=== PATIENT | female | born 1980 | race Caucasian/White ===

== ENCOUNTER 2021-01-26 14:59 | Outpatient (CLI) | payer OTHER, MEDICAID, SELFPAY ==
--- NOTE | ~2021-01-26 | US_ITS ---
EXAMINATION: US pelvic complete DATE: 01/26/2021 15:43 INDICATION: Follow-up ovarian cysts Comparison:No prior studies for comparison. TECHNIQUE: Multiple transabdominal and endovaginal sonographic images of the pelvis performed. 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 The right ovary is not visualized. The left ovary is unremarkable measuring 4.1 x 2 x 1.7 cm. No ovarian cyst is seen. Normal vascularity in the left ovary. IMPRESSION: 1. Unremarkable limited pelvic ultrasound. Normal left ovary. Right ovary not visualized due to gravi d uterus. Reviewed, dictated and finalized at location A. 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 Unremarkable limited pelvic ultrasound. Normal left ovary. Right ovary not v isualized due to gravid uterus.
== END 2021-01-26 15:00 | disposition home or self-care (01) ==
LOC: ANHIMG 15:02
PROVIDERS: PCP Physician Assistant
DX: O34.82 Maternal care for other abnormalities of pelvic organs, second trimester (principal); Z3A.17 17 weeks gestation of pregnancy; N83.209 Unspecified ovarian cyst, unspecified side
CPT/HCPCS: 76856

== ENCOUNTER 2021-05-07 09:40 | Observation (INO) | payer OTHER, SELFPAY ==
[2021-05-07] VITALS (13 sets, daily range): BP systolic 126–166; BP diastolic 60–96; PULSE 82–92; RESP 18–20; TEMP 36.1–36.6; BMI 37.8
--- NOTE | ~2021-05-07 | US_ITS ---
EXAMINATION: US_ABDRLQ_US DATE: 05/07/2021 15:37 INDICATION: Right lower quadrant abdominal pain. TECHNIQUE: Multiple grayscale and Doppler ultrasound images of the abdomen were obtained. COMPARISON: Ultrasound pelvis 05/07/2021, 01/26/2021 FINDINGS: The appendix is not identified. There is a 6.8 x 3.8 x 8.5 cm mixed solid and cystic mass i n the right adnexa with vascular flow. The cystic component measures 7.1 x 2.2 cm with low-level inte rnal echoes. IMPRESSION: 1. Appendix not identified. 2. Mixed solid and cystic mass in the right adnexa, most likely the right ovary with a hemorrhagic cy st. Pelvis ultrasound is recommended in 6-12 weeks. Reviewed, dictated and finalized at location E. IMPRESSION: 1. Appendix not identified. 2. Mixed solid and cystic mass in the right adnexa, most likely the right ovary with a hemorrhagic cyst. Pelvis ultrasound is recommended in 6-12 weeks.
--- NOTE | ~2021-05-07 | CT_ITS ---
EXAMINATION: CT abdomen pelvis wo con DATE: 05/07/2021 17:36 INDICATION: Right abdominal pain. TECHNIQUE: Computed tomography (CT) of the abdomen and pelvis was performed without intravenous contr ast. Automated exposure control and iterative reconstruction technique were employed. The dose-length product was 1303.24 mGy-cm. COMPARISON: Ultrasound 05/07/2021 FINDINGS: The visualized portions of the lung bases are clear without pneumonia or pleural effusion. The heart size is normal. No pericardial effusion. The liver is normal. There are changes of cholecys tectomy. The spleen, pancreas, and left adrenal gland are normal. There is a 2.3 cm mass in right adr enal gland measuring low-attenuation, consistent with an adenoma. The kidneys are normal. There are n o dilated loops of bowel. The appendix is normal. There is an intrauterine gestation in vertex presen tation. The placenta is anterior. The amniotic fluid volume is subjectively normal. There is a 4.4 cm subserosal fibroid anteriorly. There is a 7.7 x 4.4 cm mixed solid and cystic mass in right adnexa. There is no free intraperitoneal fluid. There are no pathologically enlarged lymph nodes. There is mi ld lumbar spondylosis and moderate thoracic spondylosis. IMPRESSION: 1. Normal appendix. 2. Mixed solid and cystic mass in the right adnexa, most likely the right ovary with a hemorrhagic cy st. Pelvis ultrasound is recommended in 6-12 weeks. Reviewed, dictated and finalized at location E. IMPRESSION: 1. Normal appendix. 2. Mixed solid and cystic mass in the right adnexa, most likely the right ovary with a hemorrhagic cyst. Pelvis ultrasound is recommended in 6-12 weeks.
--- NOTE | ~2021-05-07 | US_ITS ---
EXAMINATION: US OB limited DATE: 05/07/2021 13:40 INDICATION: Abdominal pain, placental assessment during third trimester TECHNIQUE: Real-time ultrasound of the pelvis was performed. The interpreting radiologist was not pre sent for the study. COMPARISON: None. FINDINGS: There is a single living fetus in vertex presentation. The placenta is anterior and normal in appearance. cardiac activity and movement are noted. heart rate is 175 beats per minute (bpm). The amniotic fluid index is subjectively normal. IMPRESSION: 1. Single living fetus in vertex presentation. 2. Normal appearing placenta. Reviewed, dictated and finalized at location A.
[2021-05-07] MEDS: NIFEdipine 30 MG TAB.ER.24 PO (11:05)
[2021-05-07] MEDS: ONDANSETRON INJ 4 MG/2 ML VIAL IV PUSH ×2 (11:05→18:47)
[2021-05-07] MEDS: SODIUM CHLORIDE 0.9% IV 1,000 ML 999 ML IV CONT (11:21)
[2021-05-07 11:24] LABS: Basophils Percent Auto 0.3 % (0.2-1.2); Eosinophils Percent Auto 0.5 % (0-4.4); Hematocrit 38.8 % (37.0-47.0); Hemoglobin 13.3 g/dL (12.0-15.0); Immature Granulocyte Absolute 0.06 K/mm3 (0.00-0.031); Immature Granulocyte Percent A 0.7 % (0-0.5); Lymphocytes Absolute Auto 0.72 K/mm3 (0.9-3.2); Lymphocytes Percent Auto 8.2 % (18.3-44.2); Mean Corpuscular HGB Conc 34.3 g/dl (32-36); Mean Corpuscular Volume 87.4 fl (80-100); Mean Platelet Volume 11.6 fl (7.4-10.4); Monocytes Absolute Auto 0.5 K/mm3 (0.1-0.6); Monocytes Percent Auto 5.6 % (2.6-8.5); Neutrophils Absolute Auto 7.5 K/mm3 (1.3-6.7); Neutrophils Percent Auto 84.7 % (45.5-73.1); Platelet Count Result 197 k/mm3 (150-375); Red Blood Count 4.44 M/mm3 (4.2-5.4); Red Cell Distribution Width 13.1 % (11.5-14.5); White Blood Count 8.8 K/mm3 (4.5-10.0)
[2021-05-07 11:41] LABS: Alanine Aminotransferase 17 U/L (4-35); Alkaline Phosphatase 59 U/L (38-126); Anion Gap 8 mmol/L (8-16); Aspartate Amino Transferase 24 U/L (14-36); Bilirubin,Total 0.4 mg/dL (0.2-1.3); Blood Urea Nitrogen 10 mg/dL (7-17); Carbon Dioxide 22 mmol/L (22-30); Chloride 106 mmol/L (98-107); Estimated Glomerular Filt Rate > 60; Glucose 93 mg/dL (65-110); Potassium 3.8 mmol/L (3.4-5.0); Sodium 136 mmol/L (137-145); Uric Acid 4.5 mg/dL (2.5-7.5)
[2021-05-07 11:47] LABS: Add Urine Microscopic? YES; Amorphous Sediment Urine Few; Appearance Urine Turbid (Clear); Bacteria Urine 1+ /hpf; Bilirubin Urine Negative (Negative); Blood Urine Negative (Negative); Color Urine Amber (Yellow); Glucose Urine UA Negative (Negative); Ketones Urine Negative (Negative); Leukocyte Esterase Ur Negative LEU/UL (Negative); Mucus Urine Rare /lpf; Nitrate Urine Negative (Negative); Protein Urine Negative (Negative); RBC Urine 0-2 /hpf (0-2); Specific Grav Ur 1.017 (1.001-1.035); Squamous Epithelial Cell Urine Moderate /hpf (Few); Urobilinogen Urine Negative mg/dL (<2.0); WBC Urine 16-20 /hpf
[2021-05-07] MEDS: CYCLOBENZAPRINE HCL 10 MG TABLET PO (12:01)
--- NOTE | 2021-05-07 12:22 | OBADM ---
This patient, Kalyn Edouard, admitted to the OB room OB Post 116 for observation. Patient/family oriented to hospital policies and general routines including ID bracelet, bed and alarms, visiting hours, pain management, procedures, bathroom and other care routines, personal items, smoking policy, room service/diet, and visiting hours. Patient/Family are encouraged to report perceived risks to care and to ask questions if they do not understand what they are told or what they should do.
[2021-05-07] MEDS: DEXTROSE 5%/LACTATED RINGERS 1,000 ML 100 ML IV CONT (13:10)
--- NOTE | 2021-05-07 13:18 | PC.NURSE ---
1020- called,informed pt came in stating she has had right sided abdominal pain that radiates around to her back since 0800 today. Pt has had n/v since 0900. Pt states she did not take her procardia this am, bp's are elevated. Order received for [facility] labs, UA, zofran,LR bolus.
--- NOTE | 2021-05-07 13:53 | PM.IMHP ---
H&P: HPI History of Present Illness Date/Time: 05/07/21 13:53 She presented to [facility] with complaints of right sided lower abdominal and lower back pain. She woke up this am to go restroom and then noticed the pain. She started feeling nauseated and she had emesis this morning after she got up. She denies scotomata or RUQ pain and she denies fever chills no diarrhea. She denies dysuria. No history of kidney stones. PNC significant for chronic hypertension, pregestational diabetes. Blood pressures initially elevated when she arrived on L and D. She had not taken her antihypertensive this morning due to nausea. She denies spotting. She has not tried any tylenol for pain. No regular contractions seen on toco. tracing reassuring. Chief Complaint: abdominal pain Review of Systems Review of Systems: All systems reviewed & are unremarkable except as noted in HPI and below Constitutional: Constitutional: Reports no additional constitutional complaints and Denies headache(s) Eyes: Eyes: Denies spots in vision ENT: Reports system reviewed and no additional complaints, except as documented and Denies headache(s) Cardiovascular: Cardiovascular: Denies chest pain and Denies dyspnea Respiratory: Respiratory: Denies dyspnea Gastrointestinal: Gastrointestinal: Reports no additional gastrointestinal complaints Genitourinary: Genitourinary: Reports amenorrhea Musculoskeletal: Musculoskeletal: Reports no additional musculoskeletal complaints Integumentary/Breasts: Skin/Breast: Denies breast mass and Denies rash Neurologic: Denies headache(s) Psychiatric: Psychiatric: Reports no additional psychiatric complaints [facility] Past Medical History Medical History Anxiety Bladder prolapse Diabetes mellitus Hypertension Surgical History Surgical History History of carpal tunnel surgery 2002? bilateral History of cholecystectomy [place] teeth extracted Family History Family History Grandparent Cerebrovascular accident Heart problem Grandparent Diabetes mellitus Social History Social History Smoking status: Never smoker Alcohol intake: never Substance use: never Meds Home Medications and Allergies Home Medications Medication Instructions Recorded Confirmed Type docosahexaenoic acid 200 mg capsule 200 mg PO ONCE 11/19/20 05/07/21 History omega-3 fatty acids 1,000 mg 1,000 mg PO BID 11/19/20 05/07/21 History capsule aspirin 81 mg chewable tablet 81 mg PO BID tablet 12/15/20 05/07/21 History calcium carbonate 600 mg-vitamin 1 cap PO .qd #90 cap 02/17/21 05/07/21 Rx D3 5 mcg (200 unit) capsule insulin lispro 100 unit/mL 20 unit SUBCUT USEASDIRECTD ml 03/09/21 05/07/21 History subcutaneous pen nifedipine 30 mg tablet,extended See Rx Instructions .ROUTE 04/26/21 05/07/21 Rx release .COMPLEX #90 tablet buspirone 15 mg tablet 15 mg PO BID #60 tablet 05/02/21 05/07/21 Rx Allergies Allergy/AdvReac Type Severity Reaction Status Date / Time No Known Allergies Allergy Verified 05/02/21 10:06 Vital Signs Vital Signs - 24 hr 05/07/21 10:10 05/07/21 10:16 05/07/21 10:31 Temperature Pulse Rate 83 89 85 Blood Pressure 157/85 H 166/94 H 163/96 H 05/07/21 11:01 05/07/21 11:02 05/07/21 11:59 Temperature 97 F L 97.0 F L Pulse Rate 82 Blood Pressure 126/96 H 05/07/21 13:13 Temperature Pulse Rate 88 Blood Pressure 142/75 H Exam Const: General: no acute distress Eyes: General: appearance normal, both eyes and all related structures Resp: Effort & Inspection: normal respiratory effort Cardio: Rate: regular rate GI: Other: Gravid no fundal tenderness no right upper quadrant pain groin tenderness to palpation No CVA tenderness no midepig
--- NOTE | 2021-05-07 15:06 | PC.NURSE ---
1505- called,informed pt is stating her pain is a little better pt originally rated her pain 8/10 and now just says she cant give a number but is still in pain. Pt attempted to eat tierney crackers and drink apple juice but became more nauseous. US report read and UA. Will call back with further orders.
--- NOTE | 2021-05-07 15:18 | P.PNOB_ITS ---
OB - PN: Subj Subjective Date/time seen: 05/07/21 15:18 Patient received Flexiril and IV tylenol and said pain helped a little. She still has nausea. UA not significant for stones. Ultrasound findings normal. Will ask radiology if were able to assess appendix, if not then will get ultrasound to assess appendix if possible and if cannot assess appendix by ultrasound then will order MRI. Will give trial of [place]. OB - PN: Obj Data Labs CBC & Chem 7: 05/07/21 10:42 05/07/21 10:42 Labs: Laboratory Results - last 24 hr 05/07/21 05/07/21 05/07/21 10:42 10:42 10:42 WBC 8.8 RBC 4.44 Hgb 13.3 Hct 38.8 MCV 87.4 MCH 30.0 MCHC 34.3 RDW 13.1 Plt Count 197 MPV 11.6 H Immature Gran % (Auto) 0.7 H Neut % (Auto) 84.7 H Lymph % (Auto) 8.2 L [place] % (Auto) 5.6 Eos % (Auto) 0.5 Baso % (Auto) 0.3 Lymph # (Auto) 0.72 L [place] # (Auto) 0.5 Eos # (Auto) 0.0 Baso # (Auto) 0.0 Abs Immat Gran (auto) 0.06 H Absolute Neuts (auto) 7.5 H Absolute Nucleated RBC 0.0 Nucleated RBC % 0.0 Sodium 136 L Potassium 3.8 Chloride 106 Carbon Dioxide 22 Anion Gap 8 BUN 10 Creatinine 0.40 L Estim Creat Clear Calc Not Reportable Estimated GFR > 60 Glucose 93 Uric Acid 4.5 Calcium 9.0 Total Bilirubin 0.4 AST 24 ALT 17 Alkaline Phosphatase 59 Total Protein 7.0 Albumin 4.0 Urine Color Yvette Urine Appearance Turbid H Urine pH 7.0 Ur Specific [place] 1.017 Urine Protein Negative Urine Glucose (UA) Negative Urine Ketones Negative Ur Blood (Man) Negative Urine Nitrate Negative Urine Bilirubin Negative Urine Urobilinogen Negative Leukocyte Esterase Rfl Negative Urine RBC 0-2 Urine WBC 16-20 H Ur Squamous Epith Cells Moderate H Amorphous Sediment Few H Urine Bacteria 1+ H Urine Mucus Rare Imaging Radiologist's impression: Impressions Obstetrics Ultrasound 05/07/21 14:06 IMPRESSION: 1. Single living fetus in vertex presentation. 2. Normal appearing placenta. OB - PN A/P Time Spent With Patient Time: Total time spent is greater than 50% in coordination of care (as documented) at patient's floor/unit and/or counseling patient:
[2021-05-07] MEDS: HYDROcodone/acetaminophen (*CRX) 5-325 MG TABLET 1 TAB PO ×2 (15:42→17:01)
--- NOTE | 2021-05-07 16:08 | PC.NURSE ---
0741- called,read US report of right lower quadrant of the abdomen. Informed pt states the pain feels like when she had an ovarian cyst rupture before. POC now is pain management with hydrocodone.
--- NOTE | 2021-05-07 16:38 | PC.NURSE ---
1638- called,informed pt is tearful and stating her pain is not any better. Order for MRI of appendix obtained and another 5mg dose of hydrocodone.
--- NOTE | 2021-05-07 17:09 | PC.NURSE ---
ordered CT of the abdomen d/t MRI no available after 1530.
--- NOTE | 2021-05-07 17:24 | PC.NURSE ---
1722-Pt transported to CT per wheelchair. Pt and SO were both explained that has ordered a CT to r/o appendicitis. They both had questions about the safety of the CT for baby, explained that spoke to the radiologist and they believe the benefits outway the risk. Offered to call and transfer call into the room so they could ask questions, pt stated she just wanted to get the CT now.
[2021-05-07] MEDS: HYDROcodone/acetaminophen (*CRX) 10-325 MG TABLET 1 TAB PO (20:52)
[2021-05-08] MEDS: HYDROcodone/acetaminophen (*CRX) 10-325 MG TABLET 1 TAB PO ×3 (00:56→10:26)
[2021-05-08 04:30] VITALS: RESP 18; TEMP 36.3
[2021-05-08 04:56] VITALS: BP 135/64; PULSE 75
[2021-05-08 04:58] LABS: Glucose Point of Care 101 mg/dl (65-105)
[2021-05-08 07:58] LABS: Glucose Point of Care 96 mg/dl (65-105)
[2021-05-08 09:05] VITALS: BP 135/65; PULSE 78; TEMP 37.2
[2021-05-08] MEDS: busPIRone HCL 10 MG, busPIRone HCL 5 MG 15 MG PO (09:05)
[2021-05-08] MEDS: DOCUSATE SODIUM 100 MG CAPSULE PO (09:05)
--- NOTE | 2021-05-08 09:19 | PM.OBPNVD ---
OB - PN: Subj Subjective Date/time seen: 05/08/21 09:19 She states pain is better. She did tolerate some bites of an apple throughout the night. She does have an appetite this am. Mild nausea but improved. No recent emesis. The pain is better with the medication. Her blood sugars are being monitored. No BM, last BM . OB - PN: Obj Data Labs CBC & Chem 7: 05/07/21 10:42 05/07/21 10:42 Labs: Laboratory Results - last 24 hr 05/07/21 05/07/21 05/07/21 10:42 10:42 10:42 WBC 8.8 RBC 4.44 Hgb 13.3 Hct 38.8 MCV 87.4 MCH 30.0 MCHC 34.3 RDW 13.1 Plt Count 197 MPV 11.6 H Immature Gran % (Auto) 0.7 H Neut % (Auto) 84.7 H Lymph % (Auto) 8.2 L [place] % (Auto) 5.6 Eos % (Auto) 0.5 Baso % (Auto) 0.3 Lymph # (Auto) 0.72 L [place] # (Auto) 0.5 Eos # (Auto) 0.0 Baso # (Auto) 0.0 Abs Immat Gran (auto) 0.06 H Absolute Neuts (auto) 7.5 H Absolute Nucleated RBC 0.0 Nucleated RBC % 0.0 Sodium 136 L Potassium 3.8 Chloride 106 Carbon Dioxide 22 Anion Gap 8 BUN 10 Creatinine 0.40 L Estim Creat Clear Calc Not Reportable Estimated GFR > 60 Glucose 93 POC Capillary Glucose Uric Acid 4.5 Calcium 9.0 Total Bilirubin 0.4 AST 24 ALT 17 Alkaline Phosphatase 59 Total Protein 7.0 Albumin 4.0 Urine Color Yvette Urine Appearance Turbid H Urine pH 7.0 Ur Specific [place] 1.017 Urine Protein Negative Urine Glucose (UA) Negative Urine Ketones Negative Ur Blood (Man) Negative Urine Nitrate Negative Urine Bilirubin Negative Urine Urobilinogen Negative Leukocyte Esterase Rfl Negative Urine RBC 0-2 Urine WBC 16-20 H Ur Squamous Epith Cells Moderate H Amorphous Sediment Few H Urine Bacteria 1+ H Urine Mucus Rare 05/08/21 05/08/21 04:54 07:55 WBC RBC Hgb Hct MCV MCH MCHC RDW Plt Count MPV Immature Gran % (Auto) Neut % (Auto) Lymph % (Auto) [place] % (Auto) Eos % (Auto) Baso % (Auto) Lymph # (Auto) [place] # (Auto) Eos # (Auto) Baso # (Auto) Abs Immat Gran (auto) Absolute Neuts (auto) Absolute Nucleated RBC Nucleated RBC % Sodium Potassium Chloride Carbon Dioxide Anion Gap BUN Creatinine Estim Creat Clear Calc Estimated GFR Glucose POC Capillary Glucose 101 96 Uric Acid Calcium Total Bilirubin AST ALT Alkaline Phosphatase Total Protein Albumin Urine Color Urine Appearance Urine pH Ur Specific [place] Urine Protein Urine Glucose (UA) Urine Ketones Ur Blood (Man) Urine Nitrate Urine Bilirubin Urine Urobilinogen Leukocyte Esterase Rfl Urine RBC Urine WBC Ur Squamous Epith Cells Amorphous Sediment Urine Bacteria Urine Mucus Imaging Radiologist's impression: Impressions Obstetrics Ultrasound 05/07/21 14:06 IMPRESSION: 1. Single living fetus in vertex presentation. 2. Normal appearing placenta. Abdomen Ultrasound 05/07/21 15:45 IMPRESSION: 1. Appendix not identified. 2. Mixed solid and cystic mass in the right adnexa, most likely the right ovary with a hemorrhagic cyst. Pelvis ultrasound is recommended in 6-12 weeks. Abdomen/Pelvis CT 05/07/21 17:37 IMPRESSION: 1. Normal appendix. 2. Mixed solid and cystic mass in the right adnexa, most likely the right ovary with a hemorrhagic cyst. Pelvis ultrasound is recommended in 6-12 weeks. OB - PN A/P Assessment and Plan (1) Abdominal pain affecting : Code(s): O26.899 - Other specified related conditions, unspecified trimester; R10.9 - Unspecified abdominal pain Status: Acute Assessment and Plan: Improved. Explained to her that yesterday since her pain was not being significantly improved with the narco and emesis and since MRI was not available that she needed th
--- NOTE | 2021-05-08 09:34 | PC.NURSE ---
Pt ordered eggs, sausage and hashbrowns for breakfast. She was only able to eat a little bit and stated she couldn't eat the rest of it. Stated she is not nauseous but just can't eat it. Instructed she needed to eat something. She normally has a shake in the morning, her significant other will get her a shake and she will eat her apple with peanut butter.
[2021-05-08] MEDS: polyethylene glycoL 3350 17 GM POWD.PACK PO (09:44)
[2021-05-08 10:01] LABS: Add Urine Microscopic? NO; Appearance Urine Clear (Clear); Bilirubin Urine Negative (Negative); Blood Urine Negative (Negative); Color Urine Yellow (Yellow); Glucose Urine UA Negative (Negative); Ketones Urine Negative (Negative); Leukocyte Esterase Ur Negative LEU/UL (NEGATIVE); Nitrate Urine Negative (Negative); Protein Urine Negative (Negative); Specific Grav Ur 1.012 (1.001-1.035); Urobilinogen Urine Negative mg/dL (<2.0)
[2021-05-08 11:53] LABS: Glucose Point of Care 128 mg/dl (65-105)
--- NOTE | 2021-05-08 13:30 | PC.NURSE ---
Ambulating in the [place] with S.O.
[2021-05-08] MEDS: INSULIN ASPART (*BKC) 100 UNITS/ML SUB-Q (14:06)
[2021-05-08] MEDS: HYDROcodone/acetaminophen (*CRX) 5-325 MG TABLET 1 TAB PO (15:19)
[2021-05-08 15:25] VITALS: BP 134/71; PULSE 87
[2021-05-08 15:29] LABS: Glucose Point of Care 98 mg/dl (65-105)
== END 2021-05-08 16:35 | disposition home or self-care (01) ==
PROVIDERS: Admitting Provider Obstetrics & Gynecology; PCP Physician Assistant; Visit Provider Obstetrics & Gynecology
DX: O26.893 Other specified pregnancy related conditions, third trimester (principal); R10.31 Right lower quadrant pain; O34.83 Maternal care for other abnormalities of pelvic organs, third trimester; N83.201 Unspecified ovarian cyst, right side; O21.9 Vomiting of pregnancy, unspecified; O24.313 Unspecified pre-existing diabetes mellitus in pregnancy, third trimester; E11.9 Type 2 diabetes mellitus without complications; O10.913 Unspecified pre-existing hypertension complicating pregnancy, third trimester; O99.343 Other mental disorders complicating pregnancy, third trimester; F41.9 Anxiety disorder, unspecified; Z3A.33 33 weeks gestation of pregnancy; Z79.4 Long term (current) use of insulin
CPT/HCPCS: 36415; 74176; 76705; 76815; 80053; 81001; 81003; 82948; 84550; 85025; 87086; 87088; 96365; 96366; 96375; A9270; G0378; G0379; J0131; J1815; J2405; J7030; J7121

== ENCOUNTER 2021-05-26 13:23 | Outpatient (CLI) | payer OTHER, SELFPAY ==
[2021-05-26 13:48] VITALS: BP 129/74; PULSE 90
[2021-05-26 14:00] VITALS: BP 132/79; PULSE 92
[2021-05-26 14:08] LABS: Basophils Percent Auto 0.4 % (0.2-1.2); Eosinophils Absolute Auto 0.1 K/mm3 (0-0.3); Eosinophils Percent Auto 0.9 % (0-4.4); Hematocrit 34.6 % (37.0-47.0); Hemoglobin 11.6 g/dL (12.0-15.0); Immature Granulocyte Absolute 0.05 K/mm3 (0.00-0.031); Immature Granulocyte Percent A 0.5 % (0-0.5); Lymphocytes Absolute Auto 1.25 K/mm3 (0.9-3.2); Lymphocytes Percent Auto 13.1 % (18.3-44.2); Mean Corpuscular HGB Conc 33.5 g/dl (32-36); Mean Corpuscular Hemoglobin 29.6 pg (26-34); Mean Corpuscular Volume 88.3 fl (80-100); Mean Platelet Volume 10.7 fl (7.4-10.4); Monocytes Absolute Auto 0.8 K/mm3 (0.1-0.6); Monocytes Percent Auto 8.5 % (2.6-8.5); Neutrophils Absolute Auto 7.3 K/mm3 (1.3-6.7); Neutrophils Percent Auto 76.6 % (45.5-73.1); Platelet Count Result 250 k/mm3 (150-375); Red Blood Count 3.92 M/mm3 (4.2-5.4); Red Cell Distribution Width 13.5 % (11.5-14.5); White Blood Count 9.6 K/mm3 (4.5-10.0)
[2021-05-26 14:11] LABS: Appearance Urine Clear (Clear); Bilirubin Urine Negative (Negative); Blood Urine Negative (Negative); Color Urine Yellow (Yellow); Glucose Urine UA Negative (Negative); Ketones Urine Negative (Negative); Leukocyte Esterase Ur Negative LEU/UL (NEGATIVE); Nitrate Urine Negative (Negative); Protein Urine Negative (Negative); Specific Grav Ur 1.025 (1.001-1.035); Urobilinogen Urine 0.2 mg/dL (<2.0)
[2021-05-26 14:17] VITALS: BP 129/74
[2021-05-26 14:17] LABS: Add Urine Microscopic? NO
[2021-05-26 14:19] VITALS: BP 129/74
[2021-05-26 14:19] LABS: Alanine Aminotransferase 37 U/L (4-35); Albumin Level 3.5 g/dL (3.5-5.1); Alkaline Phosphatase 71 U/L (38-126); Anion Gap 6 mmol/L (8-16); Aspartate Amino Transferase 26 U/L (14-36); Bilirubin,Total 0.2 mg/dL (0.2-1.3); Blood Urea Nitrogen 12 mg/dL (7-17); Calcium 8.7 mg/dL (8.4-10.2); Carbon Dioxide 20 mmol/L (22-30); Chloride 106 mmol/L (98-107); Estimated Glomerular Filt Rate > 60; Glucose 72 mg/dL (65-110); Potassium 3.9 mmol/L (3.4-5.0); Sodium 132 mmol/L (137-145); Uric Acid 4.1 mg/dL (2.5-7.5)
--- NOTE | 2021-05-26 14:20 | PC.NURSE ---
1323-Pt sent over from 's office for an elevated bp. [facility] labs ordered.
[2021-05-26 18:10] LABS: Total Protein Urine Random < 5 mg/dL; Ur Ttl Prot Creatinine Ratio < 0.05 mg/mg (0-0.20)
== END 2021-05-26 15:45 | disposition home or self-care (01) ==
LOC: ANHOBOP 13:27
PROVIDERS: PCP Physician Assistant; Visit Provider Obstetrics & Gynecology
DX: O13.3 Gestational [pregnancy-induced] hypertension without significant proteinuria, third trimester (principal); Z3A.36 36 weeks gestation of pregnancy
CPT/HCPCS: 36415; 59025; 80053; 81003; 82570; 84156; 84550; 85025; 87086; 87088

== ENCOUNTER 2021-05-29 16:15 | Outpatient (RCR) | payer OTHER, SELFPAY ==
[2021-04-01 09:15] VITALS: BP 123/68; PULSE 81
[2021-04-14 23:48] VITALS: BP 143/77; PULSE 80
--- NOTE | 2021-04-14 23:51 | PC.NURSE ---
Dr Loyd notified of decreased movement, marking good movement noted and feels reassured. Ok to DC home.
[2021-05-01 15:49] VITALS: BP 131/73; PULSE 93
[2021-05-15 16:48] VITALS: BP 133/71; PULSE 83
[2021-05-21 10:11] VITALS: BP 130/74; PULSE 88
[2021-05-29 16:51] VITALS: BP 122/73; PULSE 99
[2021-06-05 15:29] VITALS: BP 135/86; PULSE 103
== END 2021-06-13 08:10 | disposition home or self-care (01) ==
LOC: ANHOBOP 16:15
PROVIDERS: PCP Physician Assistant; Visit Provider Obstetrics & Gynecology
DX: O36.8130 Decreased fetal movements, third trimester, not applicable or unspecified (principal); Z3A.28 28 weeks gestation of pregnancy; Z3A.30 30 weeks gestation of pregnancy; Z3A.32 32 weeks gestation of pregnancy; E11.9 Type 2 diabetes mellitus without complications; Z3A.34 34 weeks gestation of pregnancy; O16.3 Unspecified maternal hypertension, third trimester; Z3A.35 35 weeks gestation of pregnancy; Z3A.36 36 weeks gestation of pregnancy; Z3A.37 37 weeks gestation of pregnancy
CPT/HCPCS: 59025

== ENCOUNTER 2021-06-08 10:00 | Outpatient (CLI) | payer OTHER, SELFPAY ==
[2021-06-08] VITALS (7 sets, daily range): BP systolic 133–142; BP diastolic 77–81; PULSE 81–89; BMI 37.4
[2021-06-08 12:03] LABS: Basophils Percent Auto 0.4 % (0.2-1.2); Eosinophils Absolute Auto 0.1 K/mm3 (0-0.3); Eosinophils Percent Auto 0.9 % (0-4.4); Hematocrit 34.2 % (37.0-47.0); Hemoglobin 11.2 g/dL (12.0-15.0); Immature Granulocyte Absolute 0.05 K/mm3 (0.00-0.031); Immature Granulocyte Percent A 0.6 % (0-0.5); Lymphocytes Percent Auto 12.7 % (18.3-44.2); Mean Corpuscular HGB Conc 32.7 g/dl (32-36); Mean Corpuscular Hemoglobin 29.3 pg (26-34); Mean Corpuscular Volume 89.5 fl (80-100); Mean Platelet Volume 11.3 fl (7.4-10.4); Monocytes Absolute Auto 0.7 K/mm3 (0.1-0.6); Monocytes Percent Auto 9.3 % (2.6-8.5); Neutrophils Percent Auto 76.1 % (45.5-73.1); Platelet Count Result 187 k/mm3 (150-375); Red Blood Count 3.82 M/mm3 (4.2-5.4); Red Cell Distribution Width 14.4 % (11.5-14.5); White Blood Count 7.9 K/mm3 (4.5-10.0)
[2021-06-08 12:07] LABS: Appearance Urine Clear (Clear); Bilirubin Urine Negative (Negative); Color Urine Yellow (Yellow); Glucose Urine UA Negative (Negative); Ketones Urine Trace mg/dL (Negative); Leukocyte Esterase Ur Negative LEU/UL (Negative); Nitrate Urine Negative (Negative); Protein Urine Negative (Negative); Specific Grav Ur 1.025 (1.001-1.035); Urobilinogen Urine 0.2 mg/dL (<2.0)
[2021-06-08 12:10] LABS: Add Urine Microscopic? YES; Blood Urine Trace-Intact (Negative)
[2021-06-08 12:12] LABS: Alanine Aminotransferase 21 U/L (4-35); Albumin Level 3.1 g/dL (3.5-5.1); Alkaline Phosphatase 72 U/L (38-126); Anion Gap 4 mmol/L (8-16); Aspartate Amino Transferase 18 U/L (14-36); Bilirubin,Total 0.3 mg/dL (0.2-1.3); Blood Urea Nitrogen 11 mg/dL (7-17); Calcium 8.7 mg/dL (8.4-10.2); Carbon Dioxide 22 mmol/L (22-30); Chloride 106 mmol/L (98-107); Estimated Glomerular Filt Rate > 60; Glucose 98 mg/dL (65-110); Potassium 3.9 mmol/L (3.4-5.0); Sodium 132 mmol/L (137-145); Uric Acid 4.2 mg/dL (2.5-7.5)
[2021-06-08 12:16] LABS: Bacteria Urine Trace /hpf; Mucus Urine Rare /lpf; Squamous Epithelial Cell Urine Few /hpf (Few); WBC Urine 0-3 /hpf
[2021-06-08 12:34] LABS: Creatinine Urine 104.8 mg/dL; Total Protein Urine Random 7 mg/dL; Ur Ttl Prot Creatinine Ratio 0.07 mg/mg (0-0.20)
--- NOTE | 2021-06-08 12:35 | PC.NURSE ---
Dr. Ochoa down to see pt. SVE performed by . Still waiting for total protein/creatinine ratio. has seen the other labs.
--- NOTE | 2021-06-08 13:20 | PC.NURSE ---
Dr. Ochoa returned page and informed of Total protein/ creatinine ratio results. OK to discharge pt to home. To complete 24 hr urine and return to OB unit. Pt is scheduled for NST and JEFE on Sunday and induction of labor on Sunday evening.
[2021-06-09 12:17] VITALS: BMI 37.4
[2021-06-09 13:32] LABS: Collection Time Urine 24 HOURS
[2021-06-09 13:40] LABS: Total Protein Urine Random 11 mg/dL
[2021-06-09 13:41] LABS: Creatinine Urine 62.6 mg/dL; Patient Weight 224 Lbs
[2021-06-09 15:08] LABS: Total Protein Urine 24 Hr 330 mg/24hr (28-141); Total Volume 24 Hour Urine 3000 ml
[2021-06-09 15:13] LABS: Specific Gravity Ur 1.015
[2021-06-09 15:14] LABS: Creatinine Clearance Urine 181.8 ml/min (75-125); Total Volume 24 Hour Urine 3000 ml
== END 2021-06-08 13:41 | disposition home or self-care (01) ==
LOC: ANHOBOP 10:09 → ANHOBPP 10:13
PROVIDERS: PCP Physician Assistant; Visit Provider Obstetrics & Gynecology
DX: O13.3 Gestational [pregnancy-induced] hypertension without significant proteinuria, third trimester (principal); Z3A.38 38 weeks gestation of pregnancy
CPT/HCPCS: 36415; 59025; 80053; 81001; 81050; 82570; 82575; 84156; 84550; 85025; 99199

== ENCOUNTER 2021-06-10 16:07 | Inpatient (IN) | payer OTHER, SELFPAY ==
[2021-06-10] VITALS (8 sets, daily range): BP systolic 134–157; BP diastolic 80–95; PULSE 88–113; TEMP 36.4–36.8; BMI 37.5
--- NOTE | ~2021-06-10 | XR_ITS ---
EXAM: XR abdomen/kub 1V HISTORY: Post Op day 2, NAUSEA AND VOMITING COMPARISON: None available FINDINGS: Clear lung bases. Multiple loops of dilated small bowel. No large bowel dilation or rectal gas. No organomegaly. Cholecystectomy clips. No abnormal abdominal calcification. Regional bones and soft tissues normal for age. IMPRESSION: Small bowel ileus versus distal small bowel obstruction, recommend continued radiographic follow-up. Reviewed, dictated and finalized at location K. IMPRESSION: Small bowel ileus versus distal small bowel obstruction, recommend continued ra diographic follow-up.
--- NOTE | ~2021-06-10 | XR_ITS ---
EXAMINATION: XR abdomen/kub 1V INDICATION: Ileus TECHNIQUE: Supine views of the abdomen were obtained on 2 radiographs. COMPARISON: 06/14/2021 FINDINGS: There are persistently dilated loops of small bowel which demonstrate interval improvement. Gas is seen in the distal colon. The lung bases are clear. Surgical clips in the right upper quadran t are likely from prior cholecystectomy. No free intraperitoneal gas is identified. IMPRESSION: 1. Persistent but decreased small bowel dilatation, likely ileus. Reviewed, dictated and finalized at location A.
--- NOTE | ~2021-06-10 | XR_ITS ---
EXAMINATION: XR abdomen/kub 1V INDICATION: Ileus TECHNIQUE: Supine views of the abdomen were obtained on 2 radiographs. COMPARISON: 06/15/2021 FINDINGS: Overall small bowel dilatation has improved. There are persistently dilated small bowel loo ps of the right abdomen. No free intraperitoneal gas is identified. The bowel gas pattern is normal. IMPRESSION: 1. Improving ileus. Reviewed, dictated and finalized at location A. IMPRESSION: 1. Improving ileus.
--- OUTSIDE RECORDS SUMMARY | 2021-06-10 16:14 | XMS_ITS ---
:1980 Author Care Team Providers Name Role Phone TANIA RAZO PA-C Primary Care Provider Unavailable Allergies Code Code System Name Reaction Severity Status Onset NKDA ? Notes: NDKA 01/03/17 BK Medications Name Status Start Date Stop Date ? ? alcohol swabs Active ? Not available Apply 1 pad every day by topical route for 30 days. amoxicillin 500 mg-potassium Completed ? 10/2016 clavulanate 125 mg tablet aspirin 81mg chewable tablets Active ? No t available aspirin low 81mg chw Active ? Not availab le CHEW AND SWALLOW 2 TABLETS BY MOUTH AT BEDTIME FOR PREECLAMPSIA RISK azithromycin 250 mg tablet Completed ? 06/12 Baqsimi 3 mg/actuation nasal spray Active ? Not available buspirone 10 mg tablet Active ? Not avail able TAKE 1 TABLET BY MOUTH TWICE DAILY AFTER A MEAL Calcium + Vitamin D Active ? Not availabl e calcium carbonate 600 mg-vitamin D3 5 mcg (200 unit) tablet Acti ve ? Not available TAKE 1 TABLET BY MOUTH ONCE DAILY cefuroxime axetil 500 mg tablet Completed ? 09/13/2016 ciprofloxacin 500 mg tablet Completed ? 10/2016 Classic 28 mg iron-800 mcg tablet Active ? Not available TAKE 1 TABLET BY MOUTH ONCE DAILY WITH MEALS cyclobenzaprine 10 mg tablet Active ? Not available TAKE 1 TABLET BY MOUTH NEEDED AT BEDTIME FOR 30 DAYS diclofenac 1 % topical gel Completed ? 01/19 APPLY 2 GRAM TO THE AFFECTED AREA(S) BY TOPICAL ROUTE 4 TIMES P ER DAY famotidine 20 mg ta
--- OUTSIDE RECORDS SUMMARY | 2021-06-10 16:14 | XMS_ITS ---
:1980 Author Care Team Providers Name Role Phone Hopper Primary Care Provider Unavailable Allergies Code Code System Name Reaction Severity Status Onset NKDA ? Medications Name Status Start Date Stop Date ? ? acetaminophen 300 mg-codeine 30 mg Completed ? 02/22/2016 tablet amoxicillin 500 mg-potassium Completed ? clavulanate 125 mg tablet buspirone 10 mg tablet Active ? Not avail able calcium Active ? Not available cefuroxime axetil 500 mg tablet Completed ? 02/04/2020 cephalexin 500 mg capsule Completed ? 2015 ciprofloxacin 500 mg tablet Completed ? 01/07 Classic 28 mg iron-800 mcg tablet Completed ? 02/04/2020 TAKE 1 TABLET BY MOUTH ONCE DAILY cyclobenzaprine 10 mg tablet Active ? Not available Fish Oil 1,000 mg (120 mg-180 mg) capsule Active ? Not available Take by oral route. hydrocodone 5 mg-acetaminophen 325 mg Completed ? 02/04/2020 tablet hydroxyzine pamoate 25 mg capsule Completed ? 02/04/2020 ibuprofen 600 mg tablet Completed ? 02/04/20 Kenalog 10 mg/mL suspension for injection Active ? Not available In office injection administered by the provider lidocaine (PF) 10 mg/mL (1 %) injection solution Active ? Not available In office injection administered by the provider lisinopril 20 mg tablet Completed ? 02/04/20 20 TAKE 1 TABLET BY MOUTH ONCE DAILY DIRECTED FOR 30 DAYS lisinopril 20 mg-hydrochlorothiazide A
--- OUTSIDE RECORDS SUMMARY | 2021-06-10 16:14 | XMS_ITS ---
:1980 Author Care Team Providers Name Role Phone Hopper Primary Care Provider Unavailable Allergies Code Code System Name Reaction Severity Status Onset NKDA ? Medications Name Status Start Date Stop Date ? ? acetaminophen 300 mg-codeine 30 mg tablet Active ? Not available amoxicillin 500 mg-potassium clavulanate Active ? Not available 125 mg tablet buspirone Active ? Not available buspirone 10 mg tablet Active ? Not avail able cefuroxime axetil 500 mg tablet Active ? Not available cephalexin 500 mg capsule Active ? Not av ailable ciprofloxacin 500 mg tablet Active ? Not available Classic 28 mg iron-800 mcg tablet Active ? Not available TAKE 1 TABLET BY MOUTH ONCE DAILY cyclobenzaprine 10 mg tablet Active ? Not available hydrocodone 5 mg-acetaminophen 325 mg Active ? Not available tablet hydroxyzine pamoate 25 mg capsule Active ? Not available ibuprofen 600 mg tablet Active ? Not avai lable lisinopril Active ? Not available lisinopril 20 mg tablet Active ? Not avai lable TAKE 1 TABLET BY MOUTH ONCE DAILY DIRECTED FOR 30 DAYS lisinopril 20 mg-hydrochlorothiazide 12.5 Active ? Not available mg tablet oxybutynin chloride 5 mg tablet Active ? Not available phenazopyridine 200 mg tablet Active ? No t available Vitamin 27 mg iron-0.8 mg tablet Active ? Not available tramadol 50 mg tablet Active ?
[2021-06-10] MEDS: DINOPROSTONE 10 MG VAG INSERT VAGINAL (17:11)
[2021-06-10 17:12] LABS: Basophils Percent Auto 0.4 % (0.2-1.2); Eosinophils Absolute Auto 0.1 K/mm3 (0-0.3); Eosinophils Percent Auto 0.7 % (0-4.4); Hematocrit 38.1 % (37.0-47.0); Hemoglobin 12.6 g/dL (12.0-15.0); Immature Granulocyte Absolute 0.08 K/mm3 (0.00-0.031); Immature Granulocyte Percent A 0.8 % (0-0.5); Lymphocytes Absolute Auto 1.08 K/mm3 (0.9-3.2); Lymphocytes Percent Auto 10.7 % (18.3-44.2); Mean Corpuscular HGB Conc 33.1 g/dl (32-36); Mean Corpuscular Hemoglobin 29.6 pg (26-34); Mean Corpuscular Volume 89.4 fl (80-100); Mean Platelet Volume 11.6 fl (7.4-10.4); Monocytes Absolute Auto 0.8 K/mm3 (0.1-0.6); Monocytes Percent Auto 7.8 % (2.6-8.5); Neutrophils Percent Auto 79.6 % (45.5-73.1); Platelet Count Result 219 k/mm3 (150-375); Red Blood Count 4.26 M/mm3 (4.2-5.4); Red Cell Distribution Width 14.3 % (11.5-14.5); White Blood Count 10.1 K/mm3 (4.5-10.0)
--- NOTE | 2021-06-10 17:17 | LDADM ---
This patient, Kalyn Edouard, was admitted to Labor/Delivery/Recovery 104 on 06/10/21 at 16:07. Plans for labor, pain management and were discussed with patient. Patient/family oriented to hospital policies and general routines including ID bracelet, bed and alarms, visiting hours, pain management, procedures, bathroom and other care routines, personal items, smoking policy, room service/diet and guest tray routines, security routines, and visiting hours. Patient/Family are encouraged to report perceived risks to care and to ask questions if they do not understand what they are told or what they should do. See OBIX for further documentation.
[2021-06-10 17:21] LABS: Uric Acid 4.3 mg/dL (2.5-7.5)
[2021-06-10 17:32] LABS: Alanine Aminotransferase 25 U/L (4-35); Albumin Level 3.6 g/dL (3.5-5.1); Alkaline Phosphatase 85 U/L (38-126); Anion Gap 8 mmol/L (8-16); Aspartate Amino Transferase 23 U/L (14-36); Bilirubin,Total 0.4 mg/dL (0.2-1.3); Blood Urea Nitrogen 13 mg/dL (7-17); Carbon Dioxide 21 mmol/L (22-30); Chloride 104 mmol/L (98-107); Estimated Glomerular Filt Rate > 60; Glucose 89 mg/dL (65-110); Potassium 3.8 mmol/L (3.4-5.0); Sodium 133 mmol/L (137-145)
--- NOTE | 2021-06-10 17:35 | PM.IMHP ---
H&P: HPI History of Present Illness Date/Time: 06/10/21 17:35 Patient is a 40yo LMP 09/16/20 currently 38w1d gestation with YAKELIN 06/23/21 who presented to L&D for induction of labor secondary to worsening chronic hypertension. Patient is dated by LMP consistent with US on 11/10/20 at 7w gestation. Patient has a history of chronic hypertension as well as pregestational diabetes. She is currently on Nifedipine XL with well controlled blood pressure. Recently, however, BP measurements were noted to increase. Patient was, however, asymptomatic until yesterday when she developed a headache. Headache resolved with Tylenol. Today, however, she reports general feeling of being unwell. Reports nausea, epigastric discomfort, and worsening GERD. She denies any chest pain, SOB, visual disturbances, or RUQ tenderness. Diabetes is controlled with insulin that has been followed and adjusted by M. Reports occasional contractions. Denies any vaginal bleeding or leakage of fluid. Reports good movement. Chief Complaint: Intrauterine at 38w1d gestation Chronic hypertension Pregestational type 2 diabetes Advanced maternal age Review of Systems Review of Systems: All systems reviewed & are unremarkable except as noted in HPI and below Constitutional: Constitutional: Reports as per HPI, Reports no additional constitutional complaints, Denies chills, Denies fever(s), Denies headache(s) and Denies night sweats Eyes: Eyes: Reports as per HPI and Reports no additional eye complaints ENT: Reports system reviewed and no additional complaints, except as documented, Reports as per HPI, Reports Normal hearing present and Denies headache(s) Cardiovascular: Cardiovascular: Reports as per HPI, Reports no additional cardiovascular complaints, Denies chest pain and Denies dyspnea Respiratory: Respiratory: Reports as per HPI, Reports no additional respiratory complaints, Denies cough and Denies dyspnea Gastrointestinal: Gastrointestinal: Reports as per HPI, Reports no additional gastrointestinal complaints, Denies abdominal pain, Denies change in bowel habits, Denies change in stool character, Denies nausea and Denies vomiting Genitourinary: Genitourinary: Reports no additional female genitourinary complaints, Reports as per HPI, Denies abnormal vaginal bleeding, Denies genital lesions, Denies hot flashes, Denies dyspareunia, Denies pelvic pain, Denies sexual dysfunction, Denies urinary incontinence, Denies vaginal discharge, Denies vaginal dryness and Denies vaginal odor Musculoskeletal: Musculoskeletal: Reports no additional musculoskeletal complaints and Reports as per HPI Integumentary/Breasts: Skin/Breast: Reports system reviewed and no additional complaints, except as docu, Reports as per HPI, Denies breast pain and Denies nipple discharge Neurologic: Reports system reviewed and no additional complaints, except as documented, Reports as per HPI, Reports Normal hearing present and Denies headache(s) Psychiatric: Psychiatric: Reports no additional psychiatric complaints, Reports as per HPI, Denies anxiety and Denies depression Endocrine: Endocrine: Reports no additional endocrine complaints and Reports as per HPI Hematologic/Lymphatic: Hematologic/Lymphatic: Reports no additional hematologic/lymphatic complaints and Reports as per HPI Allergic/Immunologic: Allergic/Immunologic: Reports no additional allergic/immunologic complaints and Reports as per HPI PMFSH Past Medical History Medical History Anxiety Bladder prolapse Diabetes mellitus Hypertension Surgical History Surgical History History of carpal tunnel surgery 2002? bilateral History of cholecystectomy [place] teeth extracted Family History Family History Grandparent Cerebrovascular accident Heart problem Grandparent Diabetes mellitus
--- NOTE | 2021-06-10 17:39 | WPDHPUPDATE1 ---
History and Physical Update Update Date/Time: 06/10/21 17:39 History and Physical has been reviewed, including an updated exam of the patient. There are NO changes in the patient's condition. Risks, benefits, and alternatives have been discussed and questions answered. Patient agrees to proceed with procedure.
--- NOTE | 2021-06-10 19:03 | WPDANESEPP ---
Anes - Eval Pre Procedure Procedure: labor epidural Date/Time: 06/10/21 19:03 Surgeon: leann Preop Diagnosis: pain during labor Pre Op Diagnosis: Induction of Labor Patient Data Age: 40 Gender: F Height: 1.65 m Weight: 102.5 kg Last Vital Signs Temp 36.6 C 06/10/21 17:00 Pulse 95 06/10/21 19:00 BP 157/87 H 06/10/21 19:00 Allergies Allergy/AdvReac Type Severity Reaction Status Date / Time No Known Allergies Allergy Verified 06/02/21 12:34 Home Medications Medication Instructions Recorded Confirmed Type docosahexaenoic acid 200 mg capsule 200 mg PO ONCE 11/19/20 06/10/21 History omega-3 fatty acids 1,000 mg 1,000 mg PO BID 11/19/20 06/10/21 History capsule aspirin 81 mg chewable tablet 162 mg PO HS tablet 12/15/20 06/10/21 History calcium carbonate 600 mg-vitamin 1 cap PO .qd #90 cap 02/17/21 06/10/21 Rx D3 5 mcg (200 unit) capsule buspirone 15 mg tablet 15 mg PO BID #60 tablet 05/02/21 06/10/21 Rx nifedipine 30 mg tablet,extended 30 mg PO DAILY #30 tablet 05/26/21 06/10/21 Rx release famotidine [Pepcid] 20 mg PO BID 06/08/21 06/10/21 History insulin glargine [Lantus Solostar 32 unit SUBCUT QAM 06/08/21 06/10/21 History U-100 Insulin] insulin glargine [Lantus Solostar 70 unit SUBCUT HS 06/08/21 06/10/21 History U-100 Insulin] insulin lispro [Humalog KwikPen 4 unit SUBCUT AC 06/08/21 06/10/21 History Insulin] docusate sodium 100 mg PO DAILY 06/10/21 06/10/21 History Laboratory Tests 06/10/21 06/10/21 06/10/21 17:03 17:03 17:03 WBC 10.1 K/mm3 H K/mm3 (4.5-10.0) RBC 4.26 M/mm3 M/mm3 (4.2-5.4) Hgb 12.6 g/dL g/dL (12.0-15.0) Hct 38.1 % % (37.0-47.0) MCV 89.4 fl fl (80-100) MCH 29.6 pg pg (26-34) MCHC 33.1 g/dl g/dl (32-36) RDW 14.3 % % (11.5-14.5) Plt Count 219 k/mm3 k/mm3 (150-375) MPV 11.6 fl H fl (7.4-10.4) Immature Gran % (Auto) 0.8 % H % (0-0.5) Neut % (Auto) 79.6 % H % (45.5-73.1) Lymph % (Auto) 10.7 % L % (18.3-44.2) [place] % (Auto) 7.8 % % (2.6-8.5) Eos % (Auto) 0.7 % % (0-4.4) Baso % (Auto) 0.4 % % (0.2-1.2) Lymph # (Auto) 1.08 K/mm3 K/mm3 (0.9-3.2) [place] # (Auto) 0.8 K/mm3 H K/mm3 (0.1-0.6) Eos # (Auto) 0.1 K/mm3 K/mm3 (0-0.3) Baso # (Auto) 0.0 K/mm3 K/mm3 (0.0-0.1) Abs Immat Gran (auto) 0.08 K/mm3 H K/mm3 (0.00-0.031) Absolute Neuts (auto) 8.0 K/mm3 H K/mm3 (1.3-6.7) Absolute Nucleated RBC 0.0 K/mm3 K/mm3 (0.0-0.012) Nucleated RBC % 0.0 % % (0.0-0.2) Sodium Potassium Chloride Carbon Dioxide Anion Gap BUN Creatinine Estim Creat Clear Calc Estimated GFR Glucose Uric Acid 4.3 mg/dL mg/dL (2.5-7.5) Calcium Total Bilirubin AST ALT Alkaline Phosphatase Total Protein Albumin RPR Pending Blood Type Antibody Screen 06/10/21 06/10/21 17:03 17:03 WBC RBC Hgb Hct MCV MCH MCHC RDW Plt Count MPV Immature Gran % (Auto) Neut % (Auto) Lymph % (Auto) [place] % (Auto) Eos % (Auto) Baso % (Auto) Lymph # (Auto) [place] # (Auto) Eos # (Auto) Baso # (Auto) Abs Immat Gran (auto) Absolute Neuts (auto) Absolute Nucleated RBC Nucleated RBC % Sodium 133 mmol/L L mmol/L (137-145) Potassium 3.8 mmol/L mmol/L (3.4-5.0) Chloride 104 mmol/L mmol/L (98-107) Carbon Dioxide 21 mmol/L L mmol/L (22-30)
[2021-06-11] VITALS (109 sets, daily range): BP systolic 121–191; BP diastolic 46–117; PULSE 66–92; RESP 18; TEMP 36.4–36.6; O2SAT 97–99
[2021-06-11] MEDS: FAMOTIDINE 20 MG TABLET PO ×3 (01:32→21:12)
[2021-06-11] MEDS: busPIRone HCL 10 MG, busPIRone HCL 5 MG 15 MG PO ×3 (01:32→21:11)
--- NOTE | 2021-06-11 08:08 | P.PNOB_ITS ---
Pain Control Date/time seen: 06/11/21 08:09 Patient seen at bedside. Doing well this AM. Cervidil was removed. Cervical exam mostly unchanged. /-3. Decision made to place zarco balloon for mechanical dilation. Placed without difficulty. EFM category 1. [place]ley shows contractions q1-3 mins. Patient states she is beginning to feel contractions. Will observe for another hr. Will either administer cytotec or begin pitocin. Continuous EFM and toco.
[2021-06-11] MEDS: LACTATED RINGERS 1,000 ML 125 ML IV CONT ×3 (08:51→22:20)
[2021-06-11] MEDS: AMPICILLIN 2 GM/NS 100 ML 2 GM/100 ML BAG IVPB (08:51)
[2021-06-11] MEDS: NIFEdipine 30 MG TAB.ER.24 PO (09:16)
[2021-06-11] MEDS: fentaNYL CITRATE INJ (*CRX) 100 MCG/2 ML VIAL 50 MCG IV PUSH (09:18)
[2021-06-11] MEDS: ONDANSETRON INJ 4 MG/2 ML VIAL IV PUSH (09:19)
[2021-06-11] MEDS: OXYTOCIN 30 UNITS/NS 500 ML 30 UNITS/500 ML BAG 6 UNITS IV CONT (10:35)
[2021-06-11] MEDS: AMPICILLIN 1 GM/NS 50 ML 1 GM/50 ML BAG IVPB ×3 (13:05→21:11)
[2021-06-11] MEDS: ACETAMINOPHEN 500 MG TABLET 1000 MG PO (13:58)
--- NOTE | 2021-06-11 20:11 | PM.OBPNLAB ---
Pain Control Date/time seen: 06/11/21 20:11 Patient seen at bedside. SVE performed. Pt noted to be ruptured, uncertain of how long she had been ruptured as it was unrecognized. Clear fluid noted. 2. IUPC placed. Continue pitocin. Pt comfortable s/p epidural. Continuous EFM and toco. Will continue to monitor BP and Dexcom measurements.
[2021-06-11] MEDS: DEXTROSE 5%/LACTATED RINGERS 1,000 ML 100 ML IV CONT (21:12)
[2021-06-12] VITALS (83 sets, daily range): BP systolic 94–163; BP diastolic 45–126; PULSE 67–158; RESP 12–16; TEMP 36.1–37; O2SAT 84–99
[2021-06-12] MEDS: DEXTROSE 5%/LACTATED RINGERS 1,000 ML 100 ML IV CONT (01:15)
[2021-06-12] MEDS: AMPICILLIN 1 GM/NS 50 ML 1 GM/50 ML BAG IVPB ×2 (01:16→06:02)
[2021-06-12] MEDS: ONDANSETRON INJ 4 MG/2 ML VIAL IV PUSH (03:10)
[2021-06-12] MEDS: fentaNYL CITRATE INJ (*CRX) 100 MCG/2 ML VIAL 50 MCG IV PUSH (04:40)
--- NOTE | 2021-06-12 08:45 | PM.OBPNLAB ---
Pain Control Date/time seen: 06/12/21 08:45 Patient seen at bedside. Despite adequate contractions overnight (inc. following a pitocin rest and restart), patient has made no further cervical change. SVE remains 4cm dilated with head at -2 station. Minimal-moderate caput noted. Lengthy discussion had with patient regarding situation and lack of progress at this time. Discussed lower likelihood of successful vaginal delivery without progress. Patient also reports feeling tired and frustrated and desire to consider section. Recommendation made to proceed with section for arrest of dilation. Risks, benefits, and alternatives discussed with patient. Patient implied an understanding. Anesthesia notified. Patient also has a known right ovarian cyst. Plan is to perform cystectomy at same time as section. All questions and concerns addressed.
[2021-06-12] MEDS: NIFEdipine 30 MG TAB.ER.24 PO (09:06)
[2021-06-12] MEDS: busPIRone HCL 10 MG, busPIRone HCL 5 MG 15 MG PO (09:06)
[2021-06-12] MEDS: FAMOTIDINE 20 MG TABLET PO ×2 (09:06→21:00)
[2021-06-12] MEDS: ceFAZolin 2 GM/D5W 50 ML 2 GM/50 ML BAG IVPB (09:34)
--- NOTE | 2021-06-12 11:20 | W.PM.PROC2 ---
Procedure Note - Detailed Date of Procedure 06/12/21 Pre-op Diagnosis Intrauterine at 38w3d gestation Arrest of dilation Chronic hypertension Pregestational Type 2 DM Post-op Diagnosis Same Procedure Performed Primary low transverse section via Pfannenstiel Surgeon Lary Loyd MD Bioinformaticist Brianna Davis Anesthesia Spinal and Epidural Findings Live male infant in occiput posterior cephalic presentation, apgars 8/9, weighing 5 lbs. 15 oz., clear amniotic fluid; uterus with a few fibroids noted, largest anterior approx. 4-5 cm; normal appearing left and right fallopian tube and left ovary; right ovary slightly enlarged, however, previously identified cyst not apparent Description of Procedure The patient was taken to the operating room, where she was transferred to the operating room table. Epidural catheter was noted to have become dislodged and was removed. Spinal anesthesia was administered and found to be adequate. The patient was placed in dorsal supine position with a leftward tilt. She was prepped and draped in the usual sterile fashion. Spinal anesthesia was tested and found to be adequate. A Pfannenstiel skin incision was made with a scalpel and carried through to underlying layer of fascia with the Bovie. The fascia was incised in the midline and the incision was extended laterally with the use of forceps and Whitaker scissors. The inferior aspect of the fascial incision was grasped with Raul clamps, elevated, and the underlying rectus muscle were dissected off with Whitaker scissors. Attention was then turned to the superior aspect of the fascial incision, which in a similar manner, was grasped with Raul clamps, elevated, and the underlying rectus muscles were also dissected off with Whitaker scissors. The rectus muscles were in the midline and the peritoneal cavity was entered bluntly. This incision was extended superiorly and inferiorly with good visualization of the bladder and care was taken to avoid blood vessels. An [place] retractor was inserted and rolled to increase visualization. A bladder blade was inserted. The vesicouterine peritoneum was identified and incised sharply with Metzenbaum scissors. This incision was extended laterally with Metzenbaum scissors and a bladder flap was created digitally. The bladder blade was replaced. A low-transverse uterine incision was made with a scalpel. This incision was extended laterally with bandage scissors. Clear amniotic fluid was noted. The infant's head was found in occiput posterior presentation. It was grasped and gently guided to the level of the uterine incision. The 's head was delivered easily and atraumatically without difficulty followed by the neck, shoulders, and rest of body with gentle fundal pressure. The infant's nose and mouth were suctioned bulb suction. The infant was crying spontaneously. The cord was clamped and cut and the infant was handed off to awaiting nursing staff. A segment of cord was collected for cord gases. Cord blood was also collected. The placenta was then delivered manually with gentle uterine massage. Uterus was unable to be exteriorized and cleared of all clots and debris. The uterine incision was reapproximated with 0 Vicryl in a running, locked fashion. A second imbricating layer using 0 Monocryl performed. An area of bleeding inferior to the incision in the midline was noted. A short running segment using 0 Vicryl was placed. Excellent hemostasis was noted. On inspection, the uterus had a few scattered fibroids with the largest on the anterior surface approx. 4-5cm. The left fallopian tube and ovary were visualized and appeared normal. The right fallopian tube was visualized and appeared normal. The right ovary was also seen and was slightly enlarged, however, no obvious cyst was visualized or palpated. The gutters were cleared of all clots and debris. The [place] retractor was removed. The uterine incision was inspected again and noted to be h
--- NOTE | 2021-06-12 11:26 | WPDANESEFPP ---
Anes - Eval Final PreProcedure Day of Procedure 06/12/21 11:26 Patient weight: obese Heart: regular rate and rhythm Lungs: clear to auscultation Airway: Mallampati scale class II ASA classification: III Emergent: no Anesthetic plan: proceed Anesthesia type and monitoring: regional spinal and standard monitoring Other findings: spinal for c/s Results Review: All pre-operative results and documents have been reviewed as part of the pre-operative evaluation. Informed Consent: The patient's anesthetic plan and its attendant risks and benefits were discussed with the patient/family/POA. Questions were solicited and answers provided to the satisfaction of the patient/family/POA.
[2021-06-12] MEDS: MEPERIDINE HCL INJ (*CRX) 50 MG/ML AMPUL 25 MG IV PUSH (11:44)
--- NOTE | 2021-06-12 11:44 | PM.OBPRVD ---
OB - Delivery Note Procedure Delivery date: 06/12/21 Procedure: Procedures Operation Date: 06/12/21 09:30 Actual Procedure Side Surgeon p Section Lary Loyd MD Events: Chronic Hypertension and Diabetes Mellitus Intrapartal Events: Arrest of Dilation Induction method: Per Cervidil Protocol Delivery augmentation: Rupture of Membranes and Pitocin Delivery monitor: External FHT, External Uterine, Internal FHT and Internal Uterine Route of delivery: Prior to decision for section, [facility] labor guidelines were considered and discussed with the patient and staff. Decision made to proceed with the section.: Yes Specimen: Yes (placenta and cord, cord blood, and cord gases) Quantitative Blood Loss (ml): 515 Anesthesia type: Spinal Disposition: PACU Complications: No immediate complications Baby Date of : 06/12/21 Time of : 10:07 Weeks of gestation at delivery: 38 (38.3) Infant gender: Male Weight (pounds): 5 Weight (ounces): 15 presentation: vertex position: Right Occiput Posterior Placenta delivery description: Manual Removal Cord Vessel Description: 3 Vessels score one minute: 8 score five minutes: 9 AMG Delivery Billing Delivery Delivery: Delivery Charge
[2021-06-12] MEDS: OXYTOCIN 30 UNITS/NS 500 ML 30 UNITS/500 ML BAG 125 UNITS IV CONT (11:45)
--- NOTE | 2021-06-12 12:44 | SUR.OPER ---
intraoperative note was entered under Anel Campbell RN was actually entered by Suzanne Croft RN.
--- NOTE | 2021-06-12 12:46 | SUR.PHASEI ---
recovery Phase I documentation entered from 06/12/21 @[id number] under Anel Campbell RN was actually entered by Suzanne Croft RN.
--- NOTE | 2021-06-12 13:32 | OBPPTRN ---
Patient transferred to post room #280 via stretcher. Support person present. Oriented to unit, room, information board, rooming in, admission packet and security measures. Patient verbalizes understanding. Infant with patient.
[2021-06-12] MEDS: KCL 20 MEQ/D5/0.45% SOD CHL 1,000 ML 125 ML IV CONT (14:00)
[2021-06-12] MEDS: busPIRone HCL 5 MG TABLET 15 MG PO (17:30)
[2021-06-12] MEDS: IBUPROFEN 600 MG TABLET PO (19:26)
[2021-06-12] MEDS: HYDROcodone/acetaminophen (*CRX) 5-325 MG TABLET 1 TAB PO (19:27)
[2021-06-12] MEDS: INSULIN GLARGINE (*BKC) 100 UNITS/ML 20 UNITS SUB-Q (22:00)
[2021-06-13] MEDS: HYDROcodone/acetaminophen (*CRX) 5-325 MG TABLET 1 TAB PO ×5 (00:08→17:06)
[2021-06-13 03:30] VITALS: BP 133/79; PULSE 89; RESP 16; TEMP 36.8
[2021-06-13] MEDS: IBUPROFEN 600 MG TABLET PO ×3 (03:34→17:06)
[2021-06-13 05:08] LABS: Basophils Absolute Auto 0.1 K/mm3 (0.0-0.1); Basophils Percent Auto 0.4 % (0.2-1.2); Eosinophils Absolute Auto 0.1 K/mm3 (0-0.3); Eosinophils Percent Auto 0.4 % (0-4.4); Hematocrit 33.9 % (37.0-47.0); Immature Granulocyte Absolute 0.08 K/mm3 (0.00-0.031); Immature Granulocyte Percent A 0.6 % (0-0.5); Lymphocytes Absolute Auto 1.27 K/mm3 (0.9-3.2); Lymphocytes Percent Auto 9.1 % (18.3-44.2); Mean Corpuscular HGB Conc 32.4 g/dl (32-36); Mean Corpuscular Volume 92.4 fl (80-100); Mean Platelet Volume 12.2 fl (7.4-10.4); Monocytes Absolute Auto 1.2 K/mm3 (0.1-0.6); Monocytes Percent Auto 8.6 % (2.6-8.5); Neutrophils Absolute Auto 11.3 K/mm3 (1.3-6.7); Neutrophils Percent Auto 80.9 % (45.5-73.1); Platelet Count Result 161 k/mm3 (150-375); Red Blood Count 3.67 M/mm3 (4.2-5.4); Red Cell Distribution Width 14.6 % (11.5-14.5); White Blood Count 13.9 K/mm3 (4.5-10.0)
[2021-06-13 07:45] VITALS: BP 129/83; PULSE 83; RESP 18; TEMP 37.1; O2SAT 97
[2021-06-13 08:20] LABS: Rapid Plasma Reagin Non-Reactive (NonReactive)
--- NOTE | 2021-06-13 08:54 | WPDANLDPN2 ---
Anes-Prog Note L&D Date/Time: 06/13/21 08:54 Comfortable throughout: labor, delivery and section Neuraxial method: epidural Epidural/Spinal procedure site: clean & non-tender Neuro status: Neuro function grossly intact. Cardiovascular status: normal Respiratory status: normal Airway patency: baseline Mental status: baseline Post-Op hydration status: normal Vital Signs: Last Vital Signs Temp 37.1 C 06/13/21 07:45 Pulse 83 06/13/21 07:45 Resp 18 06/13/21 07:45 BP 129/83 06/13/21 07:45 Pulse Ox 97 06/13/21 07:45 Pain score (VAS): 0 I/O: Intake & Output 06/12/21 06/13/21 06/13/21 23:59 07:59 15:59 Intake Total 700 1000 Output Total 550 600 Balance 150 400 Patient feedback: Patient satisfied with anesthetic care.
--- NOTE | 2021-06-13 08:54 | WPDANLDNPN2 ---
Anes-Prog Note L&D-Neuraxial Date/Time: 06/13/21 08:54 Neuraxial medications: intrathecal PF morphine Opiod-related complaints: none Patient feedback: Patient satisfied with post-operative pain management.
--- NOTE | 2021-06-13 09:15 | PM.OBPNVD ---
OB - PN: Subj Subjective Date/time seen: 06/13/21 09:15 She reports adequate pain control. Decreasing lochia. Has sat up in chair. Has not ambulated much. No leg pain. She has adjusted her insulin as recommended by MFM. No flatus. Tolerating diet. She is checking her BS with the DEXcom and administering her insulin. ' OB - PN: Obj Data Labs CBC & Chem 7: 06/13/21 03:39 06/10/21 17:03 Labs: Laboratory Results - last 24 hr 06/10/21 06/13/21 17:03 03:39 WBC 13.9 H RBC 3.67 L Hgb 11.0 L Hct 33.9 L MCV 92.4 MCH 30.0 MCHC 32.4 RDW 14.6 H Plt Count 161 MPV 12.2 H Immature Gran % (Auto) 0.6 H Neut % (Auto) 80.9 H Lymph % (Auto) 9.1 L [place] % (Auto) 8.6 H Eos % (Auto) 0.4 Baso % (Auto) 0.4 Lymph # (Auto) 1.27 [place] # (Auto) 1.2 H Eos # (Auto) 0.1 Baso # (Auto) 0.1 Abs Immat Gran (auto) 0.08 H Absolute Neuts (auto) 11.3 H Absolute Nucleated RBC 0.0 Nucleated RBC % 0.0 RPR Non-reactive OB - PN A/P Assessment and Plan (1) Delivery of by section: Code(s): O82 - Encounter for delivery without indication Status: Acute Assessment and Plan: POD1 s/p primary ceserean for FTP. Doing well. Routine post op care. Blood sugars stable. Time Spent With Patient Time: Total time spent is greater than 50% in coordination of care (as documented) at patient's floor/unit and/or counseling patient: Exam Const: General: comfortable and no acute distress Resp: Effort & Inspection: normal respiratory effort Auscultation: clear to auscultation bilaterally Cardio: Rate: regular rate GI: Other: decreased bowel sounds, mildly distended, incision no drainage or erythema, intact Psych: Mental Status: mental status grossly normal Affect: normal affect
[2021-06-13] MEDS: MULTIVIT/MIN/PREN/FOL AC/IRON TABLET 1 TAB PO (09:27)
[2021-06-13] MEDS: FAMOTIDINE 20 MG TABLET PO ×2 (09:28→21:54)
[2021-06-13] MEDS: DOCUSATE SODIUM 100 MG CAPSULE PO ×2 (09:28→17:07)
[2021-06-13] MEDS: NIFEdipine 30 MG TAB.ER.24 PO (09:30)
[2021-06-13] MEDS: busPIRone HCL 5 MG TABLET 15 MG PO ×2 (09:31→17:07)
--- NOTE | 2021-06-13 13:04 | PC.NURSE ---
Dr. Ochoa ordered a FBS and 1 HOUR pp blood sugars, Pt has a dexcom that records her blood sugars so she gave them to me off her machine. FBS at 0730-69 1 hour pp 1030-114
[2021-06-13 17:10] VITALS: BP 154/93; PULSE 88; RESP 18; TEMP 36.8; O2SAT 98
--- NOTE | 2021-06-13 18:17 | PC.NURSE ---
Blood sugar per dexcom 1 hour pp 1530-108
[2021-06-13 18:37] VITALS: BP 161/89; PULSE 88; RESP 18; TEMP 37; O2SAT 98
[2021-06-13 18:52] VITALS: BP 153/92
[2021-06-13] MEDS: HYDROcodone/acetaminophen (*CRX) 10-325 MG TABLET 1 TAB PO (21:56)
[2021-06-13 23:30] VITALS: BP 127/77
[2021-06-14] MEDS: HYDROcodone/acetaminophen (*CRX) 10-325 MG TABLET 1 TAB PO ×2 (03:00→20:24)
[2021-06-14] MEDS: ONDANSETRON HCL ODT 4 MG TABLET PO ×2 (03:34→13:53)
--- NOTE | 2021-06-14 05:32 | PC.NURSE ---
Postprandial BS 96 per patient/dexcom
--- NOTE | 2021-06-14 06:07 | PM.OBDSVD ---
DS: Admitting Diagnosis Discharge Date 06/17/2021 Admitting Diagnosis Chronic hypertension with increasing blood pressure. Pregestational hypertension Medical induction of labor DS: Discharge Diagnosis Discharge Diagnosis (1) Delivery of by section: Code(s): O82 - Encounter for delivery without indication Status: Acute (2) Chronic hypertension affecting : Code(s): O10.919 - Unspecified pre-existing hypertension complicating , unspecified trimester Status: Acute (3) Failure to progress in labor: Code(s): O62.2 - Other uterine inertia Status: Acute (4) Postoperative ileus: Code(s): K91.89 - Other postprocedural complications and disorders of digestive system; K56.7 - Ileus, unspecified Status: Acute (5) Diabetes mellitus: Code(s): E11.9 - Type 2 diabetes mellitus without complications Status: Acute OB - DS: Summary Hospital Course Hospital Course: Patient admitted for MIL with cervidil and zarco catheter. She had failed induction and underwent uncomplicated primary ceserean section. POD1. She was doing well. Blood pressures were labile. No signs or symptoms of pre-eclampsia. She was tolerating regular diet. She did start on the decrease insulin regimen that the [facility] told her to start after delivery which she self administered. On POD2 she had an episode of emesis. Bowel sounds were present. She did have a large bowel movement. She later had another episode of emesis. Diet changed to NPO and she had a KUB which showed ileus. IV was started with D5. Insulin was held during low readings. She did have an episode flatus after this on the evening of POD2. She was on clear liquids and had improved bowel sounds. Encouraged ambulation. She had subsequent daily KUB which showed gradual improvement of the ileus.She had a suppository and had a larger bowel movement and then started to have flatus. Nausea improved. She was advanced to regular diet and tolerated this. Ambulated well. Had adequate pain control. She did receive potassium supplementation due to low potassium which did correct. Blood pressures were labile. They were usually increased when she was uncomfortable and with emesis. No severe headaches scotomata or RUQ pain. During the period her Procardia dose was increased once but the higher dose was held the next day due to the non persistance of increased blood pressure. On POD 3 her clinical and radiologic symptoms of ileus started improving. No flatus. She started having flatus and tolerated on POD4. She was started on regular diet and tolerated regular diet. On POD5 she was doing well. She had bowel movements and flatus and tolerated a regular diabetic diet. She was discharged home on POD5. Discharge precautions discussed. OB Procedures : Ultrasound OB Procedures Intrapartum: (low transverse) OB Procedures: : None Peripartum Data Procedures: Procedures Operation Date: 06/12/21 09:30 Actual Procedure Side Surgeon p Section Lary Loyd MD complications: none Status at Discharge Functional status at discharge: independent ambulation Time Spent with Patient Time attestation: Total time spent providing and/or coordinating discharge services: Exam Const: General: cooperative Orientation/consciousness: oriented to person, oriented to place and oriented to time HENMT: General nose exam: Normal external nose present Eyes: General: appearance normal, both eyes and all related structures Resp: Effort & Inspection: normal respiratory effort GI: Inspection: normal to inspection Other: incision healing well : Other: good bowel sounds through out fundus -1 umb firm nontender, incision clean dry intact Skin: General skin exam: normal color Neuro: General: oriented to person, oriented to place and oriented to time Extrem: General: normal to inspection and
--- NOTE | 2021-06-14 09:08 | PC.NURSE ---
0700 pt report Blood Sugar reading of 96. She did eat a few saltines right before this reading.
[2021-06-14] MEDS: FAMOTIDINE 20 MG TABLET PO ×2 (09:20→20:23)
[2021-06-14] MEDS: busPIRone HCL 5 MG TABLET 15 MG PO ×2 (09:20→20:23)
[2021-06-14] MEDS: DOCUSATE SODIUM 100 MG CAPSULE PO (09:20)
[2021-06-14] MEDS: IBUPROFEN 600 MG TABLET PO ×2 (09:21→17:55)
[2021-06-14] MEDS: BISACODYL 10 MG SUPPOSITORY RECTAL (09:21)
[2021-06-14] MEDS: NIFEdipine 30 MG TAB.ER.24 PO (09:21)
--- NOTE | 2021-06-14 10:02 | PC.NURSE ---
0930 Pt already self administered Lantus insulin. Hospital does not given.
[2021-06-14 10:12] VITALS: BP 150/93; PULSE 89; RESP 16; TEMP 36.6; O2SAT 97
[2021-06-14 11:44] VITALS: BP 127/75; PULSE 77; RESP 20; TEMP 36.5; O2SAT 98
--- NOTE | 2021-06-14 15:22 | PC.NURSE ---
Pt uses her Dexcom for these... 1030 Blood Sugar 112, 1245 Blood Sugar 113
--- NOTE | 2021-06-14 15:57 | PC.NURSE ---
This patient, Kalyn Edouard, was transferred to Radiology per W/C on 06/14/21 at 1530. Appropriate documentation sent with patient.
--- NOTE | 2021-06-14 15:58 | PC.NURSE ---
This patient, Kalyn Edouard, was received from Radiology per W/C on 06/14/21 at 1552.
[2021-06-14 16:50] VITALS: BP 165/91; PULSE 93; RESP 20; TEMP 36.7; O2SAT 97
[2021-06-14] MEDS: DEXTROSE 5% 1,000 ML 1,000 ML 125 ML IV CONT (17:25)
[2021-06-14] MEDS: HYDROcodone/acetaminophen (*CRX) 5-325 MG TABLET 1 TAB PO (17:54)
--- NOTE | 2021-06-14 18:58 | PC.NURSE ---
1702 Blood Sugar from pts Dexcom 71. [address] Ochoa and reported the previous results. See med orders. 1746 pt took her blood sugar with her own glucometer to check with her Dexcom due to Xray may have made it malfunction. it was 80.
[2021-06-14 19:30] VITALS: BP 140/89; PULSE 90; RESP 18; TEMP 36.6
--- NOTE | 2021-06-14 19:40 | PC.NURSE ---
1939 blood sugar from patient's Dexcom was 105, which patient stated was a good range for her. Dextrose rate maintained at 100ml/hr.
--- NOTE | 2021-06-14 21:16 | PM.OBPNVD ---
OB - PN: Subj Subjective Date/time seen: 06/14/21 0815 She had episode of emesis this am shortly after eating [employer]. No nausea now. She denies flatus. She has ambulated in room. She has adequate pain control. No leg pain. Mild headache. No scotomata or RUQ pain. Decrease lochia. OB - PN: Obj Data Labs CBC & Chem 7: 06/13/21 03:39 06/10/21 17:03 Imaging Radiologist's impression: Impressions Abdomen X-Ray 06/14/21 16:44 IMPRESSION: Small bowel ileus versus distal small bowel obstruction, recommend continued radiographic follow-up. OB - PN A/P Assessment and Plan (1) Delivery of by section: Code(s): O82 - Encounter for delivery without indication Status: Acute Assessment and Plan: POD2 s/p primary ceserean section. Bowel sounds present. Will give suppository since bowel sounds present. Encourage ambulation. Blood pressures labile, no signs or symptoms of pre-eclampsia. Time Spent With Patient Time: Total time spent is greater than 50% in coordination of care (as documented) at patient's floor/unit and/or counseling patient: Exam Const: General: comfortable and no acute distress Resp: Effort & Inspection: normal respiratory effort Auscultation: clear to auscultation bilaterally Cardio: Rate: regular rate GI: Other: bowel sounds present hypoactive, mildly distended, incision no drainage or erythema, intact Extrem: Other: nontender trace edema Psych: Mental Status: mental status grossly normal Affect: normal affect
[2021-06-14 23:17] VITALS: BP 134/84; PULSE 88; RESP 20; TEMP 36.6
[2021-06-15] VITALS (8 sets, daily range): BP systolic 129–174; BP diastolic 73–103; PULSE 70–94; RESP 18–20; TEMP 36–37.1; O2SAT 98–99
--- NOTE | 2021-06-15 00:45 | PC.NURSE ---
Blood sugar @ 0045 - 90. Blood sugar checked per finger stick. Patient used own glucometer.
[2021-06-15] MEDS: IBUPROFEN 600 MG TABLET PO ×4 (01:13→20:23)
[2021-06-15] MEDS: HYDROcodone/acetaminophen (*CRX) 10-325 MG TABLET 1 TAB PO ×4 (01:13→20:24)
[2021-06-15 04:53] LABS: Hemoglobin 10.7 g/dL (12.0-15.0); Mean Corpuscular HGB Conc 33.4 g/dl (32-36); Mean Corpuscular Hemoglobin 29.5 pg (26-34); Mean Corpuscular Volume 88.2 fl (80-100); Platelet Count Result 206 k/mm3 (150-375); Red Blood Count 3.63 M/mm3 (4.2-5.4); Red Cell Distribution Width 14.1 % (11.5-14.5); White Blood Count 8.4 K/mm3 (4.5-10.0)
--- NOTE | 2021-06-15 05:00 | PC.NURSE ---
0500 Blood sugar 91 from patient's Dexcom. Dextrose 5 rate maintained at 100ml/hr.
[2021-06-15 05:05] LABS: Alanine Aminotransferase 22 U/L (6-35); Albumin Level 2.6 g/dL (3.5-5.1); Alkaline Phosphatase 59 U/L (38-126); Anion Gap 6 mmol/L (8-16); Aspartate Amino Transferase 24 U/L (14-36); Bilirubin,Total 0.6 mg/dL (0.2-1.3); Blood Urea Nitrogen 10 mg/dL (7-17); Calcium 7.9 mg/dL (8.4-10.2); Carbon Dioxide 25 mmol/L (22-30); Chloride 101 mmol/L (98-107); Estimated CRCL calculation 147 ml/min; Estimated Glomerular Filt Rate > 60; Glucose 85 mg/dL (65-110); Potassium 3.3 mmol/L (3.4-5.0); Sodium 132 mmol/L (137-145)
--- NOTE | 2021-06-15 07:43 | PM.OBPNVD ---
OB - PN: Subj Subjective Date/time seen: 06/15/21 07:43 She states she feels better. She had BM once yesterday, no flatus since. No nausea. Tolerating ice chips. Ambulated yesterday. She feels better since she has taken the pain medication. No leg pain or chest pain. No severe headache or RUQ pain. OB - PN: Obj Data Labs CBC & Chem 7: 06/15/21 04:39 06/15/21 04:39 Labs: Laboratory Results - last 24 hr 06/15/21 06/15/21 04:39 04:39 WBC 8.4 RBC 3.63 L Hgb 10.7 L Hct 32.0 L MCV 88.2 MCH 29.5 MCHC 33.4 RDW 14.1 Plt Count 206 MPV 11.0 H Sodium 132 L Potassium 3.3 L Chloride 101 Carbon Dioxide 25 Anion Gap 6 L BUN 10 Creatinine 0.50 L Estim Creat Clear Calc 147 Estimated GFR > 60 Glucose 85 Calcium 7.9 L Total Bilirubin 0.6 AST 24 ALT 22 Alkaline Phosphatase 59 Total Protein 5.0 L Albumin 2.6 L Imaging Radiologist's impression: Impressions Abdomen X-Ray 06/14/21 16:44 IMPRESSION: Small bowel ileus versus distal small bowel obstruction, recommend continued radiographic follow-up. Abdomen X-Ray 06/15/21 06:39 IMPRESSION: 1. Persistent but decreased small bowel dilatation, likely ileus. OB - PN A/P Assessment and Plan (1) delivery delivered: Code(s): O82 - Encounter for delivery without indication Status: Acute Assessment and Plan: POD3 s/p primary csection for failure to progress. (2) Postoperative ileus: Code(s): K91.89 - Other postprocedural complications and disorders of digestive system; K56.7 - Ileus, unspecified Status: Acute Assessment and Plan: Improving. Will give clear liquids. Encourage ambulation. Add Potassium. Time Spent With Patient Time: Total time spent is greater than 50% in coordination of care (as documented) at patient's floor/unit and/or counseling patient: Exam Const: General: comfortable and no acute distress Resp: Effort & Inspection: normal respiratory effort Auscultation: clear to auscultation bilaterally Cardio: Rate: regular rate GI: Other: bowel sounds improved, hypoactive lower incision intact no drainage Psych: Mental Status: mental status grossly normal Affect: normal affect
[2021-06-15] MEDS: DEXTROSE 5% 1,000 ML 1,000 ML 100 ML IV CONT (08:54)
[2021-06-15] MEDS: FAMOTIDINE 20 MG TABLET PO ×2 (08:56→20:24)
[2021-06-15] MEDS: NIFEdipine 30 MG TAB.ER.24 PO ×2 (08:57→20:50)
[2021-06-15] MEDS: DOCUSATE SODIUM 100 MG CAPSULE PO (09:21)
[2021-06-15] MEDS: POTASSIUM CHLORIDE 20 MEQ TABLET.ER 40 MEQ PO (10:07)
--- NOTE | 2021-06-15 19:09 | PC.NURSE ---
0700 Fasting Blood Sugar 86. 0900 1 hour PP 108. 0945 Pt asked to be disconnected from her IV dextrose so she could Breast Feed. She was Saline Locked. Instructed for pt to call out if she stated to feel her blood sugar dropping so the IV could be restarted. She V/U'd. 1300 asked pt how she was feeling she said good. She was eating lunch and will take her Blood Sugar 1 hour PP. 1500 1 Hour PP 89. Pt stated she will eat some jello and drink an Ensure juice drink to bring her sugar up. Instructed for her to call out if she could not bring her blood sugar up and we would restart the Dextrose IV. She V/U'd.
[2021-06-15] MEDS: busPIRone HCL 5 MG TABLET 15 MG PO (20:23)
[2021-06-15] MEDS: ONDANSETRON HCL ODT 4 MG TABLET PO (21:12)
[2021-06-15] MEDS: BISACODYL 10 MG SUPPOSITORY RECTAL (21:13)
[2021-06-16] VITALS (7 sets, daily range): BP systolic 93–162; BP diastolic 53–99; PULSE 77–90; RESP 16–20; TEMP 36.1–37.1; O2SAT 98–100
[2021-06-16] MEDS: HYDROcodone/acetaminophen (*CRX) 10-325 MG TABLET 1 TAB PO (04:14)
[2021-06-16] MEDS: IBUPROFEN 600 MG TABLET PO ×3 (04:15→19:43)
--- NOTE | 2021-06-16 05:43 | PC.NURSE ---
Radiology at bedside performing KUB.
[2021-06-16] MEDS: MULTIVIT/MIN/PREN/FOL AC/IRON TABLET 1 TAB PO (07:59)
[2021-06-16] MEDS: HYDROcodone/acetaminophen (*CRX) 5-325 MG TABLET 1 TAB PO (07:59)
[2021-06-16] MEDS: DOCUSATE SODIUM 100 MG CAPSULE PO ×2 (07:59→16:27)
[2021-06-16] MEDS: FAMOTIDINE 20 MG TABLET PO ×2 (07:59→19:42)
[2021-06-16] MEDS: busPIRone HCL 5 MG TABLET 15 MG PO ×2 (08:00→19:42)
[2021-06-16] MEDS: POTASSIUM CHLORIDE 20 MEQ TABLET.ER 40 MEQ PO (08:00)
[2021-06-16] MEDS: NIFEdipine 30 MG TAB.ER.24 60 MG PO (12:08)
[2021-06-16] MEDS: ACETAMINOPHEN 325 MG TABLET 650 MG PO ×2 (12:10→19:42)
--- NOTE | 2021-06-16 12:45 | P.PNOB_ITS ---
OB - PN: Subj Subjective Date/time seen: 06/16/21 0820 She states she feels better. She had bowel movement yesterday and flatus once. No nausea, no leg pain, no emesis. Has adequate pain control. Mild lochia. No headache. OB - PN: Obj Data Labs CBC & Chem 7: 06/15/21 04:39 06/15/21 04:39 Imaging Radiologist's impression: Impressions Abdomen X-Ray 06/16/21 07:08 IMPRESSION: 1. Improving ileus. OB - PN A/P Assessment and Plan (1) delivery delivered: Code(s): O82 - Encounter for delivery without indication Status: Acute Assessment and Plan: POD4. Adequate pain control. (2) Postoperative ileus: Code(s): K91.89 - Other postprocedural complications and disorders of digestive system; K56.7 - Ileus, unspecified Status: Acute Assessment and Plan: Improved. Will advance diet. BMP today. (3) Chronic hypertension affecting : Code(s): O10.919 - Unspecified pre-existing hypertension complicating , u nspecified trimester Status: Acute Assessment and Plan: Labile blood pressure. No symptoms of pre-eclampsia. Antihypertensive increased yesterday, but blood pressure lower today, will hold increased dose. (4) Diabetes mellitus: Code(s): E11.9 - Type 2 diabetes mellitus without complications Status: Acute Assessment and Plan: Continue to monitor BS. Adjust insulin as needed. Time Spent With Patient Time: Total time spent is greater than 50% in coordination of care (as docu mented) at patient's floor/unit and/or counseling patient: Exam Const: General: comfortable and no acute distress Resp: Effort & Inspection: normal respiratory effort Auscultation: clear to auscultation bilaterally Cardio: Rate: regular rate GI: Other: bowel sounds present, mildly distended, incision no drainage or erythema, intact Psych: Mental Status: mental status grossly normal Affect: normal affect
[2021-06-16 13:45] LABS: Anion Gap 6 mmol/L (8-16); Blood Urea Nitrogen 11 mg/dL (7-17); Calcium 8.3 mg/dL (8.4-10.2); Carbon Dioxide 27 mmol/L (22-30); Chloride 100 mmol/L (98-107); Estimated CRCL calculation 145 ml/min; Estimated Glomerular Filt Rate > 60; Glucose 81 mg/dL (65-110); Potassium 3.7 mmol/L (3.4-5.0); Sodium 133 mmol/L (137-145)
--- NOTE | 2021-06-16 19:00 | PC.NURSE ---
Blood sugar @ 1900 was 97.
[2021-06-17] MEDS: IBUPROFEN 600 MG TABLET PO ×2 (01:35→08:02)
[2021-06-17] MEDS: ACETAMINOPHEN 325 MG TABLET 650 MG PO ×2 (01:35→08:03)
[2021-06-17 04:00] VITALS: BP 151/71; PULSE 79; RESP 18; TEMP 36.9
[2021-06-17] MEDS: POTASSIUM CHLORIDE 20 MEQ TABLET.ER 40 MEQ PO (07:59)
[2021-06-17] MEDS: busPIRone HCL 5 MG TABLET 15 MG PO (08:00)
[2021-06-17] MEDS: FAMOTIDINE 20 MG TABLET PO (08:01)
[2021-06-17] MEDS: DOCUSATE SODIUM 100 MG CAPSULE PO (08:01)
[2021-06-17] MEDS: NIFEdipine 30 MG TAB.ER.24 60 MG PO (08:01)
[2021-06-17] MEDS: MULTIVIT/MIN/PREN/FOL AC/IRON TABLET 1 TAB PO (08:02)
[2021-06-17 08:45] VITALS: BP 142/72; PULSE 72; RESP 16; TEMP 36.3; O2SAT 99
--- NOTE | 2021-06-17 10:33 | PC.NURSE ---
Patient viewed the discharge video Mother & Baby Care, The First Two Weeks . Patient was given the opportunity and encouraged to ask questions. Patient verbalized understanding of information shared and has been given the mother/baby guide for home reference.
[2021-06-18 10:24] VITALS: BP 148/88; PULSE 78; RESP 22; TEMP 37.2; O2SAT 100
== END 2021-06-17 16:45 | disposition home or self-care (01) | DRG 540 ==
LOC: ANHLDR 06-12 09:39 → ANHOB2 06-12 13:36
PROVIDERS: Student in an Organized Health Care Education/Training Program; Admitting Provider Obstetrics & Gynecology; PCP Physician Assistant; Visit Provider Obstetrics & Gynecology
PROC: 10D00Z1 Extraction of Products of Conception, Low, Open Approach (ICD-10-PCS; CPT 59514; principal; 2021-06-12 09:30)
DX: O24.12 Pre-existing type 2 diabetes mellitus, in childbirth (principal); O10.92 Unspecified pre-existing hypertension complicating childbirth; O34.83 Maternal care for other abnormalities of pelvic organs, third trimester; O62.1 Secondary uterine inertia; D25.9 Leiomyoma of uterus, unspecified; O99.62 Diseases of the digestive system complicating childbirth; K91.89 Other postprocedural complications and disorders of digestive system; K56.7 Ileus, unspecified; K21.9 Gastro-esophageal reflux disease without esophagitis; Z3A.38 38 weeks gestation of pregnancy; Z37.0 Single live birth; Z90.49 Acquired absence of other specified parts of digestive tract; Z79.4 Long term (current) use of insulin
CPT/HCPCS: 36415; 74018; 80048; 80053; 84550; 85025; 85027; 86592; 86850; 86900; 86901; 88307; A9270; J0290; J0690; J1815; J2175; J2274; J2370; J2405; J2590; J2795; J3010; J3480; J7070; J7120; J7121

== ENCOUNTER 2021-08-12 12:32 | Outpatient (CLI) | payer OTHER, SELFPAY ==
--- NOTE | ~2021-08-12 | US_ITS ---
EXAMINATION: US pelvic complete w TV DATE: 08/12/2021 13:24 INDICATION: Right adnexal cyst TECHNIQUE: Multiple transabdominal and endovaginal sonographic images of the pelvis were obtained. COMPARISON: CT, 05/07/2021 FINDINGS: The uterus measures 7.9 x 5.3 x 6.3 cm. The endometrial complex measures 7 mm. The right ov nicki measures 3.1 x 1.8 x 2.8 cm. The previously described complex cystic mass of the right adnexa has resolved. The left ovary measures 3.7 x 2.5 x 1.7 cm. There is normal vascular flow in the ovaries. There is no free fluid in the pelvis. IMPRESSION: 1. Resolved right adnexal cyst. Reviewed, dictated and finalized at location B.
== END 2021-08-12 12:33 | disposition home or self-care (01) ==
PROVIDERS: PCP Physician Assistant; Visit Provider Obstetrics & Gynecology
DX: N83.209 Unspecified ovarian cyst, unspecified side (principal)
CPT/HCPCS: 76830; 76856

== ENCOUNTER 2022-03-07 17:07 | Outpatient (CLI) | payer OTHER, SELFPAY ==
--- NOTE | ~2022-03-07 | MM_ITS ---
EXAMINATION: MM screening jacky BI w mary ann HISTORY: Screening TECHNIQUE: Craniocaudal and mediolateral oblique 3-D tomosynthesis images were obtained and synthetic 2-D images were generated. CAD analysis was submitted and interpreted. COMPARISON: No prior mammogram is available for comparison at this institution. BREAST PARENCHYMAL COMPOSITION: The breasts are heterogeneously dense, which may obscure small masses FINDINGS: There are bilateral breast asymmetries, although no discrete mass identified. Asymmetries i n the right breast are centered in the medial aspect of the breasts. In the left breast the asymmetri es are centered in the upper outer quadrant anteriorly. IMPRESSION: 1. Bilateral breast asymmetries. 2. Recommend comparison to previous outside mammograms. BI-RADS Category 0: Incomplete: Needs additional imaging evaluation. Reviewed, dictated and finalized at location A. EMS SUPPORT SPECIALIST
== END 2022-03-07 17:08 | disposition home or self-care (01) ==
PROVIDERS: PCP Family Medicine; Visit Provider Obstetrics & Gynecology
DX: Z12.31 Encounter for screening mammogram for malignant neoplasm of breast (principal); N64.89 Other specified disorders of breast
CPT/HCPCS: 77063; 77067

== ENCOUNTER 2022-03-17 11:11 | Outpatient (CLI) | payer OTHER, SELFPAY ==
--- NOTE | ~2022-03-17 | MMUS_ITS ---
EXAMINATION: MM diagnostic jacky BI w mary ann, US breast BI complete HISTORY: Bilateral mammographic asymmetries reported on 03/07/2022 screening mammogram examination TECHNIQUE: Additional 3-D tomosynthesis images of both breasts were performed and synthetic 2-D image s were generated. CAD analysis was submitted and interpreted. High resolution bilateral complete [address] st ultrasound examination including all 4 quadrants and subareolar areas was performed. COMPARISON: 03/07/2022, 07/16/2017 bilateral screening mammogram examinations FINDINGS: MAMMOGRAPHIC FINDINGS: No suspicious mass or architectural distortion, malignant calcification, skin thickening or retractio n of either breast is evident. ULTRASOUND: Right breast: 2:00 5 cm from nipple: 4 x 5 x 6 mm sonolucency without internal vascularity. There is suggestion of slight posterior shadowing. Ultrasound-guided cyst aspiration attempt is recommended. If this does not aspirate successfully, then ultrasound-guided biopsy should be performed at that poi nt. No suspicious mass or shadowing is detected elsewhere in either breast. IMPRESSION: 2 cm sonolucency right breast 2:00 5 cm from nipple; ultrasound-guided aspiration is recommended, wit h biopsy if this does not successfully resolve with aspiration BI-RADS category 4, suspicious finding. Dr. Ferro telephoned the report and ultrasound-guided aspiration and if necessary necessary biopsy rec ommendation on March 17, 2022 1235 hours to the voicemail at [phone]. Reviewed, dictated and finalized at location A. FEEDER IMPRESSION: 2 cm sonolucency right breast 2:00 5 cm from nipple; ultrasound-guided aspirati on is recommended, with biopsy if this does not successfully resolve with aspir ation BI-RADS category 4, suspicious finding. Dr. Ferro telephoned the report and ultrasound-guided aspiration and if necessar y necessary biopsy recommendation on March 17, 2022 1235 hours to the voicem ail at [phone]. IMPRESSION: 2 cm sonolucency right breast 2:00 5 cm from nipple; ultrasound-guided aspirati on is recommended, with biopsy if this does not successfully resolve with aspir ation BI-RADS category 4, suspicious finding. Dr. Ferro telephoned the report and ultrasound-guided aspiration and if necessar y necessary biopsy recommendation on March 17, 2022 1235 hours to the [facility] at [phone].
== END 2022-03-17 11:12 | disposition home or self-care (01) ==
PROVIDERS: PCP Family Medicine; Visit Provider Obstetrics & Gynecology
DX: R92.8 Other abnormal and inconclusive findings on diagnostic imaging of breast (principal)
CPT/HCPCS: 76641; 77062; 77066; G0279

== ENCOUNTER 2022-03-24 10:29 | Outpatient (CLI) | payer OTHER, SELFPAY ==
--- NOTE | ~2022-03-24 | US_ITS ---
US_BCARIMG_US DATE: 03/24/2022 11:24 INDICATION: Breast cyst aspiration TECHNIQUE: The purpose of the procedure technique and potential competitions including bleeding were discussed with the patient. The patient indicated understanding. Timeout procedure was performed. Following sterile preparation of the skin and infiltration of the skin with 1% local anesthetic, an 1 8-gauge spinal needle was introduced into the right breast 2:00 lesion 5 cm from nipple using ultraso und guidance. Suction was applied to a syringe attached to the needle and the lesion completely resol chula. IMPRESSION: Successful ultrasound guided aspiration of approximately 4.4 x 5.8 mm cyst of right breas t at 2:00 5 cm from nipple Reviewed, dictated and finalized at Location A. Reviewed, dictated and finalized at location A. LOPMENTAL MATHEMATICS PROFESSOR IMPRESSION: Successful ultrasound guided aspiration of approximately 4.4 x 5.8 mm cyst of right breast at 2:00 5 cm from nipple
== END 2022-03-24 10:30 | disposition home or self-care (01) ==
LOC: ANHIMG 10:30
PROVIDERS: PCP Family Medicine; Visit Provider Obstetrics & Gynecology
DX: R92.8 Other abnormal and inconclusive findings on diagnostic imaging of breast (principal)
CPT/HCPCS: 19000; 76942

== ENCOUNTER 2022-12-04 12:05 | Outpatient (CLI) | payer OTHER, SELFPAY ==
--- NOTE | ~2022-12-04 | MM_ITS ---
EXAMINATION: MM diagnostic jacky RT w mary ann HISTORY: Six-month follow-up after right breast cyst aspiration TECHNIQUE: Craniocaudal, mediolateral, and mediolateral oblique 3-D tomosynthesis images of the right breast were performed and synthetic 2-D images were generated. CAD analysis was submitted and interp reted. COMPARISON: 03/17/2019, 03/07/2022, 07/16/2017 BREAST PARENCHYMAL COMPOSITION: The breasts are heterogeneously dense, which may obscure small masses . FINDINGS: No suspicious mass, calcification, or architectural distortion are identified to suggest ma lignancy. There has been no suspicious interval change. IMPRESSION: 1. No mammographic evidence of malignancy. 2. Routine screening mammography is recommended, due in March 2023. BI-RADS Category 1: Negative Reviewed, dictated and finalized at location A.
== END 2022-12-04 12:06 | disposition home or self-care (01) ==
LOC: ANHIMG 12:07
PROVIDERS: PCP Family Medicine; Visit Provider Obstetrics & Gynecology
DX: N60.01 Solitary cyst of right breast (principal)
CPT/HCPCS: 77061; 77065; G0279

== ENCOUNTER 2023-03-14 16:18 | Outpatient (CLI) | payer OTHER, SELFPAY ==
--- NOTE | ~2023-03-14 | XR_ITS ---
EXAMINATION: XR hip RT min 2V DATE: 03/14/2023 16:47 INDICATION: Right hip pain. TECHNIQUE: 2 views of right hip were obtained. COMPARISON: None. FINDINGS: Bone alignment is normal. No fracture. There is mild right hip osteoarthritis. IMPRESSION: 1. Mild right hip osteoarthritis. Reviewed, dictated and finalized at location E. STRIAL STAFF NURSE
== END 2023-03-14 16:19 | disposition home or self-care (01) ==
PROVIDERS: PCP Family Medicine; Visit Provider Nurse Practitioner
DX: M16.11 Unilateral primary osteoarthritis, right hip (principal)
CPT/HCPCS: 73502

== ENCOUNTER 2023-08-13 16:05 | Outpatient (CLI) | payer OTHER, SELFPAY ==
[2023-08-13 19:23] LABS: CRP 0.7 mg/dL (<1.0)
[2023-08-13 20:06] LABS: Rheumatoid Factor < 12.0 IU/ML (<12)
[2023-08-13 21:10] LABS: Erythrocyte Sedimentation Rate 18 mm/hr (0-20)
[2023-08-15 14:08] LABS: Anti Cyclic Citrullinated Pept <16 UNITS
== END 2023-08-13 16:06 | disposition home or self-care (01) ==
LOC: ANHGOSHLAB 16:06
PROVIDERS: PCP Family Medicine; Visit Provider Family Medicine
DX: R53.83 Other fatigue (principal); M25.50 Pain in unspecified joint; E66.9 Obesity, unspecified; Z79.899 Other long term (current) drug therapy
CPT/HCPCS: 36415; 85652; 86038; 86039; 86140; 86200; 86430

== ENCOUNTER 2023-11-08 15:49 | Outpatient (CLI) | payer OTHER, SELFPAY ==
--- NOTE | ~2023-11-08 | XR_ITS ---
XR shoulder LT min 2V Ordering provider: Celeste Cosme CONSTRUCTION TRENCH DIGGER-C History: . M25.519 - Pain in unspecified shoulder . Comparison: None. FINDINGS: BONES: No acute fracture or dislocation. JOINT SPACES: The acromioclavicular joint is normal. The glenohumeral joint is normal. SOFT TISSUES: Normal. IMPRESSION: No acute osseous abnormality left shoulder. Reviewed, dictated and finalized at location A.
--- NOTE | ~2023-11-08 | XR_ITS ---
XR shoulder RT min 2V Ordering provider: Celeste Cosme SNELLER HAND-C History: . M25.519 - Pain in unspecified shoulder . Comparison: None. FINDINGS: BONES: No acute fracture or dislocation. JOINT SPACES: The acromioclavicular joint is normal. The glenohumeral joint is normal. SOFT TISSUES: Normal. IMPRESSION: No acute osseous abnormality right shoulder. Reviewed, dictated and finalized at location A.
--- NOTE | ~2023-11-08 | XR_ITS ---
XR_[id number] Ordering provider: Celeste Cosme NP-C History: . M54.2 - Cervicalgia . Comparison: None. FINDINGS: VERTEBRAL BODIES: Normal height and alignment. No visible fracture or subluxation. The dens is intact . Mild degenerative changes. DISK SPACES: Normal PARASPINOUS SOFT TISSUES: No prevertebral soft tissue swelling. IMPRESSION: No acute osseous abnormality cervical spine. Reviewed, dictated and finalized at location A.
== END 2023-11-08 15:50 | disposition home or self-care (01) ==
LOC: ANHIMG 15:51
PROVIDERS: PCP Family Medicine; Visit Provider Nurse Practitioner
DX: M25.519 Pain in unspecified shoulder (principal); M54.2 Cervicalgia
CPT/HCPCS: 72040; 73030

== ENCOUNTER 2024-02-19 12:42 | Outpatient (CLI) | payer OTHER, SELFPAY ==
--- NOTE | ~2024-02-19 | US_ITS ---
EXAM: Focused ultrasound examination of the soft tissues of the left axilla HISTORY: Palpable abnormality within the right upper extremity TECHNIQUE: Sonographic evaluation of the soft tissues of the right upper extremity were performed ass essing grayscale appearance and color Doppler flow. COMPARISON: None. FINDINGS: Multiple foci of increased echogenicity are identified within the areas of palpable concern. The largest within the proximal forearm measures 12 x 7 x 15 mm. The largest within the distal forearm measures 15 x 5 x 9 mm. Sonographic evaluation of the remainder of the soft tissues of the right upper extremity demonstrates benign fibrofatty and fibromuscular elements without a cystic or solid lesion of concern. IMPRESSION: Findings within the area of palpable concern which are most consistent with benign lipomas. If there is significant interval growth, contrast-enhanced MRI may be performed for further evaluatio n. Reviewed, dictated and finalized at location A. LTY BALLOON ASSEMBLER AND PACKER IMPRESSION: Findings within the area of palpable concern which are most consistent with kim ign lipomas. If there is significant interval growth, contrast-enhanced MRI may be performed for further evaluation.
== END 2024-02-19 12:43 | disposition home or self-care (01) ==
LOC: ANHIMG 12:45
PROVIDERS: PCP Family Medicine; Visit Provider Family Medicine
DX: R22.31 Localized swelling, mass and lump, right upper limb (principal)
CPT/HCPCS: 76882

== ENCOUNTER 2024-03-28 15:09 | Outpatient (CLI) | payer OTHER, SELFPAY ==
--- NOTE | ~2024-03-28 | MM_ITS ---
EXAMINATION: MM screening jacky BI w mary ann HISTORY: Screening TECHNIQUE: Craniocaudal and mediolateral oblique 3-D tomosynthesis images were obtained and synthetic 2-D images were generated. CAD analysis was submitted and interpreted. COMPARISON: Comparison to multiple prior studies sequentially, with oldest reviewed study dated 07/16. BREAST PARENCHYMAL COMPOSITION: Not dense: There are scattered areas of fibroglandular density. FINDINGS: There is no evidence of suspicious mass, calcification, or architectural distortion to sugg est malignancy in either breast. There has been no suspicious interval change. IMPRESSION: 1. No mammographic evidence of malignancy. 2. Recommend routine screening mammography in one year. BI-RADS Category 1: Negative Reviewed, dictated and finalized at location L. NING PROGRAM MANAGER
--- OUTSIDE RECORDS SUMMARY | 2024-03-28 15:12 | XMS_ITS | Clinical Summary ---
Author Organization [facility] Address [address] [place] [address] Care Team Providers Care Convenience Store Clerk Name Role Phone Miscellaneous, Not In File Primary Care Provider Unavailable Allergies No known active allergies Medications lisinopriL (PRINIVIL,ZESTR IL) 10 mg tablet Take 1 tablet (10 mg total) by mouth daily 01/10/2024 Active metFORMIN XR (GLUCOPHAGE XR) 500 mg 24 hr tablet Take 1 tablet (500 mg total) by mouth 2 (two) times a day Active metoprolol XL (TOPROL-XL) 100 mg 24 hr tablet Take 1 tablet (100 mg total) by mouth daily 12/02/2023 Active Se-Heidi-19 29 mg iron- 1 mg tablet Take 1 tablet by mouth daily 11/20/2023 Active traZODone (DESYREL) 50 mg tablet 1 tablet (50 mg total) 01/04/2024 Active cyclobenzaprine (FLEXERIL) 10 mg tablet Take 1 tablet (10 mg total) by mouth 3 (three) times a day as needed for muscle spasms Active busPIRone (BUSPAR) 15 mg tablet Take 1 tablet (15 mg total) by mouth 2 (two) times a day Active diclofenac DR (VOLTAREN) 75 mg EC tablet Take 1 tablet (75 mg total) by mouth 2 (two) times a day 180 tablet 01/23/2024 Active ergocalciferol (VITAMIN D) 50,000 unit capsule Take 1 capsule (50,000 Units total) by mouth once a week 4 capsule 2 01/24/2024 5 Active Active Problems Problem Noted Date Diagnosed Date Traumatic hematoma of left knee 07/24/2018 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 07/24/2018 Encounters Date Type Department Care Team Description 03/25/2024 Orders Only [facility] Rheumatology [address] [place] [address] Bev Yin MD Arthralgia, unspecified joint (Primary Dx); Bilateral hand pain; Bilateral hand numbness 02/22/2024 Orders Only [facility] Rheumatology [address] [place] [address] [address]th [place] [address] [place] [address] Bev Yin MD Shoulder pain, unspecified chronicity, unspecified laterality (Primary Dx); Neck pain; Arthralgia, unspecified joint; Chronic low back pain, unspecified back pain laterality, unspecified whether sciatica present 01/24/2024 Telephone [facility] Rheumatology [address] [place] [address] 5th [place] [address] [place] [id number] Bev Yin MD 01/23/2024 2:13 PM BUSINESS INTELLIGENCE ETL DEVELOPER - 01/23/2024 11:59 PM BUSINESS INTELLIGENCE ETL DEVELOPER Hospital Encounter [facility] [address] [place] [address] Arthralgia, unspecified joint; Chronic low back pain, unspecified back pain laterality, unspecified whether sciatica present Discharge Disposition: Discharge to home or self care 01/23/2024 2:02 PM BUSINESS INTELLIGENCE ETL DEVELOPER - 01/23/2024 11:59 PM BUSINESS INTELLIGENCE ETL DEVELOPER Hospital Encounter [facility] [address] [address] Arthralgia, unspecified joint; Chronic low back pain, unspecified back pain laterality, unspecified whether sciatica present Discharge Disposition: Discharge to home or self care 01/23/2024 2:00 PM BUSINESS INTELLIGENCE ETL DEVELOPER Lab [facility] Endocrinology Metabolism and Lipid [address] [place] [address] 5th [place] [phone] Arthralgia, unspecified joint; Chronic low back pain, unspecified back pain laterality, unspecified whether sciatica present 01/23/2024 1:20 PM BUSINESS INTELLIGENCE ETL DEVELOPER Office Visit [facility] Rheumatology [address] [facility] 5th [place] [address] [place] [address] Bev Yin MD Arthralgia, unspecified joint (Primary Dx); Chronic low back pain, unspecified back pain laterality, unspecified whether sciatica present 12/31/2023 Orders Only [facility] Scanning, Provider from Last 3 Months Social History Tobacco Use Types Packs/Day Years Used Date Smoking Tobacco: Never Comments No Sex and Gender Information Value Date Recorded Sex Assigned at Not on file Legal Sex Female 7:23 PM BUSINESS INTELLIGENCE ETL DEVELOPER Gender Identity Not on file Sexual Orientation Not on file Obstetrics History Last Filed Vital Signs Vital Sign Reading Time Taken Comments Blood Pressure 158/96 01/23/2024 12:57 PM BUSINESS INTELLIGENCE ETL DEVELOPER Pulse 89 01/23/2024 12:57 PM BUSINESS INTELLIGENCE ETL DEVELOPER Temperature 37.1 C (98.8 F) 07/24/2018 5:59 PM CDT Respiratory Rate 18 07/24/2018 5:59 PM CDT Oxygen Saturation 100% 07/24/2018 5:59 PM CDT Inhaled Oxygen Concentration - - Weight 97.1 kg (214 lb) 01/23/2024 12:57 PM BUSINESS INTELLIGENCE ETL DEVELOPER Height 165.1 cm (5' 5 ) 01/23/2024 12:57 PM BUSINESS INTELLIGENCE ETL DEVELOPER Body Mass Index 35.61 01/23/2024 12:57 PM BUSINESS INTELLIGENCE ETL DEVELOPER Plan of Treatment Health Maintenance Due Date Last Done Comments Breast Cancer Screening-Mammogram 1979 Cervical Cancer Screening 1979 Depression Screening 1979 Hepatitis C Screening 1979 Varicella Vaccines (1 of 2 - 13+ 2-dose series) 07/13/1992 Regular Well Visit/Exam 18-64 07/13/1997 Covid-19 Vaccine ( season) 2023 02/02/2021, 05/07/2020, 04/13/2020 Influenza Vaccine (#1) 2023 DTaP/Tdap/Td Vaccine (8 - Td or Tdap) 04/14/2031 04/13/2021, 07/03/2017, 09/06/1993, Additional history exists Hepatitis B Screening Completed 09/16/2020 , 10/07/2019, 03/05/2019 HPV Vaccines Aged Out No longer eligi ble based on patient's age to complete this topic Pneumococcal vaccine <65 Aged Out No longer eligible based on patient's age to complete this topic Procedures Procedure Name Priority Date/Time Associated Diagnosis Comments XR CHEST PA LATERAL 2 VIEWS Schedule Routine, Read Routine (OP Routine) 01/23/2024 2:33 PM BUSINESS INTELLIGENCE ETL DEVELOPER Arthralgia, unspecified joint Chronic low back pain, unspecified back pain laterality, unspecified whether sciatica present XR SPINE LUMBAR COMPLETE 4 OR MORE VIEWS Schedule Routine, Read Routine (OP Routine) 01/23/2024 2:33 PM BUSINESS INTELLIGENCE ETL DEVELOPER Arthralgia, unspecified joint Chronic low back pain, unspecified back pain laterality, unspecified whether sciatica present XR SACROILIAC JOINTS 3 OR MORE VIEWS Schedule Routine, Read Routine (OP Routine) 01/23/2024 2:33 PM BUSINESS INTELLIGENCE ETL DEVELOPER Arthralgia, unspecified joint Chronic low back pain, unspecified back pain laterality, unspecified whether sciatica present TISSUE TRANSGLUTAMINASE, IGA Routine 01/23/2024 2:02 PM BUSINESS INTELLIGENCE ETL DEVELOPER Arthralgia, unspecified joint Chronic low back pain, unspecified back pain laterality, unspecified whether sciatica present VITAMIN D 25 HYDROXY Routine 01/23/2024 2:02 PM BUSINESS INTELLIGENCE ETL DEVELOPER Arthralgia, unspecified joint Chronic low back pain, unspecified back pain laterality, unspecified whether sciatica present SCAN - LABS 12/31/2023 from Last 3 Months Results * XR Sacroiliac Joints 3 or More Views (01/23/2024 2:33 PM BUSINESS INTELLIGENCE ETL DEVELOPER) Anatomical Region Laterality Modality Pelvis, Body N/A Computed Radiogr aphy 01/23/2024 2:40 PM BUSINESS INTELLIGENCE ETL DEVELOPER Impressions 01/23/2024 2:40 PM BUSINESS INTELLIGENCE ETL DEVELOPER 1. Mild bilateral sacroiliac osteoarthritis. 2. 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 Electronically signed by: Rudy Dang M.D. Narrative 01/23/2024 2:40 PM BUSINESS INTELLIGENCE ETL DEVELOPER EXAMINATION: XR SACROILIAC JOINTS 3 OR MORE VIEWS, XR SPINE LUMBAR 4 OR MORE VIEWS HISTORY: Low back and sacroiliac arthralgias FINDINGS: 3 view examination of the sacroiliac joints and 4 view examination of the lumbar spine are correlated with CT dated 07/19/2018. There is mild sacroiliac osteoarthritis bilaterally, slightly greater on the left than the right. There is no erosion, ankylosis, or sacroiliitis. There is no fracture. There is mild degenerative disc disease throughout the lumbar spine and lower lumbar facet osteoarthritis, with grade 1 degenerative anterolisthesis at L4-L5. There is no compression fracture or syndesmophyte formation. There are surgical clips in the right upper quadrant. Procedure Note Rudy Dang MD - 01/23/2024 EXAMINATION: XR SACROILIAC JOINTS 3 OR MORE VIEWS, XR SPINE LUMBAR 4 OR MORE VIEWS HISTORY: Low back and sacroiliac arthralgias FINDINGS: 3 view examination of the sacroiliac joints and 4 view examination of the lumbar spine are correlated with CT dated 07/19/2018. There is mild sacroiliac osteoarthritis bilaterally, slightly greater on the left than the right. There is no erosion, ankylosis, or sacroiliitis. There is no fracture. There is mild degenerative disc disease throughout the lumbar spine and lower lumbar facet osteoarthritis, with grade 1 degenerative anterolisthesis at L4-L5. There is no compression fracture or syndesmophyte formation. There are surgical clips in the right upper quadrant. IMPRESSION: 1. Mild bilateral sacroiliac osteoarthritis. 2. 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 Electronically signed by: Rudy Dang M.D. us Bev Yin MD IM XR PROCEDURES Final Res ult * XR Spine Lumbar 4 or More Views (01/23/2024 2:33 PM BUSINESS INTELLIGENCE ETL DEVELOPER) Anatomical Region Laterality Modality Spine N/A Computed Radiogr aphy 01/23/2024 2:40 PM BUSINESS INTELLIGENCE ETL DEVELOPER Impressions 01/23/2024 2:40 PM BUSINESS INTELLIGENCE ETL DEVELOPER 1. Mild bilateral sacroiliac osteoarthritis. 2. 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 Electronically signed by: Rudy Dang M.D. Narrative 01/23/2024 2:40 PM BUSINESS INTELLIGENCE ETL DEVELOPER EXAMINATION: XR SACROILIAC JOINTS 3 OR MORE VIEWS, XR SPINE LUMBAR 4 OR MORE VIEWS HISTORY: Low back and sacroiliac arthralgias FINDINGS: 3 view examination of the sacroiliac joints and 4 view examination of the lumbar spine are correlated with CT dated 07/19/2018. There is mild sacroiliac osteoarthritis bilaterally, slightly greater on the left than the right. There is no erosion, ankylosis, or sacroiliitis. There is no fracture. There is mild degenerative disc disease throughout the lumbar spine and lower lumbar facet osteoarthritis, with grade 1 degenerative anterolisthesis at L4-L5. There is no compression fracture or syndesmophyte formation. There are surgical clips in the right upper quadrant. Procedure Note Rudy Dang MD - 01/23/2024 EXAMINATION: XR SACROILIAC JOINTS 3 OR MORE VIEWS, XR SPINE LUMBAR 4 OR MORE VIEWS HISTORY: Low back and sacroiliac arthralgias FINDINGS: 3 view examination of the sacroiliac joints and 4 view examination of the lumbar spine are correlated with CT dated 07/19/2018. There is mild sacroiliac osteoarthritis bilaterally, slightly greater on the left than the right. There is no erosion, ankylosis, or sacroiliitis. There is no fracture. There is mild degenerative disc disease throughout the lumbar spine and lower lumbar facet osteoarthritis, with grade 1 degenerative anterolisthesis at L4-L5. There is no compression fracture or syndesmophyte formation. There are surgical clips in the right upper quadrant. IMPRESSION: 1. Mild bilateral sacroiliac osteoarthritis. 2. 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 Electronically signed by: Rudy Dang M.D. us Bev Yin MD IMG XR PROCEDURES Final Res ult * X-ray chest 2 views (01/23/2024 2:33 PM BUSINESS INTELLIGENCE ETL DEVELOPER) Anatomical Region Laterality Modality Body, Chest N/A Computed Radiogr aphy 01/23/2024 3:47 PM BUSINESS INTELLIGENCE ETL DEVELOPER Impressions 01/23/2024 4:03 PM BUSINESS INTELLIGENCE ETL DEVELOPER Comparison is made to 07/19/2018 CT: The lungs are clear. No pleural effusion or pneumothorax. The cardiomediastinal silhouette is normal. Dictated by: Hector Cm M.D. (Ramanan) The radiology attending physician has personally reviewed this study, and had reviewed and/or edited this written report and agrees with it. Electronically signed by: Kristyn Kincaid M.D. Narrative 01/23/2024 4:03 PM BUSINESS INTELLIGENCE ETL DEVELOPER EXAMINATION: 2 view chest radiograph Procedure Note Kristyn Kincaid MD - 01/23/2024 EXAMINATION: 2 view chest radiograph IMPRESSION: Comparison is made to 07/19/2018 CT: The lungs are clear. No pleural effusion or pneumothorax. The cardiomediastinal silhouette is normal. Dictated by: Hector Cm M.D. (Ramanan) The radiology attending physician has personally reviewed this study, and had reviewed and/or edited this written report and agrees with it. Electronically signed by: Kristyn Kincaid M.D. us Bev Yin MD IMG XR PROCEDURES Final Res ult * Tissue transglutaminase IgA (TGG-IgA Ab) (01/23/2024 2:02 PM BUSINESS INTELLIGENCE ETL DEVELOPER) TTG ab, IgA <0.5 <=14.9 units/mL Comment: Interpretive data Negative: <15 units/mL Positive: > or equal to 15 units/mL Current interpretive data was last revised on 2016. Blood 01/23/2024 2:02 PM BUSINESS INTELLIGENCE ETL DEVELOPER 01/23/2024 4:37 PM BUSINESS INTELLIGENCE ETL DEVELOPER us Bev Yin MD LAB BLOOD ORDERABLES Final Result [facility] [place] [address] * Vitamin D 25 hydroxy (01/23/2024 2:02 PM BUSINESS INTELLIGENCE ETL DEVELOPER) Vitamin D 26.5 20.0 - 100.0 ng/mL [facility] Comment: VITAMIN D DEFICIENCY = LESS THAN or EQUAL TO 20 ng/mL VITAMIN D INSUFFICIENCY = 21 - 29 ng/mL VITAMIN D SUFFICIENT = 30-100 ng/mL Blood 01/23/2024 2:02 PM BUSINESS INTELLIGENCE ETL DEVELOPER 01/23/2024 3:27 PM BUSINESS INTELLIGENCE ETL DEVELOPER Bev Yin MD LAB BLOOD ORDERABLES Final Result [facility] * SCAN - LABS (12/31/2023) Provider Scanning Final Result from Last 3 Months Insurance [facility] Care Teams Convenience Store Clerk Relationship Specialty Start Date End Date Miscellaneous, Not In File PCP - General 07/19/18
--- OUTSIDE RECORDS SUMMARY | 2024-03-28 15:12 | XMS_ITS | Encounter Summary ---
Author Organization [facility] Address [address] [place] [address] Phone Care Team Providers Care Informatics Pharmacist Name Role Phone Miscellaneous, Not In File Primary Care Provider Unavailable Encounter Details Date Type Department Care Team (Late st Contact Info) Description 12/31/2023 Orders Only [facility] Scanning, Provider Social History Tobacco Use Types Packs/Day Years Used Date Smoking Tobacco: Never Assessed Comments No Sex and Gender Information Value Date Recorded Sex Assigned at Not on file Legal Sex Female 7:23 PM TOOL MAKER Gender Identity Not on file Sexual Orientation Not on file documented as of this encounter Plan of Treatment Not on file documented as of this encounter Procedures Procedure Name Priority Date/Time Associated Diagnosis Comments SCAN - LABS 12/31/2023 documented in this encounter Results * SCAN - LABS (12/31/2023) us Provider Scanning Final Result documented in this encounter Visit Diagnoses Not on filedocumented in this encounter Care Teams Informatics Pharmacist Relationship Specialty Start Date End Date Miscellaneous, Not In File PCP - General 07/19/18 documented as of this encounter
--- OUTSIDE RECORDS SUMMARY | 2024-03-28 15:12 | XMS_ITS | Referral Summary ---
Author Organization [facility] Address [address] [place] [address] Care Team Providers Care Huller Operator Name Role Phone Miscellaneous, Not In File Primary Care Provider Unavailable Encounters Date Type Department Care Team Description 03/25/2024 Orders Only [facility] Rheumatology [address] [facility] [address] [place] [address] Bev Yin MD Arthralgia, unspecified joint (Primary Dx); Bilateral hand pain; Bilateral hand numbness 02/22/2024 Orders Only [facility] Rheumatology [address] [place] [address] 5th [place] [address] [place] [address] Bev Yin MD Shoulder pain, unspecified chronicity, unspecified laterality (Primary Dx); Neck pain; Arthralgia, unspecified joint; Chronic low back pain, unspecified back pain laterality, unspecified whether sciatica present 01/24/2024 Telephone [facility] Rheumatology [address] [place] [address] Medicine 5th [place] [address] [place] [address] Bev Yin MD 01/23/2024 2:02 PM SHAPING MACHINE OPERATOR - 01/23/2024 11:59 PM SHAPING MACHINE OPERATOR Hospital Encounter [address] [address] Arthralgia, unspecified joint; Chronic low back pain, unspecified back pain laterality, unspecified whether sciatica present Discharge Disposition: Discharge to home or self care 01/23/2024 2:13 PM SHAPING MACHINE OPERATOR - 01/23/2024 11:59 PM SHAPING MACHINE OPERATOR Hospital Encounter [facility] [address] [place] [address] Arthralgia, unspecified joint; Chronic low back pain, unspecified back pain laterality, unspecified whether sciatica present Discharge Disposition: Discharge to home or self care 01/23/2024 2:00 PM SHAPING MACHINE OPERATOR Lab [facility] Endocrinology Metabolism and Lipid [address] [facility] 5th [place] [address] [place] [phone] Arthralgia, unspecified joint; Chronic low back pain, unspecified back pain laterality, unspecified whether sciatica present 01/23/2024 1:20 PM SHAPING MACHINE OPERATOR Office Visit [facility] Rheumatology [address] [facility] 5th [place] [address] [place] [address] Bev Yin MD Arthralgia, unspecified joint (Primary Dx); Chronic low back pain, unspecified back pain laterality, unspecified whether sciatica present 12/31/2023 Orders Only [facility] Scanning, Provider from Last 3 Months Allergies No known active allergies Medications lisinopriL [...] mg total) by mouth daily 12/02/2023 Active Se--19 29 mg iron- 1 mg tablet Take [...] ial veins of left lower extremity 07/24/2018 Social History Tobacco Use Types Packs/Day Years Used Date Smoking Tobacco: Never Comments No Sex and Gender Information Value Date Recorded Sex Assigned at Not on file Legal Sex Female 7:23 PM SHAPING MACHINE OPERATOR Gender Identity Not on file Sexual Orientation Not on file Last Filed Vital Signs Vital Sign Reading Time Taken Comments Blood Pressure 158/96 01/23/2024 12:57 PM SHAPING MACHINE OPERATOR Pulse 89 01/23/2024 12:57 PM SHAPING MACHINE OPERATOR Temperature 37.1 C (98.8 F) 07/24/2018 5:59 PM CDT Respiratory Rate 18 07/24/2018 5:59 PM CDT Oxygen Saturation 100% 07/24/2018 5:59 PM CDT Inhaled Oxygen Concentration - - Weight 97.1 kg (214 lb) 01/23/2024 12:57 PM SHAPING MACHINE OPERATOR Height 165.1 cm (5' 5 ) 01/23/2024 12:57 PM SHAPING MACHINE OPERATOR Body Mass Index 35.61 01/23/2024 12:57 PM SHAPING MACHINE OPERATOR Plan of Treatment Not on file Procedures Procedure Name Priority Date/Time Associated Diagnosis Comments XR CHEST PA LATERAL 2 VIEWS Schedule Routine, Read Routine (OP Routine) 01/23/2024 2:33 PM SHAPING MACHINE OPERATOR Arthralgia, unspecified joint Chronic low back pain, unspecified back pain laterality, unspecified whether sciatica present XR SPINE LUMBAR COMPLETE 4 OR MORE VIEWS Schedule Routine, Read Routine (OP Routine) 01/23/2024 2:33 PM SHAPING MACHINE OPERATOR Arthralgia, unspecified joint Chronic low back pain, unspecified back pain laterality, unspecified whether sciatica present XR SACROILIAC JOINTS 3 OR MORE VIEWS Schedule Routine, Read Routine (OP Routine) 01/23/2024 2:33 PM SHAPING MACHINE OPERATOR Arthralgia, unspecified joint Chronic low back pain, unspecified back pain laterality, unspecified whether sciatica present TISSUE TRANSGLUTAMINASE, IGA Routine 01/23/2024 2:02 PM SHAPING MACHINE OPERATOR Arthralgia, unspecified joint Chronic low back pain, unspecified back pain laterality, unspecified whether sciatica present VITAMIN D 25 HYDROXY Routine 01/23/2024 2:02 PM SHAPING MACHINE OPERATOR Arthralgia, unspecified joint Chronic low back pain, unspecified back pain laterality, unspecified whether sciatica present SCAN - LABS 12/31/2023 from Last 3 Months Results * XR Sacroiliac Joints 3 or More Views (01/23/2024 2:33 PM SHAPING MACHINE OPERATOR) Anatomical Region Laterality Modality Pelvis, Body N/A Computed Radiogr aphy 01/23/2024 2:40 PM SHAPING MACHINE OPERATOR Impressions 01/23/2024 2:40 PM SHAPING MACHINE OPERATOR 1. Mild bilateral sacroiliac osteoarthritis. 2. 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 Electronically signed by: Rudy Dang M.D. Narrative 01/23/2024 2:40 PM SHAPING MACHINE OPERATOR EXAMINATION: XR SACROILIAC JOINTS 3 OR MORE [...] IMG XR PROCEDURES Final Res ult * XR Spine Lumbar 4 or More Views (01/23/2024 2:33 PM SHAPING MACHINE OPERATOR) Anatomical Region Laterality Modality Spine N/A Computed Radiogr aphy 01/23/2024 2:40 PM SHAPING MACHINE OPERATOR Impressions 01/23/2024 2:40 PM SHAPING MACHINE OPERATOR 1. Mild bilateral sacroiliac osteoarthritis. 2. 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 Electronically signed by: Rudy Dang M.D. Narrative 01/23/2024 2:40 PM SHAPING MACHINE OPERATOR EXAMINATION: XR SACROILIAC JOINTS 3 OR MORE [...] X-ray chest 2 views (01/23/2024 2:33 PM SHAPING MACHINE OPERATOR) Anatomical Region Laterality Modality Body, Chest N/A Computed Radiogr aphy 01/23/2024 3:47 PM SHAPING MACHINE OPERATOR Impressions 01/23/2024 4:03 PM SHAPING MACHINE OPERATOR Comparison is made to 07/19/2018 CT: The lungs are clear. No pleural effusion or pneumothorax. The cardiomediastinal silhouette is normal. Dictated by: Hector Cm M.D. (Ramanan) The radiology attending physician has personally reviewed this study, and had reviewed and/or edited this written report and agrees with it. Electronically signed by: Kristyn Kincaid M.D. Narrative 01/23/2024 4:03 PM SHAPING MACHINE OPERATOR EXAMINATION: 2 view chest radiograph Procedure Note [...] it. Electronically signed by: Kristyn Kincaid M.D. Bev Yin MD IMG XR PROCEDURES Final Res ult * Tissue transglutaminase IgA (TGG-IgA Ab) (01/23/2024 2:02 PM SHAPING MACHINE OPERATOR) TTG ab, IgA <0.5 <=14.9 units/mL Comment: Interpretive data Negative: <15 units/mL Positive: > or equal to 15 units/mL Current interpretive data was last revised on 2016. Blood 01/23/2024 2:02 PM SHAPING MACHINE OPERATOR 01/23/2024 4:37 PM SHAPING MACHINE OPERATOR Bev Yin MD LAB BLOOD ORDERABLES Final Result [facility] [place] [address] * Vitamin D 25 hydroxy (01/23/2024 2:02 PM SHAPING MACHINE OPERATOR) Pathologist [facility] Vitamin D 26.5 20.0 - 100.0 ng/mL [facility] Comment: VITAMIN D DEFICIENCY = LESS THAN or EQUAL TO 20 ng/mL VITAMIN D INSUFFICIENCY = 21 - 29 ng/mL VITAMIN D SUFFICIENT = 30-100 ng/mL Blood 01/23/2024 2:02 PM SHAPING MACHINE OPERATOR 01/23/2024 3:27 PM SHAPING MACHINE OPERATOR Bev Yin MD LAB BLOOD ORDERABLES Final Result [facility] * SCAN - LABS (12/31/2023) us Provider Scanning Final Result from Last 3 Months Insurance [facility] Care Teams Huller Operator Relationship Specialty Start Date End Date Miscellaneous, Not In File PCP - General 07/19/18
--- OUTSIDE RECORDS SUMMARY | 2024-03-28 15:12 | XMS_ITS | Clinical Summary ---
Author Organization [facility] Address [address] [place] [address] Phone Care Team Providers Care Valve Pipe Irrigator Name Role Phone Clarisse Baez DO Primary Care Provider [phone]- [phone] Encounters Date Type Department Care Team Description 03/20/2024 Plan of Care Documentation [facility] [address] [place] [address] 03/19/2024 4:00 PM PROGRAMMING MANAGER Physical Therapy [facility] [address] [place] [address] Bev Yin MD MiddletonJo M, PT Shoulder pain, unspecified chronicity, unspecified laterality; Arthralgia, unspecified joint; Chronic low back pain, unspecified back pain laterality, unspecified whether sciatica present Discharge Disposition: Discharged to home or Selfcare 03/19/2024 Travel 02/26/2024 Transcribe Orders [facility] [address] [place] [address] Bev Yin MD Shoulder pain, unspecified chronicity, unspecified laterality (Primary Dx); Arthralgia, unspecified joint; Chronic low back pain, unspecified back pain laterality, unspecified whether sciatica present from Last 3 Months Social History Tobacco Use Types Packs/Day Years Used Date Smoking Tobacco: Never Assessed Comments Unknown Sex and Gender Information Value Date Recorded Sex Assigned at Not on file Legal Sex Female 2:50 PM PROGRAMMING MANAGER Gender Identity Not on file Sexual Orientation Not on file Plan of Treatment Upcoming Encounters Date Type Department Care Team (Latest Contact Info) Description 04/03/2024 8:30 AM PROGRAMMING MANAGER Physical Therapy [facility] [address] [place] [address] Bev Yin MD [address] [place] [phone] Jo Barajas, PT [place] Discharge Disposition: Discharged to home or Selfcare 04/07/2024 10:00 AM PROGRAMMING MANAGER Physical Therapy [facility] [address] [place] [address] Bev Yin MD [address] [place] [id number] Jo Barajas PT [place] 04/14/2024 12:15 PM CDT Physical Therapy [facility] [address] [place] [address] Bev Yin MD [address] [place] [id number] Jo Barajas, PT [place] 04/21/2024 1:00 PM CDT Physical Therapy [facility] [address] [place] [address] Bev Yin MD [address] [place] [id number] Jo Barajas, PT [place] 04/28/2024 12:15 PM CDT Physical Therapy [facility] [address] [place] [address] Bev Yin MD [address] [place] [id number] Jo Barajas, [place] 05/05/2024 12:15 PM CDT Physical Therapy [facility] [address] [place] [address] Bev Yin MD [address] [place] [id number] Jo Barajas, PT [place] 05/12/2024 12:15 PM CDT Physical Therapy [facility] [address] [place] [address] Bev Yin MD [address] [place] [id number] Jo Barajas, PT [place] Discharge Disposition: Discharged to home or Selfcare Health Maintenance Due Date Last Done Comments Hepatitis C Virus (HCV) Screening 1979 Pap Smear 07/13/2000 Cervical Cancer Screening (CCS) 07/13/2009 HPV/Cotest 07/13/2009 Discussion re Starting/Frequency of Mammograms 2019 Influenza Immunization (#1) 2023 SARS-COV-2 Immunization ( season) 2023 02/02/2021, 05/07/2020, 04/13/2020 Respiratory Syncytial Virus (RSV) Immunization (Adult) (1 - 1-dose 75+ series) 07/13/2054 Hepatitis B Immunization Completed 021, 10/07/2019, 03/05/2019 TdaP Immunization Completed 04/13/2021, 07/03/2017 Meningococcal Immunization (ACWY) Aged Out No longer eligible b ased on patient's age to complete this topic Pneumococcal Immunization Combined Aged Out No longer eligible b ased on patient's age to complete this topic Rotavirus Immunization Aged Out No lo nger eligible based on patient's age to complete this topic Insurance MEDICAID [place] Care Teams Valve Pipe Irrigator Relationship Specialty Start Date End Date Clarisse Baez DO [address] [place] [address] PCP - General Family Medicine 02/26/24
--- OUTSIDE RECORDS SUMMARY | 2024-03-28 15:12 | XMS_ITS | Patient Health Summary ---
Author Organization [facility] Address [address] 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 This disclosure is being madepursuant to the Care Everywhere program and may not contain all information available regarding this patient. Last updated 17.[facility] Allergies No known active allergies Medications * Be aware that medications may not be up to date on this document. Alwaysverify current medications with the patient. * busPIRone (BUSPAR) 10 MG tablet Take 15 mg by mouth 2 times daily * calcium-vitamin D (CALTRATE PLUS D) 600-200 MG-UNIT tablet Take 1 tablet by mouth once daily * NIFEdipine CR osmotic 24hr (PROCARDIA-XL) 30 MG tablet Take 30 mg by mouth once daily Reasons: High Blood Pressure Disorder * fish oil/omega-3 fatty acids (PROMEGA;CARDI-OMEGA 3) 1000 MG capsule Take 1,000 mg by mouth 2 times daily with morning and evening meal * Vit-Fe Fumarate-FA ( VITAMIN) 27-0.8 MG Classic 28 mg iron-800 mcg tablet TAKE 1 TABLET BY MOUTH ONCE DAILY * Glucagon (BAQSIMI ONE PACK) 3 MG/DOSE POWD(Started 12/08/2020) [place] 3 mg into the nose as needed 1 refill by 12/08/2021 * Continuous Blood Gluc Recovery Assistant (FREESTYLE IRWIN READER) [facility](Started 12/08/2020) Use 1 Each as directed * Continuous Blood Gluc Sensor (FREESTYLE IRWIN SENSOR SYSTEM) [facility](Started 01/04/2021) Use 1 Each as directed Apply 1 Libre2 sensor q14 days. 5 refills by 01/04/2022 * famotidine (PEPCID) 20 MG tablet(Started 02/02/2021) Take 1 (one) tablet by mouth 2 times daily Reasons: Heartburn 5 refills by 02/02/2022 * insulin glargine (LANTUS SOLOSTAR) pen(Started 02/02/2021) Inject 64 (sixty four) Units to 90 (ninety) Units subcutaneously as directed Start with 24units qam, 40 qpm. Space by 12 hrs. 5 refills by 02/02/2022 * Insulin Pen Needle 32G X 4 MM [facility](Started 03/11/2021) Use 1 Each 6 times daily while awake 11 refills by 03/11/2022 * insulin lispro (HUMALOG;ADMELOG) 100 UNIT/ML pen Inject 4-16 Units subcutaneously Take 4 units before B, L & D. * Continuous Blood Gluc Sensor (DEXCOM G6 SENSOR) [facility](Started 04/20/2021) Use 1 Each as directed 5 refills by 04/20/2022 * Continuous Blood Gluc Recovery Assistant (DEXCOM G6 PLEXIGLAS FORMER) [facility](Started 04/20/2021) Use 1 device as directed * Continuous Blood Gluc Transmit (DEXCOM G6 TRANSMITTER) [facility](Started 04/20/2021) Use 1 Each as directed 3 refills by 04/20/2022 * docusate sodium (COLACE) 100 MG capsule(Started 05/09/2021) Take 100 mg by mouth every 12 hours * HYDROcodone-acetaminophen (NORCO) 5-325 MG tablet(Started 05/08/2021) * ondansetron, disintegrating, (ZOFRAN ODT) 4 MG tablet(Started 05/09/2021) DISSOLVE 1 TABLET IN MOUTH EVERY 8 HOURS NEEDED FOR NAUSEA AND VOMITING * omeprazole (PRILOSEC) 20 MG capsule Take 20 mg by mouth as needed for Heartburn Active Problems Problem Noted Date Diagnosed Date Ovarian cyst during , antepartum 2020 Supervision of high-risk of elderly pr imigravida 12/08/2020 Maternal obesity affecting , antepartum 12/08/2020 Uterine fibroid during , antepartum 04/2020 Benign essential hypertension, antepartum 2020 Diabetes mellitus affecting , antepartu m 12/06/2020 Anxiety and depression H/O vitamin D deficiency Resolved Problems Problem Noted Date Diagnosed Date Resolved Date ventricular septal def ect in , antepartum, single gestation 03/30/2021 05/04/2021 20 weeks gestation of 12/20/2020 03/28/2021 Advanced maternal age, primi , antepartum 12/06/2020 12/22/2020 Social History Tobacco Use Types Packs/Day Years Used Date Smoking Tobacco: Never Smokeless Tobacco: Never Alcohol Use Standard Drinks/Week Comments Not Currently 0 (1 standard drink = 0.6 oz pur e alcohol) Sex and Gender Information Value Date Recorded Sex Assigned at Not on file Gender Identity Not on file Sexual Orientation Not on file Last Filed Vital Signs Vital Sign Reading Time Taken Comments Blood Pressure 154/90 06/08/2021 9:15 AM CDT man ual Pulse 87 06/08/2021 8:04 AM CDT Temperature 36.7 C (98.1 F) 05/11/2021 8:34 AM CDT Respiratory Rate - - Oxygen Saturation 98% 05/18/2021 11:02 AM CDT Inhaled Oxygen Concentration - - Weight 102.1 kg (225 lb) 06/08/2021 8:04 AM CDT Height 157.5 cm (5' 2 ) 05/04/2021 7:43 AM CDT Body Mass Index 41.15 05/04/2021 7:43 AM CDT Procedures * BIOPHYSICAL PROFILE W NST(Performed 06/08/2021) Performed for ventricular septal defect in , antepartum, single gestation (HCC), Maternal obesity affecting , antepartum (HCC), Diabetes mellitus affecting , antepartum (HCC) * BIOPHYSICAL PROFILE W NST(Performed 06/01/2021) Performed for ventricular septal defect in , antepartum, single gestation (HCC), Maternal obesity affecting , antepartum (HCC), Diabetes mellitus affecting , antepartum (HCC) * BIOPHYSICAL PROFILE W NST(Performed 05/25/2021) Performed for ventricular septal defect in , antepartum, single gestation (HCC), Maternal obesity affecting , antepartum (HCC), Diabetes mellitus affecting , antepartum (HCC) * BIOPHYSICAL PROFILE W NST(Performed 05/18/2021) Performed for ventricular septal defect in , antepartum, single gestation (HCC), Maternal obesity affecting , antepartum (HCC), Diabetes mellitus affecting , antepartum (HCC) * BIOPHYSICAL PROFILE W NST(Performed 05/11/2021) Performed for ventricular septal defect in , antepartum, single gestation (HCC), Maternal obesity affecting , antepartum (HCC), Diabetes mellitus affecting , antepartum (HCC) * HEMOGLOBIN A1C(Performed 05/04/2021) * BIOPHYSICAL PROFILE W NST(Performed 05/04/2021) Performed for ventricular septal defect in , antepartum, single gestation (HCC), Maternal obesity affecting , antepartum (HCC), Diabetes mellitus affecting , antepartum (HCC) * BIOPHYSICAL PROFILE W NST(Performed 04/27/2021) Performed for ventricular septal defect in , antepartum, single gestation (HCC), Maternal obesity affecting , antepartum (HCC), Diabetes mellitus affecting , antepartum (HCC) * US PELVIS COMPLETE(Performed 04/07/2021) Performed for Ovarian cyst during , antepartum (HCC), 17 weeks gestation of (HCC) * CA OB US, LIMITED, FETUS(S)(Performed 04/07/2021) Performed for Ovarian cyst during , antepartum (HCC), 17 weeks gestation of (HCC) * CA ULTRASND,PREG UTER,TRANSVAGIN(Performed 04/07/2021) Performed for Ovarian cyst during , antepartum (HCC), 17 weeks gestation of (HCC) * IMAGING/RADIOLOGY/XRAY RESULTS ORDER(Performed 04/07/2021) * ECHO CONSULT - (Performed 03/31/2021) Performed for Supervision of high-risk of elderly primigravida (HCC), Maternal obesity affecting , antepartum (HCC), Anomaly of heart of fetus affecting , antepartum, single or unspecified fetus (HCC), 24 weeks gestation of (HCC) * SONOGRAM - COMPLETE(Performed 03/30/2021) Performed for Diabetes mellitus affecting , antepartum (HCC), Supervision of high-risk of elderly primigravida (HCC), Maternal obesity affecting , antepartum (HCC), Uterine fibroid during , antepartum (HCC), Benign essential hypertension, antepartum (HCC) * HEMOGLOBIN A1C(Performed 03/02/2021) * SONOGRAM - COMPLETE(Performed 03/02/2021) Performed for Ovarian cyst during , antepartum (HCC), Supervision of high-risk of elderly primigravida (HCC), Maternal obesity affecting , antepartum (HCC), Uterine fibroid during , antepartum (HCC), 17 weeks gestation of (HCC) * SONOGRAM - COMPLETE(Performed 02/02/2021) Performed for Ovarian cyst during , antepartum (HCC), Supervision of high-risk of elderly primigravida (HCC), Maternal obesity affecting , antepartum (HCC), Diabetes mellitus affecting , antepartum (HCC), Benign essential hypertension, antepartum (HCC), 18 weeksgestation of (HCC) * ALPHA FETOPROTEIN BLOOD MATERNAL(Performed 01/19/2021) * HEMOGLOBIN A1C(Performed 12/22/2020) * ALPHA FETOPROTEIN BLOOD MATERNAL(Performed 12/22/2020) * SONOGRAM - COMPLETE(Performed 12/22/2020) Performed for Benign essential hypertension, antepartum (HCC), Diabetes mellitus affecting , antepartum (HCC), Supervision of high-risk of elderly primigravida (HCC), Maternal obesity affecting , antepartum (HCC), Uterine fibroid during , antepartum (HCC), Encounter for (NT) nuchal translucency scan ([facility]) * PROTEIN CREATININE RATIO URINE TIMED PNL(Performed 12/15/2020) * VITAMIN D 25-HYDROXY(Performed 12/15/2020) * TSH REFLEX FREE T4(Performed 12/15/2020) * CREATININE BLOOD(Performed 12/15/2020) * SONOGRAM - COMPLETE(Performed 12/08/2020) Performed for Diabetes mellitus affecting in first trimester (HCC), Benign essential hypertension, antepartum (HCC), AMA (advanced maternal age) primigravida 35+, first trimester (HCC) Results * BIOPHYSICAL PROFILE W NST (06/08/2021 7:35 AM CDT) Only the most recent of7 resultswithin the time period is included. Anatomical Region Laterality Modality Other 06/08/2021 7:35 AM CDT Narrative 06/08/2021 8:50 AM CDT [facility] PHONE: FAX: Betzy. Name: SHAWNEE TORRES Pat. 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 The amniotic fluid volume is within normal limits. The FHR baseline is 130 bpm during today's reactive NST. The FHR variability was moderate. IMPRESSION: Single, live, intrauterine at 37w6d Amniotic fluid volume: within normal limits Biophysical profile: Reassuring RECOMMEND: Induction scheduled for 06/13/21 Thank you for allowing us the opportunity to care for your patient Todd Thapa MD <Electronic Signature> 06/08/2021 08:50am Lorie Hutchinson MD [facility] ORDERABLES * HEMOGLOBIN A1C (05/04/2021 11:05 AM CDT) Only the most recent of3 resultswithin the time period is included. Hemoglobin A1c 5.3 <5.7 % of total Hgb [facility] Comment: For the purpose of screening for the presence of diabetes: <5.7% Consistent with the absence of diabetes 5.7-6.4% Consistent with increased risk for diabetes (prediabetes) > or =6.5% Consistent with diabetes This assay result is consistent with a decreased risk of diabetes. Currently, no consensus exists regarding use of hemoglobin A1c for diagnosis of diabetes in children. According to [place] Diabetes Association (ADA) guidelines, hemoglobin A1c <7.0% represents optimal control in non- diabetic patients. Different metrics may apply to specific patient populations. Standards of Medical Care in Diabetes(ADA). Test Performed at: [email or web address] [address] ALBERTA CONNORS MD 05/04/2021 11:0 5 AM CDT 05/04/2021 11:07 AM CDT Ivette Calhoun MARKET DEVELOPMENT SPECIALIST-POLLUTION CONTROL CHEMIST LAB - CHEMISTRY ORDERABLES [address] [address] * CA ULTRASND,PREG UTER,TRANSVAGIN, CA OB US, LIMITED, FETUS(S), US PELVIS COMPLETE (04/07/2021 12:03PM FLOATLIGHT POWDER MIXER) Anatomical Region Laterality Modality Pelvis Ultrasound Narrative 04/07/2021 12:03 PM FLOATLIGHT POWDER MIXER Emilee Cherry 04/07/2021 12:03 PM Documentation in digisonics. Margarito Malik MD US ORDERABLES * IMAGING RADIOLOGY XRAY RESULTS ORDER (04/07/2021) Anatomical Region Laterality Modality Other Narrative 04/07/2021 Ordered by an unspecified provider. Scanned Document IMAGING * ECHO CONSULT - (03/31/2021 10:58 AM FLOATLIGHT POWDER MIXER) 03/31/2021 10:5 8 AM FLOATLIGHT POWDER MIXER Narrative Procedure Note Sunni Mullen MD - 03/31/[address] [place] [address] Fax Echocardiogram Report Pat.Name: SHAWNEE TORRES Betzy.ID: [id number] St.Date: 03/31/2021 Refer.MD: Martin Armenta Exam Time: 10:58:00 AM Study Type: Echo Age: 6 1980,40Y Sex: FEMALE [facility] [place] [facility] Pat. Stat.:Outpatient Reason for Study: Suspected cardiac anomaly, small VSD. SUMMARY: Study Data: GA: 28 0/7 weeks. YAKELIN: 06/23/21 . : 1. Para: 0. Type: Quintero. Lie: Breech. Impression: The echocardiogram was within normal limits; however small atrial and ventricular septal defects and persistent ductus arteriosus cannot be excluded as findings. Findings: Anatomic Relationships: Left sided cardiac apex (levocardia). There is normal visceral-cardiac situs, and normal segmental cardiac anatomical relationship. Systemic Veins: There is normal systemic venous return. Pulmonary Veins: The visualized pulmonary veins drain normally to the left atrium. Right Atrium: The right atrial size is normal. Left Atrium: The left atrial size is normal. Atrial Septum: Patent foramen ovale is seen with the foramen flap bowing from right to left and color flow is right to left. Tricuspid Valve: The tricuspid valve is structurally normal. The inflow pattern is normal. Tricuspid velocity is within the normal range. There is no regurgitation present. Mitral Valve: The mitral valve is structurally normal. The inflow pattern is normal. Mitral velocity is within the normal range. There is no regurgitation present. Right Ventricle: The cavity size is normal. The wall thickness is normal. The systolic function is normal. RV Outflow Tract: The outflow tract is normal. Left Ventricle: The cavity size is normal. The wall thickness is normal. The systolic function is normal. LV Outflow Tract: The outflow tract is normal. Ventricular Septum: There is no defect with no shunting. Pulmonary Valve: Leaflets exhibited normal mobility. The transpulmonic velocity is within the normal range. There is no regurgitation present. Aortic Valve: Leaflets exhibited normal mobility. The transaortic velocity is within the normal range. There is no regurgitation present. Pulmonary Artery: The MPA is normal with confluent branch pulmonary arteries. Aorta: aortic arch visualized and is without obstruction by 2D, color flow and Doppler. Ductus Arteriosus: The antegrade flow velocity and pattern in the ductal arch is normal. A normal ductus arteriosus is appreciated. Hydrops Assessment: No pericardial effusion. No evidence of ascites or pleural effusion. Rhythm: The rhythm is normal. There is 1:1 AV conduction. Dopplers: Flow in the ductus venosus is normal. The umbilical vein flow pattern is normal. The umbilical artery flow pattern is normal. MEASUREMENTS: 2D Ventricular Septum IVSd 3.09 mm DOPPLER Mitral Valve MV pkE -0.22 m/s MV E/A 0.66 no unit MV pkA -0.33 m/s Tricuspid Valve TV pkE -0.25 m/s TV E/A 0.81 no unit TV pkA -0.31 m/s Aortic Valve AVpkVel 0.7 m/s Pulmonic Valve PV pkVel 0.7 m/s HR HR 144 bpm (zsc 0.2) Thorax Cardiac Circumf 95.15 mm CTCR 0.55 no unit Thorax Circumfe 173.18 mm Signed 03/31/2021 02:57 PM Sunni Mullen MD Martin Armenta MD ECHO ORDERABLES [facility] [address] [place] [address] * SONOGRAM - COMPLETE (03/30/2021 9:45 AM FLOATLIGHT POWDER MIXER) Only the most recent of5 resultswithin the time period is included. Anatomical Region Laterality Modality Other 03/30/2021 9:45 AM FLOATLIGHT POWDER MIXER Narrative 03/30/2021 11:47 AM FLOATLIGHT POWDER MIXER [facility] PHONE: FAX: Pat. Name: SHAWNEE TORRES. No: [id number] Study Date: 03/30/2021 9:45am , Age: 06 1980, 40 Pregnancies: 1 Height: 62 in Weight: 216 lb LMP: 09/16/2020 GA by LMP: 27w6d GA by Base: 27w6d YAKELIN: 06/23/2021 GA by US: 28w1d YAKELIN: 06/21/2021 GA Selected: 27w6d (LMP) YAKELIN: 06/23/2021 Referring MD: Lorie Hutchinson MD Or Nurse Manager: Karoline Fernandes RDMS CPT4: 06225 BMI: 39.5 Hist/Ind: Incomplete Anatomy AMA: LR NIPT Type II DM Hypertension Class II obesity Suspected Muscular VSD MEASUREMENTS & AGE GROWTH EVALUATION Measurement GA Range Srce %for GA Ratios ----- ---- ------- BPD 7.0 cm 28w1d (30t1t-97o5m) Hadl BPD 48% FL/BPD 0.72 (0.71 - 0.87) HC 25.9 cm 28w1d (19d9c-82k3d) Hadl HC 25% FL/AC 0.20 (0.20 - 0.24) AC 24.9 cm 29w1d (45z9b-61g4n) Hadl AC 76% HC/AC 1.04 (1.00 - 1.18) FL 5.0 cm 27w0d (86s6m-88u3r) Hadl FL 14% CI 0.77 (0.70 - 0.86) HL 4.5 cm 26w6d (64q6n-45b2k) Nash ERICKSON 33% GA for sonogram 28w1d (69m6j-33d4j) Weight Estimate: based on (BPD,HC,AC,FL) Avg Weight: 1201 gm (1025-1376gm) Had : 2lbs, 10oz Normal: 1195 gm (896-1494gm) Hadl Wt% 52% for 27w6d Heart Rate: 144 bpm Amniotic Fluid Index: 07.3cm (Deepest Pocket) EVAL, PLACENTA Presentation: cephalic Placenta: anterior Heart Rate: 144 bpm Amniotic Fluid Volume: normal MATERNAL ANATOMY Fibroids LxHxW (cm) 1: 3.6 x 1.7 x 5.0 Loc: Anterior mid Desc: Intramural Anatomy!Normal!Abnormal!Suboptimal!Prev. Seen!Comments Cranium ! x ! ! ! x ! Mdl (CSP/Thal! ! ! ! x ! Ventricles ! ! ! ! x ! Choroid Plexu! ! ! ! x ! Cerebellum ! ! ! ! x ! Cerebellar Ve! ! ! ! x ! Cisterna M. ! ! ! ! x ! Nuchal Fold ! ! ! ! x ! Orbits ! ! ! ! x ! Profile ! ! ! ! x ! Nasal Bone ! ! ! ! x ! Lip ! ! ! ! x ! Maxilla ! ! ! ! x ! Mandible ! ! ! ! x ! Neck ! ! ! ! x ! Spine ! ! ! ! x ! Lungs ! ! ! ! x ! 4 Chamber Hea! x ! ! ! ! LVOT ! ! ! ! x ! RVOT ! ! ! ! x ! 3 Vessel View! ! ! ! x ! 3 Vessel Trac! x ! ! ! ! Cross-over ! ! ! ! x ! Ductal Arch ! ! ! ! x ! Aortic Arch ! ! ! ! x ! Caval View ! ! ! ! x ! Situs ! ! ! ! x ! Diaphragm ! ! ! ! x ! Stomach ! x ! ! ! x ! Liver ! ! ! ! x ! Bowel ! ! ! ! x ! Kidneys ! x ! ! ! x ! Bladder ! x ! ! ! x ! 3 Vessel Cord! ! ! ! x ! Cord In! ! ! ! x ! Upper Extremi! ! ! ! x ! Hands ! ! ! ! x ! Lower Extremi! ! ! ! x ! Feet ! ! ! ! x ! External Nasreen! ! ! ! x ! Placental Cor! ! ! ! x ! CLINICAL SUMMARY Study Number: 5 A single fetus is identified in cephalic presentation. The measurements today are consistent with appropriate growth compared to previous examination. The YAKELIN selected is based on her LMP and a prior ultrasound examination. The amniotic fluid volume appears normal. The placenta is anterior. No major malformations are seen. The interventricular septum appears intact. An intramural uterine fibroid is noted, described above. Left lateral fibroid was not seen today. The previously seen right complex ovarian mass was not well seen today. 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 Libia Baldwin MD <Electronic Signature> 03/30/2021 11:47am Lorie Hutchinson MD [facility] ORDERABLES * ALPHA FETOPROTEIN BLOOD MATERNAL (01/19/2021 2:57 PM FLOATLIGHT POWDER MIXER) Only the most recent of2 resultswithin the time period is included. Interpretation [facility] Comment: Screen negative for open NTD. MSAFP Risk Open NTD <1 IN 5000 [facility] MSAFP 22.0 ng/mL [facility] Adjusted Multiple of Median 0.64 [facility] Comments [facility] Comment: This patient's YAKELIN (estimated date of delivery) was used to calculate the gestational age. The AFP test result indicates that this patient is screen negative for open NTD. It should be noted that normal test results can never guarantee the of a normal baby and that 2-3% of newborns have some type of physical or mental defect, many of which are undetectable through any known diagnostic technique. The single AFP marker is not recommended for Down syndrome and other chromosomal abnormalities screening. Much greater sensitivity is achieved with multiple markers, such as AFP, hCG, unconjugated estriol, and/or dimeric inhibin A. While women 35 years or older at the time of delivery have the highest risk of having a child with Down syndrome, current [place] [employer]etric[employer]ne[employer] guidelines ([employer] 2007 v109 [id number]) recommend that maternal age alone no longer be used as a cut-off to determine who is offered screening versus who is offered invasive testing. Genetic counseling may be considered. [facility] See Below [facility] Comment: This is a screening test, not a diagnostic test. This risk assessment report is based in part on demographic data provided by the ordering physician. Please notify the laboratory promptly if any data are incorrect. For assistance with recalculations, please call your local [facility] laboratory. For assistance with interpretation of these results, please contact your Local [employer] [facility] genetic counselor or call [phone]). Interpretive Cutoffs Screen Positive for Open NTD: > or = 2.50 adjusted MOM > or = 1.90 adjusted MOM for Insulin-dependent diabetics > or = 4.00 adjusted MOM for twins > or = 3.50 adjusted MOM for Twins insulin-dependent diabetics > or = 4.50 adjusted MOM for triplets Gestational Age 17.9 weeks [facility] Patient Weight 215 lbs [facility] YAKELIN 06/23/2021 [facility] YAKELIN Determined By ULTRASOUND [facility] Race [facility] Number of Fetuses 1 [facility] Insulin Dependent Diabetic NO [facility] Repeat Specimen NO [facility] History Neural Tube Defect NO [facility] History of Down Syndrome NO [facility] Donor Egg NO [facility] Donor Age Egg Retrieval NOT GIVEN [facility] Comment: Test Performed at: [facility] [address] [address] ARLEEN BERRY MD 01/19/2021 2:57 PM FLOATLIGHT POWDER MIXER 01/19/2021 2:59 PM FLOATLIGHT POWDER MIXER Margarito Malik MD LAB - CHEMISTRY [place] [facility] [address] [place] [address] * TSH REFLEX FREE T4 (12/15/2020 9:21 AM FLOATLIGHT POWDER MIXER) TSH with Reflex FT4 1.19 mIU/L [facility] Comment: Reference Range > or = 20 Years 0.40-4.50 Ranges First trimester 0.26-2.66 Second trimester 0.55-2.73 Third trimester 0.43-2.91 Test Performed at: [facility] [address] [address] AURORA PANDEY DO,MPH 12/15/2020 9:21 AM FLOATLIGHT POWDER MIXER 12/15/2020 9:22 AM FLOATLIGHT POWDER MIXER Priyanka Edwards MD LAB - CHEMISTRY O RDERABLES Performing Organization Address [facility] de Phone Number [facility] [id number] [place] [address] * PROTEIN CREATININE RATIO URINE TIMED PNL (12/15/2020 9:21 AM FLOATLIGHT POWDER MIXER) Creatinine 24 Hour Urine 1.02 0.50 - 2.15 g/24 h [facility] Protein 24 Hour Urine NOTE < OR = 114 mg/g creat [facility] Protein/Creatini ne Ratio NOTE < OR = 0.114 mg/mg creat [facility] Protein 24 Hour Urine NOTE <150 mg/24 h [facility] Comment: THE PROTEIN VALUE IS LESS THAN 4 MG/DL THEREFORE WE ARE UNABLE TO CALCULATE EXCRETION AND/OR CREATININE RATIO. TOTAL URINE VOLUME: Test Performed at: [facility] [id number] AURORA PANDEY DO,MPH 12/15/2020 9:21 AM FLOATLIGHT POWDER MIXER 12/15/2020 9:22 AM FLOATLIGHT POWDER MIXER Priyanka Edwards MD LAB - URINE CHEMI STRY ORDERABLES Performing Organization Address [facility] de Phone Number [facility] [phone] [place] [address] * VITAMIN D 25-HYDROXY (12/15/2020 9:21 AM FLOATLIGHT POWDER MIXER) Pathologist [facility] Vitamin D, 25 Hydroxy 37 30 - 100 ng/mL [facility] Comment: Vitamin D Status 25-OH Vitamin D: Deficiency: <20 ng/mL Insufficiency: 20 - 29 ng/mL Optimal: > or = 30 ng/mL For 25-OH Vitamin D testing on patients on D2-supplementation and patients for whom quantitation of D2 and D3 fractions is required, the QuestAssureD(TM) 25-OH VIT D, (D2,D3), LC/MS/MS is recommended: order code 22136 (patients >2yrs). See Note 1 Note 1 For additional information, please refer to http://education.[employer] medical/faq/DNO837 (This link is being provided for informational/ educational purposes only.) Test Performed at: [facility] [id number] AUR[facility]A PANDEY DO,MPH 12/15/2020 9:21 AM FLOATLIGHT POWDER MIXER 12/15/2020 9:22 AM FLOATLIGHT POWDER MIXER Priyanka Edwards MD LAB - CHEMISTRY O RDERABLES Performing Organization Address [facility] Co de Phone Number [facility] [phone] [place] [address] * (ABNORMAL) CREATININE BLOOD (12/15/2020 9:21 AM FLOATLIGHT POWDER MIXER) Creatinine 0.48(L) 0.50 - 1.10 mg/dL [facility] eGFR by MDRD 122 > OR = 60 mL/min/1.7 3m2 [facility] eGFR by MDRD 141 > OR = 60 mL/min/1.7 3m2 [facility] Comment: Test Performed at: [facility] [address] [place] [address] AURORA PANDEY DO,MPH 12/15/2020 9:21 AM FLOATLIGHT POWDER MIXER 12/15/2020 9:22 AM FLOATLIGHT POWDER MIXER Priyanka Edwards MD LAB - CHEMISTRY O RDERABLES Performing Organization Address City/[facility]/ZIP Co de Phone Number [facility] [phone] [place] [address]
--- OUTSIDE RECORDS SUMMARY | 2024-03-28 15:12 | XMS_ITS | Referral Summary ---
Author Organization [facility] Address [address] [place] [address] Care Team Providers Care Melt Supervisor Name Role Phone Unavailable Primary Care Provider Unavailabl e Source Comments [facility],non-owned Affiliates and Associated Physician Practices is amultiple site organization consisting of ambulatory clinics and hospital sitesin [place], [place], [place] and [place]. This disclosure is being madepursuant to the Care Everywhere program and may not contain all information available regarding this patient. Last updated 17.[facility] [employer] Allergies No known active allergies Medications * Be aware that medications may not be up to date on this document. Alwaysverify current medications with the patient. Medication Sig Dispensed Refills Start Date End Date Status busPIRone (BUSPAR) 10 MG tablet Take 15 mg by mouth 2 times daily Active calcium-vitamin D (CALTRATE PLUS D) 600-200 MG-UNIT tablet Take 1 tablet by mouth once daily Active NIFEdipine CR osmotic 24hr (PROCARDIA-XL) 30 MG tabletIndications: Hypertension Take 30 mg by mouth once daily Reasons: High Blood Pressure Disorder Active fish oil/omega-3 fatty acids (PROMEGA;CARDI-OME GA 3) 1000 MG capsule Take 1,000 mg by mouth 2 times daily with morning and evening meal Active Vit-Fe Fumarate-FA ( VITAMIN) 27-0.8 MG Classic 28 mg iron-800 mcg tablet TAKE 1 TABLET BY MOUTH ONCE DAILY Active Glucagon (BAQSIMI ONE PACK) 3 MG/DOSE POWD [place] 3 mg into the nose as needed 1 Each 1 12/08/2020 Active Additional Information Patient not taking.Reported on 05/25/2021 Continuous Blood Gluc Immunopathologist (FREESTYLE IRWIN READER) [facility] Use 1 Each as directed 1 Each 12/08/2020 Active Additional Information Patient not taking.Reported on 06/01/2021 Continuous Blood Gluc Sensor (FREESTYLE IRWIN SENSOR SYSTEM) [facility] Use 1 Each as directed Apply 1 Libre2 sensor q14 days. 3 Each 5 01/04/2021 Active Additional Information Patient not taking.Reported on 06/01/2021 famotidine (PEPCID) 20 MG tabletIndications: Heartburn Take 1 (one) tablet by mouth 2 times daily Reasons: Heartburn 60 tablet 5 02/02/2021 Active insulin glargine (LANTUS SOLOSTAR) penIndications:19 weeks gestation of ([facility]),Supervision of high-risk of elderly primigravida ([facility]),Maternal obesity affecting , antepartum ([facility]),Diabetes mellitus affecting , antepartum ([facility]) Inject 64 (sixty four) Units to 90 (ninety) Units subcutaneously as directed Start with 24units qam, 40 qpm. Space by 12 hrs. 30 mL 5 02/02/2021 Active Additional Information Patient taking differently:64-90 Units Subcutaneous DIRECTED,Start with 32 units qam, 54 q pm (unless patient eats late then she takes 52 q pm). Space by 12 hrs., Informant: Patient, Reported on 05/11/2021 Insulin Pen Needle 32G X 4 MM MISCIndications:Di abetes mellitus affecting , antepartum ([facility]),25 weeks gestation of ([facility]) Use 1 Each 6 times daily while awake 100 Each 11 03/11/2021 Active insulin lispro (HUMALOG;ADMELOG) 100 UNIT/ML pen Inject 4-16 Units subcutaneously Take 4 units before B, L & D. Active Continuous Blood Gluc Sensor (DEXCOM G6 SENSOR) [facility] Use 1 Each as directed 3 Each 5 04/20/2021 Active Continuous Blood Gluc Immunopathologist (DEXCOM G6 WATER SKI ASSEMBLER) [facility] Use 1 device as directed 1 device 04/20/2021 Active Continuous Blood Gluc Transmit (DEXCOM G6 TRANSMITTER) [facility] Use 1 Each as directed 1 Each 3 04/20/2021 Active docusate sodium (COLACE) 100 MG capsule Take 100 mg by mouth every 12 hours 05/09/2021 Active HYDROcodone-acetam inophen (NORCO) 5-325 MG tablet 05/08/2021 Active ondansetron, disintegrating, (ZOFRAN ODT) 4 MG tablet DISSOLVE 1 TABLET IN MOUTH EVERY 8 HOURS NEEDED FOR NAUSEA AND VOMITING 05/09/2021 Active omeprazole (PRILOSEC) 20 MG capsule Take 20 mg by mouth as needed for Heartburn Active Active Problems Problem Noted Date Diagnosed Date Ovarian cyst during , antepartum 2020 Overview (02/02/2021): Referral to RAILROAD CAR LOADER/ONC and ultrasound at [facility], referral placed 02/02 Assessment & Plan (12/22/2020 11:34 AM MANAGER BUSINESS): Complex right ovarian cyst identified today. 1. Recommend evaluation by RAILROAD CAR LOADER pelvic ultrasound Supervision of high-risk of elderly pr imigravida 12/08/2020 Overview (12/22/2020): Cf DNA low risk, predicted male 2TM anatomy: Assessment & Plan (12/08/2020 2:18 PM CDT): The obstetric risks of advanced maternal age were discussed, including but not limited to the increased risk of Down's syndrome and other genetic disorders, congenital anomalies, SAB, gestational hypertension, preeclampsia, gestational diabetes, labor, morbidity, placental complications such as abruption and previa, delivery via and dysfunctional labor, and other maternal morbidity/mortality. 1. Please forward a copy of the NIPT results once available Maternal obesity affecting , antepartum 12/08/2020 Assessment & Plan (12/22/2020 11:35 AM MANAGER BUSINESS): 1 lb wt loss since last consultation. 1. Ms AFP starting at 16 wks 2. Limit total weight gain to < 15 lbs Assessment & Plan (12/08/2020 2:42 PM CDT): Obese women have higher rates of spontaneous miscarriage. Morbid obesity is associated with a host of complications: increased risk for preeclampsia and gestational hypertension, delivery, macrosomia, gestational diabetes, deep venous thrombosis, delivery, stillbirth and certain defects, such as open neural tube defects. deliveries are associated with an increased risk of complications, such as anesthetic complications, wound complications and infections. During , limited weight gain is recommended. The [place] of Medicine recommends a total weight gain in between 11-20 lb for women who have obese body habitus as defined by a body mass index greater than or equal to 30. 1. Limit total weight gain to 15 lbs 2. Would benefit from weight loss Uterine fibroid during , antepartum 04/2020 Assessment & Plan (12/08/2020 2:43 PM CDT): Small uterine fibroids. Benign essential hypertension, antepartum 2020 Overview (12/06/2020): Procardia xl 30 mg daily started 11/19/20. Patient had previously stopped lisinopril/HCTZ on 11/04/20. Assessment & Plan (12/22/2020 11:32 AM MANAGER BUSINESS): Blood pressure within goal range on Nifedipine XL 30 mg daily. Maternal Medicine recommendations: 1. Goal blood pressures 130-154/70-94 --no current indication for dose change 2. Check BP daily with an arm cuff--not a wrist cuff 3. serum laboratory criteria, persistent preeclampsia symptoms or severe uncontrolled hypertension is the preferred criteria for the diagnosis of superimposed preeclampsia, rather than mild gradual increases in blood pressure, in the 3rd trimester, with a need for medication adjustments 4. Delivery initiation at 39 weeks 5. Would benefit from Assessment & Plan (12/08/2020 2:49 PM CDT): Hypertension prior to and during the first 20 weeks of this is consistent with chronic hypertension. Chronic hypertension is associated with a 20-25% risk for superimposed preeclampsia. The natural course of benign essential hypertension during as being mild improvement during the 2nd trimester with gradual increase and return to pre blood pressures in the 3rd trimester. There is definitely the potential to overdiagnose preeclampsia. Despite this, there is greater potential for adverse outcomes in preeclampsia compared to chronic hypertension. Low dose aspirin has a small-moderate benefit in the prevention of preeclampsia in at risk women ([place] DSR, 2008). There is no significant risk of low dose aspirin if initiated after the first trimester of . Low dose aspirin therapy is discussed. Antihypertensive therapy does not reduce the risk for superimposed preeclampsia. The targets of therapy with chronic hypertension are typically <160 mm Hg systolic and 90-105 mm Hg diastolic. Consistent blood pressures above 155/95 would be an indication to initiate antihypertensive medication. Aggressive normalization of blood pressure does not have benefit otherwise; it may have an undesirable impact on outcome. Aggressive treatment of hypertension does not reduce the risk for superimposed preeclampsia. Chronic hypertension is associated with an elevated risk of growth disturbance as well as an elevated risk for morbidity and mortality. It provides an indication for formal antepartum surveillance. Maternal Medicine recommendations: 1. Goal blood pressures 130-154/70-94 --blood pressure currently within goal range 2. Check BP daily with an arm cuff--not a wrist cuff 3. Aspirin ( 162 mg) starting at 12 weeks 4. serum laboratory criteria, persistent preeclampsia symptoms or severe uncontrolled hypertension is the preferred criteria for the diagnosis of superimposed preeclampsia, rather than mild gradual increases in blood pressure, in the 3rd trimester, with a need for medication adjustments 5. Delivery initiation at 39 weeks 6. Would benefit from Diabetes mellitus affecting , antepartu m 12/06/2020 Overview (05/05/2021): Awaiting labs. PNR states patient checking FBS's only reporting 120-130's. Diet teaching needed. 24 hr urine: protein too low to calculate TSH 1.19 HgA1c: 5.7%, 12/22. 5.0%, 03/03, 5.3% on 05/04 Eye exam: no signs of retinopathy 1TM survey: unremarkable echocardiogram: Assessment & Plan (12/22/2020 11:30 AM MANAGER BUSINESS): Wearing a glucose sensor. Interval improvement in BG since starting levemir. Still with elevated fasting and postprandial values. Kalyn reports that she is restricting carbs--still adjusting to new diet. Plan: 1. Maternal- Medicine to comanage diabetes 2. Perform 4-7 blood glucose measurements 3. Increase Lantus to 16/30 4. Please forward a copy of the baseline A1c 5. Reminded to schedule eye exam--wanting to do this after February for insurance reasons 6. Continue Aspirin for preeclampsia risk reduction 7. Hemoglobin A1c every trimester--requisition given 8. Detailed anatomy between 20-22 wks 9. Serial growth every 4 wks after 20 weeks 10. echocardiogram between 24-28 wks--scheduled 11. Twice weekly nonstress testing and weekly BPP starting at 32 weeks 12. Delivery initiation at 39 weeks 13. Would benefit from and weight loss Assessment & Plan (12/08/2020 3:09 PM CDT): Type 2 DM, class B She has had diabetes for < 2 years with onset at age 39-40. Her diabetes medication regimen is metformin 500 mg bidac. Issues related to her diabetes self- management include: none Exercise/Activity: Does exercise History of DKA: No Frequency of hypoglycemia: none End organ effects of her diabetes: had pre-existing hypertension BEFORE diagnosis of diabetes Eye exam: last one was 2 years ago Assessment of urine protein excretion: none currently Glucose records reviewed. See glucose records for details of full assessment and intervention (to be scanned). See separate notes from Diabetes Nurse Specialist HbA1c pending No available laboratory and urinalysis results for review Her glucose records demonstrates fasting hyperglycemia and some pre-prandial hyperglycemia. An ultrasound examination was performed today with a separate report to follow. Discussion The significance and usual management of diabetes complicating were discussed, including the increased risks of miscarriage and malformations. Increased risks were discussed. These risks include but are not limited to trauma, section, macrosomia, polyhydramnios, delivery, preeclampsia, infections, stillbirth, and metabolic disturbances. We discussed theimportance of good glucose control to minimize these risks, in that poor control worsens, and good control can ameliorate, but does not eliminate, these risks. We also discussed target glucoses and achieving a near normal hemoglobin A1c. The necessity for antepartum surveillance was reviewed. Plan: 1. Maternal- Medicine to comanage diabetes 2. Perform 4-7 blood glucose measurements daily 3. Baseline labs requested: 24 hr urine for total protein, serum creatinine; TSH with reflex fT4 1. OB has already drawn A1c which is pending 4. discontinue metformin use 5. Start levemir 20 units daily 6. Aspirin for preeclampsia--prescribed 7. 1TM survey at 13 wks with NT 8. Hemoglobin A1c every trimester 9. Detailed anatomy at 20 wks 10. Serial growth every 4 wks after 20 weeks 11. echocardiogram between 24-28 wks 12. Twice weekly nonstress testing and weekly BPP starting at 32 weeks 13. Delivery initiation at 39 weeks 14. Insulin drip in labor 15. 1. reduce insulin by 50 percent 2. postop blood glucose targets: Fasting/pre meal less than 110, 2 hour postprandial less than 150 -170 16. Recommend 17. weight reduction Anxiety and depression Overview (12/08/2020): taking buspar Assessment & Plan (12/22/2020 11:31 AM MANAGER BUSINESS): Mood appropriate. Recommendations 1. Reminded to connect with a mental health counselor for increased support 2. NO contraindications to continuing Buspar during or 3. Reassess mood during and Assessment & Plan (12/08/2020 2:41 PM CDT): Mood is appropriate. We discussed the limits of the information of and with the use of Buspar. Buspar [Buspirone]: [place] FDA class B. Limited data. No increased risk of congenital anomalies. It is excreted in breast milk. No strong contraindication to . Recommendations 1. Connect with a mental health counselor for support 2. NO contraindications to continuing Buspar during or 3. Reassess mood during and H/O vitamin D deficiency Assessment & Plan (12/22/2020 11:33 AM MANAGER BUSINESS): Interval labs reviewed: vitamin D sufficient. 1. Continue vitamin D supplementation Assessment & Plan (12/08/2020 2:54 PM CDT): We discussed the relationship between vitamin D and immune support 1. Check vitamin D levels--requisition given 1. IF low increase supplementation to 7021-5448 IU daily Resolved Problems Problem Noted Date Diagnosed Date [...] Mass Index 41.15 05/04/2021 7:43 AM CDT Plan of Treatment Not on file Procedures Procedure Name Priority Date/Time Associated Diagnosis Comments HEMOGLOBIN A1C 05/04/2021 11:05 AM CDT from Last 3 Months or Most Recently Relevant to Health Maintenance Results * HEMOGLOBIN A1C (05/04/2021 11:05 AM CDT) Hemoglobin A1c 5.3 <5.7 % of total [...] diagnosis of diabetes in children. According to [place] Diabetes Association (ADA) guidelines, hemoglobin A1c <7.0% represents optimal control in non- diabetic patients. Different metrics may apply to specific patient populations. Standards of Medical Care in Diabetes(ADA). Test Performed at: [facility] [address] ALBERTA CONNORS MD 05/04/2021 11:0 5 AM CDT 05/04/2021 11:07 AM CDT Ivette Calhoun HEALTH ADMINISTRATION TEACHER-RETAIL MERCHANDISING SPECIALIST LAB - CHEMISTRY ORDERABLES [facility] [address] [place] [id number] from Last 3 Months or Most Recently Relevant to Health Maintenance
--- OUTSIDE RECORDS SUMMARY | 2024-03-28 15:12 | XMS_ITS | Clinical Summary ---
Author Organization [facility] [employer] Address [address] [place] [address] Care Team Providers Care Driving Teacher Name Role Phone Unavailable Primary Care Provider Unavailabl e Source Comments [facility],non-owned Affiliates and Associated Physician Practices is amultiple site organization consisting of ambulatory clinics and hospital sitesin [place], [place], [place] and [place]. This disclosure is being madepursuant to the Care Everywhere program and may not contain all information available regarding this patient. Last updated 17.[facility] [employer] Allergies No known active allergies Medications * [...] Glucagon (BAQSIMI ONE PACK) 3 MG/DOSE POWD [place] 3 mg into the nose as needed 1 Each 1 12/08/2020 Active Additional Information Patient not taking.Reported on 05/25/2021 Continuous Blood Gluc Mass Spectroscopist (FREESTYLE IRWIN READER) [facility] Use 1 Each as directed 1 Each 12/08/2020 Active Additional Information Patient not taking.Reported on 06/01/2021 Continuous Blood Gluc Sensor (FREESTYLE IRWIN SENSOR SYSTEM) [facility] Use 1 Each as directed Apply 1 Libre2 sensor q14 days. 3 Each 5 01/04/2021 Active Additional Information Patient not taking.Reported on 06/01/2021 famotidine (PEPCID) 20 MG tabletIndications: Heartburn Take 1 (one) tablet by mouth 2 times daily Reasons: Heartburn 60 tablet 5 02/02/2021 Active insulin glargine (LANTUS SOLOSTAR) penIndications:19 weeks gestation of ([facility]),Supervision of high-risk of elderly primigravida ([facility]),Maternal obesity affecting , antepartum ([facility]),Diabetes mellitus affecting , antepartum ([facility]) Inject 64 (sixty four) Units to 90 [...] MM MISCIndications:Di abetes mellitus affecting , antepartum ([facility]),25 weeks gestation of ([facility]) Use 1 Each 6 times daily while awake 100 Each 11 03/11/2021 Active insulin lispro (HUMALOG;ADMELOG) 100 UNIT/ML pen Inject 4-16 Units subcutaneously Take 4 units before B, L & D. Active Continuous Blood Gluc Sensor (DEXCOM G6 SENSOR) [facility] Use 1 Each as directed 3 Each 5 04/20/2021 Active Continuous Blood Gluc Mass Spectroscopist (DEXCOM G6 AUTOMOBILE RENTAL AGENT) [facility] Use 1 device as directed 1 device 04/20/2021 Active Continuous Blood Gluc Transmit (DEXCOM G6 TRANSMITTER) [facility] Use 1 Each as directed 1 Each [...] , antepartum 2020 Overview (02/02/2021): Referral to COMPUTER SUPPORT SPECIALIST INSTRUCTOR/ONC and ultrasound at [facility], referral placed 02/02 Assessment & Plan (12/22/2020 11:34 AM BASKET OPERATOR): Complex right ovarian cyst identified today. 1. Recommend evaluation by COMPUTER SUPPORT SPECIALIST INSTRUCTOR pelvic ultrasound Supervision of high-risk of elderly [...] 12/08/2020 Assessment & Plan (12/22/2020 11:35 AM BASKET OPERATOR): 1 lb wt loss since last consultation. [...] , limited weight gain is recommended. The [place] of Medicine recommends a total weight gain [...] 11/04/20. Assessment & Plan (12/22/2020 11:32 AM BASKET OPERATOR): Blood pressure within goal range on Nifedipine [...] prevention of preeclampsia in at risk women ([place] DSR, 2008). There is no significant risk [...] echocardiogram: Assessment & Plan (12/22/2020 11:30 AM BASKET OPERATOR): Wearing a glucose sensor. Interval improvement in [...] buspar Assessment & Plan (12/22/2020 11:31 AM BASKET OPERATOR): Mood appropriate. Recommendations 1. Reminded to connect [...] deficiency Assessment & Plan (12/22/2020 11:33 AM BASKET OPERATOR): Interval labs reviewed: vitamin D sufficient. 1. Continue vitamin D supplementation Assessment & Plan (12/08/2020 2:54 PM CDT): We discussed the relationship between vitamin D and immune support 1. Check vitamin D levels--requisition given 1. IF low increase supplementation to [id number] IU daily Resolved Problems Problem Noted Date Diagnosed Date Resolved Date ventricular septal def ect in , antepartum, single gestation 03/30/2021 05/04/2021 20 weeks gestation of 12/20/2020 03/28/2021 Advanced maternal age, primi , antepartum 12/06/2020 12/22/2020 Family History Medical History Relation Name Comments CVA Maternal Grandfather Diabetes; unknown type Maternal Grandmother Cancer - Colon Maternal Uncle Diabetes; unknown type Paternal Grandmother Relation Name Status Comments Father Alive Maternal Grandfather Maternal Grandmother Maternal Uncle Mother Alive Paternal Grandmother Social History Tobacco Use Types Packs/Day Years [...] 05/04/2021 7:43 AM CDT Plan of Treatment Health Maintenance Due Date Last Done Comments LIPID TESTING 1979 MAMMOGRAM 1979 PAP SMEAR 1979 HIV SCREENING 07/13/1994 HEPATITIS C SCREENING 07/09/1997 DTAP/TDAP/TD VACCINES (1 - Tdap) 07/13/1998 HEPATITIS B VACCINE (1 of 3 - 19+ 3-dose series) 07/13/1998 COVID-19 VACCINE (2023-2 5 season) 2023 05/07/2020, 04/13/2020 INFLUENZA VACCINE (#1) 2023 DEPRESSION SCREENING 02/06/2024 SCREENING FOR DIABETES 05/04/2024 2, 03/02/2021, 12/22/2020 ZOSTER VACCINE (1 of 2) 07/13/2029 HIB VACCINE Aged Out No longer eligi ble based on patient's age to complete this topic HPV VACCINE Aged Out No longer eligi ble based on patient's age to complete this topic MENINGOCOCCAL (Group B) VACCINE Aged Out No longer eligible b ased on patient's age to complete this topic MENINGOCOCCAL VACCINE Aged Out No miguelina barbara eligible based on patient's age to complete this topic PNEUMOCOCCAL VACCINE Aged Out No long er eligible based on patient's age to complete [...] diagnosis of diabetes in children. According to [place] Diabetes Association (ADA) guidelines, hemoglobin A1c <7.0% represents optimal control in non- diabetic patients. Different metrics may apply to specific patient populations. Standards of Medical Care in Diabetes(ADA). Test Performed at: [facility] [address] ALBERTA CONNORS MD 05/04/2021 11:0 5 AM CDT 05/04/2021 11:07 AM CDT Ivette Calhoun PULP DRIER FIRER-GIS COORDINATOR LAB - CHEMISTRY ORDERABLES [facility] [address] [place] [id number] from Last 3 Months or Most Recently Relevant to Health Maintenance
== END 2024-03-28 15:10 | disposition home or self-care (01) ==
LOC: ANHIMG 15:10
PROVIDERS: PCP Family Medicine; Visit Provider Obstetrics & Gynecology
DX: Z12.31 Encounter for screening mammogram for malignant neoplasm of breast (principal)
CPT/HCPCS: 77063; 77067

== ENCOUNTER 2024-04-23 15:55 | Outpatient (CLI) | payer OTHER, SELFPAY ==
--- NOTE | ~2024-04-23 | US_ITS ---
EXAM: PELVIC ULTRASOUND HISTORY: N85.2 - Hypertrophy of uterus COMPARISON: 08/12/2021. FINDINGS: UTERUS: 10.1 x 8.3 x 8.8 cm. The endometrial complex measures 12 mm. Multiple fibroids are identified within the uterus. The largest is within the subserosal space along the posterior fundus measuring 4.5 x 3.8 x 3.9 cm. RIGHT OVARY: The right ovary is enlarged, measuring measuring 4.3 x 3.7 x 3.7cm. Within the right ovary is a round ed isoechoic avascular focus with uniform low level internal echoes suggesting an endometrioma, measu ring 3.6 x 2.9 x 2.8 cm. This is an interval change from 2021 examination. Dopplerable flow is identified within the right ovary. LEFT OVARY: The left ovary is unremarkable in echogenicity and size measuring 3.0 x 3.5 x 2.6 cm Dopplerable flow is identified. Dominant follicle within the left ovary Free fluid is identified within the posterior cul-de-sac. IMPRESSION: Fibroid uterus. Findings within the right ovary which suggest an endometrioma. In a premenopausal patient, without the presence of echogenic foci, this finding may represent an aty pical hemorrhagic cyst for which 6-12 week follow-up with ultrasound is recommended. Reviewed, dictated and finalized at location A. IMPRESSION: Fibroid uterus. Findings within the right ovary which suggest an endometrioma. In a premenopausal patient, without the presence of echogenic foci, this findin g may represent an atypical hemorrhagic cyst for which 6-12 week follow-up with ultrasound is recommended.
--- OUTSIDE RECORDS SUMMARY | 2024-04-23 17:08 | XMS_ITS | Clinical Summary ---
Author Organization [facility] [employer] Address [address] [place] [address] Care Team Providers Care Hospital Medical Biller Name Role Phone Unavailable Primary Care Provider Unavailabl e Source Comments [facility],non-owned Affiliates and Associated Physician Practices is amultiple site organization consisting of ambulatory clinics and hospital sitesin [place], [place], [place] and [place]. This disclosure is being madepursuant to the Care Everywhere program and may not contain all information available regarding this patient. Last updated 17.[facility] Allergies No known active allergies Medications * [...] Glucagon (BAQSIMI ONE PACK) 3 MG/DOSE POWD [place] 3 mg into the nose as needed 1 Each 1 12/08/2020 Active Additional Information Patient not taking.Reported on 05/25/2021 Continuous Blood Gluc Rehab Liaison (FREESTYLE IRWIN READER) [facility] Use 1 Each as directed 1 Each 12/08/2020 Active Additional Information Patient not taking.Reported on 06/01/2021 Continuous Blood Gluc Sensor (FREESTYLE IRWIN SENSOR SYSTEM) [facility] Use 1 Each as directed Apply 1 Libre2 sensor q14 days. 3 Each 5 01/04/2021 Active Additional Information Patient not taking.Reported on 06/01/2021 famotidine (PEPCID) 20 MG tabletIndications: Heartburn Take 1 (one) tablet by mouth 2 times daily Reasons: Heartburn 60 tablet 5 02/02/2021 Active insulin glargine (LANTUS SOLOSTAR) penIndications:19 weeks gestation of ([facility]),Supervision of high-risk of elderly primigravida ([facility]),Maternal obesity affecting , antepartum ([facility]),Diabetes mellitus affecting , antepartum ([facility]) Inject 64 (sixty four) Units [...] MM MISCIndications:Di abetes mellitus affecting , antepartum ([facility]),25 weeks gestation of ([facility]) Use 1 Each 6 times daily while awake 100 Each 11 03/11/2021 Active insulin lispro (HUMALOG;ADMELOG) 100 UNIT/ML pen Inject 4-16 Units subcutaneously Take 4 units before B, L & D. Active Continuous Blood Gluc Sensor (DEXCOM G6 SENSOR) [facility] Use 1 Each as directed 3 Each 5 04/20/2021 Active Continuous Blood Gluc Rehab Liaison (DEXCOM G6 END POLISHER) [facility] Use 1 device as directed 1 device 04/20/2021 Active Continuous Blood Gluc Transmit (DEXCOM G6 TRANSMITTER) [facility] Use 1 Each as directed 1 Each [...] , antepartum 2020 Overview (02/02/2021): Referral to ELECTRICAL TIMING DEVICE CALIBRATOR/ONC and ultrasound at [facility], referral placed 02/02 Assessment & Plan (12/22/2020 11:34 AM AUTISM MOTOR SPECIALIST): Complex right ovarian cyst identified today. 1. Recommend evaluation by ELECTRICAL TIMING DEVICE CALIBRATOR pelvic ultrasound Supervision of high-risk of elderly [...] 12/08/2020 Assessment & Plan (12/22/2020 11:35 AM AUTISM MOTOR SPECIALIST): 1 lb wt loss since last consultation. [...] , limited weight gain is recommended. The [place] [employer] recommends a total weight gain [...] 11/04/20. Assessment & Plan (12/22/2020 11:32 AM AUTISM MOTOR SPECIALIST): Blood pressure within goal range on Nifedipine [...] prevention of preeclampsia in at risk women (Janet DSR, 2008). There is no significant risk [...] echocardiogram: Assessment & Plan (12/22/2020 11:30 AM AUTISM MOTOR SPECIALIST): Wearing a glucose sensor. Interval improvement in [...] buspar Assessment & Plan (12/22/2020 11:31 AM AUTISM MOTOR SPECIALIST): Mood appropriate. Recommendations 1. Reminded to connect [...] deficiency Assessment & Plan (12/22/2020 11:33 AM AUTISM MOTOR SPECIALIST): Interval labs reviewed: vitamin D sufficient. 1. Continue vitamin D supplementation Assessment & Plan (12/08/2020 2:54 PM CDT): We discussed the relationship between vitamin D and immune support 1. Check vitamin D levels--requisition given 1. IF low increase supplementation to 4183-8226 IU daily Resolved Problems Problem Noted Date [...] complete this topic MENINGOCOCCAL (Group B) VACCINE SHARED DECISION-MAKING Aged Out No longer eligible based on patient's age to complete this topic MENINGOCOCCAL GROUPS A/C/Y/W VACCINE Aged Out No longer eligible b [...] diagnosis of diabetes in children. According to [place] Diabetes Association (ADA) guidelines, hemoglobin A1c <7.0% represents optimal control in non- diabetic patients. Different metrics may apply to specific patient populations. Standards of Medical Care in Diabetes(ADA). Test Performed at: [facility] [address] ALBERTA CONNORS MD 05/04/2021 11:0 5 AM CDT 05/04/2021 11:07 AM CDT Ivette Calhoun ROUSTABOUT HEAD-AMMONIA PRINT OPERATOR LAB - CHEMISTRY ORDERABLES [address] [place] [address] from Last 3 Months or Most Recently Relevant to Health Maintenance
--- OUTSIDE RECORDS SUMMARY | 2024-04-23 17:08 | XMS_ITS | Clinical Summary ---
Author Organization [facility] Address [address] [place] [address] Care Team Providers Care Natural Resources Extension Educator Name Role Phone Miscellaneous, Not In File Primary Care Provider Unavailable Allergies No known active allergies Medications lisinopriL (PRINIVIL,ZESTR [place]) 10 mg tablet Take 1 tablet (10 mg total) by mouth daily 4 Active metFORMIN XR (GLUCOPHAGE XR) 500 mg 24 hr tablet Take 1 tablet (500 mg total) by mouth 2 (two) times a day Active metoprolol XL (TOPROL-XL) 100 mg 24 hr tablet Take 1 tablet (100 mg total) by mouth daily 4 Active Se-Heidi-19 29 mg iron- 1 mg tablet Take 1 tablet by mouth daily 4 Active traZODone (DESYREL) 50 mg tablet 1 tablet (50 mg total) 4 Active cyclobenzaprine (FLEXERIL) 10 mg tablet Take 1 tablet (10 mg total) by mouth 3 (three) times a day as needed for muscle spasms Active busPIRone (BUSPAR) 15 mg tablet Take 1 tablet (15 mg total) by mouth 2 (two) times a day Active ergocalciferol (VITAMIN D) 50,000 unit capsule Take 1 capsule (50,000 Units total) by mouth once a week 4 capsule [address] (VOLTAREN) 75 mg EC tablet Take 1 tablet (75 mg total) by mouth 2 (two) times a day 180 tablet [address] (VOLTAREN) 75 mg EC tablet Take 1 tablet (75 mg total) by mouth 2 (two) times a day 180 tablet 4 04/02/19 25 Discontinu ed(Reorder ) Active Problems Problem Noted Date Diagnosed Date Traumatic hematoma of left knee 07/24/2018 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 07/24/2018 Encounters Date Type Department Care Team Description 03/25/2024 Orders Only [facility] Rheumatology [address] [address] [place] [phone] Bev Yin MD Arthralgia, unspecified joint (Primary Dx); Bilateral hand pain; Bilateral hand numbness 02/22/2024 Orders Only [facility] Rheumatology [address] [place] [address] [address]th [place] [address] [place] [address] Bev Yin MD Shoulder pain, unspecified chronicity, unspecified laterality (Primary Dx); Neck pain; Arthralgia, unspecified joint; Chronic low back pain, unspecified back pain laterality, unspecified whether sciatica present 01/24/2024 Telephone [facility] Rheumatology [facility] 5th [place] [address] [place] [address] Bev Yin MD from Last 3 Months Social History Tobacco Use Types Packs/Day Years Used Date Smoking Tobacco: Never Comments No Sex and Gender Information Value Date Recorded Sex Assigned at Not on file Legal Sex Female 7:23 PM 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 CEILING INSTALLER Gender Identity Not on file Sexual Orientation Not on file Obstetrics History Last Filed Vital Signs Vital Sign Reading Time Taken Comments Blood Pressure 158/96 01/23/2024 12:57 PM MARBLE CEILING INSTALLER Pulse 89 01/23/2024 12:57 PM MARBLE CEILING INSTALLER Temperature 37.1 C (98.8 F) 07/24/2018 5:59 PM CDT Respiratory Rate 18 07/24/2018 5:59 PM CDT Oxygen Saturation 100% 07/24/2018 5:59 PM CDT Inhaled Oxygen Concentration - - Weight 97.1 kg (214 lb) 01/23/2024 12:57 PM MARBLE CEILING INSTALLER Height 165.1 cm (5' 5 ) 01/23/2024 12:57 PM MARBLE CEILING INSTALLER Body Mass Index 35.61 01/23/2024 12:57 PM MARBLE CEILING INSTALLER Plan of Treatment Health Maintenance Due Date Last Done Comments Breast Cancer Screening-Mammogram 1979 Cervical Cancer Screening 1979 Depression Screening 1979 Hepatitis C Screening 1979 Varicella Vaccines (1 of 2 - 13+ 2-dose series) 07/13/1992 Regular Well Visit/Exam 18-64 07/13/1997 Covid-19 Vaccine ( - 2023- season) 2023 02/02/2021, 05/07/2020, 04/13/2020 Influenza Vaccine [...] patient's age to complete this topic Insurance [facility] Care Teams Natural Resources Extension Educator Relationship Specialty Start Date End Date Miscellaneous, Not In File PCP - General 07/19/18
--- OUTSIDE RECORDS SUMMARY | 2024-04-23 17:08 | XMS_ITS | Clinical Summary ---
Author Organization [facility] Address [address] [place] [address] Phone Care Team Providers Care Nuclear Physician Name Role Phone Clarisse Baez DO Primary Care Provider [phone] Encounters Date Type Department Care Team Description 04/21/2024 1:00 PM CDT Physical Therapy [facility] [address], [place] [address] [address] Bev Yin MD Middleton, Trisha M, PT Shoulder pain, unspecified chronicity, unspecified laterality (Primary Dx) Discharge Disposition: Discharged to home or Selfcare 04/21/2024 Travel 04/07/2024 10:00 AM IBM WEBSPHERE COMMERCE DEVELOPER Physical Therapy [facility] [address], [place] [address] [place] [address] Bev Yin MD Middleton, Trisha M, PT Shoulder pain, unspecified chronicity, unspecified laterality (Primary Dx) Discharge Disposition: Discharged to home or Selfcare 04/07/2024 Travel 03/20/2024 Plan of Care Documentation [facility] [address], [place] [address] [place] [address] 03/19/2024 4:00 PM IBM WEBSPHERE COMMERCE DEVELOPER Physical Therapy [facility] [address], [place] [address] [place] [address] Bev Yin MD Middleton, Trisha M, PT Shoulder pain, unspecified chronicity, unspecified laterality; Arthralgia, unspecified joint; Chronic low back pain, unspecified back pain laterality, unspecified whether sciatica present Discharge Disposition: Discharged to home or Selfcare 03/19/2024 Travel 02/26/2024 Transcribe Orders [facility] [address] [place] [address] Bev Yin MD Shoulder pain, unspecified chronicity, unspecified laterality (Primary Dx); Arthralgia, unspecified joint; Chronic low back pain, unspecified back pain laterality, unspecified whether sciatica present from Last 3 Months Social History Tobacco Use Types Packs/Day Years Used Date Smoking Tobacco: Never Assessed Comments Unknown Sex and Gender Information Value Date Recorded Sex Assigned at Not on file Legal Sex Female 2:50 PM [employer] WEBSPHERE COMMERCE DEVELOPER Gender Identity Not on file Sexual Orientation Not on file Plan of Treatment Upcoming Encounters Date Type Department Care Team (Late st Contact Info) Description 04/28/2024 12:15 PM CDT Physical [facility] [address], [place] [address] [address] Bev Yin MD [address] [place] [id number] Jo Barajas PT [place] 05/05/2024 12:15 PM CDT Physical [facility] [address], [place] [address] [address] Bev Yin MD [address] [place] [id number] Jo Barajas PT [place] 05/12/2024 12:15 PM CDT Physical [facility] [address], [place] [address] [place] [address] Bev Yin MD [address] [place] [id number] Jo Barajas, PT [place] Discharge Disposition: Discharged to home or Selfcare 05/27/2024 2:45 PM CDT Office Visit [facility] [address] [place] [address] Goldy Rivera, HEMODIALYSIS LAB TECHNICIAN, DIRECTOR OF ACCOUNTING [address] [place] [address] Health Maintenance Due Date Last Done Comments Hepatitis C Virus (HCV) Screening 1979 Mammogram 1979 Pap Smear 07/13/2000 Cervical Cancer Screening [...] age to complete this topic Insurance MEDICAID [place] Care Teams Nuclear Physician Relationship Specialty Start Date End Date Clarisse Baez DO [address] [place] [address] PCP - General Family Medicine 02/26/24
--- OUTSIDE RECORDS SUMMARY | 2024-04-23 17:08 | XMS_ITS | CONTINUITY OF CARE DOCUMENT ---
Author Name isiah joyce Address Unknown Organization [facility] Address [address] [place] [address] Phone [phone] Care Team Providers Care Elevator Troubleshooter Name Role Phone Florentino SOTELO, Haroldo Unavailable TANIA DIAZ Unavailable [phone] TANIA DIAZ Unavailable [phone] PROBLEMS Condition Status Date Provider Notes Diabetes mellitus aic 7.0 active Haroldo camilo MD Hypertriglyceridemia active Haroldo Good MD Hypertension nl renals, nl e cho 02/25 active Haroldo Good MD Palpitations nl holter 02/25 active Haroldo valencia MD FAMILY HISTORY OF premature HEART DISEASE completed - Haroldo Good MD Edema venous dopper - no chung ous insufficiency active Haroldo Good MD Obesity active Haroldo Good MD ENCOUNTERS Date Type Provider Location Encounter Diag nosis - In-person encounter Office Visit Haroldo Good MD [place] [facility] - In-person encounter Office Visit Haroldo Good MD [place] [facility] FAMILY HISTORY OF premature HEART DISEASEEdema venous dopper - no venous insufficiencyObesity VITAL SIGNS Date Observation Value Provider Body Mass Index (Ratio) 37.11 kg/m2 Tony Guzman blood pressure, cuff size large Ke rri Sharonnegilbertohiginioer blood pressure, diastolic 70 mm[Hg] Ke rri Gruenegilbertoelder blood pressure, systolic 122 mm[Hg] Farideh Haqmakennagilbertomaris oxygen saturation, oximetry 97 % Zully Haqdavid respiratory rate E&M 16 /min Zully G chadwick pulse rate 85 /min Zully Severinomarcus lder weight E&M 223 [lb_av] Zully Severinomarcus lder height E&M 65 [in_i] Zully Jones hensoner Body Mass Index (Ratio) 37.11 kg/m2 Gerard Good MD blood pressure, resting Yes Gerard Good MD blood pressure, cuff size large Ke bobi Sharonneron blood pressure, diastolic 80 mm[Hg] Ke rri Severinodavid blood pressure, systolic 122 mm[Hg] Farideh hernandez Lindsey height E&M 65 [in_i] Zully Jones lder oxygen saturation, oximetry 96 % Zully Lindsey respiratory rate E&M 16 /min Zully genao pulse rate 90 /min Zully Goldman lder weight E&M 223 [lb_av] Zully Jones lder RESULTS Date Observation Value Provider Reference Range Interpretation Location 5 hemoglobin A1C, blood, as % of total hemoglobin 7.0 % Haroldo Good MD 5 LDL cholesterol, serum 62 mg/dL Haroldo Good MD HISTORY OF MEDICATION USE Medication Status Instructions Dates Provider Indications Com ments METFORMIN HCL 500 MG ORAL TABLET active once a day Zully Portillo [facility] OIL CAPSULE active take one pill twice a day Zully Devliner CALCIUM 600+D3 TABLET active once a day Zully Portillo CYCLOBENZAPRINE HCL 10 MG ORAL TABLET active as needed Zully Portillo LISINOPRIL-HYDROCH LOROTHIAZIDE 20-12.5 MG ORAL TABLET active once a day Zully Portillo BUSPIRONE HCL 10 MG ORAL TABLET active take one pill twice a day Zully Herreraconsueloron OXYBUTYNIN CHLORIDE 5 MG ORAL TABLET active twice a day Zully Portillo FORMULA CAPSULE active once a day Zully Haqmakennaron SOCIAL HISTORY Date Observation Value Provider number of grandchildren Haroldo Guzman social history E&M S moking History: Jocelin abarca has never smoked. Kit Guzman social history reviewed E&M revi ewed - no changes required Kit Guzman smoking status Never smoker Zully atkinson social history E&M Smoking Histo ry: Jocelin abarca has never smoked. Haroldo Good MD social history reviewed E&M revi ewed - no changes required Haroldo Good MD smoking status Never smoker Zully [place] china FAMILY HISTORY Family Member Condition Maternal Grandfather Family History of C VA or Stroke: Father Negative FH of Coron nicki Artery Disease Mother Negative FH of Coron nicki Artery Disease INSURANCE PROVIDERS Payer name Policy type / Coverage type [employer] party ID [employer] Other [id number] ADVANCE DIRECTIVES Name Date DISCUSSED - NO DECISION MADE TREATMENT PLAN Date Name Performer Cardiology Follow up Kit Guzman Cardiology Follow up Kit Guzman Cardiology Follow up Kit Guzman Cardiology Follow up Kit Guzman Cardiology Follow up Kit Guzman Cardiology New Patient :Check ve nous duplex. Haroldo Good MD Cardiology New Patie nt :Hx of HTN for about 15 years. Check renal artery duplex. Haroldo Good MD Cardiology New Patient :Triglyce rides 290, LDL 62. Haroldo Good MD Cardiology New Patient :A1c 7.0% . Haroldo Good MD Cardiology New Patie nt :Check echo, telesentry. Thyroid function was normal on recent labs and no anemia. Haroldo Good MD Date Name Mobile Cardiac Tele Complete Echo Renal Artery Duplex Venous Doppler Bilat eral LE - Reflux HISTORY OF PROCEDURES Procedure Date Procedure Name Provider Procedure Notes S tatus Event Monitor Haroldo Good MD comple malini EKG Haroldo Good MD completed Holter, 24 or 48 Herberth Falcon MD co mpleted
--- OUTSIDE RECORDS SUMMARY | 2024-04-23 17:09 | XMS_ITS | Encounter Summary ---
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
--- OUTSIDE RECORDS SUMMARY | 2024-04-23 17:09 | XMS_ITS | Referral Summary ---
Author Organization [facility] Address [address] [place] [address] Care Team Providers Care Personal Attendant Name Role Phone Miscellaneous, Not In File Primary Care Provider Unavailable Encounters Date Type Department Care Team Description 03/25/2024 Orders Only [facility] Rheumatology [address] [facility] Medical Office [address] [place] [address] Bev Yin MD Arthralgia, unspecified joint (Primary Dx); Bilateral hand pain; Bilateral hand numbness 02/22/2024 Orders Only [facility] Rheumatology [address] 5th [place] [address] [place] [address] Bev Yin MD Shoulder pain, unspecified chronicity, unspecified laterality (Primary Dx); Neck pain; Arthralgia, unspecified joint; Chronic low back pain, unspecified back pain laterality, unspecified whether sciatica present 01/24/2024 Telephone [facility] Rheumatology Pending sale to [facility] 5th [place] [address] [place] [address] Bev Yin MD from Last 3 Months Allergies No known active allergies Medications lisinopriL (PRINIVIL,ZESTR [place]) 10 mg tablet Take 1 tablet (10 mg total) by mouth daily Active metFORMIN XR (GLUCOPHAGE XR) 500 mg [...] on file Legal Sex Female 7:23 PM BONE GRINDER Gender Identity Not on file Sexual Orientation Not on file Last Filed Vital Signs Vital Sign Reading Time Taken Comments Blood Pressure 158/96 01/23/2024 12:57 PM BONE GRINDER Pulse 89 01/23/2024 12:57 PM BONE GRINDER Temperature 37.1 C (98.8 F) 07/24/2018 5:59 PM CDT Respiratory Rate 18 07/24/2018 5:59 PM CDT Oxygen Saturation 100% 07/24/2018 5:59 PM CDT Inhaled Oxygen Concentration - - Weight 97.1 kg (214 lb) 01/23/2024 12:57 PM BONE GRINDER Height 165.1 cm (5' 5 ) 01/23/2024 12:57 PM BONE GRINDER Body Mass Index 35.61 01/23/2024 12:57 PM BONE GRINDER Plan of Treatment Not on file Insurance [facility] Care Teams Personal Attendant Relationship Specialty Start Date End Date Miscellaneous, Not In File PCP - General 07/19/18
== END 2024-04-23 15:56 | disposition home or self-care (01) ==
PROVIDERS: PCP Family Medicine; Visit Provider Obstetrics & Gynecology
DX: D25.9 Leiomyoma of uterus, unspecified (principal); N85.2 Hypertrophy of uterus
CPT/HCPCS: 76830; 76856

== ENCOUNTER 2024-05-07 10:22 | Outpatient (CLI) | payer OTHER, SELFPAY ==
--- NOTE | 2024-05-07 11:30 | NEURO_ITS ---
Impression: # Complains of numbness of hands. History of CTS surgery in past. ? # Mild evolving right sensory Carpal Tunnel Syndrome. ? # No ulnar neuropathy. ? # Normal needle/EMG exam. Nerve Conduction Studies Anti Sensory Summary Table ?Stim Site NR Peak (ms) P-T Amp (?V) Site1 Site2 Delta-P (ms) Dist (cm) Rick (m/s) Left Median Anti Sensory (2-3nd Digit) Wrist ? 2.6 36.2 Wrist 2-3nd Digit 2.6 14.0 54 Wrist ? 2.8 32.1 Wrist 2-3nd Digit 2.6 14.0 54 Right Median Anti Sensory (2-3nd Digit) Wrist ? 3.4 14.4 Wrist 2-3nd Digit 3.4 14.0 41 Wrist ? 3.7 8.7 Wrist 2-3nd Digit 3.4 14.0 41 Left Radial Anti Sensory (Base 1st Digit) Wrist ? 1.8 26.9 Wrist Base 1st Digit 1.8 0.0 Right Radial Anti Sensory (Base 1st Digit) Wrist ? 2.3 9.7 Wrist Base 1st Digit 2.3 0.0 Left Ulnar Anti Sensory (5th Digit) Wrist ? 2.3 16.6 Wrist 5th Digit 2.3 14.0 61 Right Ulnar Anti Sensory (5th Digit) Wrist ? 2.2 33.1 Wrist 5th Digit 2.2 14.0 64 Motor Summary Table ?Stim Site NR Onset (ms) O-P Amp (mV) Site1 Site2 Delta-0 (ms) Dist (cm) Rick (m/s) Left Median Motor (Abd Poll Brev) Wrist ? 3.4 2.4 Elbow Wrist 4.6 28.0 61 Elbow ? 8.0 2.5 Right Median Motor (Abd Poll Brev) Wrist ? 3.9 1.6 Elbow Wrist 4.5 27.0 60 Elbow ? 8.4 2.5 Left Ulnar Motor (Abd Dig Minimi) Wrist ? 2.2 7.0 A Elbow Wrist 5.0 29.0 58 A Elbow ? 7.2 5.6 B Elbow Wrist 3.7 22.0 59 B Elbow ? 5.9 4.5 Right Ulnar Motor Run #2 (Abd Dig Minimi) Wrist ? 2.7 6.0 A Elbow Wrist 4.6 28.0 61 A Elbow ? 7.3 4.3 B Elbow Wrist 3.5 21.0 60 B Elbow ? 6.2 4.1 F Wave Studies ?NR F-Lat (ms) L-R F-Lat (ms) Left Median (Mrkrs) (Abd Poll Brev) ? 27.48 0.11 Right Median (Mrkrs) (Abd Poll Brev) ? 27.37 0.11 Left Ulnar (Mrkrs) (Abd Dig Min) ? 26.72 0.15 Right Ulnar (Mrkrs) (Abd Dig Min) ? 26.88 0.15 EMG ?Side Muscle Nerve Root Ins Act Fibs Amp Dur Recrt Comment Right 1stDorInt Ulnar C8-T1 Nml Nml Nml Nml Nml Right Ext Indicis Radial (Post Int) C7-8 Nml Nml Nml Nml Nml Right Ext Digitorum Radial (Post Int) C7-8 Nml Nml Nml Nml Nml Right BrachioRad Radial C5-6 Nml Nml Nml Nml Nml Right PronatorTeres Median C6-7 Nml Nml Nml Nml Nml Right Abd Poll Brev Median C8-T1 Nml Nml Nml Nml Nml Right ABD Dig Min Ulnar C8-T1 Nml Nml Nml Nml Nml Right FlexPolLong Median (Ant Int) C7-8 Nml Nml Nml Nml Nml Right Abd Poll Long Radial (Post Int) C7-8 Nml Nml Nml Nml Nml Left 1stDorInt Ulnar C8-T1 Nml Nml Nml Nml Nml Left Ext Indicis Radial (Post Int) C7-8 Nml Nml Nml Nml Nml Left Ext Digitorum Radial (Post Int) C7-8 Nml Nml Nml Nml Nml Left BrachioRad Radial C5-6 Nml Nml Nml Nml Nml Left PronatorTeres Median C6-7 Nml Nml Nml Nml Nml Left Abd Poll Brev Median C8-T1 Nml Nml Nml Nml Nml Left ABD Dig Min Ulnar C8-T1 Nml Nml Nml Nml Nml MTDD
--- OUTSIDE RECORDS SUMMARY | 2024-05-07 11:45 | XMS_ITS | Clinical Summary ---
Author Organization [facility] Address [address] [place] [address] Phone Care Team Providers Care Club Concierge Name Role Phone Clarisse Baez DO Primary Care Provider [phone] Encounters Date Type Department Care Team Description 05/05/2024 12:15 PM CDT Physical Therapy [facility] Rehab at [facility] [address], [place] [address] [address] Bev Yin MD Middleton, Trisha M, PT Shoulder pain, unspecified chronicity, unspecified laterality (Primary Dx) Discharge Disposition: Discharged to home or Selfcare 05/05/2024 Travel 05/03/2024 Travel 04/28/2024 12:15 PM CDT Physical Therapy [facility] Rehab at [facility] [address], [place] [address] [address] Bev Yin MD Middleton, Trisha M, PT Shoulder pain, unspecified chronicity, unspecified laterality (Primary Dx) Discharge Disposition: Discharged to home or Selfcare 04/28/2024 Travel 04/21/2024 1:00 PM CDT [facility] [address], [address] [place] [address] Bev Yin MD Middleton, Trisha M, PT Shoulder pain, unspecified chronicity, unspecified laterality (Primary Dx) Discharge Disposition: Discharged to home or Selfcare 04/21/2024 Travel 04/07/2024 10:00 AM OUTPATIENT ADMITTING CLERK [facility] [address] [facility], [address] [address] Bev Yin MD Middleton, Trisha M, PT Shoulder pain, unspecified chronicity, unspecified laterality (Primary Dx) Discharge Disposition: Discharged to home or Selfcare 04/07/2024 Travel 03/20/2024 Plan of Care [facility] [address] [facility], [address] [address] 03/19/2024 4:00 PM OUTPATIENT ADMITTING CLERK Physical Therapy [facility] at [facility] [address] [facility], [address] [address] Bev Yin MD Middleton, Trisha M, PT Shoulder pain, unspecified chronicity, unspecified laterality; Arthralgia, unspecified joint; Chronic low back pain, unspecified back pain laterality, unspecified whether sciatica present Discharge Disposition: Discharged to home or Selfcare 03/19/2024 Travel 02/26/2024 Transcribe Orders [facility] [address] [place] [address] Bev Yin MD Shoulder pain, unspecified chronicity, unspecified laterality (Primary Dx); Arthralgia, unspecified joint; Chronic low back pain, unspecified back pain laterality, unspecified whether sciatica present from Last 3 Months Social History Tobacco Use Types Packs/Day Years Used Date Smoking Tobacco: Never Assessed Comments Unknown Sex and Gender Information Value Date Recorded Sex Assigned at Not on file Legal Sex Female 2:50 PM OUTPATIENT ADMITTING CLERK Gender Identity Not on file Sexual Orientation Not on file Plan of Treatment Upcoming Encounters Date Type Department Care Team (Late st Contact Info) Description 05/12/2024 12:15 PM CDT [facility] [address] [facility], [address] [address] Bev Yin MD [address] [place] [address] Jo Barajas, PT [place] Discharge Disposition: Discharged to home or Selfcare 05/27/2024 2:45 PM CDT Office Visit [facility] [address] [place] [address] Goldy Rivera, WRAPPER LAYER, FLAT SPRING ASSEMBLER [address] [place] [address] Health Maintenance Due Date Last Done Comments Hepatitis C Virus (HCV) Screening 1979 Mammogram 1979 Pap Smear 07/13/2000 Cervical Cancer Screening (CCS) 07/13/2009 HPV/Cotest 07/13/2009 Discussion re Starting/Frequency of Mammograms 2019 SARS-COV-2 Immunization ( season) 2023 02/02/2021, 05/07/2020, 04/13/2020 Influenza Immunization (Seas on Ended) 2024 Respiratory Syncytial Virus (RSV) Immunization (Adult) (1 [...] age to complete this topic Insurance [place] Care Teams Club Concierge Relationship Specialty Start Date End Date Clarisse Baez DO [address] [place] [address] PCP - General Family Medicine 02/26/24
--- OUTSIDE RECORDS SUMMARY | 2024-05-07 11:45 | XMS_ITS | CONTINUITY OF CARE DOCUMENT ---
Author Name isiah joyce Address Unknown Organization [facility] Address [address] [place] [address] Phone [phone] Care Team Providers Care Setup Operator Name Role Phone Florentino SOTELO, Haroldo Unavailable [phone] TANIA DIAZ Unavailable TANIA DIAZ Unavailable PROBLEMS Condition Status Date Provider Notes Diabetes [...] In-person encounter Office Visit Haroldo Good MD [facility] - In-person encounter Office Visit Haroldo Good MD [facility] FAMILY HISTORY OF premature HEART DISEASEEdema [...] Payer name Policy type / Coverage type [place] red [employer] Other [id number] ADVANCE DIRECTIVES Name Date DISCUSSED - NO [...]
--- OUTSIDE RECORDS SUMMARY | 2024-05-07 11:45 | XMS_ITS | Encounter Summary ---
Author Organization [facility] Address [address] [place] [address] Phone Care Team Providers Care Fire Sprinkler Installer Name Role Phone Miscellaneous, Not In File [...] on file Legal Sex Female 7:23 PM EMAIL PRODUCER Gender Identity Not on file Sexual Orientation [...] on filedocumented in this encounter Care Teams Fire Sprinkler Installer Relationship Specialty Start Date End Date Miscellaneous, Not In File PCP - General 07/19/18 documented as of this encounter
--- OUTSIDE RECORDS SUMMARY | 2024-05-07 11:45 | XMS_ITS | Clinical Summary ---
Author Organization [facility] [employer] Address [address] [place] [address] Care Team Providers Care Litigation Associate Name Role Phone Unavailable Primary Care Provider Unavailabl e Source Comments [facility],non-owned Affiliates and Associated Physician Practices is amultiple site organization consisting of ambulatory clinics and hospital sitesin [place], [place], [place] and [place]. This disclosure is being madepursuant to the Care Everywhere program and may not contain all information available regarding this patient. Last updated 17.[facility] [employer] Allergies No known active allergies Medications * [...] Glucagon (BAQSIMI ONE PACK) 3 MG/DOSE POWD [place] 3 mg into the nose as needed 1 Each 1 12/08/2020 Active Additional Information Patient not taking.Reported on 05/25/2021 Continuous Blood Gluc Salary Manager (FREESTYLE IRWIN READER) [facility] Use 1 Each as directed 1 Each 12/08/2020 Active Additional Information Patient not taking.Reported on 06/01/2021 Continuous Blood Gluc Sensor (FREESTYLE IRWIN SENSOR SYSTEM) [facility] Use 1 Each as directed Apply 1 Libre2 sensor q14 days. 3 Each 5 01/04/2021 Active Additional Information Patient not taking.Reported on 06/01/2021 famotidine (PEPCID) 20 MG tabletIndications: Heartburn Take 1 (one) tablet by mouth 2 times daily Reasons: Heartburn 60 tablet 5 02/02/2021 Active insulin glargine (LANTUS SOLOSTAR) penIndications:19 weeks gestation of ([facility]),Supervision of high-risk of elderly primigravida ([facility]),Maternal obesity affecting , antepartum ([facility]),Diabetes mellitus affecting , antepartum ([facility]) Inject 64 (sixty four) Units to 90 [...] MM MISCIndications:Di abetes mellitus affecting , antepartum ([facility]),25 weeks gestation of ([facility]) Use 1 Each 6 times daily while awake 100 Each 11 03/11/2021 Active insulin lispro (HUMALOG;ADMELOG) 100 UNIT/ML pen Inject 4-16 Units subcutaneously Take 4 units before B, L & D. Active Continuous Blood Gluc Sensor (DEXCOM G6 SENSOR) [facility] Use 1 Each as directed 3 Each 5 04/20/2021 Active Continuous Blood Gluc Salary Manager (DEXCOM G6 VEHICLE CONTROLS ENGINEER) [facility] Use 1 device as directed 1 device 04/20/2021 Active Continuous Blood Gluc Transmit (DEXCOM G6 TRANSMITTER) [facility] Use 1 Each as directed 1 Each [...] , antepartum 2020 Overview (02/02/2021): Referral to BALLER TENDER/ONC and ultrasound at [facility], referral placed 02/02 Assessment & Plan (12/22/2020 11:34 AM RN OUTPATIENT SURGERY): Complex right ovarian cyst identified today. 1. Recommend evaluation by BALLER TENDER pelvic ultrasound Supervision of high-risk of elderly [...] 12/08/2020 Assessment & Plan (12/22/2020 11:35 AM RN OUTPATIENT SURGERY): 1 lb wt loss since last consultation. [...] , limited weight gain is recommended. The [place] of Medicine recommends a total weight gain [...] 11/04/20. Assessment & Plan (12/22/2020 11:32 AM RN OUTPATIENT SURGERY): Blood pressure within goal range on Nifedipine [...] prevention of preeclampsia in at risk women ([place] DSR, 2008). There is no significant risk [...] echocardiogram: Assessment & Plan (12/22/2020 11:30 AM RN OUTPATIENT SURGERY): Wearing a glucose sensor. Interval improvement in [...] buspar Assessment & Plan (12/22/2020 11:31 AM RN OUTPATIENT SURGERY): Mood appropriate. Recommendations 1. Reminded to connect [...] deficiency Assessment & Plan (12/22/2020 11:33 AM RN OUTPATIENT SURGERY): Interval labs reviewed: vitamin D sufficient. 1. Continue vitamin D supplementation Assessment & Plan (12/08/2020 2:54 PM CDT): We discussed the relationship between vitamin D and immune support 1. Check vitamin D levels--requisition given 1. IF low increase supplementation to 2357-7537 IU daily Resolved Problems Problem Noted Date [...] diagnosis of diabetes in children. According to [place] Diabetes Association (ADA) guidelines, hemoglobin A1c <7.0% represents optimal control in non- diabetic patients. Different metrics may apply to specific patient populations. Standards of Medical Care in Diabetes(ADA). Test Performed at: [facility] [address] ALBERTA CONNORS MD 05/04/2021 11:0 5 AM CDT 05/04/2021 11:07 AM CDT Ivette Calhoun REPTILE KEEPER-BOILER ROOM HELPER LAB - CHEMISTRY ORDERABLES [address] [place] [address] from Last 3 Months or Most Recently Relevant to Health Maintenance
--- OUTSIDE RECORDS SUMMARY | 2024-05-07 11:45 | XMS_ITS | Clinical Summary ---
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 07/24/2018 Encounters Date Type Department Care Team Description 03/25/2024 Orders Only [facility] Rheumatology [address] [place] [address] Bev Yin MD Arthralgia, unspecified joint (Primary Dx); Bilateral hand pain; Bilateral hand numbness 02/22/2024 Orders Only [facility] Rheumatology [address] [place] [address] [place] [address] Bev Yin MD Shoulder pain, unspecified chronicity, [...] on file Legal Sex Female 7:23 PM COMMERCIAL LINES INSURANCE AGENT Gender Identity Not on file Sexual Orientation Not on file Obstetrics History Last Filed Vital Signs Vital Sign Reading Time Taken Comments Blood Pressure 158/96 01/23/2024 12:57 PM COMMERCIAL LINES INSURANCE AGENT Pulse 89 01/23/2024 12:57 PM COMMERCIAL LINES INSURANCE AGENT Temperature 37.1 C (98.8 F) 07/24/2018 5:59 PM CDT Respiratory Rate 18 07/24/2018 5:59 PM CDT Oxygen Saturation 100% 07/24/2018 5:59 PM CDT Inhaled Oxygen Concentration - - Weight 97.1 kg (214 lb) 01/23/2024 12:57 PM COMMERCIAL LINES INSURANCE AGENT Height 165.1 cm (5' 5 ) 01/23/2024 12:57 PM COMMERCIAL LINES INSURANCE AGENT Body Mass Index 35.61 01/23/2024 12:57 PM COMMERCIAL LINES INSURANCE AGENT Plan of Treatment Health Maintenance Due Date [...] patient's age to complete this topic Insurance [facility] Care Teams Sample Supervisor Relationship Specialty Start Date End Date Miscellaneous, Not In File PCP - General 07/19/18
--- OUTSIDE RECORDS SUMMARY | 2024-05-07 11:45 | XMS_ITS | Referral Summary ---
Author Organization [facility] Address [address] [place] [address] Care Team Providers Care Gettering Operator Name Role Phone Miscellaneous, Not In File Primary Care Provider Unavailable Encounters Date Type Department Care Team Description 03/25/2024 Orders Only [facility] Rheumatology [address] [place] [address] Bev Yin MD Arthralgia, unspecified joint (Primary Dx); Bilateral hand pain; Bilateral hand numbness 02/22/2024 Orders Only [facility] Rheumatology [address] 5th [place] [address] [place] [address] Bev Yin MD Shoulder pain, unspecified chronicity, unspecified laterality (Primary Dx); Neck pain; Arthralgia, unspecified joint; Chronic low back pain, unspecified back pain laterality, unspecified whether sciatica present from Last 3 Months Allergies No known [...] on file Legal Sex Female 7:23 PM CAMBERING MACHINE OPERATOR Gender Identity Not on file Sexual Orientation Not on file Last Filed Vital Signs Vital Sign Reading Time Taken Comments Blood Pressure 158/96 01/23/2024 12:57 PM CAMBERING MACHINE OPERATOR Pulse 89 01/23/2024 12:57 PM CAMBERING MACHINE OPERATOR Temperature 37.1 C (98.8 F) 07/24/2018 5:59 PM CDT Respiratory Rate 18 07/24/2018 5:59 PM CDT Oxygen Saturation 100% 07/24/2018 5:59 PM CDT Inhaled Oxygen Concentration - - Weight 97.1 kg (214 lb) 01/23/2024 12:57 PM CAMBERING MACHINE OPERATOR Height 165.1 cm (5' 5 ) 01/23/2024 12:57 PM CAMBERING MACHINE OPERATOR Body Mass Index 35.61 01/23/2024 12:57 PM CAMBERING MACHINE OPERATOR Plan of Treatment Not on file Insurance [facility] Care Teams Gettering Operator Relationship Specialty Start Date End Date Miscellaneous, Not In File PCP - General 07/19/18
== END 2024-05-07 10:23 | disposition home or self-care (01) ==
LOC: ANHNEURO 10:24
PROVIDERS: PCP Family Medicine; Visit Provider Internal Medicine
DX: G56.01 Carpal tunnel syndrome, right upper limb (principal)
CPT/HCPCS: 95886; 95911

== ENCOUNTER 2024-05-30 14:36 | Outpatient (CLI) | payer OTHER, SELFPAY ==
--- NOTE | ~2024-05-30 | MR_ITS ---
EXAMINATION: MR shoulder RT wo/w con DATE: 05/30/2024 16:32 INDICATION: Right shoulder pain TECHNIQUE: Magnetic resonance imaging (MRI) of the right shoulder was performed without and with 20 m L ProHance intravenous contrast. Sequences included axial PD-weighted FS FSE, coronal oblique PD-weig hted FS FSE, coronal oblique T2-weighted FS FSE, sagittal PD-weighted FS FSE, and sagittal T1-weighte d SE. COMPARISON: None. FINDINGS: Coracoacromial arch: The acromion undersurface is curved in morphology (type II). The coracoacromial ligament is normal. M oderate acromioclavicular osteoarthritis. Rotator cuff: The supraspinatus, infraspinatus and teres minor tendons are normal. Mild subscapularis tendinopathy without discrete tear. Normal rotator cuff muscle bulk and signal. Biceps tendon, glenoid labrum and glenohumeral cartilage: Long head of the biceps tendon is normal. Glenoid labrum is normal. Partial-thickness cartilage loss at the central aspect of the glenoid with small region of subarticular cystlike change anterior gleno id likely related to overlying chondromalacia. Cartilage appears relatively preserved. Fluid: Physiologic amount of fluid in the glenohumeral joint and biceps tendon sheath. No loose osteochondr al bodies. No abnormal fluid signal in the subacromial/subdeltoid bursa to suggest bursitis. Bones/other: Normal marrow signal with no edema, fracture or abnormal marrow replacing process. Mild cystic change at the lesser tuberosity likely related to rotator cuff disease. Normal left axillary lymph nodes. N o abnormally enhancing lesions identified. IMPRESSION: 1. Mild subscapularis tendinopathy without discrete tear. 2. 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 Reviewed, dictated and finalized at location A.
--- NOTE | ~2024-05-30 | MR_ITS ---
MR cervical spine wo/w con Ordering provider: Celeste Cosme AIR POLLUTION CONTROL ENGINEER-C History: . M54.2 - Cervicalgia . Comparison: None. Technique: MRI cervical spine with and without contrast enhancement. 20 mL ProHance was given IV. FINDINGS: CERVICAL SPINAL CORD/CRANIAL CERVICAL JUNCTION: Normal in signal and caliber. No abnormal enhancement . CERVICAL VERTEBRAL BODIES: Normal height and alignment. Normal marrow signal. No abnormal marrow enha ncement. DISK SPACES: Well maintained. C2-C3: No stenosis. C3-C4: No stenosis. Mild diffuse disc bulge. C4-C5: No stenosis. Diffuse disc bulge with slight bilateral narrowing of the foramina. C5-C6: Mild spinal canal stenosis secondary to broad based disc bulge with central protrusion and mil d indentation of the cord. Annulus tear is noted. slight narrowing of the foramina. Bilateral nerve root compression is highly suggestive C6-C7: No stenosis. C7-T1: No stenosis. VISUALIZED PARASPINOUS SOFT TISSUES: Normal. Slight enhancement of the dura anterior to the cord at t he level of C5-C6 otherwise, No abnormal enhancement. IMPRESSION: 1. Multilevel disc bulges with spinal canal stenosis and disc protrusion at the level of C5-C6. 2. Slight enhancement of the dura anterior to the cord at the level of C5-C6. Otherwise, No abnormal enhancing lesion Reviewed, dictated and finalized at location A. IMPRESSION: 1. Multilevel disc bulges with spinal canal stenosis and disc protrusion at th e level of C5-C6. 2. Slight enhancement of the dura anterior to the cord at the level of C5-C6. Otherwise, No abnormal enhancing lesion
--- OUTSIDE RECORDS SUMMARY | 2024-05-30 14:40 | XMS_ITS | Clinical Summary ---
Author Organization [facility] Address [address] [place] [address] Phone Care Team Providers Care Resolution Rep Name Role Phone Clarisse Baez DO Primary Care Provider [phone] Goldy Rivera APRN, CNP Unavailable + [phone] Allergies No known active allergies Medications metFORMIN (GLUCOPHAGE-XR) 500 MG TABLET SR 24 HR Take 500 mg by mouth 2 times daily. Active cyclobenzaprine (FLEXERIL) 10 MG Tablet TAKE 1 TABLET BY MOUTH NEEDED AT BEDTIME FOR 30 DAYS 02/09/2020 Active Vit-DSS-Fe Fum-FA (Se-Heidi 19) 29-1 MG Tablet Take 1 Tablet by mouth daily. 11/20/2023 Active diclofenac (VOLTAREN) 75 MG Tablet Delayed Response Take 75 mg by mouth 2 times daily. Active busPIRone (BUSPAR) 15 MG Tablet Take 15 mg by mouth 2 times daily. Active lisinopril-hydr oCHLOROthiazide (PRINZIDE, ZESTORETIC) 20-12.5 MG Tablet Take 1 Tablet by mouth daily. 02/09/2020 Active metoprolol Succinate (TOPROL-XL) 100 MG TABLET SR 24 HR Take 100 mg by mouth daily. Active Encounters Date Type Department Care Team Description 05/27/2024 2:45 PM CDT Office Visit [facility] [address] [place] [address] Goldy Rivera APRN, CNP Stress incontinence (Primary Dx); OAB (overactive bladder) Discharge Disposition: Discharged to home or Selfcare 05/25/2024 Travel 05/12/2024 [facility] [address] [place] [address] Jo Barajas, PT 05/05/2024 12:15 PM CDT Physical Therapy [facility] at [facility] [address] [place] [address] Bev Yin MD Middleton, Trisha M, PT Shoulder pain, unspecified chronicity, unspecified laterality (Primary Dx) Discharge Disposition: Discharged to home or Selfcare 05/05/2024 Travel 05/03/2024 Travel 04/28/2024 12:15 PM CDT Physical Therapy [facility] at [facility] [address] [place] [address] Bev Yin MD Middleton, Trisha M, PT Shoulder pain, unspecified chronicity, unspecified laterality (Primary Dx) Discharge Disposition: Discharged to home or Selfcare 04/28/2024 Travel 04/21/2024 1:00 PM CDT Physical Therapy [facility] at [facility] [address] [place] [address] Bev Yin MD Middleton, Trisha M, PT Shoulder pain, unspecified chronicity, unspecified laterality (Primary Dx) Discharge Disposition: Discharged to home or Selfcare 04/21/2024 Travel 04/07/2024 10:00 AM EXHIBIT CARPENTER [facility] [address] [place] [address] Bev Yin MD Middleton, Trisha M, PT Shoulder pain, unspecified chronicity, unspecified laterality (Primary Dx) Discharge Disposition: Discharged to home or Selfcare 04/07/2024 Travel 03/20/2024 Plan of Care [facility] [address] [place] [address] 03/19/2024 4:00 PM EXHIBIT CARPENTER [facility] [address] [place] [address] Bev Yin MD Middleton, Trisha M, PT Shoulder pain, unspecified chronicity, unspecified laterality; Arthralgia, unspecified joint; Chronic low back pain, unspecified back pain laterality, unspecified whether sciatica present Discharge Disposition: Discharged to home or Selfcare 03/19/2024 Travel from Last 3 Months Family History Medical History Relation Name Comments Heart Attack Maternal Grandmother Kidney Stones Mother Relation Name Status Comments Maternal Grandmother Mother Social History Tobacco Use Types Packs/Day Years Used Date Smoking Tobacco: Never Smokeless Tobacco: Never Tobacco Cessation:Counseling Given: Not Answered Alcohol Use Standard Drinks/Week Comments Never 0 (1 standard drink = 0.6 oz pur e alcohol) Comments Unknown Sex and Gender Information Value Date Recorded Sex Assigned at Not on file Legal Sex Female 2:50 PM EXHIBIT CARPENTER Gender Identity Not on file Sexual Orientation Not on file Last Filed Vital Signs Vital Sign Reading Time Taken Comments Blood Pressure 149/93 05/27/2024 2:39 PM CDT Pulse 103 05/27/2024 2:39 PM CDT Temperature - - Respiratory Rate 14 05/27/2024 2:39 PM CDT Oxygen Saturation 99% 05/27/2024 2:39 PM CDT Inhaled Oxygen Concentration - - Weight 97.1 kg (214 lb) 05/27/2024 2:39 PM CDT Height 162.6 cm (5' 4 ) 05/27/2024 2:39 PM CDT Body Mass Index 36.73 05/27/2024 2:39 PM CDT Plan of Treatment Health Maintenance Due [...] Procedure Name Priority Date/Time Associated Diagnosis Comments POCT UA AUTOMATED W/O MICRO Routine 05/27/2024 2:45 PM CDT Stress incontinence from Last 3 Months Results * POCT UA AUTOMATED W/O MICRO (05/27/2024 2:45 PM CDT) POC UA SPECIFIC GRAVITY 1.020 URINE PH 5.0 5.0 - 9.0 POC URINE LEUKOCYTES Negative Negative Veronica/uL POC URINE NITRITE Negative Negative POC URINE PROTEIN Negative Negative mg/dL POC URINE GLUCOSE Norm Negative, Norm mg/dL POC URINE KETONE Negative Negative mg/dL POC URINE UROBILINOGEN Norm Norm, 0.2 E.U./dL (mg/dL), 1 E.U./dL (mg/dL) POC URINE BILIRUBIN Negative Negative mg/dL POC URINE BLOOD INSTRUMENT Negative Negative Gentry/uL POC URINE COLOR Yellow POC URINE CLARITY Clear 05/27/2024 2:45 PM CDT Goldy Rivera SUPERVISOR COVERING AND LINING, FINANCIAL INVESTMENT ADVISER POINT OF CARE TESTING (MANUAL) Final Result from Last 3 Months Insurance [place]ICA[place] Care Teams Resolution Rep Relationship Specialty Start Date End Date Clarisse Baez DO [address] [place] [address] PCP - General Family Medicine 02/26/24 Goldy Rivera APRN, FINANCIAL INVESTMENT ADVISER [address] [place] [address] Nurse Practitioner Advanced Practice Nurse 05/23/24
--- OUTSIDE RECORDS SUMMARY | 2024-05-30 14:40 | XMS_ITS | CONTINUITY OF CARE DOCUMENT ---
Author Name isiah joyce Address Unknown Organization [facility] Address [address] [place] [address] Phone [phone] Care Team Providers Care Tie Knitter Helper Name Role Phone Florentino SOTELO, Haroldo Unavailable TANIA DIAZ Unavailable TANIA DIAZ Unavailable PROBLEMS Condition Status Date Provider Notes Diabetes mellitus aic 7.0 active Haroldo camilo MD Hypertriglyceridemia active Haroldo Good MD Hypertension nl renals, nl e cho 02/25 active Haroldo Good MD Palpitations nl holter 02/25 active Haroldo valencia MD Edema venous dopper - no chung ous insufficiency active Haroldo Good MD Obesity active Haroldo Good MD FAMILY HISTORY OF premature HEART DISEASE completed - Haroldo Good MD ENCOUNTERS Date Type Provider Location Encounter Diag nosis - In-person encounter Office Visit Haroldo Good MD [facility] - In-person encounter Office Visit Haroldo Good MD [facility] FAMILY HISTORY OF premature HEART DISEASEEdema [...] G chadwick pulse rate 85 /min Zully Severinomracus lder weight E&M 223 [lb_av] Zully Severinomarcus [...] Payer name Policy type / Coverage type Kermit red green party ID [employer] Other [id number] ADVANCE DIRECTIVES Name Date DISCUSSED - NO [...]
--- OUTSIDE RECORDS SUMMARY | 2024-05-30 14:40 | XMS_ITS | Clinical Summary ---
Author Organization [facility] Address [address] [place] [address] Care Team Providers Care Mother Tester Name Role Phone Miscellaneous, Not In File [...] Department Care Team Description 03/25/2024 Orders Only [facility] Rheumatology [address] [facility] Office Building [address] [place] [id number] Bev Yin MD Arthralgia, unspecified joint (Primary Dx); Bilateral hand pain; Bilateral hand numbness from Last 3 Months Social History Tobacco Use Types Packs/Day Years Used Date Smoking Tobacco: Never Comments No Sex and Gender Information Value Date Recorded Sex Assigned at Not on file Legal Sex Female 7:23 PM ANALYTICAL SCIENCES DIRECTOR Gender Identity Not on file Sexual Orientation Not on file Obstetrics History Last Filed Vital Signs Vital Sign Reading Time Taken Comments Blood Pressure 158/96 01/23/2024 12:57 PM ANALYTICAL SCIENCES DIRECTOR Pulse 89 01/23/2024 12:57 PM ANALYTICAL SCIENCES DIRECTOR Temperature 37.1 C (98.8 F) 07/24/2018 5:59 PM CDT Respiratory Rate 18 07/24/2018 5:59 PM CDT Oxygen Saturation 100% 07/24/2018 5:59 PM CDT Inhaled Oxygen Concentration - - Weight 97.1 kg (214 lb) 01/23/2024 12:57 PM ANALYTICAL SCIENCES DIRECTOR Height 165.1 cm (5' 5 ) 01/23/2024 12:57 PM ANALYTICAL SCIENCES DIRECTOR Body Mass Index 35.61 01/23/2024 12:57 PM ANALYTICAL SCIENCES DIRECTOR Plan of Treatment Health Maintenance Due Date [...] patient's age to complete this topic Insurance [facility] Care Teams Mother Tester Relationship Specialty Start Date End Date Miscellaneous, Not In File PCP - General 07/19/18
--- OUTSIDE RECORDS SUMMARY | 2024-05-30 14:41 | XMS_ITS | Encounter Summary ---
Author Organization [facility] Address [address] [place] [address] Phone Care Team Providers Care Wax Pattern Coater Name Role Phone Miscellaneous, Not In File [...] on file Legal Sex Female 7:23 PM FABRICATOR SPECIAL ITEMS Gender Identity Not on file Sexual Orientation [...] on filedocumented in this encounter Care Teams Wax Pattern Coater Relationship Specialty Start Date End Date Miscellaneous, Not In File PCP - General 07/19/18 documented as of this encounter
--- OUTSIDE RECORDS SUMMARY | 2024-05-30 14:41 | XMS_ITS | Referral Summary ---
Author Organization [facility] Address [address] [place] [address] Care Team Providers Care Embosser Operator Name Role Phone Miscellaneous, Not In File Primary Care Provider Unavailable Encounters Date Type Department Care Team Description 03/25/2024 Orders Only [facility] Rheumatology 10 [facility] Medical Office Building [address] [place] [address] Bev Yin MD Arthralgia, unspecified joint (Primary Dx); Bilateral hand pain; Bilateral hand numbness from Last 3 Months Allergies No known [...] on file Legal Sex Female 7:23 PM OFFICE LEAD Gender Identity Not on file Sexual Orientation Not on file Last Filed Vital Signs Vital Sign Reading Time Taken Comments Blood Pressure 158/96 01/23/2024 12:57 PM OFFICE LEAD Pulse 89 01/23/2024 12:57 PM OFFICE LEAD Temperature 37.1 C (98.8 F) 07/24/2018 5:59 PM CDT Respiratory Rate 18 07/24/2018 5:59 PM CDT Oxygen Saturation 100% 07/24/2018 5:59 PM CDT Inhaled Oxygen Concentration - - Weight 97.1 kg (214 lb) 01/23/2024 12:57 PM OFFICE LEAD Height 165.1 cm (5' 5 ) 01/23/2024 12:57 PM OFFICE LEAD Body Mass Index 35.61 01/23/2024 12:57 PM OFFICE LEAD Plan of Treatment Not on file Insurance [facility] Care Teams Embosser Operator Relationship Specialty Start Date End Date Miscellaneous, Not In File PCP - General 07/19/18
--- OUTSIDE RECORDS SUMMARY | 2024-05-30 14:41 | XMS_ITS | Clinical Summary ---
Author Organization [facility] Address [address] [place] [address] Care Team Providers Care Crop Insurance Claims Adjuster Name Role Phone Unavailable Primary Care Provider Unavailabl e Source Comments [facility],non-owned Affiliates and Associated Physician Practices is amultiple site organization consisting of ambulatory clinics and hospital sitesin [place], [place], [place] and [place]. This disclosure is being madepursuant to the Care Everywhere program and may not contain all information available regarding this patient. Last updated 17.[facility] Allergies No known active allergies Medications * Be aware that medications may not be up to date on this document. Alwaysverify current medications with the patient. busPIRone (BUSPAR) 10 MG tablet Take 15 mg by mouth 2 times daily Active calcium-vitamin D (CALTRATE PLUS D) 600-200 MG-UNIT tablet Take 1 tablet by mouth once daily Active NIFEdipine CR osmotic 24hr (PROCARDIA-XL) 30 MG tabletIndication s:Hypertension Take 30 mg by mouth once daily Reasons: High Blood Pressure Disorder Active fish oil/omega-3 fatty acids (PROMEGA;CARDI-O [place] 3) 1000 MG capsule Take 1,000 mg by mouth 2 times daily with morning and evening meal Active Vit-Fe Fumarate-FA ( VITAMIN) 27-0.8 MG Classic 28 mg iron-800 mcg tablet TAKE 1 TABLET BY MOUTH ONCE DAILY Active Glucagon (BAQSIMI ONE PACK) 3 MG/DOSE POWD [place] 3 mg into the nose as needed 1 Each 1 12/09/19 Active Additional Information Patient not taking.Reported on 05/25/2021 Continuous Blood Gluc Medical Anthropology Director (Blue Belt TechnologiesSTYLE IRWIN READER) [facility] Use 1 Each as directed 1 Each 12/09/19 Active Additional Information Patient not taking.Reported on 06/01/2021 Continuous Blood Gluc Sensor (FREESTYLE IRWIN SENSOR SYSTEM) [facility] Use 1 Each as directed Apply 1 Libre2 sensor q14 days. 3 Each 5 01/05/20 Active Additional Information Patient not taking.Reported on 06/01/2021 famotidine (PEPCID) 20 MG tabletIndication s:Heartburn Take 1 (one) tablet by mouth 2 times daily Reasons: Heartburn 60 tablet 5 02/03/20 Active insulin glargine (LANTUS SOLOSTAR) penIndications:1 9 weeks gestation of ([facility]),Supervisio n of high-risk of elderly primigravida ([facility]),Maternal obesity affecting , antepartum ([facility]),Diabetes mellitus affecting , antepartum ([facility]) Inject 64 (sixty four) Units to 90 (ninety) Units subcutaneously as directed Start with 24units qam, 40 qpm. Space by 12 hrs. 30 mL 5 02/03/20 Active Additional Information Patient taking differently:64-90 Units Subcutaneous DIRECTED,Start with 32 units qam, 54 q pm (unless patient eats late then she takes 52 q pm). Space by 12 hrs., Informant: Patient, Reported on 05/11/2021 Insulin Pen Needle 32G X 4 MM MISCIndications: Diabetes mellitus affecting , antepartum ([facility]),25 weeks gestation of ([facility]) Use 1 Each 6 times daily while awake 100 Each 03/11/19 Active insulin lispro (HUMALOG;ADMELOG ) 100 UNIT/ML pen Inject 4-16 Units subcutaneously Take 4 units before B, L & D. Active Continuous Blood Gluc Sensor (DEXCOM G6 SENSOR) [facility] Use 1 Each as directed 3 Each 5 04/21/19 Active Continuous Blood Gluc Medical Anthropology Director (DEXCOM G6 OPERATIONS LIEUTENANT) [facility] Use 1 device as directed 1 device 04/21/19 Active Continuous Blood Gluc Transmit (DEXCOM G6 TRANSMITTER) [facility] Use 1 Each as directed 1 Each 3 04/21/19 22 Active docusate sodium (COLACE) 100 MG capsule Take 100 mg by mouth every 12 hours 05/10/19 Active HYDROcodone-acet aminophen (NORCO) 5-325 MG tablet 05/09/19 Active ondansetron, disintegrating, (ZOFRAN ODT) 4 MG tablet DISSOLVE 1 TABLET IN MOUTH EVERY 8 HOURS NEEDED FOR NAUSEA AND VOMITING 05/10/19 Active omeprazole (PRILOSEC) 20 MG capsule Take 20 mg by mouth as needed for Heartburn Active Active Problems Problem Noted Date Diagnosed Date Ovarian cyst during , antepartum 2020 Overview (02/02/2021): Referral to METAL SLITTER/ONC and ultrasound at [facility], referral placed 02/02 Assessment & Plan (12/22/2020 11:34 AM FIVE PIECE EXPANSION MAKER HAND): Complex right ovarian cyst identified today. 1. Recommend evaluation by METAL SLITTER pelvic ultrasound Supervision of high-risk of elderly [...] 12/08/2020 Assessment & Plan (12/22/2020 11:35 AM FIVE PIECE EXPANSION MAKER HAND): 1 lb wt loss since last consultation. [...] , limited weight gain is recommended. The [place] of Medicine recommends a total weight gain [...] 11/04/20. Assessment & Plan (12/22/2020 11:32 AM FIVE PIECE EXPANSION MAKER HAND): Blood pressure within goal range on Nifedipine [...] echocardiogram: Assessment & Plan (12/22/2020 11:30 AM FIVE PIECE EXPANSION MAKER HAND): Wearing a glucose sensor. Interval improvement in BG since starting levemir. Still with elevated fasting and postprandial values. [place] reports that she is restricting carbs--still adjusting [...] buspar Assessment & Plan (12/22/2020 11:31 AM FIVE PIECE EXPANSION MAKER HAND): Mood appropriate. Recommendations 1. Reminded to connect [...] deficiency Assessment & Plan (12/22/2020 11:33 AM FIVE PIECE EXPANSION MAKER HAND): Interval labs reviewed: vitamin D sufficient. 1. Continue vitamin D supplementation Assessment & Plan (12/08/2020 2:54 PM CDT): We discussed the relationship between vitamin D and immune support 1. Check vitamin D levels--requisition given 1. 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 Not on file Not on file Last Filed Vital Signs [...] - 19+ 3-dose series) 07/13/1998 COVID-19 VACCINE (3 2023-2 5 season) 2023 05/07/2020, 04/13/2020 DEPRESSION SCREENING 02/06/2024 SCREENING FOR DIABETES 05/04/2024 , 03/02/2021, 12/22/2020 INFLUENZA VACCINE (Season Ended) 2024 ZOSTER VACCINE (1 of 2) 07/13/2029 HIB [...] A1c 5.3 <5.7 % of total Hgb youmag Comment: For the purpose of screening for the presence of diabetes: <5.7% Consistent with the absence of diabetes 5.7-6.4% Consistent with increased risk for diabetes (prediabetes) > or =6.5% Consistent with diabetes This assay result is consistent with a decreased risk of diabetes. Currently, no consensus exists regarding use of hemoglobin A1c for diagnosis of diabetes in children. According to [place] Diabetes Association (ADA) guidelines, hemoglobin A1c <7.0% represents optimal control in non- diabetic patients. Different metrics may apply to specific patient populations. Standards of Medical Care in Diabetes(ADA). Test Performed at: [id number] [address] ALBERTA CONNORS MD 05/04/2021 11:0 5 AM CDT 05/04/2021 11:07 AM CDT Ivette Davidsonwendymakenzie REFERENCE DATA EXPERT-SHUTTLE FINAL INSPECTOR LAB - CHEMISTRY ORDERAB LES Final Result [facility] [id number] [place] [address] from Last 3 Months or Most Recently Relevant to Health Maintenance Insurance
== END 2024-05-30 14:37 | disposition home or self-care (01) ==
PROVIDERS: PCP Family Medicine; Visit Provider Nurse Practitioner
DX: M75.31 Calcific tendinitis of right shoulder (principal); M19.011 Primary osteoarthritis, right shoulder; M50.31 Other cervical disc degeneration, high cervical region; M50.321 Other cervical disc degeneration at C4-C5 level; M50.322 Other cervical disc degeneration at C5-C6 level; M50.222 Other cervical disc displacement at C5-C6 level; M48.02 Spinal stenosis, cervical region
CPT/HCPCS: 72156; 73223; A9579

== ENCOUNTER 2024-06-02 16:24 | Outpatient (CLI) | payer OTHER, SELFPAY ==
--- OUTSIDE RECORDS SUMMARY | 2024-06-02 18:15 | XMS_ITS | Clinical Summary ---
Author Organization [email or web address] Address [address] [place] [address] Care Team Providers Care Instructional Design Specialist Name Role Phone Unavailable Primary Care Provider Unavailabl e Source Comments [facility],non-owned Affiliates and Associated Physician Practices is amultiple site organization consisting of ambulatory clinics and hospital sitesin [place], [place], [place] and [place]. This disclosure is being madepursuant to the Care Everywhere program and may not contain all information available regarding this patient. Last updated 17.[email or web address] Allergies No known active allergies Medications * [...] Glucagon (BAQSIMI ONE PACK) 3 MG/DOSE POWD [place] 3 mg into the nose as needed 1 Each 1 12/09/19 Active Additional Information Patient not taking.Reported on 05/25/2021 Continuous Blood Gluc Production Bow Maker (Molecular BiometricsSTYLE IRWIN READER) [facility] Use 1 Each as directed 1 Each 12/09/19 Active Additional Information Patient not taking.Reported on 06/01/2021 Continuous Blood Gluc Sensor (FREESTYLE IRWIN SENSOR SYSTEM) [facility] [place] [place] Use 1 Each as directed Apply 1 Libre2 sensor q14 days. 3 Each 5 01/05/20 Active Additional Information Patient not taking.Reported on 06/01/2021 famotidine (PEPCID) 20 MG tabletIndication s:Heartburn Take 1 (one) tablet by mouth 2 times daily Reasons: Heartburn 60 tablet 5 02/03/20 Active insulin glargine (LANTUS SOLOSTAR) penIndications:1 9 weeks gestation of ([facility]),Supervisio n of high-risk of elderly primigravida ([facility]),Maternal obesity affecting , antepartum ([facility]),Diabetes mellitus affecting , antepartum ([facility]) Inject 64 (sixty four) [...] MM MISCIndications: Diabetes mellitus affecting , antepartum ([facility]),25 weeks gestation of ([facility]) Use 1 Each 6 times daily while awake 100 Each 03/11/19 Active insulin lispro (HUMALOG;ADMELOG ) 100 UNIT/ML pen Inject 4-16 Units subcutaneously Take 4 units before B, L & D. Active Continuous Blood Gluc Sensor (DEXCOM G6 SENSOR) [facility] [place] [place] Use 1 Each as directed 3 Each 5 04/21/19 Active Continuous Blood Gluc Production Bow Maker (DEXCOM G6 MAKEUP SALES ADVISOR) [facility] Use 1 device as directed 1 device 04/21/19 Active Continuous Blood Gluc Transmit (DEXCOM G6 TRANSMITTER) [facility] [place] [place] Use 1 Each as directed 1 Each [...] , antepartum 2020 Overview (02/02/2021): Referral to LUNCHROOM AIDE/ONC and ultrasound at [facility], referral placed 02/02 Assessment & Plan (12/22/2020 11:34 AM SHOE SALESPERSON): Complex right ovarian cyst identified today. 1. Recommend evaluation by LUNCHROOM AIDE pelvic ultrasound Supervision of high-risk of elderly [...] 12/08/2020 Assessment & Plan (12/22/2020 11:35 AM SHOE SALESPERSON): 1 lb wt loss since last consultation. [...] , limited weight gain is recommended. The [place] of Medicine recommends a total weight gain [...] 11/04/20. Assessment & Plan (12/22/2020 11:32 AM SHOE SALESPERSON): Blood pressure within goal range on Nifedipine [...] echocardiogram: Assessment & Plan (12/22/2020 11:30 AM SHOE SALESPERSON): Wearing a glucose sensor. Interval improvement in [...] buspar Assessment & Plan (12/22/2020 11:31 AM SHOE SALESPERSON): Mood appropriate. Recommendations 1. Reminded to connect [...] deficiency Assessment & Plan (12/22/2020 11:33 AM SHOE SALESPERSON): Interval labs reviewed: vitamin D sufficient. 1. Continue vitamin D supplementation Assessment & Plan (12/08/2020 2:54 PM CDT): We discussed the relationship between vitamin D and immune support 1. Check vitamin D levels--requisition given 1. 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 Currently, no consensus exists regarding use of hemoglobin A1c for diagnosis of diabetes in children. According to [place] Diabetes Association (ADA) guidelines, hemoglobin A1c <7.0% represents optimal control in non- diabetic patients. Different metrics may apply to specific patient populations. Standards of Medical Care in Diabetes(ADA). Test Performed at: [email or web address] [address] ALBERTA CONNORS MD 05/04/2021 11:0 5 AM CDT 05/04/2021 11:07 AM CDT Ivette Davidsonwendymakenzie CASH CONTROLLER-MANAGER BUSINESS MANAGEMENT LAB - CHEMISTRY ORDERAB LES Final Result [facility] [id number] [place] [address] from Last 3 Months or Most Recently Relevant to Health Maintenance Insurance
--- OUTSIDE RECORDS SUMMARY | 2024-06-02 18:15 | XMS_ITS | Referral Summary ---
Author Organization [facility] Address [address] [place] [address] Care Team Providers Care Railroad Wheels And Axle Inspector Name Role Phone Miscellaneous, Not In File Primary Care Provider Unavailable Encounters Date Type Department Care Team Description 03/25/2024 Orders Only [facility] Rheumatology [address] [facility] Medical Office [address] [place] [address] Bev Yin MD Arthralgia, unspecified [...] on file Legal Sex Female 7:23 PM MANAGER TECHNICAL TRAINING Gender Identity Not on file Sexual Orientation Not on file Last Filed Vital Signs Vital Sign Reading Time Taken Comments Blood Pressure 158/96 01/23/2024 12:57 PM MANAGER TECHNICAL TRAINING Pulse 89 01/23/2024 12:57 PM MANAGER TECHNICAL TRAINING Temperature 37.1 C (98.8 F) 07/24/2018 5:59 PM CDT Respiratory Rate 18 07/24/2018 5:59 PM CDT Oxygen Saturation 100% 07/24/2018 5:59 PM CDT Inhaled Oxygen Concentration - - Weight 97.1 kg (214 lb) 01/23/2024 12:57 PM MANAGER TECHNICAL TRAINING Height 165.1 cm (5' 5 ) 01/23/2024 12:57 PM MANAGER TECHNICAL TRAINING Body Mass Index 35.61 01/23/2024 12:57 PM MANAGER TECHNICAL TRAINING Plan of Treatment Not on file Insurance [facility] Care Teams Railroad Wheels And Axle Inspector Relationship Specialty Start Date End Date Miscellaneous, Not In File PCP - General 07/19/18
--- OUTSIDE RECORDS SUMMARY | 2024-06-02 18:15 | XMS_ITS | Clinical Summary ---
Author Organization [facility] Address [address] [place] [address] Care Team Providers Care Hemodialysis Patient Care Specialist Name Role Phone Miscellaneous, Not In File [...] Department Care Team Description 03/25/2024 Orders Only [facility] Rheumatology [address] [place] [address] Bev Yin MD Arthralgia, unspecified joint (Primary Dx); Bilateral hand pain; Bilateral hand numbness from Last 3 Months Social History Tobacco Use Types Packs/Day Years Used Date Smoking Tobacco: Never Comments No Sex and Gender Information Value Date Recorded Sex Assigned at Not on file Legal Sex Female 7:23 PM EVALUATION ASSISTANT Gender Identity Not on file Sexual Orientation Not on file Obstetrics History Last Filed Vital Signs Vital Sign Reading Time Taken Comments Blood Pressure 158/96 01/23/2024 12:57 PM EVALUATION ASSISTANT Pulse 89 01/23/2024 12:57 PM EVALUATION ASSISTANT Temperature 37.1 C (98.8 F) 07/24/2018 5:59 PM CDT Respiratory Rate 18 07/24/2018 5:59 PM CDT Oxygen Saturation 100% 07/24/2018 5:59 PM CDT Inhaled Oxygen Concentration - - Weight 97.1 kg (214 lb) 01/23/2024 12:57 PM EVALUATION ASSISTANT Height 165.1 cm (5' 5 ) 01/23/2024 12:57 PM EVALUATION ASSISTANT Body Mass Index 35.61 01/23/2024 12:57 PM EVALUATION ASSISTANT Plan of Treatment Health Maintenance Due Date Last Done Comments Breast Cancer Screening-Mammogram 1979 Cervical Cancer Screening 1979 Depression Screening 1979 Hepatitis C Screening 1979 Varicella Vaccines (1 of 2 - 13+ 2-dose series) 07/13/1992 Regular Well Visit/Exam 18-64 07/13/1997 Covid-19 Vaccine ( season) 2023 02/02/2021, 05/07/2020, 04/13/2020 Influenza Vaccine (Season Ended) 2024 DTaP/Tdap/Td Vaccine (8 - Td or Tdap) 04/14/2031 04/13/2021, 07/03/2017, 09/06/1993, Additional history exists Hepatitis B Screening Completed 09/16/2020 , 10/07/2019, 03/05/2019 HPV Vaccines Aged Out No longer eligi ble based on patient's age to complete this topic Pneumococcal vaccine <65 Aged Out No longer eligible based on patient's age to complete this topic Insurance [facility] Care Teams Hemodialysis Patient Care Specialist Relationship Specialty Start Date End Date Miscellaneous, Not In File PCP - General 07/19/18
--- OUTSIDE RECORDS SUMMARY | 2024-06-02 18:15 | XMS_ITS | Clinical Summary ---
Author Organization [facility] Address [address] [place] [address] Phone Care Team Providers Care Supervisor Machining Name Role Phone Clarisse Baez DO Primary Care Provider [phone] Goldy Rivera APRN, CNP Unavailable + [phone] Allergies No known active allergies Medications metFORMIN [...] Visit [facility] [address] [place] [address] Goldy Rivera APRN, CNP Stress incontinence (Primary Dx); OAB (overactive bladder) Discharge Disposition: Discharged to home or Selfcare 05/25/2024 Travel 05/12/2024 [facility] [address] [place] [address] Jo Barajas, PT 05/05/2024 12:15 PM CDT Physical Therapy [facility] at [facility] [address], [address] [place] [address] Bev Yin MD Middleton, Trisha M, PT Shoulder pain, unspecified chronicity, unspecified laterality (Primary Dx) Discharge Disposition: Discharged to home or Selfcare 05/05/2024 Travel 05/03/2024 Travel 04/28/2024 12:15 PM CDT Physical Therapy [facility] at [facility] [address] [place] [address] Bev Yin MD Middleton, Trisha M, PT Shoulder pain, unspecified chronicity, unspecified laterality (Primary Dx) Discharge Disposition: Discharged to home or Selfcare 04/28/2024 Travel 04/21/2024 1:00 PM CDT Physical Therapy [facility] at [facility] [address] [place] [address] Bev Yin MD Middleton, Trisha M, PT Shoulder pain, unspecified chronicity, unspecified laterality (Primary Dx) Discharge Disposition: Discharged to home or Selfcare 04/21/2024 Travel 04/07/2024 10:00 AM PATTERN REPAIR PERSON Physical [facility] [address] [place] [address] Bev Yin MD Middleton, Trisha M, PT Shoulder pain, unspecified chronicity, unspecified laterality (Primary Dx) Discharge Disposition: Discharged to home or Selfcare 04/07/2024 Travel 03/20/2024 Plan of Care [facility]ation [facility] [address] [place] [address] 03/19/2024 4:00 PM PATTERN REPAIR PERSON [facility] [address] [place] [address] Bev Yin MD Middleton, Trisha M, PT [...] on file Legal Sex Female 2:50 PM PATTERN REPAIR PERSON Gender Identity Not on file Sexual Orientation [...] Clear 05/27/2024 2:45 PM CDT Goldy Rivera SYSTEMS DEVELOPER, PERSONAL PROTECTION SPECIALIST POINT OF CARE TESTING (MANUAL) Final Result from Last 3 Months Insurance MEDICAID [place] Care Teams Supervisor Machining Relationship Specialty Start Date End Date Clarisse Baez DO [address] [place] [address] PCP - General Family Medicine 02/26/24 Goldy Rivera APRN, PERSONAL PROTECTION SPECIALIST [address] [place] [address] Nurse Practitioner Advanced Practice Nurse 05/23/24
--- OUTSIDE RECORDS SUMMARY | 2024-06-02 18:15 | XMS_ITS | Encounter Summary ---
Author Organization [facility] Address [address] [place] [address] Phone Care Team Providers Care Power Brake Operator Name Role Phone Miscellaneous, Not In [...] on file Legal Sex Female 7:23 PM RESIDENT PHYSICIAN Gender Identity Not on file Sexual Orientation [...] on filedocumented in this encounter Care Teams Power Brake Operator Relationship Specialty Start Date End Date Miscellaneous, Not In File PCP - General 07/19/18 documented as of this encounter
== END 2024-06-02 16:25 | disposition home or self-care (01) ==
PROVIDERS: PCP Family Medicine; Visit Provider Nurse Practitioner
DX: M25.562 Pain in left knee (principal)
CPT/HCPCS: 73562

== ENCOUNTER 2024-07-04 14:35 | Outpatient (CLI) | payer OTHER, SELFPAY ==
--- OUTSIDE RECORDS SUMMARY | 2024-07-04 14:41 | XMS_ITS | Encounter Summary ---
Author Organization [facility] Address [address] [place] [address] Phone Care Team Providers Care Grey Goods Examiner Name Role Phone Miscellaneous, Not In File Primary Care Provider Unavailable Encounter Details Date Type Department Care Team (Late st Contact Info) Description 05/07/2024 Orders Only [facility] Scanning, Provider Social History Tobacco Use Types Packs/Day Years Used Date Smoking Tobacco: Never Comments No Sex and Gender Information Value Date Recorded Sex Assigned at Not on file Legal Sex Female 7:23 PM SAND BOBBER Gender Identity Not on file Sexual Orientation Not on file documented as of this encounter Plan of Treatment Not on file documented as of this encounter Procedures Procedure Name Priority Date/Time Associated Diagnosis Comments SCAN - NEUROLOGY 05/07/2024 documented in this encounter Results * SCAN - NEUROLOGY (05/07/2024) Anatomical Region Laterality Modality Other us Provider Scanning Final Result documented in this encounter Visit Diagnoses Not on filedocumented in this encounter Care Teams Grey Goods Examiner Relationship Specialty Start Date End Date Miscellaneous, Not In File PCP - General 07/19/18 documented as of this encounter
--- OUTSIDE RECORDS SUMMARY | 2024-07-04 14:41 | XMS_ITS | Clinical Summary ---
Author Organization [facility] Address [address] [place] [address] Phone Care Team Providers Care Cellophaner Name Role Phone Clarisse Baez DO Primary Care Provider [phone] Goldy Rivera APRN, CNP Unavailable + [phone] Allergies No known active allergies Medications metFORMIN [...] Visit [facility] [address] [place] [address] Goldy Rivera APRN, CNP Stress incontinence (Primary Dx); OAB (overactive bladder) Discharge Disposition: Discharged to home or Selfcare 05/25/2024 Travel 05/12/2024 Documentation [facility] [address] [place] [address] Jo Barajas, PT 05/05/2024 12:15 PM CDT [facility] [address] [place] [address] Bev Yin MD Middleton, Trisha M, PT Shoulder pain, unspecified chronicity, unspecified laterality (Primary Dx) Discharge Disposition: Discharged to home or Selfcare 05/05/2024 Travel 05/03/2024 Travel 04/28/2024 12:15 PM CDT [facility] [address] [place] [address] Bev Yin MD Middleton, Trisha M, PT Shoulder pain, unspecified chronicity, unspecified laterality (Primary Dx) Discharge Disposition: Discharged to home or Selfcare 04/28/2024 Travel 04/21/2024 1:00 PM CDT [facility] [address] [place] [address] Bev Yin MD Middleton, Trisha M, PT Shoulder pain, unspecified chronicity, unspecified laterality (Primary Dx) Discharge Disposition: Discharged to home or Selfcare 04/21/2024 Travel 04/07/2024 10:00 AM TOOL GRINDER OPERATOR SURFACE [facility] [address], [address] [place] [address] Bev Yin MD Middleton, Trisha M, PT Shoulder pain, unspecified chronicity, unspecified laterality (Primary Dx) Discharge Disposition: Discharged to home or Selfcare 04/07/2024 Travel from Last 3 Months Family History [...] on file Legal Sex Female 2:50 PM TOOL GRINDER OPERATOR SURFACE Gender Identity Not on file Sexual Orientation [...] 2:39 PM CDT Height 162.6 cm (5' 4) 05/27/2024 2:39 PM CDT Body Mass Index [...] 10/07/2019, 03/05/2019 TdaP Immunization Completed 04/13/2021, 07/03/2017 Human Papillomavirus (HPV) Immunization Aged Out No longer eligible b ased on patient's age to complete this topic Meningococcal Immunization (ACWY) Aged Out No longer [...] Clear 05/27/2024 2:45 PM CDT Goldy Rivera BATCH PLANT SUPERVISOR, ELECTRICIAN CHIEF POINT OF CARE TESTING (MANUAL) Final Result from Last 3 Months Insurance MEDICAID [place] Care Teams Cellophaner Relationship Specialty Start Date End Date FranciacassClarisse rodríguez [address] [place] [address] PCP - General Family Medicine 02/26/24 Goldy Rivera, BATCH PLANT SUPERVISOR, ELECTRICIAN CHIEF [address] [place] [address] Nurse Practitioner Advanced Practice Nurse 05/23/24
--- OUTSIDE RECORDS SUMMARY | 2024-07-04 14:41 | XMS_ITS | Encounter Summary ---
Author Organization [facility] Address [address] [place] [address] Phone Care Team Providers Care Rubber Mill Tender Name Role Phone FranciacassClarisse rodríguez Primary Care Provider [phone] Goldy Rivera APRN, OFFSET LABEL REWINDER Unavailable [phone] Reason for Visit * PT/OT/ST (Routine) - Authorized Specialty Diagnoses / Procedures Referred By Contac t Referred To Contact Physical Therapy Diagnoses Shoulder pain, unspecified chronicity, unspecified laterality Arthralgia, unspecified joint Chronic low back pain, unspecified back pain laterality, unspecified whether sciatica present Bev Yin MD [address] [place] [address] Phone: tel: fax: [facility] at [address], [address] [address] Phone: tel: fax: Referral ID Status Reason Start Date Expiration Date V isits Requested Visits Authorized [id number] Authorized 02/26/2024 50 12 Encounter Details Date Type Department Care Team (Latest Contact Info) Description 03/19/2024 4:00 PM TAPER/FINISHER Physical Therapy [facility] at [facility] [address] [facility], [address] [address] Bev Yin MD [address] [place] [id number] Jo Alfaro, PT [place] Shoulder pain, unspecified chronicity, unspecified laterality; Arthralgia, unspecified joint; Chronic low back pain, unspecified back pain laterality, unspecified whether sciatica present Discharge Disposition: Discharged to home or Selfcare Social History Tobacco Use Types Packs/Day Years Used Date Smoking Tobacco: Never Assessed Comments Unknown Sex and Gender Information Value Date Recorded Sex Assigned at Not on file Legal Sex Female 2:50 PM TAPER/FINISHER Gender Identity Not on file Sexual Orientation Not on file documented as of this encounter Miscellaneous Notes * Plan of Care - Jo Alfaro, PT - 03/19/2024 4:00 PM CST Physical Therapy Evaluation - Electronically signed by: JO ALFARO, PT March 19, 2024 Subjective SUBJECTIVE: Primary complaint: Patient reports pain, numbness, and tingling in her right shoulder. PT in 2018 did not provide relief. Prior x-rays were negative at the time. She stopped medical treatment overalldue to Covid and other reasons. Within the past year pain and stiffness has moved into her neck as well. She also began experiencing pain in her right hip (OA) and low back (DDD). She is scheduled with pain management in June 2024. Patient Narrative: - Current level of function: impaired ability to sit upright, lift / carry her [address] year [address], drive, reach overhead, turn her head, negotiate stairs, sleep - Prior level of function: gradual worsening of symptoms past couple years limiting overall function Symptom Location: right shoulder / neck 1) Current pain 6-7/10 - Constant - Range 2-3/10 to 8-9/10 Symptom Location: right shoulder / neck 2) Current pain 8/10 - Constant - Range 2-3/10 to 9/10 Patient is Right side dominant. This patient exhibits fear avoidance behavior No Pertinent Past Medical History includin C section, bilateral carpal tunnel release, gall bladder removal, HTN, diabetes, tachycardia, anxiety Red flags: none present Prior treatment attempted: none recent Coordination of care: Patient denies prior therapy this year for this or any other condition. Patient is not currently seeking other concurrent treatment. Work/Hobbies/Activities: Unemployed Home Environment: There are [address] and a flight of stairs into the basement where laundry is located. Equipment: -Patient currently utilizes a back brace as needed for lower back Patient's goal for Physical Therapy: carry my son Patient learning style: - Barriers to learning: no barriers - Preferred language: Portuguese - Telegraphic Typewriter Installer needed: No Written attendance policy reviewed: Yes Next appointment with referring provider: RTD after PT OBJECTIVE Cervical: Range of Motion: All Range of Motion documentation below is measured in degrees unless otherwise indicated. Flexion: AROM: WNL; Increased Pain Extension: AROM 35; Increased Pain Left Rotation: AROM 35; Increased Pain Right Rotation: AROM: 40 Lumbar: Range of Motion: All Range of Motion documentation below is measured in degrees unless otherwise indicated. Lumbar: Flexion: AROM: 50% Full; Increased Pain Extension: AROM: 50% Full; Increased Pain Left Side Bending: AROM: 50% Full; Increased Pain Right Side Bending: AROM: 50% Full; Increased Pain Flexibility: Hamstrings: Left: mod restrictions (pain) Right: mod restrictions (pain) Strength: All strength measurements out of 5 unless otherwise indicated. Hip Flexion (L2-3): Left: 4-/5 Right: 3+/5 Hip Abduction: Left: 3+/5 (pain) Right: 3/5 (pain) Knee Flexion (S2): Left: 4/5 Right: 4-/5 Knee Extension (L3-4): Left: 4/5 Right: 3+/5 Special Tests: Positive for Left: MEGHANN and FADIR Positive for Right: MEGHANN, FADIR, SI Compression and SI Distraction Positive for: SI Compression and SI Distraction Palpation: Comments: Exhibits tenderness along lumbar paraspinals and right gluts / piriformis. Shoulder: Range of Motion: All Range of Motion documentation below is measured in degrees unless otherwise indicated. Left Shoulder Flexion: AROM: 145 Right Shoulder Flexion: AROM: 105 ; Pain During Motion Left Shoulder Abduction: AROM: 115 Right Shoulder Abduction: AROM: 90 .; Pain During Motion Strength: All strength measurements out of 5 unless otherwise indicated. Scapular Elevation (C2-3-4): Left: 4/5 Right: 4-/5 (pain). Shoulder Abduction (C5): Left: 4/5 Right: 4-/5 (pain) Shoulder Ext Rotation: Left: 5/5 Right: 4-/5 (pain) Shoulder Int Rotation: Left: 5/5 Right: 4/5 Special Tests: Positive for Right: Empty Can and biceps palpation Palpation: Comments: Pain throughout right upper trap, levator, scapular border, and infraspinatus. TREATMENT: Refer to PT OP Rehab Therapy Treatment flowsheet for details/minutes. Patient was educated in the overall POC, the findings during the evaluation, and the goals for PT. Patient was educated in [facility]'s attendance policy for therapy and signed agreement to abide by the policy. Patient was in agreement with the overall POC. Patient was educated in the anatomy of the neck,shoulder, back and possible etiologies contributing to symptoms. Treatment was not initiated today and will be initiated at next therapy session. ASSESSMENT: Therapy Diagnosis: neck, shoulder, back pain Medical Diagnosis: Shoulder pain, unspecified chronicity, unspecified laterality Arthralgia, unspecified joint Chronic low back pain, unspecified back pain laterality, unspecified whether sciatica present Kalyn Edouard is a 43 y.o. patient referred to Physical Therapy with deficits noted including impairments of decreased strength, decreased range of motion, and increased pain which contribute to the following areas of functional restriction or limitations: impaired ability to sit upright, lift / carry her [address] year [address], drive, reach overhead, turn her head, negotiate stairs, sleep. Clinical impression at this time: Patient will benefit from ongoing skilled Physical Therapy intervention. Rehab potential: good. Complexities that are a barrier to service: no foreseeable barriers Preferred Language: Portuguese All charges entered today are appropriate and separate from each other. PLAN Goals to be achieved by discharge. Patient will demonstrate the followin. Improve cervical spine range of motion and mobility to symmetrical and pain free for daily/work activities to be able to look over shoulder to check for traffic while driving to healthcare appointments with less difficulty. 2. Increase right shoulder ROM/mobility to 140 deg flexion to be able to reach overhead into cabinets for meal prep with less difficulty. 3. Decrease right shoulder pain to 2/10 or less with functional activities to be able to improve quality of sleep. 4. Increase right shoulder strength to 5/5 to be able to lift / carry her son with less difficulty. 5. Reports their pain is rarely greater than 2/10 so that patient can sit with upright posture >1 hour with greater ease. 6. Increase bilateral strength to 5/5 to ascend/descend stairs to get upstairs to the basement withless difficulty. 7. Improve lumbar spine range of motion and mobility to pain free to be able to access lower cabinet to retrieve/put away dishes for meal prep with greater ease. 8. Demonstrates independence in therapeutic exercise program specific to relative impairments in order to optimize rehabilitation. Planned Interventions This patient will likely be seen 1-2x/week for 8 visits for the following interventions: - Manual Therapy (44649) - Therapeutic Exercise (38014) - Therapeutic Activities (41747) - Neuro Muscular Re-education (46837) - Mechanical traction (46170) - Trigger Point Dry Needling (03833 or 44692) Precautions: none Treatment may be altered based on patient progression and symptoms. The plan of care, as well as the benefits and risks of therapy were reviewed with the patient and the patient consented to treatment . R/FINISHER documented in this encounter Plan of Treatment Not on file documented as of this encounter Visit Diagnoses Diagnosis Shoulder pain, unspecified chronicity, unspecified laterality Arthralgia, unspecified joint Chronic low back pain, unspecified back pain laterality, unspecified whether sciatica present documented in this encounter Care Teams Rubber Mill Tender Relationship Specialty Start Date End Date Clarisse Baez DO [address] [place] [address] PCP - General Family Medicine 02/26/24 Goldy Rivera APRN, OFFSET LABEL REWINDER [address] [place] [address] Nurse Practitioner Advanced Practice Nurse 05/23/24 documented as of this encounter
--- OUTSIDE RECORDS SUMMARY | 2024-07-04 14:41 | XMS_ITS | Clinical Summary ---
Author Organization [facility] Address [address] [place] [address] Care Team Providers Care Drum Saw Operator Name Role Phone Miscellaneous, Not In [...] Encounters Date Type Department Care Team Description 05/07/2024 Orders Only [facility] RHEUMATOLOGY Scanning, Provider from Last 3 Months Social History Tobacco Use Types Packs/Day Years Used Date Smoking Tobacco: Never Comments No Sex and Gender Information Value Date Recorded Sex Assigned at Not on file Legal Sex Female 7:23 PM WIRE BOUND BOX MACHINE OPERATOR Gender Identity Not on file Sexual Orientation Not on file Obstetrics History Last Filed Vital Signs Vital Sign Reading Time Taken Comments Blood Pressure 158/96 01/23/2024 12:57 PM WIRE BOUND BOX MACHINE OPERATOR Pulse 89 01/23/2024 12:57 PM WIRE BOUND BOX MACHINE OPERATOR Temperature 37.1 C (98.8 F) 07/24/2018 5:59 PM CDT Respiratory Rate 18 07/24/2018 5:59 PM CDT Oxygen Saturation 100% 07/24/2018 5:59 PM CDT Inhaled Oxygen Concentration - - Weight 97.1 kg (214 lb) 01/23/2024 12:57 PM WIRE BOUND BOX MACHINE OPERATOR Height 165.1 cm (5' 5) 01/23/2024 12:57 PM WIRE BOUND BOX MACHINE OPERATOR Body Mass Index 35.61 01/23/2024 12:57 PM WIRE BOUND BOX MACHINE OPERATOR Plan of Treatment Health Maintenance Due Date [...] Associated Diagnosis Comments SCAN - NEUROLOGY 05/07/2024 from Last 3 Months Results * SCAN - NEUROLOGY (05/07/2024) Anatomical Region Laterality Modality Other us Provider Scanning Final Result from Last 3 Months Insurance [facility] Care Teams Drum Saw Operator Relationship Specialty Start Date End Date Miscellaneous, Not In File PCP - General 07/19/18
--- OUTSIDE RECORDS SUMMARY | 2024-07-04 14:41 | XMS_ITS | Referral Summary ---
Author Organization [facility] Address [address] [place] [address] Care Team Providers Care Urinalysis Technician Name Role Phone Miscellaneous, Not In File Primary Care Provider Unavailable Encounters Date Type Department Care Team Description 05/07/2024 Orders Only [facility] IM RHEUMATOLOGY [...] on file Legal Sex Female 7:23 PM PRODUCT DISTRIBUTION SPECIALIST Gender Identity Not on file Sexual Orientation Not on file Last Filed Vital Signs Vital Sign Reading Time Taken Comments Blood Pressure 158/96 01/23/2024 12:57 PM PRODUCT DISTRIBUTION SPECIALIST Pulse 89 01/23/2024 12:57 PM PRODUCT DISTRIBUTION SPECIALIST Temperature 37.1 C (98.8 F) 07/24/2018 5:59 PM CDT Respiratory Rate 18 07/24/2018 5:59 PM CDT Oxygen Saturation 100% 07/24/2018 5:59 PM CDT Inhaled Oxygen Concentration - - Weight 97.1 kg (214 lb) 01/23/2024 12:57 PM PRODUCT DISTRIBUTION SPECIALIST Height 165.1 cm (5' 5) 01/23/2024 12:57 PM PRODUCT DISTRIBUTION SPECIALIST Body Mass Index 35.61 01/23/2024 12:57 PM PRODUCT DISTRIBUTION SPECIALIST Plan of Treatment Not on file Procedures Procedure Name Priority Date/Time Associated Diagnosis Comments SCAN - NEUROLOGY 05/07/2024 from Last 3 Months Results * SCAN - NEUROLOGY (05/07/2024) Anatomical Region Laterality Modality Other us Provider Scanning Final Result from Last 3 Months Insurance [facility] Care Teams Urinalysis Technician Relationship Specialty Start Date End Date Miscellaneous, Not In File PCP - General 07/19/18
--- OUTSIDE RECORDS SUMMARY | 2024-07-04 14:41 | XMS_ITS | Encounter Summary ---
Author Organization [facility] Address [address] [place] [address] Phone Care Team Providers Care Hog Scalder Name Role Phone Miscellaneous, Not In File [...] on file Legal Sex Female 7:23 PM FLIGHT TEST SUPERVISOR Gender Identity Not on file Sexual Orientation [...] on filedocumented in this encounter Care Teams Hog Scalder Relationship Specialty Start Date End Date Miscellaneous, Not In File PCP - General 07/19/18 documented as of this encounter
--- OUTSIDE RECORDS SUMMARY | 2024-07-04 14:41 | XMS_ITS | CONTINUITY OF CARE DOCUMENT ---
Author Name isiah, isiah Address Unknown Organization [facility] Address [address] [place] [address] Phone [phone] Care Team Providers Care Senior Project Leader/Team Lead Name Role Phone Florentino SOTELO, Haroldo Unavailable [phone] TANIA DIAZ Unavailable TANIA DIAZ Unavailable PROBLEMS Condition Status Date Provider Notes Diabetes mellitus aic 7.0 active Haroldo camilo MD Hypertriglyceridemia active Haroldo Good MD Hypertension nl renals, nl e cho 02/25 active Haroldo Good MD Palpitations nl holter 02/25 active Haroldo valencia MD Obesity active Haroldo Good MD Edema venous dopper - no chung ous insufficiency active Haroldo Good MD FAMILY HISTORY OF premature HEART DISEASE completed - Haroldo Good MD ENCOUNTERS Date Type Provider Location Encounter Diag nosis - In-person encounter Office Visit Haroldo Good MD [place] [facility] - In-person encounter Office Visit Haroldo Good MD [place] [facility] FAMILY HISTORY OF premature HEART DISEASEEdema venous dopper - no venous insufficiencyObesity VITAL SIGNS Date Observation Value Provider Body Mass Index (Ratio) 37.11 kg/m2 Tony Guzman blood pressure, cuff size large Ke rri Sharonnegilbertohiginioer blood pressure, diastolic 70 mm[Hg] Ke rri Gruenegilbertoelder blood pressure, systolic 122 mm[Hg] Farideh aHqmakennagilbertomaris oxygen saturation, oximetry 97 % Zully Haqdavid [...] Payer name Policy type / Coverage type [place] red constitution party ID [employer] Other [id number] ADVANCE DIRECTIVES Name Date DISCUSSED - NO [...]
--- OUTSIDE RECORDS SUMMARY | 2024-07-04 14:41 | XMS_ITS | Clinical Summary ---
Author Organization [facility] Address [address] [place] [address] Care Team Providers Care President & Founder Name Role Phone Unavailable Primary Care Provider Unavailabl e Source Comments [facility],non-owned Affiliates and Associated Physician Practices is amultiple site organization consisting of ambulatory clinics and hospital sitesin [place], [place], [place] and [place]. This disclosure is being madepursuant to the Care Everywhere program and may not contain all information available regarding this patient. Last updated 17.[facility] Allergies No known active allergies Medications * [...] Glucagon (BAQSIMI ONE PACK) 3 MG/DOSE POWD [place] 3 mg into the nose as needed 1 Each 1 12/09/19 Active Additional Information Patient not taking.Reported on 05/25/2021 Continuous Blood Gluc Apparel Rental Clerk (MusicmetricSTYLE IRWIN READER) [facility] Use 1 Each as directed 1 Each 12/09/19 Active Additional Information Patient not taking.Reported on 06/01/2021 Continuous Blood Gluc Sensor (FREESTYLE IRWIN SENSOR SYSTEM) [facility] [place] 1 Each as directed Apply 1 Libre2 sensor q14 days. 3 Each 5 01/05/20 Active Additional Information Patient not taking.Reported on 06/01/2021 famotidine (PEPCID) 20 MG tabletIndication s:Heartburn Take 1 (one) tablet by mouth 2 times daily Reasons: Heartburn 60 tablet 5 02/03/20 Active insulin glargine (LANTUS SOLOSTAR) penIndications:1 9 weeks gestation of ([facility]),Supervisio n of high-risk of elderly primigravida ([facility]),Maternal obesity affecting , antepartum ([facility]),Diabetes mellitus affecting , antepartum ([facility]) Inject 64 (sixty four) Units [...] MM MISCIndications: Diabetes mellitus affecting , antepartum ([facility]),25 weeks gestation of ([facility]) Use 1 Each 6 times daily while awake 100 Each 03/11/19 Active insulin lispro (HUMALOG;ADMELOG ) 100 UNIT/ML pen Inject 4-16 Units subcutaneously Take 4 units before B, L & D. Active Continuous Blood Gluc Sensor (DEXCOM G6 SENSOR) [facility] Use 1 Each as directed 3 Each 5 04/21/19 Active Continuous Blood Gluc Apparel Rental Clerk (DEXCOM G6 DOLL MAKER) [facility] Use 1 device as directed 1 device 04/21/19 Active Continuous Blood Gluc Transmit (DEXCOM G6 TRANSMITTER) [facility] Use 1 Each as directed 1 [...] , antepartum 2020 Overview (02/02/2021): Referral to TERRAZZO LAYER HELPER/ONC and ultrasound at [facility], referral placed 02/02 Assessment & Plan (12/22/2020 11:34 AM MED SPEC): Complex right ovarian cyst identified today. 1. Recommend evaluation by TERRAZZO LAYER HELPER pelvic ultrasound Supervision of high-risk of elderly [...] 12/08/2020 Assessment & Plan (12/22/2020 11:35 AM MED SPEC): 1 lb wt loss since last consultation. [...] , limited weight gain is recommended. The [place] of Medicine recommends a total weight gain [...] 11/04/20. Assessment & Plan (12/22/2020 11:32 AM MED SPEC): Blood pressure within goal range on Nifedipine [...] prevention of preeclampsia in at risk women ([place] DSR, 2008). There is no significant risk [...] echocardiogram: Assessment & Plan (12/22/2020 11:30 AM MED SPEC): Wearing a glucose sensor. Interval improvement in [...] buspar Assessment & Plan (12/22/2020 11:31 AM MED SPEC): Mood appropriate. Recommendations 1. Reminded to connect [...] deficiency Assessment & Plan (12/22/2020 11:33 AM MED SPEC): Interval labs reviewed: vitamin D sufficient. 1. Continue vitamin D supplementation Assessment & Plan (12/08/2020 2:54 PM CDT): We discussed the relationship between vitamin D and immune support 1. Check vitamin D levels--requisition given 1. 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 Not on file Not [...] 8:04 AM CDT Height 157.5 cm (5' 2) 05/04/2021 7:43 AM CDT Body Mass Index 41.15 05/04/2021 7:43 AM CDT Plan of Treatment Upcoming Encounters Date Type Department Care Team (Late st Contact Info) Description 07/28/2024 1:00 PM CDT Office Visit [facility] - Urology [address] [place] [address] [address] [place] [address] Alexa Wadsworth, RESIDENTIAL PROPERTY TAX APPRAISER-ASSEMBLER ARRANGER [address] [place] [address] Health Maintenance Due Date Last Done Comments LIPID TESTING 1979 MAMMOGRAM 1979 PAP SMEAR 1979 HIV SCREENING 07/13/1994 HEPATITIS C SCREENING 07/09/1997 DTAP/TDAP/TD VACCINES (1 - Tdap) 07/13/1998 HEPATITIS B VACCINE (1 of 3 - 19+ 3-dose series) 07/13/1998 COVID-19 VACCINE (3 - 2023-2 5 season) 2023 05/07/2020, 04/13/2020 DEPRESSION [...] Medical Care in Diabetes(ADA). Test Performed at: [facility] [address] ALBERTA CONNORS MD 05/04/2021 11:0 5 AM CDT 05/04/2021 11:07 AM CDT Ivette Calhoun RESIDENTIAL PROPERTY TAX APPRAISER-ASSEMBLER ARRANGER LAB - CHEMISTRY ORDERAB LES Final Result [address] [id number] from Last 3 Months or Most Recently Relevant to Health Maintenance Insurance [facility]
--- NOTE | 2024-07-04 14:43 | ECG_ITS ---
Test Date: 2024-07-04 14:53:30 Measurements Intervals [place] Rate: 73 P: 58 AR: 162 QRS: -4 QRSD: 92 T: 42 QT: 390 QTc: 430 Interpretive Statements SINUS RHYTHM No previous ECG available for comparison Electronically Signed On 07-04-2024 15:11:37 CDT by Judd Mckay M.D.
== END 2024-07-04 14:36 | disposition home or self-care (01) ==
LOC: ANHCARD 14:37
PROVIDERS: PCP Family Medicine; Visit Provider Anesthesiology
DX: Z01.818 Encounter for other preprocedural examination (principal); I10 Essential (primary) hypertension
CPT/HCPCS: 93005

== ENCOUNTER 2024-07-08 00:25 | Day surgery (SDC) | payer OTHER, SELFPAY ==
[2024-07-02 15:36] VITALS: BMI 36.9
--- NOTE | 2024-07-02 15:38 | PC.NURSE ---
Report to the Outpatient Waiting Room, entrance under the green pavilion located off [facility], at time _3pm_ on date _[id number]_. Planned Procedure Time: _4pm_.? Time changes happen often and if your time is changed the preop area will call you the afternoon before. - You and your visitor will be asked to self-screen and do not enter if you have any COVID symptoms. Please call surgeon if you need to reschedule. - A mask is optional within the hospital at this time. No smoking, or chewing tobacco (or any form of nicotine). Ok for breakfast at a light lunch. Nothing to eat or drink after 2pm. No chewing gum, candy or mints. Take only the following medications with a SIP of water on the morning of surgery: _Medicines OK____ DO NOT STOP ANY OF YOUR OTHER PRESCRIPTION MEDICATIONS PRIOR TO SURGERY EXCEPT THE FOLLOWING Hold all vitamins and supplements for 3 days per anesthesiologist. Medications to discontinue per physician ___Patient is already holding Diclofenac per office instructions.___ Date to take last dose Please no make-up, nail kyrgyz, hairspray, perfume, deodorant, or body powder the day of surgery.? No jewelry (including any body piercings) or valuables the day of surgery, leave them at home.? Please take a shower or bath the night before, or the morning of, surgery with an antibacterial soap.? Wear comfortable, loose fitting clothing. - Jewelry must be removed prior to entering the operating room.? Rings and piercings that are not removed may be cut off. - The hospital will not accept responsibility for valuables.? - Please leave all valuables, including medications, at home the day of surgery. If you are going home after surgery, a licensed water taxi driver must drive you home.? - NO public transportation without another adult if you receive anesthesia. - We recommend that an adult stay with you for 24 hours following discharge. - We also recommend that you do not drive, make important decision, drink alcoholic beverages, or take any drugs that were not prescribed by your health care provider for at least 24 hours after your discharge time. Follow any additional instructions given to you from your surgeon. Telephone instructions given to __Jess___and asked if any additional questions and then verbalized understanding. Patient advised to call surgeon office or pre surgery nurse liaison [phone] if any additional questions.
--- NOTE | ~2024-07-08 | XR_ITS ---
XR fluoroscopy no charge Indication: Right C6-7 cervical interlaminar steroid injection TECHNIQUE: Fluoroscopy used during Right C6-7 cervical interlaminar steroid injection performed by Loreto maldonado [Say Mckinney MD] on 07/08/2024. 26 seconds of fluoroscopy with 4 fluoroscopic images captured . FINDINGS: Correlate with procedure note. IMPRESSION: Fluoroscopy used during Right C6-7 cervical interlaminar steroid injection. Reviewed, dictated and finalized at location A. IMPRESSION: Fluoroscopy used during Right C6-7 cervical interlaminar steroid in jection.
--- OUTSIDE RECORDS SUMMARY | 2024-07-08 00:26 | XMS_ITS | Encounter Summary ---
Author Organization [facility] Address [address] [place] [address] Phone Care Team Providers Care Dining Room Server Name Role Phone Miscellaneous, Not In File Primary Care Provider Unavailable Encounter Details Date Type Department Care Team (Late st Contact Info) Description 05/07/2024 Orders Only [facility] IM RHEUMATOLOGY Scanning, Provider Social History Tobacco Use Types Packs/Day Years Used Date Smoking Tobacco: Never Comments No Sex and Gender Information Value Date Recorded Sex Assigned at Not on file Legal Sex Female 7:23 PM RUG WEAVER Gender Identity Not on file Sexual Orientation [...] on filedocumented in this encounter Care Teams Dining Room Server Relationship Specialty Start Date End Date Miscellaneous, Not In File PCP - General 07/19/18 documented as of this encounter
--- OUTSIDE RECORDS SUMMARY | 2024-07-08 00:26 | XMS_ITS | Referral Summary ---
Author Organization [facility] Address [address] [place] [address] Care Team Providers Care Mental Health Unit Lead Psychologist Name Role Phone Miscellaneous, Not In File [...] on file Legal Sex Female 7:23 PM FOOD SAFETY SPECIALIST Gender Identity Not on file Sexual Orientation Not on file Last Filed Vital Signs Vital Sign Reading Time Taken Comments Blood Pressure 158/96 01/23/2024 12:57 PM FOOD SAFETY SPECIALIST Pulse 89 01/23/2024 12:57 PM FOOD SAFETY SPECIALIST Temperature 37.1 C (98.8 F) 07/24/2018 5:59 PM CDT Respiratory Rate 18 07/24/2018 5:59 PM CDT Oxygen Saturation 100% 07/24/2018 5:59 PM CDT Inhaled Oxygen Concentration - - Weight 97.1 kg (214 lb) 01/23/2024 12:57 PM FOOD SAFETY SPECIALIST Height 165.1 cm (5' 5) 01/23/2024 12:57 PM FOOD SAFETY SPECIALIST Body Mass Index 35.61 01/23/2024 12:57 PM FOOD SAFETY SPECIALIST Plan of Treatment Not on file Procedures Procedure Name Priority Date/Time Associated Diagnosis Comments SCAN - NEUROLOGY 05/07/2024 from Last 3 Months Results * SCAN - NEUROLOGY (05/07/2024) Anatomical Region Laterality Modality Other us Provider Scanning Final Result from Last 3 Months Insurance [facility] Care Teams Mental Health Unit Lead Psychologist Relationship Specialty Start Date End Date Miscellaneous, Not In File PCP - General 07/19/18
--- OUTSIDE RECORDS SUMMARY | 2024-07-08 00:26 | XMS_ITS | Clinical Summary ---
Author Organization [facility] Address [address] [place] [address] Phone Care Team Providers Care Director Card Name Role Phone Clarisse Baez DO Primary Care Provider [phone] Goldy Rivera APRN, CNP Unavailable [phone] Allergies No known active allergies Medications metFORMIN [...] Visit [facility] [address] [place] [address] Goldy Rivera APRN, CNP Stress incontinence (Primary Dx); OAB (overactive bladder) Discharge Disposition: Discharged to home or Selfcare 05/25/2024 Travel 05/12/2024 Documentation [facility] [address] [place] [address] Jo Barajas, PT 05/05/2024 12:15 PM CDT Physical [facility] [address] [place] [address] Bev Yin MD Middleton, Trisha M, PT Shoulder pain, unspecified chronicity, unspecified laterality (Primary Dx) Discharge Disposition: Discharged to home or Selfcare 05/05/2024 Travel 05/03/2024 Travel 04/28/2024 12:15 PM CDT [facility] [address] [place] [address] Bev Yin MD Middleton, Trisha M, PT Shoulder pain, unspecified chronicity, unspecified laterality (Primary Dx) Discharge Disposition: Discharged to home or Selfcare 04/28/2024 Travel 04/21/2024 1:00 PM CDT [facility] [address] [place] [address] Bev Yin MD Middleton, Trisha M, PT Shoulder pain, unspecified chronicity, unspecified laterality (Primary Dx) Discharge Disposition: Discharged to home or Selfcare 04/21/2024 Travel 04/07/2024 10:00 AM PHYSICIAN OFFICE SPECIALIST Physical [facility] [address] [place] [address] Bev Yin MD Middleton, Trisha M, PT [...] on file Legal Sex Female 2:50 PM PHYSICIAN OFFICE SPECIALIST Gender Identity Not on file Sexual [...] Clear 05/27/2024 2:45 PM CDT Goldy Rivera HATCHERY MAN, DINKEY BRAKEMAN POINT OF CARE TESTING (MANUAL) Final Result from Last 3 Months Insurance MEDICAID [place] Care Teams Director Card Relationship Specialty Start Date End Date FranciacassClarisse rodríguez [address] [place] [address] PCP - General Family Medicine 02/26/24 Goldy Rivera, HATCHERY MAN, DINKEY BRAKEMAN [address] [place] [address] Nurse Practitioner Advanced Practice Nurse 05/23/24
--- OUTSIDE RECORDS SUMMARY | 2024-07-08 00:26 | XMS_ITS | CONTINUITY OF CARE DOCUMENT ---
Author Name isiah, isiah Address Unknown Organization [facility] Address [address] [place] [address] Phone [phone] Care Team Providers Care Investment Sales Assistant Name Role Phone Florentino SOTELO, Haroldo Unavailable [...] In-person encounter Office Visit Haroldo Good MD [place] [facility] - In-person encounter Office Visit Haroldo Good MD [place] [facility] FAMILY HISTORY OF premature HEART DISEASEEdema [...] Payer name Policy type / Coverage type [place] red libertarian ID [employer] Other [id number] ADVANCE DIRECTIVES Name Date DISCUSSED - NO [...] Good MD completed Holter, 24 or 48 Hreberth Falcon MD co mpleted
--- OUTSIDE RECORDS SUMMARY | 2024-07-08 00:26 | XMS_ITS | Clinical Summary ---
Author Organization [facility] Address [address] [place] [address] Care Team Providers Care Grease Worker Name Role Phone Unavailable Primary Care Provider Unavailabl e Source Comments [facility],non-owned Affiliates and Associated Physician Practices is amultiple site organization consisting of ambulatory clinics and hospital sitesin [place], [place], [place] and [place]. This disclosure is being madepursuant to the Care Everywhere program and may not contain all information available regarding this patient. Last updated 17.[facility] Allergies No known active allergies Medications * [...] Glucagon (BAQSIMI ONE PACK) 3 MG/DOSE POWD [place] 3 mg into the nose as needed 1 Each 1 12/09/19 Active Additional Information Patient not taking.Reported on 05/25/2021 Continuous Blood Gluc Milk And Cream Grader (Game DigitalSTYLE IRWIN READER) [facility] Use 1 Each as directed 1 Each 12/09/19 Active Additional Information Patient not taking.Reported on 06/01/2021 Continuous Blood Gluc Sensor (FREESTYLE IRWIN SENSOR SYSTEM) [facility] Use 1 Each as directed Apply 1 Libre2 sensor q14 days. 3 Each 5 01/05/20 Active Additional Information Patient not taking.Reported on 06/01/2021 famotidine (PEPCID) 20 MG tabletIndication s:Heartburn Take 1 (one) tablet by mouth 2 times daily Reasons: Heartburn 60 tablet 5 02/03/20 Active insulin glargine (LANTUS SOLOSTAR) penIndications:1 9 weeks gestation of ([facility]),Supervisio n of high-risk of elderly primigravida ([facility]),Maternal obesity affecting , antepartum ([facility]),Diabetes mellitus affecting , antepartum ([facility]) Inject 64 (sixty four) Units to [...] MM MISCIndications: Diabetes mellitus affecting , antepartum ([facility]),25 weeks gestation of ([facility]) Use 1 Each 6 times daily while awake 100 Each 03/11/19 Active insulin lispro (HUMALOG;ADMELOG ) 100 UNIT/ML pen Inject 4-16 Units subcutaneously Take 4 units before B, L & D. Active Continuous Blood Gluc Sensor (DEXCOM G6 SENSOR) [facility] Use 1 Each as directed 3 Each 5 04/21/19 Active Continuous Blood Gluc Milk And Cream Grader (DEXCOM G6 RAND SEWER) [facility] Use 1 device as directed 1 device 04/21/19 Active Continuous Blood Gluc Transmit (DEXCOM G6 TRANSMITTER) [facility] Use 1 Each as directed 1 Each [...] , antepartum 2020 Overview (02/02/2021): Referral to ATMOSPHERIC SCIENTIST/ONC and ultrasound at [facility], referral placed 02/02 Assessment & Plan (12/22/2020 11:34 AM TERMINAL SUPERINTENDENT): Complex right ovarian cyst identified today. 1. Recommend evaluation by ATMOSPHERIC SCIENTIST pelvic ultrasound Supervision of high-risk of elderly [...] 12/08/2020 Assessment & Plan (12/22/2020 11:35 AM TERMINAL SUPERINTENDENT): 1 lb wt loss since last consultation. [...] , limited weight gain is recommended. The [place] of Medicine recommends a total weight gain [...] 11/04/20. Assessment & Plan (12/22/2020 11:32 AM TERMINAL SUPERINTENDENT): Blood pressure within goal range on Nifedipine [...] prevention of preeclampsia in at risk women ([place] DSR, 2008). There is no significant risk [...] echocardiogram: Assessment & Plan (12/22/2020 11:30 AM TERMINAL SUPERINTENDENT): Wearing a glucose sensor. Interval improvement in [...] buspar Assessment & Plan (12/22/2020 11:31 AM TERMINAL SUPERINTENDENT): Mood appropriate. Recommendations 1. Reminded to connect [...] deficiency Assessment & Plan (12/22/2020 11:33 AM TERMINAL SUPERINTENDENT): Interval labs reviewed: vitamin D sufficient. 1. Continue vitamin D supplementation Assessment & Plan (12/08/2020 2:54 PM CDT): We discussed the relationship between vitamin D and immune support 1. Check vitamin D levels--requisition given 1. 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 According to [place] Diabetes Association (ADA) guidelines, hemoglobin A1c <7.0% represents optimal control in non- diabetic patients. Different metrics may apply to specific patient populations. Standards of Medical Care in Diabetes(ADA). Test Performed at: [facility] [address] ALBERTA CONNORS MD 05/04/2021 11:0 5 AM CDT 05/04/2021 11:07 AM CDT Ivette Calhoun MACHINE SPECIALIST-CUPOLA WORKER LAB - CHEMISTRY ORDERAB LES Final Result [address] [address] from Last 3 Months or Most Recently Relevant to Health Maintenance Insurance [facility]
--- OUTSIDE RECORDS SUMMARY | 2024-07-08 00:26 | XMS_ITS | Clinical Summary ---
Author Organization [facility] Address [address] [place] [address] Care Team Providers Care Student Accounts Manager Name Role Phone Miscellaneous, Not In File [...] on file Legal Sex Female 7:23 PM DIRECTOR OF STRATEGIC PARTNERSHIPS Gender Identity Not on file Sexual Orientation Not on file Obstetrics History Last Filed Vital Signs Vital Sign Reading Time Taken Comments Blood Pressure 158/96 01/23/2024 12:57 PM DIRECTOR OF STRATEGIC PARTNERSHIPS Pulse 89 01/23/2024 12:57 PM DIRECTOR OF STRATEGIC PARTNERSHIPS Temperature 37.1 C (98.8 F) 07/24/2018 5:59 PM CDT Respiratory Rate 18 07/24/2018 5:59 PM CDT Oxygen Saturation 100% 07/24/2018 5:59 PM CDT Inhaled Oxygen Concentration - - Weight 97.1 kg (214 lb) 01/23/2024 12:57 PM DIRECTOR OF STRATEGIC PARTNERSHIPS Height 165.1 cm (5' 5) 01/23/2024 12:57 PM DIRECTOR OF STRATEGIC PARTNERSHIPS Body Mass Index 35.61 01/23/2024 12:57 PM DIRECTOR OF STRATEGIC PARTNERSHIPS Plan of Treatment Health Maintenance Due Date [...] Final Result from Last 3 Months Insurance [facility] Care Teams Student Accounts Manager Relationship Specialty Start Date End Date Miscellaneous, Not In File PCP - General 07/19/18
--- OUTSIDE RECORDS SUMMARY | 2024-07-08 00:26 | XMS_ITS | Encounter Summary ---
Author Organization [facility] Address [address] [place] [address] Phone Care Team Providers Care Interactive Designer Name Role Phone Miscellaneous, Not In File [...] on file Legal Sex Female 7:23 PM BRANCH COORDINATOR Gender Identity Not on file Sexual Orientation [...] on filedocumented in this encounter Care Teams Interactive Designer Relationship Specialty Start Date End Date Miscellaneous, Not In File PCP - General 07/19/18 documented as of this encounter
[2024-07-08 08:35] VITALS: BP 132/74; PULSE 80; TEMP 36.1; O2SAT 99; BMI 36.9
--- NOTE | 2024-07-08 10:03 | WPDHPUPDATE1 ---
History and Physical Update Update Date/Time: 07/08/24 10:03 History and Physical has been reviewed, including an updated exam of the patient. There are NO changes in the patient's condition. Risks, benefits, and alternatives have been discussed and questions answered. Patient agrees to proceed with procedure.
--- NOTE | 2024-07-08 10:05 | P.OP_ITS ---
Procedure Note - Detailed Date of Procedure 07/08/24 Pre-op Diagnosis cervical radiculopathy Post-op Diagnosis Same Procedure Performed Rightward Cervical Interlaminar Epidural Steroid Injection at C6-7 under Fluoroscopic Guidance and with Contrast Control. Surgeon Say Mckinney MD Anesthesia Local Description of Procedure INFORMED CONSENT: Risks, benefits and alternatives to the procedure were discussed in detail with the patient who expressed explicit understanding and consent to proceed. Patient was informed verbally and in written form regarding the risks associated with the procedure including the low risk of serious infection, bleeding/bruising, allergic reaction, nerve or organ injury, paralysis, procedural site pain or discomfort, worsening pain and/or mobility, failure to treat and/or disfigurement. The patient expressed explicit understanding and consent to proceed. All materials required for the procedure were available prior to procedure start. Site and side was marked prior to procedure and confirmed in the presence of the patient. PROCEDURE IN DETAIL: The patient was brought to the procedural suite and placed in the prone position. Patient's head was positioned and stabilized with a ProneView pillow or equivalent. Patient was made comfortable with use of pillows under the chest, hips and ankles. Skin overlying the injection site was prepared broadly with ChloraPrep applicator and draped in a sterile manner. Aseptic technique was employed throughout. The endplates of the vertebral body at the site of interest were aligned in the AP view. Slight caudad tilt and ipsilateral oblique angulation was utilized to optimize visualization of the targeted posterior intervertebral foramen at C6-7. Local anesthesia was established by infiltration with approximately 5 mL of 2% lidocaine via a 1-1/2 inch 27-gauge needle. A 20-gauge 4-inch Tuohy epidural needle was advanced intermittently until appropriate loss of resistance to air was identified via plastic loss of resistance syringe. Lateral view was used to confirm the appropriate positioning of the needle tip within the posterior epidural space. In the AP view, 2.0 mL of Omnipaque 300 contrast medium was injected after negative aspiration for CSF, blood or other bodily fluid, showing appropriate epidural spread of contrast without evidence of intravascular or intrathecal placement. After negative repeat aspiration for CSF, blood or other bodily fluid, A 4 mL solution containing 10 mg of dexamethasone in sterile PF Normal Saline was injected after negative repeat aspiration. Appropriate spread of the injectate was confirmed with washout of previously injected contrast. No parasthesias were elicited. Needle was removed completely intact without difficulty. Images were saved and documented in the patient chart. Patient's skin was cleansed and sterile bandage applied. The patient tolerated the procedure well. The patient was transported to the recovery area in stable condition where they were observed for an appropriate amount of time prior to discharge, without cali dence of complication. The patient was instructed to avoid excessive activity for the next 48 hours, including overhead work, reaching or extended device/computer usage. Showers only for 48 hours. They were instructed not to drive or operate heavy machinery for 24 hours. They are to monitor for severe headaches, fevers, chills, night sweats, erythema/swelling at the site or any other signs of infection, bleeding/bruising, bowel or bladder changes as well as new pain, weakness or numbness in the upper or lower extremity. Should they notice these changes, they are instructed to call our office immediately or report directly to the nearest Emergency Department if no answer or if after posted office hours. CONTRAST WASTED: 28mL Omnipaque 300. Complications No immediate complications Condition Stable Disposition Same day [facility] Billing Surgery - Charge Forward: Surgery Billing
[2024-07-08 10:27] VITALS: BP 162/76; PULSE 85; RESP 14; O2SAT 97
[2024-07-08] MEDS: dexAMETHasone SOD PHOS INJ 10 MG/ML 1 ML VIAL IM (10:31)
[2024-07-08] MEDS: LIDOCAINE 1% PF INJ 5 ML VIAL 10 ML INFILTRATE (10:32)
[2024-07-08 10:38] VITALS: BP 138/78; PULSE 72; RESP 16; O2SAT 99
== END 2024-07-08 11:04 | disposition home or self-care (01) ==
PROVIDERS: PCP Family Medicine; Visit Provider Anesthesiology Pain Medicine
PROC: (CPT 62321; principal; 2024-07-08 09:15)
DX: M47.812 Spondylosis without myelopathy or radiculopathy, cervical region (principal); M48.02 Spinal stenosis, cervical region; I10 Essential (primary) hypertension; E11.9 Type 2 diabetes mellitus without complications; F32.A Depression, unspecified; F41.9 Anxiety disorder, unspecified; G62.9 Polyneuropathy, unspecified; G56.03 Carpal tunnel syndrome, bilateral upper limbs; M19.90 Unspecified osteoarthritis, unspecified site; Z98.890 Other specified postprocedural states; Z90.49 Acquired absence of other specified parts of digestive tract; Z87.448 Personal history of other diseases of urinary system; Z82.49 Family history of ischemic heart disease and other diseases of the circulatory system
CPT/HCPCS: 62321; 99199; J1100; J2003

== ENCOUNTER 2024-07-17 07:58 | Day surgery (SDC) | payer OTHER, SELFPAY ==
[2024-05-01 09:06] VITALS: BMI 38.8
[2024-06-25 14:10] VITALS: BMI 37.4
--- NOTE | 2024-07-17 06:51 | P.HP_ITS ---
History of Present Illness History of Present Illness Chief complaint: Trigger Fing. RT Thumb, RT Carpal & Cubital Tunnel Narrative: Patient seen and examined in pre-operative holding area. No interval change in medical history or symptoms. Patient recalls previous discussion of benefits and alternatives to procedure. Continues to desire to proceed with right thumb a1 courtney release, rigth open carpal tunnel release revision and right cubital tunnel release. Reviewed procedure, post-op expectations and risks including but not limited to bleeding, infection, injury to tendon/nerve/vessel, decreased hand function, stiffness, RSD, no change or worsening of symptoms. I discussed the possible use of assistants and their participation in the case. Patient stated understanding and signed the consent form wishing to proceed. Review of Systems Review of Systems: All systems reviewed & are unremarkable except as noted in HPI and below PMFSH Past Medical History Medical History Bladder prolapse Hypertension Diabetes mellitus Anxiety Surgical History Surgical History History of section [place] teeth extracted History of cholecystectomy History of carpal tunnel surgery 2002? bilateral Family History Family History Grandparent Cerebrovascular accident Heart problem Grandparent Diabetes mellitus Social History Social History Social History: Caffeine-tea occasionally Smoking status: Never smoker Alcohol intake: never Substance use: never Substance use type: does not use Do You Feel Safe in your Home?: Yes Lack of Transportation: No Lack of Food: Never True Current Housing: I Have Housing Concerned About Future Housing: No Difficulty Paying Gas/Electric Bills: No Difficulty Paying for Meds: No Currently Unemployed: No Education: High School Diploma/GED Difficulty w/ Childcare or Family Care: No Living arrangements: with family Occupation/Education: unemployed Gender identity (if verbalized by the patient): Female Sexual Orientation (if Verbalized by the Patient): Straight or Heterosexual Spiritual care concerns: No Agree to blood products: Yes Meds Home Medications and Allergies Home Medications ?Medication ?Instructions ?Recorded ?Confirmed ?Type cyclobenzaprine 10 mg tablet 10 mg PO TID PRN muscle spasm #60 12/31/23 07/02/24 Rx tabs atorvastatin 10 mg tablet (Lipitor) 10 mg PO QHS #90 tabs 05/06/24 07/02/24 Rx metformin 500 mg tablet,extended 500 mg PO BID #180 tabs 05/16/24 07/02/24 Rx release 24 hr (Glucophage XR) diclofenac sodium 75 mg 75 mg PO BID 06/02/24 07/02/24 History tablet,delayed release buspirone 15 mg tablet 15 mg PO BID #180 tabs 06/26/24 07/17/24 Rx lisinopril 10 mg tablet 10 mg PO DAILY #90 tabs 06/26/24 07/17/24 Rx metoprolol succinate 100 mg 100 mg PO DAILY #90 tabs 06/26/24 07/17/24 Rx tablet,extended release 24 hr omega 0-mat-rrq-fish oil 1,200 mg 1 cap PO DAILY 07/02/24 07/17/24 History (144 mg-216 mg) capsule (Fish Oil) vitamin#30 30 mg iron-10 1 cap PO DAILY #90 caps 07/15/24 07/17/24 Rx mg iron-folic acid 1 mg-omg3 capsule Allergies Allergy/AdvReac Type Severity Reaction Status Date / Time No Known Allergies Allergy Verified 07/08/24 08:34 Exam Narrative: unchanged Assessment and Plan Assessment and plan (1) Ulnar neuropathy at elbow of right upper extremity: Code(s): G56.21 - Lesion of ulnar nerve, right upper limb Status: Acute Assessment and Plan: cont as above (2) Bilateral carpal tunnel syndrome: Code(s): G56.03 - Carpal tunnel syndrome, bilateral upper limbs Status: Acute (3) Trigger thumb, right thumb: Code(s): M65.311 - Trigger thumb, right thumb Status: Acute
--- NOTE | 2024-07-17 06:52 | P.OP_ITS ---
Procedure Note - Detailed Date of Procedure 07/17/24 Pre-op Diagnosis right trigger thumb and right carpal and cubital tunnel syndrome Post-op Diagnosis Same Procedure Performed right thumb a1 courtney release, right open carpal tunnel release revision with hypothenar fat flap and right cubital tunnel release Surgeon Rosario Baltazar MD Operations Administrative Assistant marilyn skelton pa-c Anesthesia MAC Description of Procedure INFORMED CONSENT: The patient was seen and examined and marked in the pre-op ar ea.? The patient signed the consent form. PROCEDURE IN DETAIL:The patient taken back to OR on the stretcher in supine position. Time out performed with anesthesia, surgeon and staff agreeing on patient's name site and surgery to be performed SCDs were placed on the lower extremities and inflated. A tourniquet was placed on {right} upper extremity and antibiotics given IV After anesthesia administered sedation I injected {20}cc 1%lido with epi and 0.5% marcaine plain at the operative sites The?{right upper extremity}?was prepped and draped in sterile fashion the??{right upper extremity} was? exsanguinated with Esmarch bandage and tourniquet inflated to 250mmHg I proceeded with making a longitudinal incision in the palm proximal and in line with right ring finger going obliquely across the volar wrist flexion crease onto the forearm through skin and dermis with a 15 blade scalpel. Littler scissors were used to spread through subcutaneous tissue proximally down through antebrachial fascia. I incised through the fascia. Identified median nerve at this proximal aspect. I proceeded with anterograde dissection along the nerve releasing releasing residual transverse carpal ligament with a combination of Littler scissors and 15 blade scalpel. There was notable scarring and adhesion to the median nerve requiring epineurolysis. The nerve apeared round and healthier after dissecting off this epineurial scar. In order to help protect the nerve and reduce the risk of further scar adhesion I decided to cover the volar aspect of nerve with hypothenar fat pad flap. I proceeded with using combination of littler scissors and 15 blade to elevate a hypothenar fat pad flap based off branches of ulnar artery. Once elevated this was advanced over the nerve and secured to the radial side of the transvers carpal ligament with 4-0 monocryl. I irrigated with normal saline and closed skin with 4-0 chromic. I proceeded with making an oblique incision over the right thumb A1 courtney just proximal to the MP joint flexion crease through skin and dermis with a 15 blade scalpel. Littler scissors were used to spread through subcutaneous tissue down to the A1 courtney. The A1 courtney was incised initially with a 15 blade scalpel. Littler scissors were used to spread above and below it proximally and distally completing the transection entirely. Ragnell retractor was used to withdraw the FPL tendon for inspection. The tendon was free of masses and synovitis and gliding smoothly in the sheath without triggering or crepitus. I irrigated with normal saline and closed with 4-0 chromic. I next proceeded with making a longitudinal incision between two heads for flexor carpi ulnaris at end of {right} cubital tunnel with 15 blade scalpel.? Littler scissors were used to spread down to FCU fascia.? An incision was made in FCU fascia and ulnar nerve identified exiting cubital tunnel.? I proceeded with complete retrograde release of the cubital tunnel including 7cm proximal for the intermuscular septum.? The nerve appeared healthy with visible vaso nervorum.? There was no subluxation on full elbow range of motion. ? I irrigated with normal saline and closure with 4-0 monocryl for dermis and subcuticular. The incision was covered with xeroform at hand and wrist and dermabond at the elbow then 4x4s, damien, and a volar wrist and posterior elbow splint for patient safety, security and comfort and secured with dee dee bandages after the tourniquet was let down noting the hand was warm and well perfused.? Patient awaken from anesthesia and transferred to recovery in stable condition Complications - none EBL- 1cc Disposition - home in stable conditions marilyn skelton pa-c was essential for positioning, retraction, closure and dressing placement [facility] Billing Surgery - Charge Forward: Surgery Billing ([id number] same for marilyn richardson )
--- NOTE | 2024-07-17 06:54 | WPDANESEPPF ---
Anes - Initial Pre Proc Eval Procedure: Operation Date: 07/17/24 09:45 Proposed Procedures p Right Endoscopic Carpal Tunnel Release, Possible Open Carpal Tunnel Release Revision - Rosario Baltazar MD s Right Cubital Tunnel Release - Rosario Baltazar MD s A-1 Taras Release Right Thumb - Rosario Baltazar MD Date/Time: 07/17/24 06:54 Surgeon: Rosario Baltazar MD Pre Op Diagnosis: Trigger Fing. RT Thumb, RT Carpal & Cubital Tunnel Patient Data Age: 44 Gender: F Height: 1.63 m Weight: 99 kg Allergies Allergy/AdvReac Type Severity Reaction Status Date / Time No Known Allergies Allergy Verified 07/08/24 08:34 Home Medications ?Medication ?Instructions ?Recorded ?Confirmed ?Type cyclobenzaprine 10 mg tablet 10 mg PO TID PRN muscle spasm #60 12/31/23 07/02/24 Rx tabs atorvastatin 10 mg tablet (Lipitor) 10 mg PO QHS #90 tabs 05/06/24 07/02/24 Rx metformin 500 mg tablet,extended 500 mg PO BID #180 tabs 05/16/24 07/02/24 Rx release 24 hr (Glucophage XR) diclofenac sodium 75 mg 75 mg PO BID 06/02/24 07/02/24 History tablet,delayed release buspirone 15 mg tablet 15 mg PO BID #180 tabs 06/26/24 07/17/24 Rx lisinopril 10 mg tablet 10 mg PO DAILY #90 tabs 06/26/24 07/17/24 Rx metoprolol succinate 100 mg 100 mg PO DAILY #90 tabs 06/26/24 07/17/24 Rx tablet,extended release 24 hr omega 8-mjf-jav-fish oil 1,200 mg 1 cap PO DAILY 07/02/24 07/17/24 History (144 mg-216 mg) capsule (Fish Oil) vitamin#30 30 mg iron-10 1 cap PO DAILY #90 caps 07/15/24 07/17/24 Rx mg iron-folic acid 1 mg-omg3 capsule hydrocodone 5 mg-acetaminophen 325 1 tablet PO Q6H PRN pain #12 tabs 07/17/24 Rx mg tablet Patient hx anesthesia problems: none Family hx anesthesia problems: none Results Review: All pre-operative results and documents have been reviewed as part of the pre-operative evaluation. [facility] Past Medical History Medical History Bladder prolapse Hypertension Diabetes mellitus Anxiety Surgical History Surgical History History of section [place] teeth extracted History of cholecystectomy History of carpal tunnel surgery 2002? bilateral Family History Family History Grandparent Cerebrovascular accident Heart problem Grandparent Diabetes mellitus Social History Social History Social History: Caffeine-tea occasionally Smoking status: Never smoker Alcohol intake: never Substance use: never Substance use type: does not use Do You Feel Safe in your Home?: Yes Lack of Transportation: No Lack of Food: Never True Current Housing: I Have Housing Concerned About Future Housing: No Difficulty Paying Gas/Electric Bills: No Difficulty Paying for Meds: No Currently Unemployed: No Education: High School Diploma/GED Difficulty w/ Childcare or Family Care: No Living arrangements: with family Occupation/Education: unemployed Gender identity (if verbalized by the patient): Female Sexual Orientation (if Verbalized by the Patient): Straight or Heterosexual Spiritual care concerns: No Agree to blood products: Yes Anes - Eval Final PreProcedure Day of Procedure 07/17/24 06:54 Patient weight: obese Heart: regular rate and rhythm Lungs: clear to auscultation Airway: Mallampati scale class II Neurological: alert and oriented Last oral intake: >/= 8 hours ASA classification: III Emergent: no Anesthetic plan: proceed Anesthesia type and monitoring: general GIVS and standard monitoring Results Review: All pre-operative results and documents have been reviewed as part of the pre-operative evaluation. Informed Consent: The patient's anesthetic plan and its attendant risks and benefits were discussed with the patient/family/POA. Questions were solicited and answers provided to the satisfaction of the patient/family/POA.
--- OUTSIDE RECORDS SUMMARY | 2024-07-17 08:04 | XMS_ITS | Encounter Summary ---
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
--- OUTSIDE RECORDS SUMMARY | 2024-07-17 08:04 | XMS_ITS | Clinical Summary ---
Author Organization [facility] Address [address] [place] [address] Care Team Providers Care Seamless Tube Mill Operator Name Role Phone Miscellaneous, Not In [...] on file Legal Sex Female 7:23 PM FIRST ASSISTANT MANAGER Gender Identity Not on file Sexual Orientation Not on file Obstetrics History Last Filed Vital Signs Vital Sign Reading Time Taken Comments Blood Pressure 158/96 01/23/2024 12:57 PM FIRST ASSISTANT MANAGER Pulse 89 01/23/2024 12:57 PM FIRST ASSISTANT MANAGER Temperature 37.1 C (98.8 F) 07/24/2018 5:59 PM CDT Respiratory Rate 18 07/24/2018 5:59 PM CDT Oxygen Saturation 100% 07/24/2018 5:59 PM CDT Inhaled Oxygen Concentration - - Weight 97.1 kg (214 lb) 01/23/2024 12:57 PM FIRST ASSISTANT MANAGER Height 165.1 cm (5' 5) 01/23/2024 12:57 PM FIRST ASSISTANT MANAGER Body Mass Index 35.61 01/23/2024 12:57 PM FIRST ASSISTANT MANAGER Plan of Treatment Health Maintenance Due Date Last Done Comments Breast Cancer Screening-Mammogram 1979 Cervical Cancer Screening 1979 Colon Cancer Screening-Colonoscopy 1979 Depression Screening 1979 Hepatitis C Screening [...] NEUROLOGY (05/07/2024) Anatomical Region Laterality Modality Other Provider Scanning Final Result from Last 3 Months Insurance [facility] Member Subscriber Plan / Payer ( fective 2023-Present) Name:Kalyn Edouard Relation to Subscriber:Self Name:Kalyn Edouard Payer ID:[id number] (NAIC) Group ID:Not on file Type:MEDICAID RISK OTHER Address: [place] [id number] [facility] Care Teams Seamless Tube Mill Operator Relationship Specialty Start Date End Date Miscellaneous, Not In File PCP - General 07/19/18
--- OUTSIDE RECORDS SUMMARY | 2024-07-17 08:04 | XMS_ITS | Clinical Summary ---
Author Organization [facility] Address [address] [place] [address] Phone Care Team Providers Care Acting Professor Name Role Phone Clarisse Baez DO Primary Care Provider [phone] Goldy Rivera APRN, CNP Unavailable + [phone] Allergies No known active allergies Medications metFORMIN [...] Visit [facility] [address] [place] [address] Goldy Rivera APRN, CNP Stress incontinence (Primary Dx); OAB (overactive bladder) Discharge Disposition: Discharged to home or Selfcare 05/25/2024 Travel 05/12/2024 Documentation Only [facility] [address] [place] [address] Jo Barajas, PT 05/05/2024 12:15 PM CDT Physical Therapy [facility] [address] [place] [address] Bev Yin MD Middleton, Trisha M, PT Shoulder pain, unspecified chronicity, unspecified laterality (Primary Dx) Discharge Disposition: Discharged to home or Selfcare 05/05/2024 Travel 05/03/2024 Travel 04/28/2024 12:15 PM CDT Physical Therapy [facility] [address] [place] [address] Bev Yin MD Middleton, Trisha M, PT Shoulder pain, unspecified chronicity, unspecified laterality (Primary Dx) Discharge Disposition: Discharged to home or Selfcare 04/28/2024 Travel 04/21/2024 1:00 PM CDT Physical Therapy [facility] [address] [place] [address] Bev Yin MD Middleton, Trisha M, PT Shoulder pain, unspecified chronicity, unspecified laterality (Primary Dx) Discharge Disposition: Discharged to home or Selfcare 04/21/2024 Travel from Last 3 Months Family History [...] on file Legal Sex Female 2:50 PM SUPERVISOR G[employer] PLANTS Gender Identity Not on file Sexual Orientation [...] Clear 05/27/2024 2:45 PM CDT Goldy Rivera APRN, CNP POINT OF CARE TESTING (MANUAL) Final Result from Last 3 Months Insurance MEDICAID [employer] Care Teams Acting Professor Relationship Specialty Start Date End Date Clarisse Baez DO [address] [place] [address] PCP - General Family Medicine 02/26/24 Goldy Rivera APRN, SUPERVISOR [employer] [address] [place] [address] Nurse Practitioner Advanced Practice Nurse 05/23/24
--- OUTSIDE RECORDS SUMMARY | 2024-07-17 08:04 | XMS_ITS | Encounter Summary ---
Author Organization [facility] Address [address] [place] [address] Phone Care Team Providers Care Lead Esthetician Name Role Phone Miscellaneous, Not In File Primary Care Provider Unavailable Encounter Details Date Type Department Care Team (Late st Contact Info) Description 05/07/2024 Orders Only [facility] Scanning, Provider Social History Tobacco Use Types Packs/Day Years Used Date Smoking Tobacco: Never Comments No Sex and Gender Information Value Date Recorded Sex Assigned at Not on file Legal Sex Female 7:23 PM BROTH SETTER Gender Identity Not on file Sexual Orientation [...] on filedocumented in this encounter Care Teams Lead Esthetician Relationship Specialty Start Date End Date Miscellaneous, Not In File PCP - General 07/19/18 documented as of this encounter
--- OUTSIDE RECORDS SUMMARY | 2024-07-17 08:04 | XMS_ITS | Clinical Summary ---
Author Organization [facility] [employer] Address [address] [place] [address] Care Team Providers Care Denture Processor Name Role Phone Unavailable Primary Care Provider Unavailabl e Source Comments [facility],non-owned Affiliates and Associated Physician Practices is amultiple site organization consisting of ambulatory clinics and hospital sitesin [place], [place], [place] and [place]. This disclosure is being madepursuant to the Care Everywhere program and may not contain all information available regarding this patient. Last updated 17.[facility] [employer] Allergies No known active allergies Medications * [...] Glucagon (BAQSIMI ONE PACK) 3 MG/DOSE POWD [place] 3 mg into the nose as needed 1 Each 1 12/09/19 Active Additional Information Patient not taking.Reported on 05/25/2021 Continuous Blood Gluc Paraffin Plant Sweater Operator (etechies.inSTYLE IRWIN READER) [facility] Use 1 Each as directed [...] (LANTUS SOLOSTAR) penIndications:1 9 weeks gestation of ([facility]),Supervisio n of high-risk of elderly primigravida ([facility]),Maternal obesity affecting , antepartum ([facility]),Diabetes mellitus affecting , antepartum ([facility]) Inject 64 (sixty four) Units [...] MM MISCIndications: Diabetes mellitus affecting , antepartum ([facility]),25 weeks gestation of ([facility]) Use 1 Each 6 times daily while awake 100 Each 03/11/19 Active insulin lispro (HUMALOG;ADMELOG ) 100 UNIT/ML pen Inject 4-16 Units subcutaneously Take 4 units before B, L & D. Active Continuous Blood Gluc Sensor (DEXCOM G6 SENSOR) [facility] Use 1 Each as directed 3 Each 5 04/21/19 Active Continuous Blood Gluc Paraffin Plant Sweater Operator (DEXCOM G6 CHART COLLECTOR) [facility] Use 1 device as directed 1 [...] , antepartum 2020 Overview (02/02/2021): Referral to HOSPITAL NURSE LIAISON/ONC and ultrasound at [facility], referral placed 02/02 Assessment & Plan (12/22/2020 11:34 AM PAPERBOARD MACHINE OPERATOR): Complex right ovarian cyst identified today. 1. Recommend evaluation by HOSPITAL NURSE LIAISON pelvic ultrasound Supervision of high-risk of elderly [...] 12/08/2020 Assessment & Plan (12/22/2020 11:35 AM PAPERBOARD MACHINE OPERATOR): 1 lb wt loss since last [...] , limited weight gain is recommended. The [place] of Medicine recommends a total weight gain [...] 11/04/20. Assessment & Plan (12/22/2020 11:32 AM PAPERBOARD MACHINE OPERATOR): Blood pressure within goal range on [...] echocardiogram: Assessment & Plan (12/22/2020 11:30 AM PAPERBOARD MACHINE OPERATOR): Wearing a glucose sensor. Interval improvement [...] buspar Assessment & Plan (12/22/2020 11:31 AM PAPERBOARD MACHINE OPERATOR): Mood appropriate. Recommendations 1. Reminded to [...] deficiency Assessment & Plan (12/22/2020 11:33 AM PAPERBOARD MACHINE OPERATOR): Interval labs reviewed: vitamin D sufficient. 1. Continue vitamin D supplementation Assessment & Plan (12/08/2020 2:54 PM CDT): We discussed the relationship between vitamin D and immune support 1. Check vitamin D levels--requisition given 1. 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 Not on file Not [...] Office Visit [facility] - Urology [address] [place] [address] [address] [place] [address] Alexa Wadsworth, CHIEF ENGINEER [employer]ODUCTION-[employer]ANCH COOK [address] [facility] DE[place] [address] Health Maintenance Due Date Last Done Comments COLOGUARD (AGES 45-75) - COL ON CA SCREENING 1979 COLON MONITORING 1979 COLONOSCOPY - COLON CA SCREENING 1979 CT COLONOGRAPHY - COLON CA SCREENING 1979 Colorectal Cancer Screening 1979 FIT - COLON CA SCREENING 1979 FLEX SIG - COLON CA SCREENING 1979 LIPID TESTING 1979 MAMMOGRAM 1979 HIV SCREENING 07/13/1994 HEPATITIS C SCREENING 07/09/1997 DTAP/TDAP/TD VACCINES (1 - Tdap) 07/13/1998 HEPATITIS B VACCINE (1 of 3 - 19+ 3-dose series) 07/13/1998 PAP SMEAR 07/13/2000 PAP with HPV 07/13/2009 COVID-19 VACCINE (3 - 2023-2 5 season) [...] diagnosis of diabetes in children. According to [place] Diabetes Association (ADA) guidelines, hemoglobin A1c <7.0% represents optimal control in non- diabetic patients. Different metrics may apply to specific patient populations. Standards of Medical Care in Diabetes(ADA). Test Performed at: [id number] [address] ALBERTA CONNORS MD 05/04/2021 11:0 5 AM CDT 05/04/2021 11:07 AM CDT Ivette Calhoun CHIEF ENGINEER [employer]ODUCTION[employer] LAB - CHEMISTRY ORDERAB LES Final Result [facility] [address] [place] [id number] from Last 3 Months or Most Recently Relevant to Health Maintenance Insurance [facility]
--- OUTSIDE RECORDS SUMMARY | 2024-07-17 08:04 | XMS_ITS | Referral Summary ---
Author Organization [facility] Address [address] [place] [address] Care Team Providers Care Pump Erector Helper Name Role Phone Miscellaneous, Not In File [...] on file Legal Sex Female 7:23 PM BASKET MACHINE OPERATOR Gender Identity Not on file Sexual Orientation Not on file Last Filed Vital Signs Vital Sign Reading Time Taken Comments Blood Pressure 158/96 01/23/2024 12:57 PM BASKET MACHINE OPERATOR Pulse 89 01/23/2024 12:57 PM BASKET MACHINE OPERATOR Temperature 37.1 C (98.8 F) 07/24/2018 5:59 PM CDT Respiratory Rate 18 07/24/2018 5:59 PM CDT Oxygen Saturation 100% 07/24/2018 5:59 PM CDT Inhaled Oxygen Concentration - - Weight 97.1 kg (214 lb) 01/23/2024 12:57 PM BASKET MACHINE OPERATOR Height 165.1 cm (5' 5) 01/23/2024 12:57 PM BASKET MACHINE OPERATOR Body Mass Index 35.61 01/23/2024 12:57 PM BASKET MACHINE OPERATOR Plan of Treatment Not on file Procedures Procedure Name Priority Date/Time Associated Diagnosis Comments SCAN - NEUROLOGY 05/07/2024 from Last 3 Months Results * SCAN - NEUROLOGY (05/07/2024) Anatomical Region Laterality Modality Other us Provider Scanning Final Result from Last 3 Months Insurance [facility] Care Teams Pump Erector Helper Relationship Specialty Start Date End Date Miscellaneous, Not In File PCP - General 07/19/18
[2024-07-17 08:38] LABS: Glucose Point of Care 160 mg/dl (65-105)
[2024-07-17 08:43] VITALS: BP 144/85; PULSE 85; RESP 15; TEMP 36.4; O2SAT 99
[2024-07-17] MEDS: LACTATED RINGERS 1,000 ML 30 ML IV CONT (08:48)
[2024-07-17] MEDS: ceFAZolin SODIUM 2 GM/20 ML SW SYRINGE IV PUSH (10:17)
[2024-07-17] MEDS: LIDO 1%/EPINEPHRINE 1:100,000 10 ML VIAL 5 ML INFILTRATE (10:29)
[2024-07-17] MEDS: BUPivacaine HCL 0.5% PF 30 ML VIAL 6 ML INFILTRATE (10:32)
[2024-07-17] MEDS: LIDOCAINE 1% LOCAL INJ 20 ML VIAL INFILTRATE (10:33)
[2024-07-17 11:05] VITALS: BP 120/71; PULSE 95; RESP 15; O2SAT 97
[2024-07-17] MEDS: oxyCODONE HCL (*CRX) 5 MG TAB IR PO (11:29)
[2024-07-17 11:45] VITALS: BP 125/70; PULSE 79; RESP 15; O2SAT 97
[2024-07-17 12:05] VITALS: BP 129/72; PULSE 83; RESP 15; O2SAT 97
[2024-07-17 12:17] VITALS: BMI 37.2
--- NOTE | 2024-07-17 13:13 | WPDANESPN ---
Anes - Prog Note Post-Op Date/Time: 07/17/24 13:13 Cardiovascular status: normal Respiratory status: normal Airway patency: baseline Mental status: baseline Post-Op hydration status: normal Vital Signs: Last Vital Signs Temp 36.4 C 07/17/24 08:43 Pulse 83 07/17/24 12:05 Resp 15 07/17/24 12:05 BP 129/72 07/17/24 12:05 Pulse Ox 97 07/17/24 12:05 O2 Del Method Room Air 07/17/24 12:05 Pain Score (VAS): 0 07/17/24 08:30 POC Capillary Glucose 160 H Post-procedural complaints: none Patient Feedback: Patient satisfied with anesthetic care. Other Findings: Patient vital signs back to baseline. Patient denies nausea and vomiting. Patient's pain under control. Patient OK for discharge.
== END 2024-07-17 11:49 | disposition home or self-care (01) ==
LOC: ASC 07:59
PROVIDERS: PCP Family Medicine; Visit Provider Plastic Surgery
PROC: 01N54ZZ Release Median Nerve, Percutaneous Endoscopic Approach (ICD-10-PCS; CPT 29848; principal; 2024-07-17 09:45)
PROC: (CPT 64718; 2024-07-17 09:45)
PROC: (CPT 26055; 2024-07-17 09:45)
DX: G56.21 Lesion of ulnar nerve, right upper limb (principal); G56.01 Carpal tunnel syndrome, right upper limb; M65.311 Trigger thumb, right thumb
CPT/HCPCS: 26055; 15740; 64718; 64721

== ENCOUNTER 2024-07-24 10:27 | Outpatient (CLI) | payer OTHER, SELFPAY ==
--- NOTE | ~2024-07-24 | MR_ITS ---
MRI of the lumbar spine Clinical History: Back pain Technique: Axial T2-weighted images, and sagittal T1-weighted, T2-weighted, and and T2 fat-sat images were acquired. Findings: There is no fracture or subluxation of the lumbar spine. Vertebral bodies maintain normal h eight and alignment. No suspicious bone marrow signal abnormality seen. At L1-L2 and L2-L3, there is no disc bulge or herniation. There is mild to moderate facet hypertrophy . No spinal canal stenosis or neural foraminal narrowing at these levels. At L3-L4, there is mild disc bulge with mild facet arthropathy. No central canal stenosis or neural f oraminal narrowing. At L4-L5, there is mild disc bulge with moderate to advanced facet arthropathy. Probable tiny left sy novial cyst. No emerald central canal stenosis, there is mild effacement of the left side of the thecal sac. Neural foramina are preserved. At L5-S1, there is no disc bulge or herniation. There is moderate facet arthropathy. No central canal stenosis. There is mild left neural foraminal narrowing. Right neural foramen preserved. Paravertebral soft tissues are unremarkable. Impression: Moderate to advanced facet arthropathy at L4-L5 with small left synovial cyst. There is mild effaceme nt of the sulci thecal sac and questionable mild impingement of descending left-sided L5-S1 nerve aylin t. Additional mild degenerative changes, as above. Reviewed, dictated and finalized at [facility]. Impression: Moderate to advanced facet arthropathy at L4-L5 with small left synovial cyst. There is mild effacement of the sulci thecal sac and questionable mild impingem ent of descending left-sided L5-S1 nerve root. Additional mild degenerative changes, as above.
--- OUTSIDE RECORDS SUMMARY | 2024-07-24 11:19 | XMS_ITS | Clinical Summary ---
Author Organization [facility] Address [address] [place] [address] Phone Care Team Providers Care Audio Tape Librarian Name Role Phone Clarisse Baez DO Primary Care Provider [phone] Goldy Rivera APRN, CNP Unavailable + [phone] Allergies No known active allergies Medications metFORMIN [...] Visit [facility] [address] [place] [address] Goldy Rivera APRN, CNP Stress incontinence (Primary Dx); OAB (overactive bladder) Discharge Disposition: Discharged to home or Selfcare 05/25/2024 Travel 05/12/2024 [facility]ation [facility] [address] [place] [address] Jo Barajas, PT 05/05/2024 12:15 PM CDT [facility] [address] [place] [address] Bev Yin MD [place], Trisha M, PT Shoulder pain, unspecified chronicity, unspecified laterality (Primary Dx) Discharge Disposition: Discharged to home or Selfcare 05/05/2024 Travel 05/03/2024 Travel 04/28/2024 12:15 PM CDT [facility] [address] [place] [address] Bev Yin MD [place], Trisha M, PT Shoulder pain, unspecified chronicity, unspecified laterality (Primary Dx) Discharge Disposition: Discharged to home or Selfcare 04/28/2024 Travel from Last 3 Months Family History [...] on file 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
--- OUTSIDE RECORDS SUMMARY | 2024-07-24 11:19 | XMS_ITS | CONTINUITY OF CARE DOCUMENT ---
Author Name isiah, isiah Address Unknown Organization [facility] Address [address] [place] [address] Phone [phone] Care Team Providers Care Medical Chief Technician Name Role Phone Florentino SOTELO, Haroldo Unavailable TANIA DIAZ Unavailable TANIA DIAZ Unavailable [phone] PROBLEMS Condition Status Date Provider Notes Diabetes [...] In-person encounter Office Visit Haroldo Good MD [facility] - In-person encounter Office Visit Haroldo Good MD [facility] FAMILY HISTORY OF premature HEART DISEASEEdema [...] Severinodavid blood pressure, systolic 122 mm[Hg] Farideh hrenandez Lindsey height E&M 65 [in_i] Zully Jones lder oxygen saturation, oximetry 96 % Zully Lindsey respiratory rate E&M 16 /min Zully genao pulse rate 90 /min Zully Goldman lder weight E&M 223 [lb_av] Zully Jones lder RESULTS Date Observation Value Provider Reference Range Interpretation Location 5 hemoglobin A1C, blood, as % of total hemoglobin 7.0 % aHroldo Good MD 5 LDL cholesterol, serum 62 [...] Payer name Policy type / Coverage type [place] red constitution party ID [employer] Other [id number] ADVANCE DIRECTIVES Name Date DISCUSSED - NO [...]
--- OUTSIDE RECORDS SUMMARY | 2024-07-24 11:19 | XMS_ITS | Clinical Summary ---
Author Organization [facility] [employer] Address [address] [place] [address] Care Team Providers Care Government Services Professional Name Role Phone Unavailable Primary Care Provider Unavailabl e Source Comments [facility],non-owned Affiliates and Associated Physician Practices is amultiple site organization consisting of ambulatory clinics and hospital sitesin [place], [place], [place] and [place]. This disclosure is being madepursuant to the Care Everywhere program and may not contain all information available regarding this patient. Last updated 17.[facility] [employer] Allergies No known active allergies Medications * [...] Glucagon (BAQSIMI ONE PACK) 3 MG/DOSE POWD [place] 3 mg into the nose as needed 1 Each 1 12/09/19 Active Additional Information Patient not taking.Reported on 05/25/2021 Continuous Blood Gluc Social Media Marketing Manager (MedigoSTYLE IRWIN READER) [facility] Use 1 Each as directed 1 Each 12/09/19 Active Additional Information Patient not taking.Reported on 06/01/2021 Continuous Blood Gluc Sensor (FREESTYLE IRWIN SENSOR SYSTEM) [facility] Use 1 Each as directed Apply 1 Libre2 sensor q14 days. 3 Each 5 01/05/20 Active Additional Information Patient not taking.Reported on 06/01/2021 famotidine (PEPCID) 20 MG tabletIndication s:Heartburn Take 1 (one) tablet by mouth 2 times daily Reasons: Heartburn 60 tablet 5 02/03/20 Active insulin glargine (LANTUS SOLOSTAR) penIndications:1 9 weeks gestation of ([facility]),Supervisio n of high-risk of elderly primigravida ([facility]),Maternal obesity affecting , antepartum ([facility]),Diabetes mellitus affecting , antepartum ([facility]) Inject 64 (sixty four) Units to 90 [...] MM MISCIndications: Diabetes mellitus affecting , antepartum ([facility]),25 weeks gestation of ([facility]) Use 1 Each 6 times daily while awake 100 Each 03/11/19 Active insulin lispro (HUMALOG;ADMELOG ) 100 UNIT/ML pen Inject 4-16 Units subcutaneously Take 4 units before B, L & D. Active Continuous Blood Gluc Sensor (DEXCOM G6 SENSOR) [facility] Use 1 Each as directed 3 Each 5 04/21/19 Active Continuous Blood Gluc Social Media Marketing Manager (DEXCOM G6 RESEARCH TECHNOLOGIST) [facility] Use 1 device as directed 1 device 04/21/19 Active Continuous Blood Gluc Transmit (DEXCOM G6 TRANSMITTER) [facility] Use 1 Each as [...] , antepartum 2020 Overview (02/02/2021): Referral to SALESFORCE ADMINISTRATOR/ONC and ultrasound at [facility], referral placed 02/02 Assessment & Plan (12/22/2020 11:34 AM COMMUNICATIONS AGENT): Complex right ovarian cyst identified today. 1. Recommend evaluation by SALESFORCE ADMINISTRATOR pelvic ultrasound Supervision of high-risk of elderly [...] 12/08/2020 Assessment & Plan (12/22/2020 11:35 AM COMMUNICATIONS AGENT): 1 lb wt loss since last consultation. [...] , limited weight gain is recommended. The [place] of Medicine recommends a total weight gain [...] 11/04/20. Assessment & Plan (12/22/2020 11:32 AM COMMUNICATIONS AGENT): Blood pressure within goal range on Nifedipine [...] echocardiogram: Assessment & Plan (12/22/2020 11:30 AM COMMUNICATIONS AGENT): Wearing a glucose sensor. Interval improvement in [...] buspar Assessment & Plan (12/22/2020 11:31 AM COMMUNICATIONS AGENT): Mood appropriate. Recommendations 1. Reminded to connect [...] deficiency Assessment & Plan (12/22/2020 11:33 AM COMMUNICATIONS AGENT): Interval labs reviewed: vitamin D sufficient. 1. Continue vitamin D supplementation Assessment & Plan (12/08/2020 2:54 PM CDT): We discussed the relationship between vitamin D and immune support 1. Check vitamin D levels--requisition given 1. 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 According to [place] Diabetes Association (ADA) guidelines, hemoglobin A1c <7.0% represents optimal control in non- diabetic patients. Different metrics may apply to specific patient populations. Standards of Medical Care in Diabetes(ADA). Test Performed at: [facility] [address] ALBERTA CONNORS MD 05/04/2021 11:0 5 AM CDT 05/04/2021 11:07 AM CDT Ivette Calhoun PRICER BAGGER[employer]LOCAL COMPANY FLATBED TRUCK DRIVER LAB - CHEMISTRY ORDERAB LES Final Result [facility] [address] [place] [phone] from Last 3 Months or Most Recently Relevant to Health Maintenance Insurance * Guarantor: [employer] Account Type Relation to Patient Date of Phone Billing Address Personal/Family Self 1980 [address] [place] [address] [facility]
== END 2024-07-24 10:28 | disposition home or self-care (01) ==
PROVIDERS: PCP Family Medicine; Visit Provider Anesthesiology Pain Medicine
DX: M47.896 Other spondylosis, lumbar region (principal); M71.38 Other bursal cyst, other site; M51.369 Other intervertebral disc degeneration, lumbar region without mention of lumbar back pain or lower extremity pain
CPT/HCPCS: 72148

== ENCOUNTER 2024-08-12 12:51 | Outpatient (CLI) | payer OTHER, SELFPAY ==
--- OUTSIDE RECORDS SUMMARY | 2024-08-12 12:58 | XMS_ITS | Clinical Summary ---
Author Organization [facility] Address [address] [place] [address] Phone Care Team Providers Care Rollway Worker Name Role Phone Clarisse Baez DO Primary Care Provider [phone] Goldy Rivera APRN, CNP Unavailable + [phone] Allergies No known active allergies Medications metFORMIN [...] Visit [facility] [address] [place] [address] Goldy Rivera APRN, CNP Stress incontinence (Primary Dx); OAB (overactive bladder) Discharge Disposition: Discharged to home or Selfcare 05/25/2024 Travel from Last 3 Months Family History [...] on file 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
--- OUTSIDE RECORDS SUMMARY | 2024-08-12 12:58 | XMS_ITS | Referral Summary ---
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 Gender Identity Not on file Sexual Orientation Not on file Last Filed Vital Signs Vital Sign Reading Time Taken Comments Blood Pressure 158/96 01/23/2024 12:57 PM GUN PERFORATOR LOADER Pulse 89 01/23/2024 12:57 PM GUN PERFORATOR LOADER Temperature 37.1 C (98.8 F) 07/24/2018 5:59 PM CDT Respiratory Rate 18 07/24/2018 5:59 PM CDT Oxygen Saturation 100% 07/24/2018 5:59 PM CDT Inhaled Oxygen Concentration - - Weight 97.1 kg (214 lb) 01/23/2024 12:57 PM GUN PERFORATOR LOADER Height 165.1 cm (5' 5) 01/23/2024 12:57 PM GUN PERFORATOR LOADER Body Mass Index 35.61 01/23/2024 12:57 PM GUN PERFORATOR LOADER Plan of Treatment Not on file Insurance [facility] Care Teams Unhairer Relationship Specialty Start Date End Date Miscellaneous, Not In File PCP - General 07/19/18
--- OUTSIDE RECORDS SUMMARY | 2024-08-12 12:58 | XMS_ITS | Clinical Summary ---
Author Organization [facility] Address [address] [place] [address] Care Team Providers Care Fruit Press Operator Name Role Phone Miscellaneous, Not In [...] on file Legal Sex Female 7:23 PM CLIENT REPORTING ASSOCIATE Gender Identity Not on file Sexual Orientation Not on file Obstetrics History Last Filed Vital Signs Vital Sign Reading Time Taken Comments Blood Pressure 158/96 01/23/2024 12:57 PM CLIENT REPORTING ASSOCIATE Pulse 89 01/23/2024 12:57 PM CLIENT REPORTING ASSOCIATE Temperature 37.1 C (98.8 F) 07/24/2018 5:59 PM CDT Respiratory Rate 18 07/24/2018 5:59 PM CDT Oxygen Saturation 100% 07/24/2018 5:59 PM CDT Inhaled Oxygen Concentration - - Weight 97.1 kg (214 lb) 01/23/2024 12:57 PM CLIENT REPORTING ASSOCIATE Height 165.1 cm (5' 5) 01/23/2024 12:57 PM CLIENT REPORTING ASSOCIATE Body Mass Index 35.61 01/23/2024 12:57 PM CLIENT REPORTING ASSOCIATE Plan of Treatment Health Maintenance Due Date [...] patient's age to complete this topic Insurance [facility] Care Teams Fruit Press Operator Relationship Specialty Start Date End Date Miscellaneous, Not In File PCP - General 07/19/18
--- OUTSIDE RECORDS SUMMARY | 2024-08-12 12:58 | XMS_ITS | Encounter Summary ---
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
--- OUTSIDE RECORDS SUMMARY | 2024-08-12 12:58 | XMS_ITS | Clinical Summary ---
Author Organization [facility] Address [address] [place] [address] Care Team Providers Care Supervisor Tumbling And Rolling Name Role Phone Unavailable Primary Care Provider Unavailabl e Source Comments [facility],non-owned Affiliates and Associated Physician Practices is amultiple site organization consisting of ambulatory clinics and hospital sitesin [place], [place], [place] and [place]. This disclosure is being madepursuant to the Care Everywhere program and may not contain all information available regarding this patient. Last updated 17.[facility] Real Time Wine Allergies No known active allergies Medications * Be aware that medications may not be up to date on this document. Alwaysverify current medications with the patient. busPIRone (BUSPAR) 10 MG tablet Take 15 mg by mouth 2 times daily Active fish oil/omega-3 fatty acids (PROMEGA;CARDI-O LAWR[place] 3) 1000 MG capsule Take 1,000 mg by mouth 2 times daily with morning and evening meal Active Vit-Fe Fumarate-FA ( VITAMIN) 27-0.8 MG Classic 28 mg iron-800 mcg tablet TAKE 1 TABLET BY MOUTH ONCE DAILY Active metFORMIN ER 24hr (Glucophage XR) 500 MG tablet Take 2 (two) tablets by mouth once daily Active atorvastatin (Lipitor) 10 MG tablet Take 1 (one) tablet by mouth 05/07/19 25 Active lisinopril (Prinivil; Zestril) 10 MG tablet Take 1 (one) tablet by mouth once daily Active diclofenac sodium EC (Voltaren) 75 MG tablet Take 1 (one) tablet by mouth 2 times daily 04/09/19 25 Active cyclobenzaprine (Flexeril) 10 MG tablet TAKE 1 TABLET BY MOUTH NEEDED AT BEDTIME FOR 30 DAYS Active solifenacin (Vesicare) 5 MG tablet Take 1 (one) tablet by mouth once daily 90 tablet 4 07/29/19 25 Active calcium-vitamin D (CALTRATE PLUS D) 600-200 MG-UNIT tablet Take 1 tablet by mouth once daily 025 Discontin ued(List Clean-Up) NIFEdipine CR osmotic 24hr (PROCARDIA-XL) 30 MG tabletIndication s:Hypertension Take 30 mg by mouth once daily Reasons: High Blood Pressure Disorder 025 Discontin ued(List Clean-Up) Glucagon (BAQSIMI ONE PACK) 3 MG/DOSE POWD [place] 3 mg into the nose as needed 1 Each 1 12/09/19 21 025 Discontin ued(List Clean-Up) Continuous Blood Gluc Vending Manager (FREESTYLE IRWIN READER) LEONEL Use 1 Each as directed 1 Each 12/09/19 21 025 Discontin ued(List Clean-Up) Continuous Blood Gluc Sensor (FREESTYLE IRWIN SENSOR SYSTEM) [facility] Use 1 Each as directed Apply 1 Libre2 sensor q14 days. 3 Each 5 01/05/20 21 025 Discontin ued(List Clean-Up) famotidine (PEPCID) 20 MG tabletIndication s:Heartburn Take 1 (one) tablet by mouth 2 times daily Reasons: Heartburn 60 tablet 5 02/03/20 21 025 Discontin ued(List Clean-Up) insulin glargine (LANTUS SOLOSTAR) penIndications:1 9 weeks gestation of ([facility]),Supervisio n of high-risk of elderly primigravida ([facility]),Maternal obesity affecting , antepartum ([facility]),Diabetes mellitus affecting , antepartum ([facility]) Inject 64 (sixty four) Units to 90 (ninety) Units subcutaneously as directed Start with 24units qam, 40 qpm. Space by 12 hrs. 30 mL 5 02/03/20 21 025 Discontin ued(List Clean-Up) Insulin Pen Needle 32G X 4 MM MISCIndications: Diabetes mellitus affecting , antepartum (HCC),25 weeks gestation of ([facility]) Use 1 Each 6 times daily while awake 100 Each 11 03/11/19 22 025 Discontin ued(List Clean-Up) insulin lispro (HUMALOG;ADMELOG ) 100 UNIT/ML pen Inject 4-16 Units subcutaneously Take 4 units before B, L & D. 025 Discontin ued(List Clean-Up) Continuous Blood Gluc Sensor (DEXCOM G6 SENSOR) MISC Use 1 Each as directed 3 Each 5 04/21/19 22 025 Discontin ued(List Clean-Up) Continuous Blood Gluc Vending Manager (DEXCOM G6 INSTRUCTOR PAINTING) LEONEL Use 1 device as directed 1 device 04/21/19 22 025 Discontin ued(List Clean-Up) Continuous Blood Gluc Transmit (DEXCOM G6 TRANSMITTER) MISC Use 1 Each as directed 1 Each 3 04/21/19 22 025 Discontin ued(List Clean-Up) docusate sodium (COLACE) 100 MG capsule Take 100 mg by mouth every 12 hours 05/10/19 22 025 Discontin ued(List Clean-Up) HYDROcodone-acet aminophen (NORCO) 5-325 MG tablet 05/09/19 22 025 Discontin ued(List Clean-Up) ondansetron, disintegrating, (ZOFRAN ODT) 4 MG tablet DISSOLVE 1 TABLET IN MOUTH EVERY 8 HOURS NEEDED FOR NAUSEA AND VOMITING 05/10/19 22 025 Discontin ued(List Clean-Up) omeprazole (PRILOSEC) 20 MG capsule Take 20 mg by mouth as needed for Heartburn 025 Discontin ued(List Clean-Up) Active Problems Problem Noted Date Diagnosed Date Ovarian cyst during , antepartum 2020 Overview (02/02/2021): Referral to COMPUTER SCIENCE INSTRUCTOR/ONC and ultrasound at [facility], referral placed 02/02 Assessment & Plan (12/22/2020 11:34 AM CRUSHER ASSEMBLER): Complex right ovarian cyst identified today. 1. Recommend evaluation by COMPUTER SCIENCE INSTRUCTOR pelvic ultrasound Supervision of high-risk of [...] 12/08/2020 Assessment & Plan (12/22/2020 11:35 AM CRUSHER ASSEMBLER): 1 lb wt loss since last consultation. [...] , limited weight gain is recommended. The [place] of Medicine recommends a total weight gain in between 11-20 lb for women who have obese body habitus as defined by a body mass index greater than or equal to 30. 1. Limit total weight gain to 15 lbs 2. Would benefit from weight loss Uterine fibroid during , antepartum 11/ 04/2020 Assessment & Plan (12/08/2020 2:43 PM CDT): Small uterine fibroids. Benign essential hypertension, antepartum 2020 Overview (12/06/2020): Procardia xl 30 mg daily started 11/19/20. Patient had previously stopped lisinopril/HCTZ on 11/04/20. Assessment & Plan (12/22/2020 11:32 AM CRUSHER ASSEMBLER): Blood pressure within goal range on Nifedipine [...] prevention of preeclampsia in at risk women ([place] DSR, 2008). There is no significant risk [...] echocardiogram: Assessment & Plan (12/22/2020 11:30 AM CRUSHER ASSEMBLER): Wearing a glucose sensor. Interval improvement in BG since starting levemir. Still with elevated fasting and postprandial values. [place] reports that she is restricting carbs--still adjusting to new diet. Plan: 1. Maternal- Medicine to comanage diabetes 2. Perform 4-7 blood glucose measurements 3. Increase Lantus to 4. Please forward a copy of the [...] buspar Assessment & Plan (12/22/2020 11:31 AM CRUSHER ASSEMBLER): Mood appropriate. Recommendations 1. Reminded to connect [...] deficiency Assessment & Plan (12/22/2020 11:33 AM CRUSHER ASSEMBLER): Interval labs reviewed: vitamin D sufficient. 1. Continue vitamin D supplementation Assessment & Plan (12/08/2020 2:54 PM CDT): We discussed the relationship between vitamin D and immune support 1. Check vitamin D levels--requisition given 1. IF low increase supplementation to 4130-9016 IU daily Resolved Problems Problem Noted Date Diagnosed Date Resolved Date ventricular septal def ect in , antepartum, single gestation 03/30/2021 05/04/2021 20 weeks gestation of 12/20/2020 03/28/2021 Advanced maternal age, primi , antepartum 12/06/2020 12/22/2020 Encounters Date Type Department Care Team Description 07/28/2024 1:00 PM CDT Office Visit [facility] - Urology [address] [place] [address] [address] [place] [address] Alexa Wadsworth, AIRPORT SCREENER-SPORTS OFFICIAL Mixed incontinence (Primary Dx); Stress incontinence 07/28/2024 Travel 06/26/2024 Travel from Last 3 Months Family [...] 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 Not on file Not on file Last Filed Vital Signs Vital Sign Reading Time Taken Comments Blood Pressure 130/85 07/28/2024 12:48 PM CDT Pulse 97 07/28/2024 12:48 PM CDT Temperature 36.5 C (97.7 F) 07/28/2024 12:48 PM CDT Respiratory Rate 18 07/28/2024 12:48 PM CDT Oxygen Saturation 97% 07/28/2024 12:48 PM CDT Inhaled Oxygen Concentration - - Weight 97.1 kg (214 lb) 07/28/2024 12:48 PM CDT Height 162.6 cm (5' 4) 07/28/2024 12:48 PM CDT Body Mass Index 36.73 07/28/2024 12:48 PM CDT Plan of Treatment Health Maintenance Due Date Last Done Comments COLOGUARD (AGES 45-75) - COL ON CA SCREENING 1979 COLON MONITORING 1979 COLONOSCOPY - COLON CA SCREENING 1979 CT COLONOGRAPHY - COLON CA SCREENING 1979 Colorectal Cancer Screening 1979 FIT - COLON CA SCREENING 1979 FLEX SIG - COLON CA SCREENING 1979 MAMMOGRAM 1979 HIV SCREENING 07/13/1994 HEPATITIS C SCREENING 07/09/1997 DTAP/TDAP/TD VACCINES (1 - Tdap) 07/13/1998 HEPATITIS B VACCINE (1 of 3 - 19+ 3-dose series) 07/13/1998 PAP SMEAR 07/13/2000 COVID-19 VACCINE (2023-2 5 season) 2023 05/07/2020, 04/13/2020 DEPRESSION SCREENING 02/06/2024 SCREENING FOR DIABETES 07/28/2024 2, 03/02/2021, 12/22/2020 INFLUENZA VACCINE (#1) 2024 ZOSTER VACCINE (1 of 2) 07/13/2029 [...] Procedure Name Priority Date/Time Associated Diagnosis Comments PA MSR PVR U&/BLADD CAPCTY US NON Routine 07/28/2024 1:45 PM CDT Mixed incontinence URINALYSIS AUTO - POINT OF CARE (AMB) [facility] Routine 07/28/2024 1:09 PM CDT Stress incontinence HEMOGLOBIN A1C 05/04/2021 11:05 AM CDT from Last 3 Months or Most Recently Relevant to Health Maintenance Results * PA MSR PVR U&/BLADD CAPCTY US NON (07/28/2024 1:45 PM CDT) Narrative Alexa Wadsworth APRN-CNP - 07/28/2024 1:45 PM CDT Alexa Wadsworth APRN-CNP 07/28/2024 1:50 PM PVR 34ml us Alexa Wadsworth APRN-NOREEN PROCEDURE/MINOR SURGICA L ORDERABLES Final Result * URINALYSIS AUTO - POINT OF CARE (AMB) [facility] (07/28/2024 1:09 PM CDT) Glucose UA NEG [facility] [address] Bilirubin UA POCT 2+ [address] [facility] [address] Ketones UA POCT 1+ 1.5 [facility] [address] Specific [place] UA 1.[address] [facility] [address] Blood Urine POCT neg [facility] [address] pH UA 5.0 [facility] [address] Protein UA 1+ 0.[address] [facility] [address] Urobilinogen UA - 3.5 [facility] [address] Nitrite UA neg [facility] [address] WBC UA +- [address] [facility] [address] Urine URINE / Unknown 07/28/2024 1 :09 PM CDT us Alexa Wadsworth AIRPORT SCREENER-SPORTS OFFICIAL LAB - POINT OF CARE ORD ERABLES Final Result [facility] [address] [place] [address], [facility] [phone] * HEMOGLOBIN A1C (05/04/2021 11:05 AM CDT) [...] diagnosis of diabetes in children. According to [place] Diabetes Association (ADA) guidelines, hemoglobin A1c <7.0% represents optimal control in non- diabetic patients. Different metrics may apply to specific patient populations. Standards of Medical Care in Diabetes(ADA). Test Performed at: [facility] [address] ALBERTA OCNNORS MD 05/04/2021 11:0 5 AM CDT 05/04/2021 11:07 AM CDT Ivette Calhoun AIRPORT SCREENER-SPORTS OFFICIAL LAB - CHEMISTRY ORDERAB LES Final Result [address] [address] from Last 3 Months or Most Recently Relevant to Health Maintenance Insurance [facility]
--- OUTSIDE RECORDS SUMMARY | 2024-08-12 12:58 | XMS_ITS | Encounter Summary ---
Author Organization [facility] Address [address] [place] [address] Phone Care Team Providers Care Heat Engineering Teacher Name Role Phone Miscellaneous, Not In File Primary Care Provider Unavailable Encounter Details Date Type Department Care Team (Late st Contact Info) Description 05/07/2024 Orders Only [facility] Scanning, Provider Social History Tobacco Use Types Packs/Day Years Used Date Smoking Tobacco: Never Comments No Sex and Gender Information Value Date Recorded Sex Assigned at Not on file Legal Sex Female 7:23 PM ROLLER MILL TENDER Gender Identity Not on file Sexual Orientation [...] on filedocumented in this encounter Care Teams Heat Engineering Teacher Relationship Specialty Start Date End Date Miscellaneous, Not In File PCP - General 07/19/18 documented as of this encounter
--- NOTE | 2024-08-12 14:30 | NEURO_ITS ---
Impression: # Known diabetic complains of numbness of feet. ? # Asymmetrical motor/sensory axonal neuropathy. ? # Normal needle/EMG exam without neurogenic changes. ? # Clinical correlation recommended. Nerve Conduction Studies ?Stim Site NR Peak (ms) P-T Amp (?V) Site1 Site2 Delta-P (ms) Dist (cm) Rick (m/s) Left Sup Fibular Anti Sensory (Ant Lat Mall) 14 cm ? 3.6 1.0 14 cm Ant Lat Mall 3.6 16.0 44 Right Sup Fibular Anti Sensory (Ant Lat Mall) 14 cm ? 3.0 7.2 14 cm Ant Lat Mall 3.0 16.0 53 Left Sural Anti Sensory (Lat Mall) Calf ? 3.8 5.9 Calf Lat Mall 3.8 16.0 42 Right Sural Anti Sensory (Lat Mall)??? NO RESPONSE Calf NR Calf Lat Mall 16.0 ?Stim Site NR Onset (ms) O-P Amp (mV) Site1 Site2 Delta-0 (ms) Dist (cm) Rick (m/s) Left Peroneal Motor (Vastus Med) Ankle ? 2.2 2.1 Popit Ankle 9.1 40.0 44 Popit ? 11.3 0.9 Right Peroneal Motor (Vastus Med) Ankle ? 2.6 1.4 Popit Ankle 8.7 38.0 44 Popit ? 11.3 0.9 Left Tibial Motor (Abd Morse Brev) Ankle ? 4.1 0.6 Knee Ankle 9.1 41.0 45 Knee ? 13.2 0.5 Right Tibial Motor (Abd Morse Brev) Ankle ? 3.8 1.2 Knee Ankle 9.2 38.0 41 Knee ? 13.0 0.5 Electromyography ?Side Muscle Nerve Root Ins Act Fibs Amp Dur Recrt Comment Right AntTibialis Dp Br Fibular L4-5 Nml Nml Nml Nml Nml Right Gastroc Tibial S1-2 Nml Nml Nml Nml Nml Right Fibularis Long Sup Br Fibular L5-S1 Nml Nml Nml Nml Nml Right Flex Dig Long Tibial L5-S2 Nml Nml Nml Nml Nml Right Ext Dig Brev Dp Br Fibular L5, S1 Nml Nml Nml Nml Nml Right QuadratusFem QuadFemoris L4-5, S1 Nml Nml Nml Nml Nml Left AntTibialis Dp Br Fibular L4-5 Nml Nml Nml Nml Nml Left Gastroc Tibial S1-2 Nml Nml Nml Nml Nml Left Fibularis Long Sup Br Fibular L5-S1 Nml Nml Nml Nml Nml Left Flex Dig Long Tibial L5-S2 Nml Nml Nml Nml Nml Left Ext Dig Brev Dp Br Fibular L5, S1 Nml Nml Nml Nml Nml Left QuadratusFem QuadFemoris L4-5, S1 Nml Nml Nml Nml Nml
== END 2024-08-12 12:52 | disposition home or self-care (01) ==
LOC: ANHNEURO 12:53
PROVIDERS: PCP Family Medicine; Visit Provider Anesthesiology Pain Medicine
DX: G62.89 Other specified polyneuropathies (principal); E11.9 Type 2 diabetes mellitus without complications; R20.0 Anesthesia of skin; M48.062 Spinal stenosis, lumbar region with neurogenic claudication; M54.16 Radiculopathy, lumbar region
CPT/HCPCS: 95886; 95910

== ENCOUNTER 2024-08-26 00:53 | Day surgery (SDC) | payer OTHER, SELFPAY ==
[2024-08-14 10:45] VITALS: BMI 36.9
--- OUTSIDE RECORDS SUMMARY | 2024-08-26 00:55 | XMS_ITS | Referral Summary ---
Author Organization [facility] Address [address] [place] [address] Care Team Providers Care Front Line Leader Name Role Phone Miscellaneous, Not In File [...] on file Legal Sex Female 7:23 PM DIET SUPERVISOR Gender Identity Not on file Sexual Orientation Not on file Last Filed Vital Signs Vital Sign Reading Time Taken Comments Blood Pressure 158/96 01/23/2024 12:57 PM DIET SUPERVISOR Pulse 89 01/23/2024 12:57 PM DIET SUPERVISOR Temperature 37.1 C (98.8 F) 07/24/2018 5:59 PM CDT Respiratory Rate 18 07/24/2018 5:59 PM CDT Oxygen Saturation 100% 07/24/2018 5:59 PM CDT Inhaled Oxygen Concentration - - Weight 97.1 kg (214 lb) 01/23/2024 12:57 PM DIET SUPERVISOR Height 165.1 cm (5' 5) 01/23/2024 12:57 PM DIET SUPERVISOR Body Mass Index 35.61 01/23/2024 12:57 PM DIET SUPERVISOR Plan of Treatment Not on file Insurance [facility] Care Teams Front Line Leader Relationship Specialty Start Date End Date Miscellaneous, Not In File PCP - General 07/19/18
--- OUTSIDE RECORDS SUMMARY | 2024-08-26 00:55 | XMS_ITS | Encounter Summary ---
Author Organization [facility] Address [address] [place] [address] Phone Care Team Providers Care Composition Molder Name Role Phone Miscellaneous, Not In File [...] on file Legal Sex Female 7:23 PM CUSTOMER EXPERIENCE ANALYST Gender Identity Not on file Sexual Orientation [...] on filedocumented in this encounter Care Teams Composition Molder Relationship Specialty Start Date End Date Miscellaneous, Not In File PCP - General 07/19/18 documented as of this encounter
--- OUTSIDE RECORDS SUMMARY | 2024-08-26 00:55 | XMS_ITS | Encounter Summary ---
Author Organization [facility] Address [address] [place] [address] Phone Care Team Providers Care Stratigraphy Teacher Name Role Phone Miscellaneous, Not In [...] on file Legal Sex Female 7:23 PM SALES AND EVENTS COORDINATOR Gender Identity Not on file Sexual [...] on filedocumented in this encounter Care Teams Stratigraphy Teacher Relationship Specialty Start Date End Date Miscellaneous, Not In File PCP - General 07/19/18 documented as of this encounter
--- OUTSIDE RECORDS SUMMARY | 2024-08-26 00:55 | XMS_ITS | Clinical Summary ---
Author Organization [facility] Address [address] [place] [address] Care Team Providers Care Cotton Jammer Name Role Phone Unavailable Primary Care Provider Unavailabl e Source Comments [facility],non-owned Affiliates and Associated Physician Practices is amultiple site organization consisting of ambulatory clinics and hospital sitesin [place], [place], [place]. This disclosure is being madepursuant to the Care Everywhere program and may not contain all information available regarding this patient. Last updated 17.[facility] [employer] Allergies No known active allergies Medications * Be aware that medications may not be up to date on this document. Alwaysverify current medications with the patient. busPIRone (BUSPAR) 10 MG tablet Take 15 mg by mouth 2 times daily Active fish oil/omega-3 fatty acids (PROMEGA;CARDI-O [place]AR[place] 3) 1000 MG capsule Take 1,000 mg [...] Glucagon (BAQSIMI ONE PACK) 3 MG/DOSE POWD [place] 3 mg into the nose as needed 1 Each 1 12/09/19 21 025 Discontin ued(List Clean-Up) Continuous Blood Gluc Workers Compensation Adjuster (FREESTYLE IRWIN READER) LEONEL Use 1 Each as directed 1 Each 12/09/19 21 025 Discontin ued(List Clean-Up) Continuous Blood Gluc Sensor (FREESTYLE IRWIN SENSOR SYSTEM) [facility] Use 1 Each as directed Apply 1 Libre2 sensor q14 days. 3 Each 5 01/05/20 21 025 Discontin ued(List Clean-Up) famotidine (PEPCID) 20 MG tabletIndication s:Heartburn Take 1 (one) tablet by mouth 2 times daily Reasons: Heartburn 60 tablet 5 02/03/20 21 025 Discontin ued(List Clean-Up) insulin glargine (LANTUS SOLOSTAR) penIndications:1 9 weeks gestation of ([facility]),Supervisio n of high-risk of elderly primigravida ([facility]),Maternal obesity affecting , antepartum ([facility]),Diabetes mellitus affecting , antepartum ([facility]) Inject 64 (sixty four) Units to 90 (ninety) Units subcutaneously as directed Start with 24units qam, 40 qpm. Space by 12 hrs. 30 mL 5 02/03/20 21 025 Discontin ued(List Clean-Up) Insulin Pen Needle 32G X 4 MM MISCIndications: Diabetes mellitus affecting , antepartum (HCC),25 weeks gestation of ([facility]) Use 1 Each 6 times [...] 025 Discontin ued(List Clean-Up) Continuous Blood Gluc Workers Compensation Adjuster (DEXCOM G6 FOLDER GLUER OPERATOR) LEONEL Use 1 device as directed 1 [...] , antepartum 2020 Overview (02/02/2021): Referral to ESCROW CLERK/ONC and ultrasound at [facility], referral placed 02/02 Assessment & Plan (12/22/2020 11:34 AM NAVAL SCIENCE TEACHER): Complex right ovarian cyst identified today. 1. Recommend evaluation by ESCROW CLERK pelvic ultrasound Supervision of high-risk of elderly [...] 12/08/2020 Assessment & Plan (12/22/2020 11:35 AM NAVAL SCIENCE TEACHER): 1 lb wt loss since last consultation. [...] , limited weight gain is recommended. The [place] of Medicine recommends a total weight gain [...] 11/04/20. Assessment & Plan (12/22/2020 11:32 AM NAVAL SCIENCE TEACHER): Blood pressure within goal range on Nifedipine [...] echocardiogram: Assessment & Plan (12/22/2020 11:30 AM NAVAL SCIENCE TEACHER): Wearing a glucose sensor. Interval improvement in [...] buspar Assessment & Plan (12/22/2020 11:31 AM NAVAL SCIENCE TEACHER): Mood appropriate. Recommendations 1. Reminded to connect [...] deficiency Assessment & Plan (12/22/2020 11:33 AM NAVAL SCIENCE TEACHER): Interval labs reviewed: vitamin D sufficient. 1. Continue vitamin D supplementation Assessment & Plan (12/08/2020 2:54 PM CDT): We discussed the relationship between vitamin D and immune support 1. Check vitamin D levels--requisition given 1. IF low increase supplementation to 7051-5588 IU daily Resolved Problems Problem Noted Date Diagnosed Date Resolved Date ventricular septal def ect in , antepartum, single gestation 03/30/2021 05/04/2021 20 weeks gestation of 12/20/2020 03/28/2021 Advanced maternal age, primi , antepartum 12/06/2020 12/22/2020 Encounters Date Type Department Care Team Description 07/28/2024 1:00 PM CDT Office Visit [facility] - Urology [address] [place] [address] [address] [place] [address] Alexa Wadsworth, TOUCH UP PAINTER HAND-DISTRICT ENGINEER Mixed incontinence (Primary Dx); Stress incontinence 07/28/2024 [...] 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 file Not [...] 19+ 3-dose series) 07/13/1998 PAP SMEAR 07/13/2000 HPV VACCINE (1 - 3-dose SCDM series) 07/13/2006 COVID-19 VACCINE (2023-2 5 season) 2023 05/07/2020, 04/13/2020 DEPRESSION SCREENING 02/06/2024 SCREENING FOR DIABETES 07/28/2024 , 03/02/2021, 12/22/2020 INFLUENZA VACCINE (#1) 2024 ZOSTER [...] Procedure Name Priority Date/Time Associated Diagnosis Comments [place] MSR PVR U&/BLADD CAPCTY US NON Routine 07/28/2024 1:45 PM CDT Mixed incontinence URINALYSIS AUTO - POINT OF CARE (AMB) [facility] Routine 07/28/2024 1:09 PM CDT Stress incontinence HEMOGLOBIN A1C 05/04/2021 11:05 AM CDT from Last 3 Months or Most Recently Relevant to Health Maintenance Results * [place] MSR PVR U&/BLADD CAPCTY US NON (07/28/2024 [...] 1.[address] [facility] [address] Specific [place] UA 1.[address] [facility] [address] Blood [...] / Unknown 07/28/2024 1 :09 PM CDT Alexa Wadsworth TOUCH UP PAINTER HAND-DISTRICT ENGINEER LAB - POINT OF CARE ORD ERABLES Final Result [facility] [address] [place] [address], [facility] [phone] * HEMOGLOBIN A1C (05/04/2021 11:05 AM CDT) [...] diagnosis of diabetes in children. According to [place] Diabetes Association (ADA) guidelines, hemoglobin A1c <7.0% represents optimal control in non- diabetic patients. Different metrics may apply to specific patient populations. Standards of Medical Care in Diabetes(ADA). Test Performed at: [facility] [address] ALBERTA CONNORS MD 05/04/2021 11:0 5 AM CDT 05/04/2021 11:07 AM CDT Ivette Calhoun TOUCH UP PAINTER HAND-DISTRICT ENGINEER LAB - CHEMISTRY ORDERAB LES Final Result [address] [id number] from Last 3 Months or Most Recently Relevant to Health Maintenance Insurance [facility]
--- OUTSIDE RECORDS SUMMARY | 2024-08-26 00:55 | XMS_ITS | Clinical Summary ---
Author Organization [facility] Address [address] [place] [address] Care Team Providers Care Stock Grader Name Role Phone Miscellaneous, Not In File [...] on file Legal Sex Female 7:23 PM OUTBOUND CALL CENTER REPRESENTATIVE Gender Identity Not on file Sexual Orientation Not on file Obstetrics History Last Filed Vital Signs Vital Sign Reading Time Taken Comments Blood Pressure 158/96 01/23/2024 12:57 PM OUTBOUND CALL CENTER REPRESENTATIVE Pulse 89 01/23/2024 12:57 PM OUTBOUND CALL CENTER REPRESENTATIVE Temperature 37.1 C (98.8 F) 07/24/2018 5:59 PM CDT Respiratory Rate 18 07/24/2018 5:59 PM CDT Oxygen Saturation 100% 07/24/2018 5:59 PM CDT Inhaled Oxygen Concentration - - Weight 97.1 kg (214 lb) 01/23/2024 12:57 PM OUTBOUND CALL CENTER REPRESENTATIVE Height 165.1 cm (5' 5) 01/23/2024 12:57 PM OUTBOUND CALL CENTER REPRESENTATIVE Body Mass Index 35.61 01/23/2024 12:57 PM OUTBOUND CALL CENTER REPRESENTATIVE Plan of Treatment Health Maintenance Due Date [...] patient's age to complete this topic Insurance [facility] Care Teams Stock Grader Relationship Specialty Start Date End Date Miscellaneous, Not In File PCP - General 07/19/18
--- OUTSIDE RECORDS SUMMARY | 2024-08-26 00:55 | XMS_ITS | Clinical Summary ---
Author Organization [facility] Address [address] [address] Phone Care Team Providers Care Nursery Nurse Name Role Phone Clarisse Baez DO Primary Care Provider [phone] Goldy Rivera APRN, CNP Unavailable + [phone] Allergies No known active allergies Medications metFORMIN (GLUCOPHAGE-XR) 500 MG TABLET SR 24 HR Take 500 mg by mouth 2 times daily. 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.] Clear 05/27/2024 2:45 PM CDT Goldy Rivera INSPECTOR MACHINE CUT GLASS, THORACIC MEDICINE SPECIALIST POINT OF CARE TESTING (MANUAL) Final Result from Last 3 Months Insurance MED[place]ID [place] Care Teams Nursery Nurse Relationship Specialty Start Date End Date Clarisse Baez DO [address] [place] [address] PCP - General Family Medicine 02/26/24 Goldy Rivera APRN, THORACIC MEDICINE SPECIALIST [address] [place] [address] Nurse Practitioner Advanced Practice Nurse 05/23/24
[2024-08-26 07:18] VITALS: BP 147/93; PULSE 109; RESP 16; TEMP 36.7; O2SAT 99; BMI 36.2
[2024-08-26 07:23] LABS: BEDSIDEPREGUCG Negative (Negative)
[2024-08-26] MEDS: LACTATED RINGERS 1,000 ML 150 ML IV CONT (07:29)
--- NOTE | 2024-08-26 07:51 | P.PNAN_ITS ---
Anes - Initial Pre Proc Eval Procedure: Operation Date: 08/26/24 08:30 Proposed Procedures p Screening Colonoscopy - Rui Kay DO Date/Time: 08/26/24 07:51 Surgeon: Rui Kay DO Pre Op Diagnosis: Neoplasm screening Patient Data Age: 44 Gender: F Height: 1.63 m Weight: 95.7 kg Last Vital Signs Temp 98.0 F 08/26/24 07:18 Pulse 109 H 08/26/24 07:18 Resp 16 08/26/24 07:18 BP 147/93 H 08/26/24 07:18 Pulse Ox 99 08/26/24 07:18 O2 Del Method Room Air 08/26/24 07:18 Allergies Allergy/AdvReac Type Severity Reaction Status Date / Time No Known Allergies Allergy Verified 08/26/24 07:14 Home Medications ?Medication ?Instructions ?Recorded ?Confirmed ?Type cyclobenzaprine 10 mg tablet 10 mg PO TID PRN muscle spasm #60 12/31/23 08/26/24 Rx tabs atorvastatin 10 mg tablet (Lipitor) 10 mg PO QHS #90 tabs 05/06/24 08/26/24 Rx diclofenac sodium 75 mg 75 mg PO BID 06/02/24 08/26/24 History tablet,delayed release buspirone 15 mg tablet 15 mg PO BID #180 tabs 06/26/24 08/26/24 Rx lisinopril 10 mg tablet 10 mg PO DAILY #90 tabs 06/26/24 08/26/24 Rx metoprolol succinate 100 mg 100 mg PO DAILY #90 tabs 06/26/24 08/26/24 Rx tablet,extended release 24 hr omega 0-rpz-uyh-fish oil 1,200 mg 1 cap PO DAILY 07/02/24 08/26/24 History (144 mg-216 mg) capsule (Fish Oil) vitamin#30 30 mg iron-10 1 cap PO DAILY #90 caps 07/15/24 08/26/24 Rx mg iron-folic acid 1 mg-omg3 capsule solifenacin 5 mg tablet 5 mg PO DAILY 08/06/24 08/26/24 History metformin 500 mg tablet,extended 500 mg PO BID #180 tabs 08/11/24 08/26/24 Rx release 24 hr (Glucophage XR) Laboratory Tests 08/26/24 08/26/24 07:11 07:18 POC Capillary Glucose 170 H mg/dl (65-105) POC Urine HCG, Qual Negative (Negative) Patient hx anesthesia problems: none Family hx anesthesia problems: none Results Review: All pre-operative results and documents have been reviewed as part of the pre- operative evaluation. [facility] Past Medical History Medical History Bladder prolapse Hypertension Diabetes mellitus Anxiety Surgical History Surgical History History of section [place] teeth extracted History of cholecystectomy History of carpal tunnel surgery 2002? bilateral Family History Family History Grandparent Cerebrovascular accident Heart problem Grandparent Diabetes mellitus Social History Social History Social History: Caffeine-tea occasionally Smoking status: Never smoker Second hand tobacco smoke exposure: No Alcohol intake: never Substance use: never Substance use type: does not use Do You Feel Safe in your Home?: Yes Lack of Transportation: No Lack of Food: Never True Current Housing: I Have Housing Concerned About Future Housing: No Difficulty Paying Gas/Electric Bills: No Difficulty Paying for Meds: No Currently Unemployed: No Education: High School Diploma/GED Difficulty w/ Childcare or Family Care: No Living arrangements: with family Occupation/Education: unemployed Gender identity (if verbalized by the patient): Female Sexual Orientation (if Verbalized by the Patient): Straight or Heterosexual Spiritual care concerns: No Agree to blood products: Yes Anes - Eval Final PreProcedure Day of Procedure 08/26/24 07:51 Patient weight: obese Lungs: normal air movement Airway: Mallampati scale class II Neurological: alert and oriented Last oral intake: >/= 8 hours ASA classification: III Emergent: no Anesthetic plan: proceed Anesthesia type and monitoring: general GIVS and standard monitoring Results Review: All pre-operative results and documents have been reviewed as part of the pre- operative evaluation. HTN, hyperlipidemia, DM fsbs 170, BMI 36. Informed Consent: The patient's anesthetic plan and its attendant risks and benefits were discussed with the patient/family/POA. Questions were solicited and answers provided to the satisfaction of the patient/family/POA.
--- NOTE | 2024-08-26 08:11 | PM.IMHP ---
H&P: HPI History of Present Illness Date/Time: 08/26/24 08:11 Chief Complaint: screening for colorectal cancer Narrative: this is a 44-year-old woman who presents for her 1st colonoscopy. She denies any hematochezia or melena. She denies any family history of colon cancer. Review of Systems Review of Systems: All systems reviewed & are unremarkable except as noted in HPI and below Constitutional: Constitutional: Denies chills, Denies fever(s), Denies headache(s) and Denies weight loss Eyes: Eyes: Denies change in vision ENT: Denies dizziness, Denies headache(s), Denies neck mass and Denies throat swelling Cardiovascular: Cardiovascular: Denies chest pain, Denies lightheadedness and Denies dyspnea Respiratory: Respiratory: Denies cough, Denies dyspnea and Denies wheezing Gastrointestinal: Gastrointestinal: Denies abdominal pain, Denies change in bowel habits, Denies nausea and Denies vomiting Genitourinary: Genitourinary: Denies hematuria and Denies dysuria Musculoskeletal: Musculoskeletal: Reports as per HPI Integumentary/Breasts: Skin/Breast: Reports as per HPI Neurologic: Denies dizziness and Denies headache(s) Allergic/Immunologic: Allergic/Immunologic: Denies throat swelling and Denies wheezing PMFSH Past Medical History Medical History Bladder prolapse Hypertension Diabetes mellitus Anxiety Surgical History Surgical History History of section [place] teeth extracted History of cholecystectomy History of carpal tunnel surgery 2002? bilateral Family History Family History Grandparent Cerebrovascular accident Heart problem Grandparent Diabetes mellitus Social History Social History Social History: Caffeine-tea occasionally Smoking status: Never smoker Second hand tobacco smoke exposure: No Alcohol intake: never Substance use: never Substance use type: does not use Do You Feel Safe in your Home?: Yes Lack of Transportation: No Lack of Food: Never True Current Housing: I Have Housing Concerned About Future Housing: No Difficulty Paying Gas/Electric Bills: No Difficulty Paying for Meds: No Currently Unemployed: No Education: High School Diploma/GED Difficulty w/ Childcare or Family Care: No Living arrangements: with family Occupation/Education: unemployed Gender identity (if verbalized by the patient): Female Sexual Orientation (if Verbalized by the Patient): Straight or Heterosexual Spiritual care concerns: No Agree to blood products: Yes Meds Home Medications and Allergies Home Medications ?Medication ?Instructions ?Recorded ?Confirmed ?Type cyclobenzaprine 10 mg tablet 10 mg PO TID PRN muscle spasm #60 12/31/23 08/26/24 Rx tabs atorvastatin 10 mg tablet (Lipitor) 10 mg PO QHS #90 tabs 05/06/24 08/26/24 Rx diclofenac sodium 75 mg 75 mg PO BID 06/02/24 08/26/24 History tablet,delayed release buspirone 15 mg tablet 15 mg PO BID #180 tabs 06/26/24 08/26/24 Rx lisinopril 10 mg tablet 10 mg PO DAILY #90 tabs 06/26/24 08/26/24 Rx metoprolol succinate 100 mg 100 mg PO DAILY #90 tabs 06/26/24 08/26/24 Rx tablet,extended release 24 hr omega 9-rfp-bqu-fish oil 1,200 mg 1 cap PO DAILY 07/02/24 08/26/24 History (144 mg-216 mg) capsule (Fish Oil) vitamin#30 30 mg iron-10 1 cap PO DAILY #90 caps 07/15/24 08/26/24 Rx mg iron-folic acid 1 mg-omg3 capsule solifenacin 5 mg tablet 5 mg PO DAILY 08/06/24 08/26/24 History metformin 500 mg tablet,extended 500 mg PO BID #180 tabs 08/11/24 08/26/24 Rx release 24 hr (Glucophage XR) Allergies Allergy/AdvReac Type Severity Reaction Status Date / Time No Known Allergies Allergy Verified 08/26/24 07:14 Vital Signs Vital Signs - 24 hr 08/26/24 07:18 Temperature 98.0 F Pulse Rate 109 H Respiratory Rate 16 Blood Pressure 147/93 H Pulse Oximetry 99 Oxygen Delivery Room Air Exam Const: General: no acute distress and alert Orientation/consciousness: patient oriented x3 HENMT: Head: normocephalic and atraumatic Ears: hearing grossly normal bilaterally Face/Nose/Sinus: Normal nares present Mouth: Yes Normal oral and palatal mucosa present Eyes: Periorbital: periorbital findings normal Sclera: sclerae normal EOM: EOMs intact bilaterally Neck: Neck: normal visual inspection, no lymphadenopathy and trachea midline Chest: Chest palpation & inspection: normal inspection of the chest Resp: Effort & Inspection: normal respiratory effort Auscultation: clear to auscultation bilaterally Cardio: Jugular venous distension: no JVD Rate: regular rate Rhythm: regular rhythm Heart sounds: S1 normal heart sound present and S2 normal heart sound present Peripheral pulses: Peripheral pulses 2+ throughout GI: Inspection: normal to inspection GI Palp: Yes Soft to palpation, No Tenderness to palpation present (GI), No Guarding due to palpation present (GI) and No Rebound tenderness present Percussion: Yes normal to percussion Auscultation: normal bowel sounds : General: Yes no CVA tenderness Back/Spine/Pelvis: Back: no CVA tenderness Neuro: General: patient oriented x3, no focal motor deficits and CN's II-XI intact bilaterally Cognition (Neuro): normal cognition Speech: normal speech Motor exam (neuro): 5/5 motor strength present throughout Extrem: General: capillary refill normal and no clubbing, cyanosis or edema Assessment and Plan Assessment and plan (1) Screening for colon cancer: Code(s): Z12.11 - Encounter for screening for malignant neoplasm of colon Status: Acute Assessment and Plan: I have recommended colonoscopy. I have discussed the procedure, risks, benefits, and alternatives. Questions were answered. Patient is agreeable to proceed.
[2024-08-26 08:36] VITALS: BP 107/49; PULSE 85; RESP 20; O2SAT 97
[2024-08-26 08:46] VITALS: BP 109/60; PULSE 76; RESP 20; O2SAT 99
[2024-08-26 08:56] VITALS: BP 124/69; PULSE 77; RESP 20; O2SAT 100
== END 2024-08-26 09:05 | disposition home or self-care (01) ==
PROVIDERS: PCP Family Medicine; Visit Provider Surgery
PROC: 0DJD8ZZ Inspection of Lower Intestinal Tract, Via Natural or Artificial Opening Endoscopic (ICD-10-PCS; CPT 45378; principal; 2024-08-26 08:30)
DX: Z12.11 Encounter for screening for malignant neoplasm of colon (principal); I10 Essential (primary) hypertension; E11.9 Type 2 diabetes mellitus without complications; E78.5 Hyperlipidemia, unspecified; F41.9 Anxiety disorder, unspecified; E66.9 Obesity, unspecified; Z68.36 Body mass index [BMI] 36.0-36.9, adult; Z79.84 Long term (current) use of oral hypoglycemic drugs; Z98.890 Other specified postprocedural states; Z90.49 Acquired absence of other specified parts of digestive tract; Z87.448 Personal history of other diseases of urinary system; Z82.49 Family history of ischemic heart disease and other diseases of the circulatory system
CPT/HCPCS: 45378; 82948; J2704; J7120

== ENCOUNTER 2024-09-01 00:34 | Day surgery (SDC) | payer OTHER, SELFPAY ==
--- NOTE | 2024-08-27 08:40 | PC.NURSE ---
Report to the Outpatient Waiting Room, entrance under the green pavilion located off [facility], at time 1100_ on date 09/01/24_. Planned Procedure Time: 1200_.? Time changes happen often and if your time is changed the preop area will call you the afternoon before. - You and your visitor will be asked to self-screen and do not enter if you have any COVID symptoms. Please call surgeon if you need to reschedule. - A mask is optional within the hospital at this time. Patients may have A LIGHT BREAKFAST MORNING OF INJECTION, FLUIDS UNTIL 1000 AM Take only the following medications with a SIP of water on the morning of surgery: AM MEDICATIONS DO NOT STOP ANY OF YOUR OTHER PRESCRIPTION MEDICATIONS PRIOR TO SURGERY EXCEPT THE FOLLOWING Hold all vitamins and supplements for 3 days per anesthesiologist. Medications to discontinue per physician Date to take last dose Please no make-up, nail andorran, hairspray, perfume, deodorant, or body powder the day of surgery.? No jewelry (including any body piercings) or valuables the day of surgery, leave them at home.? Please take a shower or bath the night before, or the morning of, surgery with an antibacterial soap.? Wear comfortable, loose fitting clothing.? Children are encouraged to wear pajamas. - Jewelry must be removed prior to entering the operating room.? Rings and piercings that are not removed may be cut off. - The hospital will not accept responsibility for valuables.? - Please leave all valuables, including medications, at home the day of surgery. If you are going home after surgery, a licensed recycling collections driver must drive you home.? - NO public transportation without another adult if you receive anesthesia. - We recommend that an adult stay with you for 24 hours following discharge. - We also recommend that you do not drive, make important decision, drink alcoholic beverages, or take any drugs that were not prescribed by your health care provider for at least 24 hours after your discharge time. For Pediatric surgeries, we recommend two adults accompany the child home. Follow any additional instructions given to you from your surgeon. Telephone instructions given to __PATIENT__and asked if any additional questions and then verbalized understanding. Patient advised to call surgeon office or pre surgery nurse liaison [phone] if any additional questions.
[2024-08-27 08:47] VITALS: BMI 36.2
--- NOTE | ~2024-09-01 | XR_ITS ---
EXAMINATION: XR fluoroscopy no charge DATE: 09/01/2024 12:00 CDT INDICATION: BILATERAL INTRA-ARTICULAR SIJ STEROID INJECTION . TECHNIQUE: 6 fluoroscopic images of the pelvis were obtained during bilateral SI joint intra-articula r steroid injection. Fluoroscopy exposure time was 48.9 seconds. Air Kerma 20.01 mGy. DAP 1.4 mGym2. COMPARISON: None FINDINGS/IMPRESSION: Fluoroscopic documentation of bilateral SI joint intra-articular steroid injection . Please refer t o the operative note for complete procedural details. Reviewed, dictated and finalized at location K.
--- OUTSIDE RECORDS SUMMARY | 2024-09-01 00:41 | XMS_ITS | Encounter Summary ---
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
--- OUTSIDE RECORDS SUMMARY | 2024-09-01 00:41 | XMS_ITS | Clinical Summary ---
Author Organization [facility] Address [address] [place] [address] Care Team Providers Care Direct Care Worker Name Role Phone Unavailable Primary Care Provider Unavailabl e Source Comments [facility],non-owned Affiliates and Associated Physician Practices is amultiple site organization consisting of ambulatory clinics and hospital sitesin [place], [place], [place] and [place]. This disclosure is being madepursuant to the Care Everywhere program and may not contain all information available regarding this patient. Last updated 17.[facility] [employer] Allergies No known active allergies Medications * Be aware that medications may not be up to date on this document. Alwaysverify current medications with the patient. busPIRone (BUSPAR) 10 MG tablet Take 15 mg by mouth 2 times daily Active fish oil/omega-3 fatty acids (PROMEGA;CARDI- OMEGA 3) 1000 MG capsule Take 1,000 mg [...] tablet Take 1 (one) tablet by mouth 05/06/2024 Active lisinopril (Prinivil; Zestril) 10 MG tablet Take 1 (one) tablet by mouth once daily Active diclofenac sodium EC (Voltaren) 75 MG tablet Take 1 (one) tablet by mouth 2 times daily 04/08/2024 Active cyclobenzaprine (Flexeril) 10 MG tablet TAKE 1 TABLET BY MOUTH NEEDED AT BEDTIME FOR 30 DAYS Active solifenacin (Vesicare) 5 MG tablet Take 1 (one) tablet by mouth once daily 90 tablet 4 07/28/2024 Active Active Problems Problem Noted Date Diagnosed Date Ovarian cyst during , antepartum 2020 Overview (02/02/2021): Referral to LOOP TACKER/ONC and ultrasound at [facility], referral placed 02/02 Assessment & Plan (12/22/2020 11:34 AM TIMBER ESTIMATOR): Complex right ovarian cyst identified today. 1. Recommend evaluation by LOOP TACKER pelvic ultrasound Supervision of high-risk of elderly [...] 12/08/2020 Assessment & Plan (12/22/2020 11:35 AM TIMBER ESTIMATOR): 1 lb wt loss since last consultation. [...] , limited weight gain is recommended. The [employer] Medicine recommends a total weight gain [...] 11/04/20. Assessment & Plan (12/22/2020 11:32 AM TIMBER ESTIMATOR): Blood pressure within goal range on Nifedipine [...] prevention of preeclampsia in at risk women ([place] DSR, 2008). There is no significant risk [...] echocardiogram: Assessment & Plan (12/22/2020 11:30 AM TIMBER ESTIMATOR): Wearing a glucose sensor. Interval improvement in BG since starting levemir. Still with elevated fasting and postprandial values. [place] reports that she is restricting carbs--still adjusting to new diet. Plan: 1. Maternal- Medicine to comanage diabetes 2. Perform 4-7 blood glucose measurements 3. Increase Lantus to 16 4. Please forward a copy of the [...] buspar Assessment & Plan (12/22/2020 11:31 AM TIMBER ESTIMATOR): Mood appropriate. Recommendations 1. Reminded to connect [...] deficiency Assessment & Plan (12/22/2020 11:33 AM TIMBER ESTIMATOR): Interval labs reviewed: vitamin D sufficient. 1. Continue vitamin D supplementation Assessment & Plan (12/08/2020 2:54 PM CDT): We discussed the relationship between vitamin D and immune support 1. Check vitamin D levels--requisition given 1. IF low increase supplementation to 5454-5768 IU daily Resolved Problems Problem Noted Date Diagnosed Date Resolved Date ventricular septal def ect in , antepartum, single gestation 03/30/2021 05/04/2021 20 weeks gestation of 12/20/2020 03/28/2021 Advanced maternal age, primi , antepartum 12/06/2020 12/22/2020 Encounters Date Type Department Care Team Description 07/28/2024 1:00 PM CDT Office Visit [facility] - [facility]rology [address] [place] [address] Alexa Wadsworth, ENVIRONMENTAL HEALTH AIDE-TRACK MECHANIC Mixed incontinence (Primary Dx); Stress incontinence 07/28/2024 [...] 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 on file Not on file Not [...] - 3-dose SCDM series) 07/13/2006 COVID-19 VACCINE (3 - 2023-2 5 season) [...] Procedure Name Priority Date/Time Associated Diagnosis Comments ID MSR PVR U&/BLADD CAPCTY US NON Routine 07/28/2024 1:45 PM CDT Mixed incontinence URINALYSIS AUTO - POINT OF CARE (AMB) [facility] Routine 07/28/2024 1:09 PM CDT Stress incontinence HEMOGLOBIN A1C 05/04/2021 11:05 AM CDT from Last 3 Months or Most Recently Relevant to Health Maintenance Results * ID MSR PVR U&/BLADD CAPCTY US NON (07/28/2024 1:45 PM CDT) Narrative Alexa Wadsworth APRN-NOREEN - 07/28/2024 1:45 PM CDT Alexa Wadsworth APRN-CNP 07/28/2024 1:50 PM PVR 34ml Alexa Wadsworth APRN-TRACK MECHANIC PROCEDURE/MINOR SURGICA L ORDERABLES Final Result * URINALYSIS AUTO - POINT OF CARE (AMB) [facility] (07/28/2024 1:09 PM CDT) Glucose UA NEG [facility] [address] Bilirubin UA POCT 2+ [address] [facility] [address] Ketones UA POCT 1+ 1.5 [facility] [address] Specific Sully UA 1.[address] [facility] [address] Blood [...] 07/28/2024 1 :09 PM CDT Alexa Wadsworth APRN-TRACK MECHANIC LAB - POINT OF CARE ORD ERABLES Final Result [facility] [address] [place] [address], [facility] [phone] * HEMOGLOBIN A1C (05/04/2021 11:05 AM CDT) [...] diagnosis of diabetes in children. According to [place] Diabetes Association (ADA) guidelines, hemoglobin A1c <7.0% represents optimal control in non- diabetic patients. Different metrics may apply to specific patient populations. Standards of Medical Care in Diabetes(ADA). Test Performed at: [facility] [address] ALBERTA CONNORS MD 05/04/2021 11:0 5 AM CDT 05/04/2021 11:07 AM CDT Ivette Lj ENVIRONMENTAL HEALTH AIDE-TRACK MECHANIC LAB - CHEMISTRY ORDERAB LES Final Result [address] [address] from Last 3 Months or Most Recently Relevant to Health Maintenance Insurance [facility]
--- OUTSIDE RECORDS SUMMARY | 2024-09-01 00:41 | XMS_ITS | Referral Summary ---
Author Organization [facility] Address [address] [place] [address] Care Team Providers Care Golf Caddy Name Role Phone Miscellaneous, Not In File [...] on file Legal Sex Female 7:23 PM ACID STRENGTH INSPECTOR Gender Identity Not on file Sexual Orientation Not on file Last Filed Vital Signs Vital Sign Reading Time Taken Comments Blood Pressure 158/96 01/23/2024 12:57 PM ACID STRENGTH INSPECTOR Pulse 89 01/23/2024 12:57 PM ACID STRENGTH INSPECTOR Temperature 37.1 C (98.8 F) 07/24/2018 5:59 PM CDT Respiratory Rate 18 07/24/2018 5:59 PM CDT Oxygen Saturation 100% 07/24/2018 5:59 PM CDT Inhaled Oxygen Concentration - - Weight 97.1 kg (214 lb) 01/23/2024 12:57 PM ACID STRENGTH INSPECTOR Height 165.1 cm (5' 5) 01/23/2024 12:57 PM ACID STRENGTH INSPECTOR Body Mass Index 35.61 01/23/2024 12:57 PM ACID STRENGTH INSPECTOR Plan of Treatment Not on file Insurance [facility] Care Teams Golf Caddy Relationship Specialty Start Date End Date Miscellaneous, Not In File PCP - General 07/19/18
--- OUTSIDE RECORDS SUMMARY | 2024-09-01 00:41 | XMS_ITS | Encounter Summary ---
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
--- OUTSIDE RECORDS SUMMARY | 2024-09-01 00:41 | XMS_ITS | Clinical Summary ---
Author Organization [facility] Address [address] [place] [address] Care Team Providers Care Addresser Name Role Phone Miscellaneous, Not In File [...] on file Legal Sex Female 7:23 PM AUTO WHEEL ALIGNMENT SPECIALIST Gender Identity Not on file Sexual Orientation Not on file Obstetrics History Last Filed Vital Signs Vital Sign Reading Time Taken Comments Blood Pressure 158/96 01/23/2024 12:57 PM AUTO WHEEL ALIGNMENT SPECIALIST Pulse 89 01/23/2024 12:57 PM AUTO WHEEL ALIGNMENT SPECIALIST Temperature 37.1 C (98.8 F) 07/24/2018 5:59 PM CDT Respiratory Rate 18 07/24/2018 5:59 PM CDT Oxygen Saturation 100% 07/24/2018 5:59 PM CDT Inhaled Oxygen Concentration - - Weight 97.1 kg (214 lb) 01/23/2024 12:57 PM AUTO WHEEL ALIGNMENT SPECIALIST Height 165.1 cm (5' 5) 01/23/2024 12:57 PM AUTO WHEEL ALIGNMENT SPECIALIST Body Mass Index 35.61 01/23/2024 12:57 PM AUTO WHEEL ALIGNMENT SPECIALIST Plan of Treatment Health Maintenance Due Date Last Done Comments Breast Cancer Screening-Mammogram 1979 Cervical Cancer Screening 1979 Colon Cancer Screening-Colonoscopy 1979 Depression Screening 1979 Hepatitis C Screening 1979 Varicella Vaccines (1 of 2 - 13+ 2-dose series) 07/13/1992 Regular Well Visit/Exam 18-64 07/13/1997 HPV Vaccines (1 - 3-dose SCDM series) 07/13/2006 Covid-19 Vaccine ( season) 2023 02/02/2021, 05/07/2020, 04/13/2020 Influenza Vaccine (#1) 2024 DTaP/Tdap/Td Vaccine (8 - Td or Tdap) 04/14/2031 04/13/2021, 07/03/2017, 09/06/1993, Additional history exists Hepatitis B Screening Completed 09/16/2020 , 10/07/2019, 03/05/2019 Pneumococcal vaccine <65 Aged Out No longer eligible based on patient's age to complete this topic Insurance [facility] Care Teams Addresser Relationship Specialty Start Date End Date Miscellaneous, Not In File PCP - General 07/19/18
[2024-09-01 11:19] VITALS: BP 134/76; PULSE 84; RESP 16; TEMP 36.4; O2SAT 98
--- NOTE | 2024-09-01 11:39 | WPDHPUPDATE1 ---
History and Physical Update Update Date/Time: 09/01/24 11:39 History and Physical has been reviewed, including an updated exam of the patient. There are NO changes in the patient's condition. Risks, benefits, and alternatives have been discussed and questions answered. Patient agrees to proceed with procedure.
--- NOTE | 2024-09-01 11:40 | PM.HPGS ---
History of Present Illness History of Present Illness Consent: Risks, benefits, and alternatives have been discussed and questions answered. Patient agrees to proceed with procedure. Chief complaint: sacroiliitis Narrative: Kalyn Edouard is a 44 year old female with chronic, recalcitrant and disabling bilateral sacral low back pain secondary to degenerative spondylosis, sacroiliac joint arthropathy with failure to respond to aggressive conservative measures including PT, oral and topical analgesics, opioid and nonopioid analgesics, rest, time and activity/behavioral modification over the past 1-2 years who presents for therapeutic intra-articular corticosteroid injection of the bilateral sacroiliac joints under fluoroscopic guidance and with contrast control. Review of Systems Review of Systems: All systems reviewed & are unremarkable except as noted in HPI and below PMFSH Past Medical History Medical History Bladder prolapse Hypertension Diabetes mellitus Anxiety Surgical History Surgical History History of section [place] teeth extracted History of cholecystectomy History of carpal tunnel surgery 2002? bilateral Family History Family History Grandparent Cerebrovascular accident Heart problem Grandparent Diabetes mellitus Social History Social History Social History: Caffeine-tea occasionally Smoking status: Never smoker Second hand tobacco smoke exposure: No Alcohol intake: never Substance use: never Substance use type: does not use Do You Feel Safe in your Home?: Yes Lack of Transportation: No Lack of Food: Never True Current Housing: I Have Housing Concerned About Future Housing: No Difficulty Paying Gas/Electric Bills: No Difficulty Paying for Meds: No Currently Unemployed: No Education: High School Diploma/GED Difficulty w/ Childcare or Family Care: No Living arrangements: with family Occupation/Education: unemployed Gender identity (if verbalized by the patient): Female Sexual Orientation (if Verbalized by the Patient): Straight or Heterosexual Spiritual care concerns: No Agree to blood products: Yes Meds Home Medications and Allergies Home Medications ?Medication ?Instructions ?Recorded ?Confirmed ?Type cyclobenzaprine 10 mg tablet 10 mg PO TID PRN muscle spasm #60 12/31/23 08/27/24 Rx tabs atorvastatin 10 mg tablet (Lipitor) 10 mg PO QHS #90 tabs 05/06/24 09/01/24 Rx buspirone 15 mg tablet 15 mg PO BID #180 tabs 06/26/24 09/01/24 Rx lisinopril 10 mg tablet 10 mg PO DAILY #90 tabs 06/26/24 09/01/24 Rx metoprolol succinate 100 mg 100 mg PO DAILY #90 tabs 06/26/24 09/01/24 Rx tablet,extended release 24 hr omega 7-hxd-kod-fish oil 1,200 mg 1 cap PO DAILY 07/02/24 09/01/24 History (144 mg-216 mg) capsule (Fish Oil) vitamin#30 30 mg iron-10 1 cap PO DAILY #90 caps 07/15/24 09/01/24 Rx mg iron-folic acid 1 mg-omg3 capsule solifenacin 5 mg tablet 5 mg PO DAILY 08/06/24 09/01/24 History metformin 500 mg tablet,extended 500 mg PO BID #180 tabs 08/11/24 09/01/24 Rx release 24 hr (Glucophage XR) Allergies Allergy/AdvReac Type Severity Reaction Status Date / Time No Known Allergies Allergy Verified 09/01/24 11:15 Vital Signs Vital Signs - 24 hr 09/01/24 11:19 Temperature 97.5 F L Pulse Rate 84 Respiratory Rate 16 Blood Pressure 134/76 Pulse Oximetry 98 Oxygen Delivery Room Air Exam Narrative: The patient's physical exam is essentially unchanged from prior examination on 07/29/2024. Specifically, patient demonstrates normal lung capacity, tidal volume and respiratory rate without wheezes, crackles, rales or rubs. Heart rate and rhythm are regular without murmurs, gallops or rubs. No JVD. Pulses 2+ globally without increasing peripheral edema. AAOx3 with no evidence of confusion, intoxication or altered mental state, NC/AT without acute distress or altered consciousness. Speech, cognition, mood, insight and judgment at baseline and within normal limits. Assessment and Plan Assessment and plan (1) Dorsalgia of lumbar region: Code(s): M54.50 - Low back pain, unspecified Status: Acute (2) Arthropathy of sacroiliac joint: Code(s): M47.818 - Spondylosis without myelopathy or radiculopathy, sacral and sacrococcygeal region Status: Acute (3) Bilateral sacroiliitis: Code(s): M46.1 - Sacroiliitis, not elsewhere classified Status: Acute Assessment and Plan: Proceed as planned with therapeutic intra-articular sacroiliac joint steroid injection under fluoroscopic guidance bilaterally.
--- NOTE | 2024-09-01 11:43 | W.PM.PROC2 ---
Procedure Note - Detailed Date of Procedure 09/01/24 Pre-op Diagnosis sacroiliitis Post-op Diagnosis Same Procedure Performed Bilateral Sacroiliac Joint Steroid Injection under Fluoroscopic Guidance and with Contrast Control. Surgeon Say Mckinney MD Tractor Technician None Anesthesia Local Description of Procedure INFORMED CONSENT: Risks, benefits and alternatives to the procedure were discussed in detail with the patient who expressed explicit understanding and consent to proceed. Patient was informed verbally and in written form regarding the risks associated with the procedure including the low risk of serious infection, bleeding/bruising, allergic reaction, nerve or organ injury, paralysis, procedural site pain or discomfort, worsening pain and/or mobility, failure to treat and/or disfigurement. The patient expressed explicit understanding and consent to proceed. All materials required for the procedure were available prior to procedure start. Site and side were marked prior to procedure and confirmed in the presence of the patient. PROCEDURE IN DETAIL: The patient was brought to the procedural suite and placed in the prone position. Patient was made comfortable with use of pillows under the head/chest, hips and ankles. Skin overlying the injection site on the affected side(s) was prepared broadly with ChloraPrep applicator and draped in a sterile manner. Aseptic technique was used throughout. The right SI joint was identified in the AP view and contralateral oblique angulation with caudal tilt was utilized to optimize visualization of the inferior and medial joint line representing the posterior portion of the joint. Local anesthesia was established by infiltration with approximately 5 mL of 2% lidocaine via a 1-1/2 inch 27-gauge needle. A 22-gauge 3.5 inch Quincke spinal needle was advanced until the needle entered the inferior third of the joint space approximately 1cm cephalad from its most inferior point. In the AP view, 0.5 mL of Omnipaque 300 contrast medium was injected after negative aspiration for CSF, blood or other bodily fluid, showing appropriate intra-articular spread of contrast without evidence of intravascular, perineural or intrathecal placement. A 1.5 mL solution containing 5 mg of dexamethasone in 0.5% PF bupivacaine was injected after repeat negative aspiration. Appropriate spread of the injectate was confirmed with washout of previous injected contrast. No parasthesias were elicited. Needle was removed completely intact without difficulty. The same exact procedure was repeated for all remaining levels on the contralateral side, left SI joint, modified as necessary to accommodate for the new target location with identical findings/results and no evidence of complication. Images were saved and documented in the patient chart. Patient's skin was cleansed and sterile bandage applied. The patient tolerated the procedure well. The patient was transported to the recovery area in stable condition where they were observed for an appropriate amount of time prior to discharge, without evidence of complication. The patient was instructed to avoid excessive activity for the next 48 hours, including climbing and frequent use of stairs. Showers only for 48 hours. They were instructed not to drive or operate heavy machinery for 24 hours. They are to monitor for severe headaches, fevers, chills, night sweats, erythema/swelling at the site or any other signs of infection, bleeding/bruising, bowel or bladder changes as well as new pain, weakness or numbness in the upper or lower extremity. Should they notice these changes, they are instructed to call our office immediately or report directly to the nearest Emergency Department if no answer or if after posted office hours. COMPLICATIONS: None COMMENTS: None CONTRAST WASTED: 29mL Omnipaque 300. Complications No immediate complications Condition Stable Disposition Same day [facility] Billing Surgery - Charge Forward: Surgery Billing
[2024-09-01 12:03] VITALS: BP 142/81; PULSE 78; RESP 16; O2SAT 98
[2024-09-01] MEDS: LIDOCAINE 1% PF INJ 5 ML VIAL 2 ML INFILTRATE (12:07)
[2024-09-01] MEDS: dexAMETHasone SOD PHOS INJ 10 MG/ML 1 ML VIAL XX (12:07)
[2024-09-01] MEDS: LIDOCAINE 2% PF LOCAL INJ 5 ML VIAL 2 ML INFILTRATE (12:08)
[2024-09-01 12:10] VITALS: BP 144/77; PULSE 79; RESP 16; O2SAT 98
[2024-09-01 12:14] VITALS: BP 132/73; PULSE 84
== END 2024-09-01 12:40 | disposition home or self-care (01) ==
PROVIDERS: PCP Family Medicine; Visit Provider Anesthesiology Pain Medicine
PROC: (CPT 27096; principal; 2024-09-01 12:00)
DX: M46.1 Sacroiliitis, not elsewhere classified (principal); M47.818 Spondylosis without myelopathy or radiculopathy, sacral and sacrococcygeal region
CPT/HCPCS: 27096; 99199; J1100; J2003; Q9965

== ENCOUNTER 2024-10-20 08:56 | Day surgery (SDC) | payer OTHER, SELFPAY ==
[2024-10-13 12:36] VITALS: BMI 36.3
--- NOTE | ~2024-10-20 | XR_ITS ---
XR fluoroscopy no charge Indication:bilateral L3, L4 and L5 medial branch/dorsal ramus nerve block TECHNIQUE: Fluoroscopy used during bilateral L3, L4 and L5 medial branch/dorsal ramus nerve block performed by [Say Mckinney MD] on 10/20/2024. 21 seconds of fluoroscopy with 10 fluoroscopic images captured. FINDINGS: Correlate with procedure note. IMPRESSION: Fluoroscopy used during bilateral L3, L4 and L5 medial branch/dorsal ramus nerve block. Reviewed, dictated and finalized at location O. IMPRESSION: Fluoroscopy used during bilateral L3, L4 and L5 medial branch/dorsa l ramus nerve block.
[2024-10-20 09:15] VITALS: BP 118/77; PULSE 79; RESP 18; TEMP 36.6; O2SAT 99
--- NOTE | 2024-10-20 09:15 | WPDHPUPDATE1 ---
History and Physical Update Update Date/Time: 10/20/24 09:15 History and Physical has been reviewed, including an updated exam of the patient. There are NO changes in the patient's condition. Risks, benefits, and alternatives have been discussed and questions answered. Patient agrees to proceed with procedure.
--- NOTE | 2024-10-20 09:16 | P.OP_ITS ---
Procedure Note - Detailed Date of Procedure 10/20/24 Pre-op Diagnosis Lumbosacral spondylosis, chronic low back pain Post-op Diagnosis Same Procedure Performed Diagnostic bilateral Lumbar Medial Branch/Dorsal Ramus Blocks at L3, L4, L5 T reating the bilateral L4-5, L5-S1 Facet Joints Under Fluoroscopic Guidance and with Contrast Control. (4 levels blocked). Surgeon Say Mckinney MD Ammunition Assembly I Laborer None. Anesthesia Local Description of Procedure INFORMED CONSENT: Risks, benefits and alternatives to the procedure were discussed in detail with the patient who expressed explicit understanding and consent to proceed. Patient was informed verbally and in written form regarding the risks associated with the procedure including the low risk of serious infection, bleeding/bruising, allergic reaction, nerve or organ injury, paralysis, procedural site pain or discomfort, worsening pain and/or mobility, failure to treat and/or disfigurement. The patient expressed explicit understanding and consent to proceed. All materials required for the procedure were available prior to procedure start. Site and side were marked prior to procedure and confirmed in the presence of the patient. PROCEDURE IN DETAIL: The patient was brought to the procedural suite and placed in the prone position. Patient was made comfortable with use of pillows under the head/chest, hips and ankles. Skin overlying the injection site on the affected side(s) was prepared broadly with ChloraPrep applicator and draped in a sterile manner. Aseptic technique was used throughout. The endplates of the vertebral bodies at the site(s) of interest were aligned in the AP view. Ipsil ateral oblique angulation was utilized to optimize visualization of the intersection between the superior articulating process and transverse process at each target site. Local anesthesia was established by infiltration with approximately 5 mL of 1% lidocaine via a 1-1/2 inch 27-gauge needle. A 25-gauge 5.0 inch Quincke spinal needle was advanced until the needle tip contacted periosteum at the target site, right L3. Lateral view was utilized to confirm the appropriate placement of the needle tip just anterior to the facet line and superior to the pedicle. In the Lateral view, 0.25 mL of Omnipaque 300 contrast medium was injected after negative aspiration for CSF, blood or other bodily fluid, showing appropriate extra-articular spread of contrast without evidence of intravascular, foraminal or intrathecal placement. A 0.5 mL solution of 0.5% PF bupivacaine was injected after negative repeat aspiration. Appropriate spread of the injectate was confirmed with washout of previously injected contrast. No parasthesias were elicited. Needle was removed completely intact without difficulty. The same exact procedure was repeated for all remaining levels on the ipsilateral side, right L4, L5 medial branches/dorsal ramus, modified as necessary to accommodate for the new target location with identical findings and results and no evidence of complication. The same exact procedure was repeated for all remaining levels on the contralateral side, left L3, L4, L5 medial branches/dorsal ramus, modified as necessary to accommodate for the new target location with identical findings and results and no evidence of complication. Images were saved and documented in the patient chart. Patient's skin was cleaned and sterile bandage applied. The patient tolerated the procedure well. The patient was transported to the recovery area in stable condition where they were observed for an appropriate amount of time prior to discharge, without evidence of complication. Patient was instructed on the appropriate completion of a pain diary over the next 12-24 hours. The patient was instructed to avoid excessive activity for the next 48 hours, including climbing and frequent use of stairs. Showers only for 48 hours. They were instructed not to drive or operate heavy machinery for 24 hours. They are to monitor for severe headaches, fevers, chills, night sweats, erythema/swelling at the site or any other signs of infection, bleeding/bruising, bowel or bladder changes as well as new pain, weakness or numbness in the upper or lower extremity. Should they notice these changes, they are instructed to call our office immediately or report directly to the nearest Emergency Department if no answer or if after posted office hours. COMPLICATIONS: None COMMENTS: None CONTRAST WASTED: 28.5mL Omnipaque 300. Complications No immediate complications Condition Stable Disposition Same day [facility] Billing Surgery - Charge Forward: Surgery Billing
[2024-10-20 09:27] VITALS: BP 143/70; PULSE 79; RESP 20; O2SAT 96
[2024-10-20] MEDS: BUPivacaine HCL 0.5% 10 ML AMP 5 ML INFILTRATE (09:29)
[2024-10-20] MEDS: LIDOCAINE 1% PF INJ 5 ML VIAL INFILTRATE (09:29)
[2024-10-20 09:37] VITALS: BP 137/76; PULSE 77; RESP 22; O2SAT 98
--- OUTSIDE RECORDS SUMMARY | 2024-10-20 09:37 | XMS_ITS | Clinical Summary ---
Author Organization [facility] Address [address] [place] [address] Phone Care Team Providers Care Family Physician Name Role Phone Clarisse Baez DO Primary Care Provider [phone] Goldy Rivera APRN, BASTING MARKER Unavailable + [phone] Allergies No known active allergies Medications metFORMIN [...] Take 100 mg by mouth daily. Active Family History Medical History Relation Name Comments [...] on file Legal Sex Female 2:50 PM ACTUARIAL MATHEMATICIAN Gender Identity Not on file Sexual Orientation [...] Screening 1979 Mammogram 1979 Pap Smear 07/13/2000 Human Papillomavirus (HPV) Immunization (1 - 3-dose SCDM series) 07/13/2006 Cervical Cancer Screening (CCS) 07/13/2009 HPV/Cotest 07/13/2009 Discussion re Starting/Frequency of Mammograms 2019 Cologuard 07/13/2024 Colonoscopy 07/13/2024 Colorectal Cancer Screening 07/13/2024 Immunochemical Fecal Occult Blood 07/13/2024 Influenza Immunization (#1) 2024 SARS-COV-2 Immunization ( season) 2024 02/02/2021, 05/07/2020, 04/13/2020 Respiratory Syncytial Virus (RSV) [...] age to complete this topic Insurance [employer] [place] Care Teams Family Physician Relationship Specialty Start Date End Date Clarisse Baez DO [address] [place] [address] PCP - General Family Medicine 02/26/24 Goldy Rivera, AWAKE OVERNIGHT COUNSELOR, BASTING MARKER [address] [place] [address] Nurse Practitioner Advanced Practice Nurse 05/23/24
--- OUTSIDE RECORDS SUMMARY | 2024-10-20 09:38 | XMS_ITS | Clinical Summary ---
Author Organization [facility] Address [address] [place] [address] Care Team Providers Care Marine Equipment Preservation Inspector Name Role Phone Miscellaneous, Not In [...] on file Legal Sex Female 7:23 PM CONGRESSIONAL ASSISTANT Gender Identity Not on file Sexual Orientation Not on file Obstetrics History Last Filed Vital Signs Vital Sign Reading Time Taken Comments Blood Pressure 158/96 01/23/2024 12:57 PM CONGRESSIONAL ASSISTANT Pulse 89 01/23/2024 12:57 PM CONGRESSIONAL ASSISTANT Temperature 37.1 C (98.8 F) 07/24/2018 5:59 PM CDT Respiratory Rate 18 07/24/2018 5:59 PM CDT Oxygen Saturation 100% 07/24/2018 5:59 PM CDT Inhaled Oxygen Concentration - - Weight 97.1 kg (214 lb) 01/23/2024 12:57 PM CONGRESSIONAL ASSISTANT Height 165.1 cm (5' 5) 01/23/2024 12:57 PM CONGRESSIONAL ASSISTANT Body Mass Index 35.61 01/23/2024 12:57 PM CONGRESSIONAL ASSISTANT Plan of Treatment Health Maintenance Due Date Last Done Comments Breast Cancer Screening-Mammogram 1979 Cervical Cancer Screening 1979 Colon Cancer Screening-Colonoscopy 1979 Depression Screening 1979 Hepatitis C Screening 1979 Varicella Vaccines (1 of 2 - 13+ 2-dose series) 07/13/1992 Regular Well Visit/Exam 18-64 07/13/1997 HPV Vaccines (1 - 3-dose SCDM series) 07/13/2006 Covid-19 Vaccine ( season) 2024 02/02/2021, 05/07/2020, 04/13/2020 Influenza Vaccine (#1) 2024 DTaP/Tdap/Td Vaccine (8 - Td or Tdap) 04/14/2031 04/13/2021, 07/03/2017, 09/06/1993, Additional history exists Hepatitis B Screening Completed 09/16/2020 , 10/07/2019, 03/05/2019 Pneumococcal vaccine <65 Aged Out No longer eligible based on patient's age to complete this topic Insurance [facility] Care Teams Marine Equipment Preservation Inspector Relationship Specialty Start Date End Date Miscellaneous, Not In File PCP - General 07/19/18
--- OUTSIDE RECORDS SUMMARY | 2024-10-20 09:38 | XMS_ITS | Encounter Summary ---
Author Organization [facility] Address [address] [place] [address] Phone Care Team Providers Care Pond Scaler Name Role Phone Miscellaneous, Not In File [...] file Legal Sex Female 7:23 PM MANAGER OF PROCUREMENT Gender Identity Not on file Sexual Orientation [...] on filedocumented in this encounter Care Teams Pond Scaler Relationship Specialty Start Date End Date Miscellaneous, Not In File PCP - General 07/19/18 documented as of this encounter
--- OUTSIDE RECORDS SUMMARY | 2024-10-20 09:38 | XMS_ITS | Clinical Summary ---
Author Organization [facility] Address [address] [place] [address] Care Team Providers Care Sap Trainer Name Role Phone Unavailable Primary Care Provider Unavailabl e Source Comments [facility],non-owned Affiliates and Associated Physician Practices is amultiple site organization consisting of ambulatory clinics and hospital sitesin [place], [place], [place] and [place]. This disclosure is being madepursuant to the Care Everywhere program and may not contain all information available regarding this patient. Last updated 17.[facility] [place] Allergies No known active allergies Medications * [...] , antepartum 2020 Overview (02/02/2021): Referral to TANK CAR RECONDITIONER/ONC and ultrasound at [facility], referral placed 02/02 Assessment & Plan (12/22/2020 11:34 AM CROWN IRONER OPERATOR): Complex right ovarian cyst identified today. 1. Recommend evaluation by TANK CAR RECONDITIONER pelvic ultrasound Supervision of high-risk of elderly [...] 12/08/2020 Assessment & Plan (12/22/2020 11:35 AM CROWN IRONER OPERATOR): 1 lb wt loss since last [...] , limited weight gain is recommended. The [employer] of [employer] recommends a total weight gain [...] 11/04/20. Assessment & Plan (12/22/2020 11:32 AM CROWN IRONER OPERATOR): Blood pressure within goal range on [...] echocardiogram: Assessment & Plan (12/22/2020 11:30 AM CROWN IRONER OPERATOR): Wearing a glucose sensor. Interval improvement [...] buspar Assessment & Plan (12/22/2020 11:31 AM CROWN IRONER OPERATOR): Mood appropriate. Recommendations 1. Reminded to [...] deficiency Assessment & Plan (12/22/2020 11:33 AM CROWN IRONER OPERATOR): Interval labs reviewed: vitamin D sufficient. 1. Continue vitamin D supplementation Assessment & Plan (12/08/2020 2:54 PM CDT): We discussed the relationship between vitamin D and immune support 1. Check vitamin D levels--requisition given 1. IF low increase supplementation to 4440-6670 IU daily Resolved Problems Problem Noted Date Diagnosed Date Resolved Date ventricular septal def ect in , antepartum, single gestation 03/30/2021 05/04/2021 20 weeks gestation of 12/20/2020 03/28/2021 Advanced maternal age, primi , antepartum 12/06/2020 12/22/2020 Encounters Date Type Department Care Team Description 07/28/2024 1:00 PM CDT Office Visit [facility] - Urology [address] [place] [address] Alexa Wadsworth, RIVET SORTER-COFFEE SUPERVISOR Mixed incontinence (Primary Dx); Stress incontinence 07/28/2024 Travel from Last 3 Months Family History [...] 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 Not on file Not [...] VACCINE (1 - 3-dose SCDM series) 07/13/2006 DEPRESSION SCREENING 02/06/2024 SCREENING FOR DIABETES 07/28/2024 2, 03/02/2021, 12/22/2020 COVID-19 VACCINE (3 - 2024-2 6 season) 2024 05/07/2020, 04/13/2020 INFLUENZA VACCINE (#1) 2024 ZOSTER VACCINE (1 [...] Procedure Name Priority Date/Time Associated Diagnosis Comments NE MSR PVR U&/BLADD CAPCTY US NON Routine 07/28/2024 1:45 PM CDT Mixed incontinence URINALYSIS AUTO - POINT OF CARE (AMB) [facility] Routine 07/28/2024 1:09 PM CDT Stress incontinence HEMOGLOBIN A1C 05/04/2021 11:05 AM CDT from Last 3 Months or Most Recently Relevant to Health Maintenance Results * NE MSR PVR U&/BLADD CAPCTY US NON (07/28/2024 1:45 PM CDT) Narrative Alexa Wadsworth, RIVET SORTER-COFFEE SUPERVISOR - 07/28/2024 1:45 PM CDT Alexa Wadsworth, JOSE-NOREEN 07/28/2024 1:50 PM PVR 34ml Alexa Wadsworth APRN-COFFEE SUPERVISOR PROCEDURE/MINOR SURGICA L ORDERABLES Final Result * URINALYSIS AUTO - POINT OF CARE (AMB) [facility] (07/28/2024 1:09 PM CDT) Glucose UA NEG [facility] [address] Bilirubin UA POCT 2+ 35 [facility] [address] Ketones UA POCT 1+ 1.5 [facility] [address] Specific [place] UA 1.[address] [facility] [address] Blood [...] 07/28/2024 1 :09 PM CDT Alexa Wadsworth APRN-COFFEE SUPERVISOR LAB - POINT OF CARE ORD ERABLES Final Result [facility] [address] [place] [address], [facility] [phone] * HEMOGLOBIN A1C (05/04/2021 11:05 AM CDT) [...] diagnosis of diabetes in children. According to [place] Diabetes Association (ADA) guidelines, hemoglobin A1c <7.0% represents optimal control in non- diabetic patients. Different metrics may apply to specific patient populations. Standards of Medical Care in Diabetes(ADA). Test Performed at: [facility] [address] ALBERTA CONNORS MD 05/04/2021 11:0 5 AM CDT 05/04/2021 11:07 AM CDT Ivette Lj RIVET SORTER-COFFEE SUPERVISOR LAB - CHEMISTRY ORDERAB LES Final Result [address] [id number] from Last 3 Months or Most Recently Relevant to Health Maintenance Insurance [facility]
--- OUTSIDE RECORDS SUMMARY | 2024-10-20 09:38 | XMS_ITS | Encounter Summary ---
Author Organization [facility] Address [address] [place] [address] Phone Care Team Providers Care Director Of Parks And Recreation Name Role Phone Miscellaneous, Not In File Primary Care Provider Unavailable Encounter Details Date Type Department Care Team (Late st Contact Info) Description 05/07/2024 Orders Only [facility] Scanning, Provider Social History Tobacco Use Types Packs/Day Years Used Date Smoking Tobacco: Never Comments No Sex and Gender Information Value Date Recorded Sex Assigned at Not on file Legal Sex Female 7:23 PM EYELET OPERATOR Gender Identity Not on file Sexual [...] on filedocumented in this encounter Care Teams Director Of Parks And Recreation Relationship Specialty Start Date End Date Miscellaneous, Not In File PCP - General 07/19/18 documented as of this encounter
[2024-10-20 09:45] VITALS: BP 137/75; PULSE 78; RESP 16; O2SAT 98
== END 2024-10-20 09:54 | disposition home or self-care (01) ==
PROVIDERS: PCP Family Medicine; Visit Provider Anesthesiology Pain Medicine
PROC: (CPT 64493; principal; 2024-10-20 09:50)
DX: M47.817 Spondylosis without myelopathy or radiculopathy, lumbosacral region (principal); M54.50 Low back pain, unspecified; G89.29 Other chronic pain
CPT/HCPCS: 64493 ×2; 64494 ×2; 64495 ×2; 99199

== ENCOUNTER 2024-12-18 11:15 | Outpatient (RCR) | payer OTHER, SELFPAY ==
--- NOTE | 2024-10-02 11:22 | OTOPEVAL1 ---
Assessment and note entered by Parag Ennis, OTR/[place], CHT OT Evaluation Information Assessment Status Evaluation Diagnosis Carpal tunnel syndrome, bilateral upper limbs ICD-10 Condition Codes (OT) Pain in right hand M79.641 Subjective Information Patient reports she had bilateral carpal tunnel release ~20 years ago. She underwent revision of the right carpal tunnel in July. During that time she also had A1 courtney release of the right thumb and right cubital tunnel release. She is reporting constant pain, pointing to the carpal tunnel scar sight and thenar eminence. She reports difficulties with all (R)/dominant hand use - difficulties with gripping, pinching to pull pants up, pinching to button, and using a knife. Reported Pain Level Pain Score 2: Self Report Additional Pain Score Comments always 2/10 9/10 when she banged her hand on a desk with ADLs the pain gets up to 6-7/10 Assessment OT Clinical Summary Patient referred to OT following right open carpal tunnel release revision and A1 courtney release of the right thumb. She presents with residual pain, weakness, swelling, and tightness of the right wrist and thumb, which is affecting her ability to use her right/dominant UE for ADLs. Skilled OT indicated to maximize functional ROM/flexibility and strength for improved hand use for ADLs. Plan of Care Interventions Therapeutic Exercise,Manual Therapy,Neuro Re- education,Therapeutic Activities,Hot Pack/Cold Pack,Ultrasound,Paraffin OT Services Indicated Yes Treatment Frequency and 2x/week for 6 visits Duration (limited to 6 visits due to insurance) These treatments will address the objective and functional deficits as defined above. The patient will be advanced safely and appropriately in order for the patient to progress towards his/her prior level of function. Additional exercises will be introduced and as well as a comprehensive home exercise program upon discharge, if needed, ?to ensure carryover of functional gains achieved in the clinic. This treatment plan has been reviewed and agreement upon by the patient.
--- NOTE | 2024-10-02 11:23 | OPREHPOC ---
Outpatient Therapy Plan of Care This is a Multidisciplinary Plan of Care that may contain components documented by all disciplines (PT, OT, and ST.) OT Problem 1 OT Problem #1 Knowledge Deficit OT Goal 1 Goal / Goal Update 1. Patient to be independent with instructed materials. Target Visit 6 OT Problem 2 OT Problem #2 Pain OT Goal 1 Goal / Goal Update 1. Patient to report reduced (R) hand pain to 2/10 or less with ADLs. Target Visit 6 OT Problem 3 OT Problem #3 Impaired Flexibility OT Goal 1 Goal / Goal Update 1. Patient to improve functional flexibility of the right wrist for improved tissue mobility and improved ROM for ADLs as measured by increasing (R ) wrist extension from 15 degrees to 40 degrees. Target Visit 6 OT Problem 4 OT Problem #4 Impaired Strength OT Goal 1 Goal / Goal Update 1. Patient to increase functional strength of the right hand to return to functional gripping/ pinching for ADLs as measured by being able to progress to gonzalez putty for supervisor furnace room/pinch strengthening . 2. Patient to increase (R) wrist strength for ADLs as measured by being able to complete strengthening with 1 lb. free weight x20 reps in all planes. Target Visit 6
--- NOTE | 2024-10-21 13:57 | OTOPEVAL1 ---
Assessment and note entered by ROLANDA Alba/[place], RAMESH OT Progress Update 10/21/24 Assessment Status Progress Diagnosis Carpal tunnel syndrome, bilateral upper limbs ICD-10 Condition Codes (OT) Pain in right hand M79.641 Subjective Information HPI: Patient reports she had bilateral carpal tunnel release ~20 years ago. She underwent revision of the right carpal tunnel in July. During that time she also had A1 courtney release of the right thumb and right cubital tunnel release. She has been compliant with HEP. She reports some progress with being able to pinch and pull her pants up, progress with reduced swelling, and improved flexibility. She reports she experiences relief after a therapy session, but the pain comes back. 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 Reported Pain Level Pain Score 4: Self Report Additional Pain Score Comments Patient reports 5/10 pain on average with light ADLs Assessment OT Clinical Summary Patient referred to OT following right open carpal tunnel release revision and A1 courtney release of the right thumb. She is progressing with functional ROM/flexibility, improved tolerance with therapy/exercise, and improved pinch during ADLs. She continues to experience residual weakness, pain, and paresthesia that continues to be limiting for ADLs that involve gripping, lifting, carrying, or squeezing. Continued skilled OT indicated to maximize functional use of her right, dominant hand. Plan of Care Interventions Therapeutic Exercise,Manual Therapy,Neuro Re- education,Therapeutic Activities,Hot Pack/Cold Pack,Ultrasound,Paraffin OT Services Indicated Yes Treatment Frequency and 2x/week for 6 visits Duration These treatments will address the objective and functional deficits as defined above. The patient will be advanced safely and appropriately in order for the patient to progress towards his/her prior level of function. Additional exercises will be introduced and as well as a comprehensive home exercise program upon discharge, if needed, ?to ensure carryover of functional gains achieved in the clinic. This treatment plan has been reviewed and agreement upon by the patient.
--- NOTE | 2024-10-21 13:57 | OPREHPOC ---
Outpatient Therapy Plan of Care This is a Multidisciplinary Plan of Care that may contain components documented by all disciplines (PT, OT, and ST.) OT Problem 1 OT Problem #1 Knowledge Deficit OT Goal 1 Goal / Goal Update 1. Patient to be independent with instructed materials. ---OT POC UPDATE 10/21/24--- 1. Met, continue as HEP is progressed Target Visit 12 OT Problem 2 OT Problem #2 Pain OT Goal 1 Goal / Goal Update 1. Patient to report reduced (R) hand pain to 2/10 or less with ADLs. ---OT POC UPDATE 10/21/24--- 1. Progressing, but not met, continue goal Target Visit 12 OT Problem 3 OT Problem #3 Impaired Flexibility OT Goal 1 Goal / Goal Update 1. Patient to improve functional flexibility of the right wrist for improved tissue mobility and improved ROM for ADLs as measured by increasing (R ) wrist extension from 15 degrees to 40 degrees. ---OT POC UPDATE 10/21/24--- 1. Met Target Visit 12 OT Problem 4 OT Problem #4 Impaired Strength OT Goal 1 Goal / Goal Update 1. Patient to increase functional strength of the right hand to return to functional gripping/ pinching for ADLs as measured by being able to progress to gonzalez putty for charge nurse/pinch strengthening . 2. Patient to increase (R) wrist strength for ADLs as measured by being able to complete strengthening with 1 lb. free weight x20 reps in all planes. ---OT POC UPDATE 10/21/24--- 1. Met, progress to red 2. Progressing, but not met, continue Target Visit 12
--- NOTE | 2024-11-19 15:29 | OTOPPROG ---
Assessment and note entered by ROLANDA Alba/[place], RAMESH OT Progress Update 11/19/24 Assessment Status Progress Diagnosis Carpal tunnel syndrome, bilateral upper limbs ICD-10 Condition Codes (OT) Pain in right hand M79.641 Subjective Information HPI: Patient reports she had bilateral carpal tunnel release ~20 years ago. She underwent revision of the right carpal tunnel in July. During that time she also had A1 courtney release of the right thumb and right cubital tunnel release. Patient reports limited functional progress this past month. She reports she had 2 weeks of feeling really good, able to tolerate strengthening. Then she feels like the last 2 weeks she has stalled with progress and has been experiencing more pain. She notes overall her thumb feels more flexible, however she notes she continues to have moderate amounts of pain and tingling that limit hand use for gripping and pinching. She reports she continues to be unable to open a jar. She states she has not been able to cut a watermelon or carve a pumpkin. She reports she gets relief from therapy sessions, but the pain comes back. Assessment OT Clinical Summary Patient referred to OT following right open carpal tunnel release revision and A1 courtney release of the right thumb. She is progressing with functional ROM/flexibility. The thumb is moving through more normal ROM and she is experiencing an easier time with functional pinching. She demonstrates fluctuating abilities with therapy tolerance, specially with gripping and wrist strengthening due to residual carpal tunnel pain and paresthesia. She will have good days and bad days depending on activity levels. She responds well to use of modalities and manual therapy. She continues to experience residual weakness, pain, and paresthesia that continues to be limiting for ADLs that involve gripping, lifting, carrying, or squeezing. Continued skilled OT indicated to maximize functional use of her right, dominant hand. Plan of Care Interventions Therapeutic Exercise,Manual Therapy,Neuro Re- education,Therapeutic Activities,Hot Pack/Cold Pack,Ultrasound,Paraffin OT Services Indicated Yes Treatment Frequency and 2x/week for 6 visits Duration These treatments will address the objective and functional deficits as defined above. The patient will be advanced safely and appropriately in order for the patient to progress towards his/her prior level of function. Additional exercises will be introduced and as well as a comprehensive home exercise program upon discharge, if needed, ?to ensure carryover of functional gains achieved in the clinic. This treatment plan has been reviewed and agreement upon by the patient.
--- NOTE | 2024-11-19 15:29 | OPREHPOC ---
Outpatient Therapy Plan of Care This is a Multidisciplinary Plan of Care that may contain components documented by all disciplines (PT, OT, and ST.) OT Problem 1 OT Problem #1 Knowledge Deficit OT Goal 1 Goal / Goal Update 1. Patient to be independent with instructed materials. ---OT POC UPDATE 10/21/24--- 1. Met, continue as HEP is progressed ---OT POC UPDATE 11/19/24--- 1. Met, continue as HEP is progressed Target Visit 18 OT Problem 2 OT Problem #2 Pain OT Goal 1 Goal / Goal Update 1. Patient to report reduced (R) hand pain to 2/10 or less with ADLs. ---OT POC UPDATE 10/21/24--- 1. Progressing, but not met, continue goal ---OT POC UPDATE 11/19/24--- 1. Not met, continue to treat pain Target Visit 18 OT Problem 3 OT Problem #3 Impaired Flexibility OT Goal 1 Goal / Goal Update 1. Patient to improve functional flexibility of the right wrist for improved tissue mobility and improved ROM for ADLs as measured by increasing (R ) wrist extension from 15 degrees to 40 degrees. ---OT POC UPDATE 10/21/24--- 1. Met ---OT POC UPDATE 11/19/24--- 1. Inconsistently met, today she is having more pain and swelling limiting ROM Target Visit 18 OT Problem 4 OT Problem #4 Impaired Strength OT Goal 1 Goal / Goal Update 1. Patient to increase functional strength of the right hand to return to functional gripping/ pinching for ADLs as measured by being able to progress to gonzalez putty for table hand/pinch strengthening . 2. Patient to increase (R) wrist strength for ADLs as measured by being able to complete strengthening with 1 lb. free weight x20 reps in all planes. ---OT POC UPDATE 10/21/24--- 1. Met, progress to red 2. Progressing, but not met, continue ---OT POC UPDATE 11/19/24--- 1. Not met, table hand strength measuring 7 lbs. today, continue to progress to red as tolerated to increase functional table hand strength 2. Inconsistently met, unable to tolerate strengthening the last 2 weeks, continue goal Target Visit 18
--- NOTE | 2024-12-18 11:57 | OTOPDC ---
Assessment and note entered by Parag Ennis, ROLANDA/[place], CHT Assessment Status Discharge Diagnosis Carpal tunnel syndrome, bilateral upper limbs ICD-10 Condition Codes (OT) Pain in right hand M79.641 Subjective Information HPI: Patient reports she had bilateral carpal tunnel release ~20 years ago. She underwent revision of the right carpal tunnel in July. During that time she also had A1 courtney release of the right thumb and right cubital tunnel release. Patient reports she feels as though her progress is plateauing. She reports her hand is constantly aching, reporting 4-5/10 pain at all time. Patient reports no change in her function to be able to pst supervisor during ADLs. She does note the tingling has progressed from being constant to intermittent . She does note she has some tingling in the finger tips right now due to driving here. She reports she continues to be unable to open a new jar. She reports she gets relief from therapy sessions, but the pain comes back. ROM: - right wrist extension 30 deg. (unchanged from last month), passive is WNL - wrist wrist flexion 40-45 deg. (unchanged from last month) - finger and thumb ROM is WNL Strength: - (R) pst supervisor strength improved from 4 to 13 lbs. - (L) pst supervisor strength measures 12 lbs. Reported Pain Level Pain Score 4: Self Report Additional Pain Score Comments Prolonged or heavy activity causes the pain to increase to 6/10 at times. At best the hand pain gets down to is 3/10. Assessment OT Clinical Summary Patient referred to OT following right open carpal tunnel release revision and A1 courtney release of the right thumb. The right thumb has progressed to normal ROM and no pain. She continues to have constant wrist/carpal tunnel pain. Her pain numbers have unfortunately remained unchanged in the last month, ranging from 4-5/10 with ADLs/use. We have gone back to basics with therapy - tendon glides and nerve glides. We have stopped pst supervisor/pinch strengthening and wrist strengthening due to pain and increased paresthesia with these exercises. The relief she receives from therapy is temporary. At this time patient appears to have reached a progress plateau. She is independent with all materials to continue to her own. Advised that she progresses back to putty and wrist strengthening as pain and symptoms allow. D/C OT. Plan of Care OT Services Indicated No
--- NOTE | 2024-12-18 11:58 | OPREHPOC ---
Outpatient Therapy Plan of Care This is a Multidisciplinary Plan of Care that may contain components documented by all disciplines (PT, OT, and ST.) OT Problem 1 OT Problem #1 Knowledge Deficit OT Goal 1 Goal / Goal Update 1. Patient to be independent with instructed materials. ---OT POC UPDATE 10/21/24--- 1. Met, continue as HEP is progressed ---OT POC UPDATE 11/19/24--- 1. Met, continue as HEP is progressed ---OT D/C 12/18/24--- 1. Met Target Visit 18 OT Problem 2 OT Problem #2 Pain OT Goal 1 Goal / Goal Update 1. Patient to report reduced (R) hand pain to 2/10 or less with ADLs. ---OT POC UPDATE 10/21/24--- 1. Progressing, but not met, continue goal ---OT POC UPDATE 11/19/24--- 1. Not met, continue to treat pain ---OT D/C 12/18/24--- 1. Not met Target Visit 18 OT Problem 3 OT Problem #3 Impaired Flexibility OT Goal 1 Goal / Goal Update 1. Patient to improve functional flexibility of the right wrist for improved tissue mobility and improved ROM for ADLs as measured by increasing (R ) wrist extension from 15 degrees to 40 degrees. ---OT POC UPDATE 10/21/24--- 1. Met ---OT POC UPDATE 11/19/24--- 1. Inconsistently met, today she is having more pain and swelling limiting ROM ---OT D/C 12/18/24--- 1. Not met Target Visit 18 OT Problem 4 OT Problem #4 Impaired Strength OT Goal 1 Goal / Goal Update 1. Patient to increase functional strength of the right hand to return to functional gripping/ pinching for ADLs as measured by being able to progress to gonzalez putty for electric motor assembler and tester/pinch strengthening . 2. Patient to increase (R) wrist strength for ADLs as measured by being able to complete strengthening with 1 lb. free weight x20 reps in all planes. ---OT POC UPDATE 10/21/24--- 1. Met, progress to red 2. Progressing, but not met, continue ---OT POC UPDATE 11/19/24--- 1. Not met, electric motor assembler and tester strength measuring 7 lbs. today, continue to progress to red as tolerated to increase functional electric motor assembler and tester strength 2. Inconsistently met, unable to tolerate strengthening the last 2 weeks, continue goal ---OT D/C 12/18/24--- 1. Not met due to pain, electric motor assembler and tester strength did progress to 13 .bs 2. No tmet due to pain Target Visit 18
== END 2024-12-18 15:01 | disposition home or self-care (01) ==
LOC: ANHGOSHOT 11:15
PROVIDERS: PCP Family Medicine; Visit Provider Plastic Surgery
DX: G56.03 Carpal tunnel syndrome, bilateral upper limbs (principal)
CPT/HCPCS: 97018; 97035; 97110; 97112; 97140; 97165